=== PATIENT | female | born 1955 | race Caucasian/White ===

== ENCOUNTER → 2020-06-01 09:15 | Outpatient (BNVA) | payer MEDICARE, SELFPAY | PROVIDERS: Family Provider Family Medicine; PCP Family Medicine; Visit Provider Dermatology | DX: L90.0 Lichen sclerosus et atrophicus (principal); L98.9 Disorder of the skin and subcutaneous tissue, unspecified; B37.2 Candidiasis of skin and nail; F17.210 Nicotine dependence, cigarettes, uncomplicated | CPT/HCPCS: 99203; 99204 ==

== ENCOUNTER → 2020-07-26 13:00 | Outpatient (BNVA) | payer MEDICARE, SELFPAY | PROVIDERS: Family Provider Family Medicine; PCP Family Medicine; Visit Provider Dermatology | DX: L90.0 Lichen sclerosus et atrophicus (principal); L98.9 Disorder of the skin and subcutaneous tissue, unspecified; B37.2 Candidiasis of skin and nail; F17.210 Nicotine dependence, cigarettes, uncomplicated | CPT/HCPCS: 99213 ==

== ENCOUNTER 2020-11-29 08:00 | Outpatient (CLI) | payer MEDICARE, SELFPAY ==
--- NOTE | 2020-11-29 08:10 | XR_ITS ---
WS: [id number] RIGHT KNEE: 3 VIEW(S) TECHNIQUE: AP, oblique(s) and lateral. HISTORY: R KNEE PAIN COMPARISON: 09/27/2009 No fracture or dislocation. Mild narrowing of the medial compartment with small osteophytes. Lucency along the joint surface of t he medial femoral condyle measures 8 mm. No joint effusion. No soft tissue abnormality. XR/XR knee RT 3V* [id number] IMPRESSION: 1. Mild narrowing medial compartment. 2. Medial femoral condyle lucencies probably a developing osteochondral lesion . Not definitely seen on the prior study from 2008.
== END 2020-11-29 08:01 | disposition home or self-care (01) ==
PROVIDERS: PCP Family Medicine; Visit Provider Family Medicine
DX: M25.561 Pain in right knee (principal)
CPT/HCPCS: 73562

== ENCOUNTER 2023-03-05 08:22 | Outpatient (CLI) | payer MEDICARE, SELFPAY ==
--- NOTE | 2023-03-05 08:45 | XR_ITS ---
WS: [id number] Bilateral hips, 2 views each, AP pelvis, 03/05/2023 Clinical Data: LEFT HIP PAIN Comparison: None. Findings: Both hips show severe osteoarthritic change with narrowing, sclerosis and cyst formation. There are n o fractures or dislocations. The SI joints and pubic symphysis are normal. XR/XR hip BI m 5V wo/w pel* [id number] Impression: Severe osteoarthritic change of both hips.
--- NOTE | 2023-03-05 08:45 | XR_ITS ---
WS: [id number] Right knee, 3 views, 03/05/2023 Clinical Data: R KNEE PAIN Comparison: Right knee, 11/29/2020 Findings: No fractures or dislocations are seen. There is narrowing of the medial joint compartment with spurri ng of the medial tibial plateau. The medial femoral condyle demonstrates a possible osteochondral def ect. There is a spur of the lateral femoral condyle. There is a small spur of the posterior superior patella. The soft tissues are normal. XR/XR knee RT 3V* [id number] Impression: Mild osteoarthritis of the right knee. Kellgren-Mo Classification: grade 2 (minimal): definite osteophytes and p ossible joint space narrowing
--- NOTE | 2023-03-05 08:45 | XR_ITS ---
WS: [id number] Left knee, 3 views, 03/05/2023 Clinical Data: L KNEE PAIN Comparison: Left knee, 01/10/2016. Findings: No fractures or dislocations are seen. There is medial joint compartment narrowing with spurring of t he medial tibial plateau and medial femoral condyle. There is spurring of the posterior left patella. The soft tissues are unremarkable. XR/XR knee LT 3V* [id number] Impression: Mild osteoarthritis of the left knee. Kellgren-Mo Classification: grade 2 (minimal): definite osteophytes and p ossible joint space narrowing
== END 2023-03-05 08:23 | disposition home or self-care (01) ==
LOC: RAD 08:33
PROVIDERS: PCP Family Medicine; Visit Provider Family Medicine
DX: M25.552 Pain in left hip (principal); M25.562 Pain in left knee; M25.561 Pain in right knee; M17.0 Bilateral primary osteoarthritis of knee; M16.6 Other bilateral secondary osteoarthritis of hip
CPT/HCPCS: 73523; 73562

== ENCOUNTER → 2023-03-19 14:22 | Outpatient (BNVA) | payer MEDICARE, SELFPAY | PROVIDERS: PCP Family Medicine; Referring Provider Family Medicine; Visit Provider Orthopaedic Surgery | DX: M16.12 Unilateral primary osteoarthritis, left hip (principal) | CPT/HCPCS: 80048; 85025; 99213 ==

== ENCOUNTER → 2023-04-22 12:32 | Outpatient (BNVA) | payer MEDICARE, SELFPAY | PROVIDERS: PCP Family Medicine; Visit Provider Internal Medicine | DX: I48.20 Chronic atrial fibrillation, unspecified (principal); Z95.0 Presence of cardiac pacemaker; Z01.818 Encounter for other preprocedural examination; E03.9 Hypothyroidism, unspecified; J41.0 Simple chronic bronchitis; F17.210 Nicotine dependence, cigarettes, uncomplicated; I45.19 Other right bundle-branch block | CPT/HCPCS: 93005; 99204 ==

== ENCOUNTER 2023-05-08 06:27 | Outpatient (CLI) | payer MEDICARE, SELFPAY ==
--- NOTE | 2023-05-08 | ECG_ITS ---
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 Interpretive Statements NAME OF STUDY: LEXISCAN SESTAMIBI STRESS TEST INDICATION: [Chest Pain] Procedure: At the baseline, the blood pressure was 128/90 mmHg with a heart rate of 61 bpm. The electrocardiogram showed normal sinus rhythm, incomplete right bundle branch block with nonspecific ST-T wave changes. The Lexiscan was infused over a period of 20 seconds. A total of 0.4 mg of Lexiscan was infused. The stress phase was continued for a total of 5 minutes. Heart rate was at the end of stress phase was 69 bpm and a blood pressure of 145/62 mmHg. The EKG at the peak infusion revealed normal sinus rhythm with no significant ST-T wave changes. Sestamibi was injected 20 seconds after the Lexiscan infusion. Blood pressure at the end of recovery phase was 105/55 mmHg with a heart rate of 62 bpm. Conclusion: 1. Normal EKG response to Lexiscan infusion 2. No Lexiscan induced chest pain or cardiac arrhythmia. 3. Normal blood pressure and heart rate response. 4. Sestamibi/sestamibi perfusion scan pending; see separate report. Electronically Signed On 05-08-2023 12:36:37 CDT by Tyrese Mays M.D. [id number]
[2023-05-08 06:35] VITALS: BMI 37.3
--- NOTE | 2023-05-08 07:19 | NMCV_ITS ---
NM lakeisha perf SPECT r/s* [id number] Claudia Marie Age: 68 Gender: F : 1955 Exam Date: 05/08/2023 07:59 Ordering Phys: Tyrese Mays M.D ([email or web address]) Technologist: FRANK Long Exam Location: [facility] Indications: CHEST PAIN, PRE OP STRESS TEST Please see separate stress test report in [facility] for full findings IMAGE PROTOCOL Rest/Stress 1 Lexiscan Day Radiopharmaceutical Dose (mCi) Administration Site Administered by Rest: Tc-99m 10.9 IV FRANK Alegre Sestamibi Stress:Tc-99m 33.0 IV FRANK Alegre Sestamibi Rest: 08-May-2023 60 Discovery 630 Stress: 08-May-2023 30 Discovery 630 0.4mg Lexiscan. Supine position only as patient was unable to lay prone. SPECT RESULTS Technical Quality: Excellent Raw Data Analysis: Normal Image Corrections: No attenuation or motion correction applied Summed Stress Score: 3 Summed Rest Score: 2 Summed Difference Score: 2 PERFUSION FINDINGS There is small in size fixed perfusion defect noted in apical lateral wall. 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 Small area of partially reversible perfusion defect is seen in apical inferior wall. This is consistent with small area of prior infarct with minimal valarie-infarct ischemia in RCA territory. FUNCTIONAL RESULTS (calculated via Gated SPECT) Stress Image LV EF (%): 70 Stress EDV (mL):96 TID: 1.09 Stress ESV (mL):29 FUNCTIONAL FINDINGS: There is normal left ventricular systolic function. IMPRESSIONS 1. 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 No evidence of ischemia seen. 2. Small area of prior infarct with minimal valarie-infarct ischemia seen in RCA territory. 3. LV systolic function is normal. Tyrese Mays MD (Electronically Signed) Final Date: 08 May 2023 12:34 S
[2023-05-08] MEDS: regadenoson 0.4 Mg/5 ml Syringe IVP (08:48)
[2023-05-08 09:07] VITALS: BP 105/55; PULSE 72
== END 2023-05-08 06:28 | disposition home or self-care (01) ==
LOC: CDL 06:27
PROVIDERS: PCP Family Medicine; Visit Provider Internal Medicine
DX: R07.9 Chest pain, unspecified (principal); I25.2 Old myocardial infarction
CPT/HCPCS: 36415; 78452; 93017; 96374; A9500; J2785

== ENCOUNTER → 2023-05-16 07:04 | Outpatient (BNVA) | payer MEDICARE, SELFPAY | PROVIDERS: PCP Family Medicine; Visit Provider Student in an Organized Health Care Education/Training Program | DX: M16.12 Unilateral primary osteoarthritis, left hip (principal) | CPT/HCPCS: 99204 ==

== ENCOUNTER 2023-05-24 10:07 | Outpatient (CLI) | payer MEDICARE, SELFPAY | END 2023-05-24 10:08 | disposition home or self-care (01) | LOC: LAB 10:10 | PROVIDERS: PCP Family Medicine; Visit Provider Student in an Organized Health Care Education/Training Program | DX: Z01.818 Encounter for other preprocedural examination (principal) | CPT/HCPCS: 36415; 80053; 85025 ==

== ENCOUNTER 2023-05-27 12:36 | Outpatient (CLI) | payer MEDICARE, SELFPAY ==
[2023-05-27 13:05] LABS: Add Urine Microscopic? YES; Amorphous Sediment Urine 1+ /hpf; Bacteria Urine TRACE /hpf; Bilirubin Urine Neg (Negative); Blood Urine 2+ (Negative); Glucose Urine UA Norm (Normal); Ketones Urine Negative (Negative); Leukocyte Esterase Urine Trace (Negative); Mucus Urine 2+ /hpf; Nitrate Urine Negative (Negative); Protein Urine Neg (Negative); RBC Urine 0-4 /hpf (0-2); Urine Appearance SL Hazy (CLEAR); Urine Color Yellow (Yellow); Urobilinogen Urine 1 mg/dL (Negative); WBC Urine 0-4 /hpf (0-5); pH Urine 5 (5-7)
[2023-05-27 13:06] LABS: Add Urine Culture? No
--- NOTE | 2023-05-27 13:30 | CT_ITS ---
WS: [id number] CT LEFT HIP NONCONTRAST TECHNIQUE: Noncontrast CT of the LEFT hip to include the LEFT knee. [facility] CLINICAL INFORMATION: hip pain COMPARISON: None. DLP: [address] scans at [facility] use at least one of these dose optimization techniques: automated e xposure control; mA and/or kV adjustment per patient size (includes targeted exams where dose is matc hed to clinical indication); or iterative reconstruction. FINDINGS: Advanced degenerative arthritis both hips with joint space narrowing worse in the LEFT and associated subchondral cystic change. Associated periarticular sclerosis involving the femoral heads and acetab ulum bilaterally. Hypertrophic spurring and osteophytes about the acetabulum bilaterally. Hypertrophi c changes involving both femoral heads. Moderate LEFT greater than RIGHT joint effusions with synovia l thickening. Fluid in the LEFT iliopsoas and greater trochanteric bursa. Advanced facet arthropathy lower lumbar spine. Pubic rami appear intact. Sigmoid diverticulosis. Tiny fat-containing umbilical hernia. CT/CT hip LT [facility] IMPRESSION: Images obtained for preoperative purposes.
== END 2023-05-27 12:37 | disposition home or self-care (01) ==
PROVIDERS: PCP Family Medicine; Visit Provider Student in an Organized Health Care Education/Training Program
DX: Z01.818 Encounter for other preprocedural examination (principal); M16.0 Bilateral primary osteoarthritis of hip; M25.752 Osteophyte, left hip; M25.751 Osteophyte, right hip
CPT/HCPCS: 73700; 81001

== ENCOUNTER 2023-06-05 17:01 | Observation (INO) | payer MEDICARE, SELFPAY ==
[2023-06-05] VITALS (10 sets, daily range): BP systolic 93–148; BP diastolic 43–87; PULSE 60–76; RESP 16–20; TEMP 36.1–36.6; O2SAT 92–99; BMI 37.4
[2023-06-05] MEDS: lactated ringers 500 ML IV (12:12)
[2023-06-05] MEDS: sodium chloride 0.9% 1,000 ML 30 ML IV (12:13)
[2023-06-05] MEDS: midazolam 1 mg/mL INJ 2 mL 2 MG IVP (12:45)
[2023-06-05 13:15] LABS: Specific Gravity, Urine 1.015 (1.005-1.030); Urine Appearance Clear (CLEAR); Urine Color Yellow (Yellow); pH Urine 6.5 (5-7)
--- NOTE | 2023-06-05 13:15 | P.ANESUD_ITS ---
Pre-Anesthetic Update Pre-Anesthetic Assessment: Date of Surgery/Procedure: 06/05/23 Preop Penelope gnosis: Osteoarthritis left hip Proposed Procedure: Operation Date: 06/05/23 12:55 Proposed Procedures p left total hip arthroplasty/ 04806,M16.0(Left) - Mitesh Nelson, DO Any changes to Pre-Anesthetic Assessment?: No Last Intake: Intake Last Liquid Date 06/04/23 Last Liquid Time 21:30 Last Solid Date 06/04/23 Last Solid Time 21:30 Labs Last 48hrs: Blood Bank 06/05/23 11:31 Blood Type B Positive Rho(D) Type Positive Antibody Screen Negative Vitals: Temperature 97.8 F 06/05/23 11:39 Temperature Source Temporal Artery S can 06/05/23 11:39 Pulse Rate 76 06/05/23 11:39 Respiratory Rate 18 06/05/23 11:39 Blood Pressure 133/87 06/05/23 11:39 Blood Pressure Lesli n 102 06/05/23 11:39 Pulse Oximetry 96 06/05/23 11:39 Oxygen Delivery Me thod Room Air 06/05/23 11:39 Exam: Pre-Anes Outpt Exam: alert, oriented x 3, clear to auscultation bilaterally and regular rate & rhythm Cardiac Studies: Sestamibi Stress Test (Cardiology) 05/08
[2023-06-05 13:16] LABS: Add Urine Culture? No; Add Urine Microscopic? YES; Amorphous Sediment Urine 1+ /hpf; Bilirubin Urine Neg (Negative); Blood Urine Trace (Negative); Glucose Urine UA Norm (Normal); Ketones Urine Negative (Negative); Leukocyte Esterase Urine Negative (Negative); Mucus Urine 3+ /hpf; Nitrate Urine Negative (Negative); Protein Urine Neg (Negative); RBC Urine 0-4 /hpf (0-2); Squamous Epithelial Cell Urine 0-4 /hpf (0-5); Urobilinogen Urine 4 mg/dL (Negative); WBC Urine 0-4 /hpf (0-5)
[2023-06-05] MEDS: acetaminophen 1,000 MG/100 ML PIGGYBACK 400 MG IV ×2 (13:22→22:15)
[2023-06-05] MEDS: ketorolac 30 mg/mL INJ IVP (13:24)
--- NOTE | 2023-06-05 13:35 | W.PM.OPSUD ---
Surgery/Procedure H&P Update DATE OF PROCEDURE: June 05, 2023 DATE H&P PERFORMED: 05/16/23 CHANGES TO PREVIOUS DOCUMENTATION: None. No change in night patient's HPI since previous office visit. Patient is cleared preoperative clearing process with her preoperative clinic. Patient's a.m. urine has no bacteria this point in time patient is cleared to proceed with surgical intervention. She understands the risk benefits complications and alternatives with surgical nonsurgical treatment options this point time elects to proceed with a left total hip arthroplasty. All questions answered PREOP DIAGNOSIS: Osteoarthritis left hip PRIMARY INDICATION FOR PROCEDURE: Left hip osteoarthritis PLANNED PROCEDURE: Operation Date: 06/05/23 12:55 Proposed Procedures p left total hip arthroplasty/ 93079,M16.0(Left) - Mitesh Nelson DO
[2023-06-05] MEDS: ceFAZolin 2,000 MG in sodium chloride 0.9% (plus) 50 ML 100 MG IV ×2 (14:20→22:35)
[2023-06-05] MEDS: vancomycin 1,000 MG SDV 1000 MG XX ×2 (15:51)
--- NOTE | 2023-06-05 16:38 | XRR_ITS ---
PROCEDURE INFORMATION: Exam: XR Left Hip Exam date and time: 06/05/2023 5:08 PM Age: 68 years old Clinical indication: Hip pain; Left hip; Additional info: Post op left kaitlin, do in pacu TECHNIQUE: Imaging protocol: Radiologic exam of the left hip. Views: 2 or 3 views hip with pelvis when performed. COMPARISON: CT hip LT [facility] 05/27/2023 1:38 PM FINDINGS: Bones/joints: The patient has had a total left hip arthroplasty. On the AP view, a screw is seen projecting over the lateral margin of the ischium. It is not seen on the cross-table lateral view. Acetabular and femoral components are otherwise normal position. [place] bone is unremarkable. Soft tissues: Postoperative soft tissue changes are seen. XR/XR hip LT 2-3V wo/w pel* [id number] IMPRESSION: Postoperative left total hip arthroplasty findings as described above.
--- NOTE | 2023-06-05 16:40 | P.OP_ITS ---
Operative Report Date of procedure: June 05, 2023 Pre-op diagnosis: Preop Diagnosis Osteoarthritis left hip Procedure: Post-op diagnosis: Same Procedure done: Left total hip arthroplasty?Florin posterior approach Implants: Emery Trident TriTanium acetabular shell 54 mm Emery 6.5 mm acetabular screw 15 mm and 30 mm MDM liner 42 mm inner diameter polyethylene 36 mm inner diameter insert Emery Accolade II 127 degree size 4 Biolox ceramic femoral head 28 mm +4 mm offset with MDM liner of 28 mm x 48 mm outer diameter Surgeon: Mitesh Nelson DO Estimated blood loss: 300 mL IV fluids: See anesthesia record Complications: None Findings: See operative report narrative Condition: stable Disposition: floor Brief History: Patient was seen evaluate in the outpatient setting worked up for for left hip degenerative joint disease.? Gvoa-cs-yimt arthritis noted.? She is failed conservative treatment. We talked about her treatment options far as nonoperative and operative intervention.? This point time I feel that she would greatly benefit from a left total hip arthroplasty.? Given body habitus, she be a good candidate for a posterior approach left total hip arthroplasty utilizing Florin.? Document risk benefits complication alternatives surgical nonsurgical treatment options.? She understands and agrees to proceed with surgical intervention at this time.? All questions answered. Procedure: Patient was seen evaluate in preoperative holding area.? Consent was reviewed and signed with patient.? Correct extremity was then marked.? Patient seen evaluate by anesthesia department once cleared for surgery she was taken back to the operative suite.? She underwent spinal anesthesia per the anesthesia department.? This point time she was then placed on the operative suite and table.? She was then placed in lateral decubitus patient worked with the left hip up.? She was secured to the pegboard.? All bony prominences well-padded she was properly secured to the bed.? At this point time the right lower extremity was then prepped and draped in standard orthopedic fashion with care not to drape out the iliac wing for pelvic array placement.? Final timeout performed.? Patient received appropriate preoperative antibiotics. Started off with establishment of my pelvic array pins.? A small longitudinal incision was made directly over the iliac wing.? Sharp scalpel excision through skin and subcutaneous tissue directly onto bone.? Next I then loaded my pelvic pin.? This was then drilled through the iliac wing corridor with excellent fixation.? Next I then loaded the guide which was placed directly onto bone and then subsequently placed 2 more pins to secure fixation.? Next the pelvic array was then sent had excellent visualization with the Florin robot and was secured.? Next I proceeded with placing sterile EKG lead to the lateral thigh for distal reference marking point. Next I proceeded with my standard posterior approach.? Sharp scalpel through skin and subcutaneous tissue this was centered over the greater trochanter.? I then utilized a Diaz elevator over the gluteus shana fascia.? Next the fascia was then split longitudinally with bipolar electrocautery.? Next a Charnley retractor was then placed.? All bone was then placed into the abductors.? A standard full-thickness release of the piriformis and the short external rotators along with the capsule to grade 1 full thick sleeve for later repair was then placed straight down to the lesser trochanter.? Lesser trochanter was then subsequently identified.? Prior to dislocating the hip we then placed our greater trochanter femur checkpoint.? We marked our appropriate checkpoint for referencing on her pelvic array.? At this point in time we then established both of our checkpoints as well as her referencing for leg lengths I utilized the small square staple on the lateral aspect of the thigh to saúl my distal point.? The legs were marked and traced to have appropriate position on the drapes to allow for accurate reading.? Preoperative measurements were then taken utilizing [employer]. Once this was then established I then proceeded with dislocation of the femoral head.? At this point Hohmann's were then placed superiorly and inferiorly.? sciatic nerve was protected throughout this case.? At this point time I then utilized the Florin robot and referencing point to reference different aspects along the femoral head and neck for my appropriate neck length.? These were referenced on the inferior mid substance as well as up into the superior shoulder of the femoral neck.? This marked Subsequently oscillating saw was used to make my femoral neck cut.? Femoral head was removed. Next the leg was placed in appropriate position and my anterior and posterior acetabular retractors then placed.? Next I excised the labrum and then remove the pulse in our.? I did do a small release of the inferior capsule which was severely taut to allow for easier placement of my reamers as well as reduction.? Acetabulum was thoroughly irrigated.? Patient was found to have significant eburnated bone and loss of cartilage throughout the acetabulum consistent with severe ongv-td-ltho arthritis. At this point in time keeping my retractors in place. Then utilizing the Florin system plotted out multiple points on her inner aspects of the acetabulum as well as the outer aspects of the acetabulum as well as targeted my confirmation points to confirm appropriate registration of the acetabulum once this was done we were set for reaming. I subsequently loaded up the [employer] robot for my acetabular reaming I set my 54 reamer under the Florin robot and subsequently held this with appropriate preplanned preop planned version of 40 degrees of abduction angle as well as 20 degrees of anteversion.? I then subsequently reamed this to the appropriate depth.? We opened up the acetabular shell of the 54 mm Alo this was then loaded onto my impacting system and then I subsequently impacted this to appropriate depth.? This was then removed from the robot and I used the Florin probe at the center to confirm on the CT scan that this was down on bone which it was.? Next I then drilled and placed 2 acetabular screws with excellent fixation these were drilled and measured to be 30 and 15 mm this was in the posterior superior aspect of the acetabulum had excellent fixation.? The cup was solid with no evidence of plain had excellent press-fit fixation. Plan for MDM for added stability subsequently opened MDM cementless liner and impacted this into appropriate position which had excellent fixation. I then placed a sponge into the acetabulum to protect the liner while femur preparation was performed.? At this point time I then utilized a small rongeur to clear off the shoulder of the femoral neck to clear out the soft tissue envelope for my box osteotome.? Next box osteotome was used a canal finder was placed as well as a lateralizing rattail rasp.? Once I was appropriately lateralized I then sequentially broached up to a size 4 femoral stem.? This was impacted to appropriate depth and flushed with my femoral neck cut.? This point I performed multiple trials and and subsequently reduced the hip.? With multiple trials performed was determined a +4 mm offset was found to have appropriate leg lengths with the Florin robot. Patient appeared to have equal leg lengths clinically.? The hip was taken through range of motion and had excellent stability with hip flexion and internal rotation with no evidence of instability had an appropriate shuck.? This point time utilized the Florin probe from our femur checkpoint down to her distal checkpoint and this had appropriate leg lengths.? At this point I dislocated the hip and then called for my final implants.? Opened up a 127 degree size 4 femoral Accolade II stem.? My trials were then removed and then subsequently impacted my Accolade II stem to the same level.? Given this was at the same level I then opened up the final MDM 28 mm +4 mm ceramic femoral head which was impacted with an ADM/MDM liner which had a 28 mm inner diameter and 48 mm outer diameter.? This was impacted with excellent fixation and the hip was subsequently reduced.? We measured our final leg lengths which were appropriate patient had excellent stability in all ranges of motion.? This point time a robotic pins and checkpoints were removed.? I remove the femur checkpoint as well as my pelvic array and iliac wing pins.? Appropriate counts were then made.? This point time thoroughly irrigated the wound bed with pulse lavage.? Vancomycin powder was then sprinkled into the wound bed.? I then performed a standard capsular and external rotator repair utilizing #5 Ethibond and this was tied and repaired through bone tunnels hip was then kept in abduction external rotation 1 and subsequently closed the fascial layer with Ethibond suture as well as running strata fix suture.? I then closed the deep subcutaneous layer as well as superficial subcutaneous layer with running strata fix suture as well as 4-0 strata fix for skin.? Prineo glue dressing was then placed over the skin.? I then irrigated the pelvic array pin site.? There is were then closed with interrupted 0, 2-0 Vicryl suture and Monocryl as well as Prineo glue for the skin.? Incisions were then covered with Silverlon dressing for the iliac wing and the tenzin dressing was applied to the left hip.? Patient was awakened from anesthesia and taken to PACU in stable condition Disposition: Patient taken to PACU in stable condition.? She will receive appropriate discharge instructions as well as DVT prophylaxis and pain medication.? She will be admitted to the floor for observation should be evaluated by the internal medicine team for medical management.? Patient received appropriate DVT prophylaxis as well as pain medication PT/OT weightbearing as tolerated left lower extremity with posterior hip precautions.? We will follow-up with patient in the office in 2 weeks.? Patient understands agrees with current plan.? All questions answered.
--- NOTE | 2023-06-05 16:40 | P.PCN_ITS ---
PACU note Narrative: Patient taken to PACU in stable condition recovering well pain controlled. Patient received spinal anesthesia unable to assess motor or sensory postoperatively. Dressings are on in place clean dry and intact with tenzin dressing having good seal no saturation. Distal pulses are palpable toes are w arm well perfused compartments are soft and compressible. We will reassess motor and sensory tomorrow. Exam: awake Disposition: admitted
--- NOTE | 2023-06-05 16:40 | PM.OP2 ---
Brief Operative Note Date of procedure: 06/05/23 Pre-op diagnosis: Left hip degenerative joint disease Post-op diagnosis: same Procedure Done: Left total hip arthroplasty?Florin robotic assisted?posterior approach Surgeon: Mitesh Nelson Estimated blood loss (mL): 300 Complications: None Post-op Plan: Patient taken to PACU in stable condition recovering well. Will return to the floor postoperatively. Patient receive appropriate discharge instructions as well as pain medication DVT prophylaxis. Patient will receive postop DVT prophylaxis TXA postoperative pain control, postoperative antibiotics. PT/OT. Weightbearing as tolerated to the left lower extremity posterior hip precautions. Patient follow-up in the orthopedic office in 2 weeks upon discharge. Plan for likely discharge home discharge. Condition: stable Disposition: floor Coding Level of Care Code Acute Code for Leo Robbins
--- NOTE | 2023-06-05 17:16 | PM.CONSULT ---
Providers/Reason For Consult Consulting Physician/Specialty*: Dr. Nelson/orthopedics Reason for Consult*: Medical Management Attending Physician: Mitesh Nelson DO Primary Care Provider: Gemini Morris MD History of Present Illness History of Present Illness Pleasant 68-year-old lady with history of atrial fibrillation, on aspirin 81 mg normally, COPD, hypothyroidism, cigarette smoking, underwent left total hip arthroplasty electively due to osteoarthritis. Reportedly uneventful procedure, 300 mL EBL. With comorbidities hospitalist asked to consult. She is awake and alert after her surgery. She reports otherwise has been in baseline state of health. Not normally on oxygen. Uses a nebulizer as needed at home for COPD. On low-dose aspirin for atrial fibrillation. Had a stress test back in April without evidence of active ischemia with small area of prior infarct in LCx and small area of prior infarction with minimal valarie-infarct ischemia seen in RCA territory. Normal LV systolic function. Review of Systems Const: Denies: fever(s) or chills Card: Denies: chest pain, edema, pre-syncope or dyspnea on exertion Resp: Denies: dyspnea, productive cough, change in phlegm color or hemoptysis GI: Denies: abdominal pain, nausea, vomiting, diarrhea, constipation, hematochezia or melena Skin/Breast: Denies: new lesions Medications/Allergies Home Medications Medication Instructions Recorded Confirmed Last Taken Type albuterol sulfate 90 mcg/actuation 2 puff inhalation Q6H PRN sob 06/01/20 06/05/23 06/04/23 History aerosol inhaler (Ventolin HFA) aspirin 81 mg tablet,delayed 81 mg PO DAILY 06/01/20 06/05/23 05/27/23 History release (Aspir-) nebulizers #1 ea 06/01/20 05/16/23 Unknown History levothyroxine 125 mcg capsule 137 mcg PO DAILY 03/19/23 06/05/23 06/05/23 05:30 History Allergies Allergy/AdvReac Type Severity Reaction Status Date / Time hydromorphone [From Dilaudid] Allergy vomiting Verified 06/05/23 11:15 Current Medications Generic Name Dose Route Start Last Admin Trade Name Freq PRN Reason Stop Dose Admin Sodium Chloride 1,000 mls @ 30 mls/hr 06/05/23 11:30 06/05/23 12:13 Sodium Chloride 0.9% IV 06/06/23 11:29 30 mls/hr .Q24H RAFI Administration Midazolam HCl 2 mg 06/05/23 11:22 06/05/23 12:45 Midazolam 1 Mg/Ml Inj 2 Ml IVP 2 mg ONCE PRN Administration Preop Anxiety PFSH Acute PFSH: Medical History Afib Arrhythmia COPD (chronic obstructive pulmonary disease) Hypothyroidism Pre-op evaluation Tobacco dependence X 46 years Surgical History History of appendectomy History of cholecystectomy History of hernia repair History of left knee surgery History of pacemaker 2016 History of torn meniscus of right knee Hx of cataract surgery Hx of shoulder surgery Stenosis, cervical spine has cervical surgery with plate and [address] Family History Other Cancer Denies family history of Diabetes CAD (coronary artery disease) Clotting disorder Anesthesia complication Bleeding disorder Hypertension Social History Smoking and tobacco status: current some day smoker cigarettes [ Other cigarette details: 2 cig month max of 3 per day] Alcohol intake: current Alcohol intake frequency: few times a month Alcohol type: beer Substance/Drug Use: never Vitals/I&O/Wt Last Vital Signs Temp 97 F L 06/05/23 16:56 Pulse 76 06/05/23 17:14 Resp 16 06/05/23 17:14 BP 93/55 06/05/23 17:06 Pulse Ox 98 06/05/23 17:14 O2 Del Method Room Air 06/05/23 17:14 06/05/23 06/05/23 06/05/23 06:59 14:59 22:59 Intake Total 760 / 760 200 / 960 Output Total 600 / 600 Balance 760 / 760 -400 / 360 Weight last 48 hrs Weight 108.409 kg Physical Exam Const: COMMON NORMALS: patient oriented x3 and alert GENERAL APPEARANCE: cooperative ORIENTATION/CONSCIOUSNESS: Yes awake HENMT: COMMON NORMALS: oropharynx normal Neck/C-Spine: COMMON NORMALS: no JVD Resp: COMMON NORMALS: normal respiratory effort and clear to auscultation bilaterally AUSCULTATION: clear to auscultation bilaterally Cardio: COMMON NORMALS: no JVD, regular rhythm, S1 normal heart sound present, S2 normal heart sound present and No murmurs present (Cardio) RHYTHM: regular rhythm HEART SOUNDS: S1 normal heart sound present and S2 normal heart sound present GI: COMMON NORMALS: Normal to inspection, nondistended, normoactive bowel sounds present, Soft to palpation and non-tender PALPATION: Yes Soft to palpation Extremity: COMMON NORMALS: no joint enlargement and no pedal edema OTHER: Left hip postoperative dressing. No bruising or swelling. Neuro: COMMON NORMALS: patient oriented x3 and moves all extremities SENSORIUM/ORIENTATION: Yes alert Skin: OTHER: Areas under her breasts, on abdominal wall, upper thighs, and skin folds of lichenification, 2 areas with shallow ulceration/abrasion. Mild erythema. Mild malodor. No tunneling, undermining. No drainage. Urinary Catheter Management: Mallory: Cath Placed During This Visit: yes Urinary Catheter Date of Insertion: 06/05/23 Urinary Catheter Time of Insertion: 14:43 A&P Assessment and plan (1) S/P total hip arthroplasty: S/p elective left hip arthroplasty due to osteoarthritis. Reported uneventful procedure. EBL 300 mL. Discussed with her, follow-up CBC. Per discussion with orthopedics plan will be to return home tomorrow if everything goes well. Orthopedics planning Eliquis for VTE prophylaxis. Incentive spirometer. (2) Afib: Normally on aspirin. Previously declined anticoagulation. She would be okay with short-term anticoagulation for VTE prophylaxis as planned by orthopedics. Not on rate control medication. Cardiac monitoring perioperatively. Recheck chemistry for potassium, check magnesium. Reviewed cardiology note. Qualifiers: Atrial fibrillation type: unspecified chronic Qualified Code(s): I48.20 - Chronic atrial fibrillation, unspecified (3) COPD (chronic obstructive pulmonary disease): Not in the elevation. Uses nebulizer at home as needed. We will add nebulizer as needed. Qualifiers: COPD type: chronic bronchitis Chronic bronchitis type: simple Qualified Code(s): J41.0 - Simple chronic bronchitis (4) Hypothyroidism: Continue levothyroxine (5) Tobacco dependence: Discussed nicotine lozenges as needed for cravings. Encourage cessation. (6) Osteoarthritis of left hip: Qualifiers: Osteoarthritis type: primary Qualified Code(s): M16.12 - Unilateral primary osteoarthritis, left hip (7) Osteoarthritis of right knee: (8) History of pacemaker: Plan Areas of dermatitis: Reports chronic condition being diagnosed by dermatology as lichen sclerosus. At home uses hydrocortisone cream as needed. Areas under her breasts, on abdominal wall, upper thighs, and skin folds of lichenification, 2 areas with shallow ulceration/abrasion. Mild erythema. Mild malodor. With possible fungal superinfection. Possibly due to more perspiration in the summer. Discussed with her we will add some antifungal cream. Follow-up with dermatology. Possible CAD: With noted stress test results as above. Continue aspirin. May benefit from statin. Monitor blood pressure, heart rates for consideration of beta-jose enrique. Currently BP soft, 107/61. Consult Attestations Medical Necessity Statement: Continue postoperative care after total left hip arthroplasty in a lady with the above underlying comorbidities. Diagnoses S/P total hip arthroplasty Z96.649 Afib I48.20 Atrial fibrillation type: unspecified chronic COPD (chronic obstructive pulmonary disease) J41.0 COPD type: chronic bronchitis Chronic bronchitis type: simple Hypothyroidism E03.9 Tobacco dependence F17.200 Osteoarthritis of left hip M16.12 Osteoarthritis type: primary Osteoarthritis of right knee M17.11 History of pacemaker Z95.0
[2023-06-05] MEDS: chlorhexidine gluconate 0.12% Btl 473 mL 30 ML MUCOUS MEM ×2 (18:43→22:14)
[2023-06-05] MEDS: calcium carb-vit d 600mg/400unit 1 Tablet 1 EACH PO (18:43)
[2023-06-05] MEDS: lactated ringers 1,000 ML 100 ML IV (18:43)
[2023-06-05] MEDS: sennosides-docusate Tablet 2 TAB PO (18:44)
[2023-06-05] MEDS: miconazole 2% topical cream 28 gm 1 APPLIC TOPICAL (18:44)
[2023-06-05] MEDS: mupirocin oint 22 gm 1 APPLIC NASAL (18:44)
[2023-06-05] MEDS: iron polysaccharide complex 150 mg Capsule PO (18:44)
[2023-06-05] MEDS: oxyCODONE 5 mg IR Tab/Cap PO (20:51)
[2023-06-05] MEDS: ketorolac 30 mg/mL INJ 15 MG IVP (23:38)
[2023-06-06] VITALS (14 sets, daily range): BP systolic 104–149; BP diastolic 55–77; PULSE 60–76; RESP 16–20; TEMP 36.4–37; O2SAT 92–97
[2023-06-06] MEDS: oxyCODONE 5 mg IR Tab/Cap PO ×5 (01:28→19:26)
[2023-06-06] MEDS: ceFAZolin 2,000 MG in sodium chloride 0.9% (plus) 50 ML 100 MG IV ×2 (05:42→16:20)
[2023-06-06] MEDS: lactated ringers 1,000 ML 100 ML IV ×2 (05:45→20:44)
[2023-06-06 06:26] LABS: Basophils % 0.4 %; Eosinophils # 0.1 10^3/uL (0.0-0.8); Eosinophils % 1.6 %; Hematocrit 35.9 % (37.0-47.0); Hemoglobin 11.9 g/dL (11.5-15.3); Lymphocytes # 1.6 10^3/uL (0.8-4.8); Lymphocytes % 20.3 %; Mean Corpuscular HGB Conc 33.1 g/dL (30.0-36.0); Mean Corpuscular Hemoglobin 32.2 pg (28.0-34.0); Mean Platelet Volume 11.6 fL (7.4-10.4); Monocytes # 0.6 10^3/uL (0.2-0.9); Neutrophils # 5.47 10^3/uL (1.8-7.7); Neutrophils % 69.2 %; Nucleated Red Blood Cells % 0 %; Platelet Count 152 10^3/cmm (130-400); Red Cell Distribution Width 13.2 % (12.1-15.1); White Blood Count 7.9 10^3/uL (4.0-10.0)
[2023-06-06] MEDS: acetaminophen 1,000 MG/100 ML PIGGYBACK 400 MG IV ×2 (06:58→14:14)
[2023-06-06 07:07] LABS: Anion Gap 13.8 (5-19); Blood Urea Nitrogen 15 mg/dL (8-23); Calcium 8.3 mg/dL (8.5-10.5); Carbon Dioxide 24 mmol/L (22-29); Chloride 105 mmol/L (98-107); Glomerular Filtration Rate 99.1 mL/min (90-130); Glucose 109 mg/dL (65-115); Osmolality Calculated 289 mOsm/kg (285-295); Potassium 3.8 mmol/L (3.5-5.1); Sodium 139 mmol/L (136-145)
[2023-06-06 07:19] LABS: Magnesium 1.7 mg/dL (1.7-2.3)
[2023-06-06] MEDS: aspirin 81 mg EC Tablet PO (10:10)
[2023-06-06] MEDS: multivitamin therapeutic Tablet 1 TAB PO (10:11)
[2023-06-06] MEDS: iron polysaccharide complex 150 mg Capsule PO ×2 (10:11→17:39)
[2023-06-06] MEDS: levothyroxine 137 mcg Tablet PO (10:11)
[2023-06-06] MEDS: calcium carb-vit d 600mg/400unit 1 Tablet 1 EACH PO ×2 (10:12→17:39)
[2023-06-06] MEDS: miconazole 2% topical cream 28 gm 1 APPLIC TOPICAL ×2 (10:12→17:40)
[2023-06-06] MEDS: sennosides-docusate Tablet 2 TAB PO ×2 (10:12→17:38)
--- NOTE | 2023-06-06 10:29 | PC.CHAP ---
Pastoral Care Encounter/Spiritual Assessment Type of Contact [] Declined meat pumper visit [] Patient/Family/Request visit [] Outpatient visit [] Follow-up visit [] Physician referral [] Code/Alert [x] Routine visit [] Staff referral [] Actively dying [] Patient sleeping [] Family support [] [] Out of room [] Palliative care [] [x] Receiving care in room [] Pre-surgical visit [] Trauma [] Long length of stay [] ICU visit [] Other: Relational/Emotional Strength [x] Patient feels connected with others/family/visitors/staff [] Distress [] Loneliness/isolation [] Abandonment Spirituality of Patient [x] Person of [place] [] Attends Latter-Day of their [place] [x] Believes in Prayer [] Reads Bible or Worship materials [] There are Spiritual issues to be addressed Wind Up Worker Interventions [x] Prayer [x] Active listening [x] Non-anxious presence [x] Spiritual/emotional support [] Crisis/trauma care [x] Spiritual counseling [] Bereavement support [] Provided bereavement packet [] Provided Bible/devotional materials [] Provided toy/stuffed animal, coloring book to patient or family member [] Provided Communion [] Anointing/[place] [] Salvation [x] Completed spiritual assessment [] Other: Impact on Illness or Injury [] Angry [] Fearful [] Anxious [] Often cries [] Exhaustion [] Unable to work [] Unable to attend adventism [] Unable to walk/stand [] Unable to read [] Unable to drive [] Unable to eat/drink [] Unable to sleep [] Unable to be with family [] Patient intubated [] Other: Summary surgery on hip has some pain well need some rehab at home has a good attitude going home Time spent with patient 10 mins
[2023-06-06] MEDS: chlorhexidine gluconate 0.12% Btl 473 mL 30 ML MUCOUS MEM ×4 (10:40→20:45)
[2023-06-06] MEDS: mupirocin oint 22 gm 1 APPLIC NASAL ×2 (10:41→17:40)
--- NOTE | 2023-06-06 11:49 | P.PN_ITS ---
Subjective Subjective: Her left hip is sore but she otherwise doing well. Got up with therapy to the chair. She is using incentive spirometer. Denies trouble breathing. No other new developments. Vitals/I&O/Wt Last Vital Signs Temp 98.0 F 06/06/23 11:02 Pulse 60 06/06/23 11:02 Resp 17 06/06/23 11:02 BP 104/55 06/06/23 11:02 Pulse Ox 95 06/06/23 11:02 O2 Del Method Room Air 06/06/23 11:02 06/05/23 06/06/23 06/06/23 22:59 06:59 14:59 Intake Total 477.5 / 1237.5 1270 / 2507.5 460 / 460 Output Total 600 / 600 400 / 1000 Balance -122.5 / 637.5 870 / 1507.5 460 / 460 Weight last 48 hrs Weight 108.409 kg Physical Exam Narrative: Up in chair. Const: COMMON NORMALS: patient oriented x3 and alert GENERAL APPEARANCE: cooperative ORIENTATION/CONSCIOUSNESS: Yes awake HENMT: COMMON NORMALS: oropharynx normal Neck/C-Spine: COMMON NORMALS: no JVD Resp: COMMON NORMALS: normal respiratory effort and clear to auscultation bilaterally AUSCULTATION: clear to auscultation bilaterally Cardio: COMMON NORMALS: no JVD, regular rhythm, S1 normal heart sound present, S2 normal heart sound present and No murmurs present (Cardio) RHYTHM: regular rhythm HEART SOUNDS: S1 normal heart sound present and S2 normal heart sound present GI: COMMON NORMALS: Normal to inspection, nondistended, normoactive bowel sounds present, Soft to palpation and non-tender PALPATION: Yes Soft to palpation Extremity: COMMON NORMALS: no joint enlargement and no pedal edema Neuro: COMMON NORMALS: patient oriented x3 and moves all extremities SENSORIUM/ORIENTATION: Yes alert Urinary Catheter Management: Mallory: Cath Placed During This Visit: yes, but has since been removed by the nurse Reason for Continuing Indwelling Catheter: Acute Urinary Retention or Obstruction Urinary Catheter Date of Insertion: 06/05/23 Urinary Catheter Time of Insertion: 14:43 Date Urinary Catheter Removed: 06/06/23 Time Urinary Catheter Discontinued: 06:18 Data 06/06/23 05:04 06/06/23 05:04 A&P Assessment and plan (1) S/P total hip arthroplasty: Some pain in the left hip, otherwise doing well. Hemoglobin noted 11.9. Platelets 152. On Eliquis VTE prophylaxis. Mallory has been discontinued. Assessed by PT. Continue pain control. Follow-up CBC. Continue incentive spirometer. Reviewed orthopedic documentation. Discussed with case management. (2) Afib: Replace magnesium. 2 g IV. Recheck magnesium level. Supplement added to home medications. Normally on aspirin. Previously declined anticoagulation. She would be okay with short-term anticoagulation for VTE prophylaxis as planned by orthopedics. Continue cardiac monitoring perioperatively. Recheck chemistry for potassium, check magnesium. Qualifiers: Atrial fibrillation type: unspecified chronic Qualified Code(s): I48.20 - Chronic atrial fibrillation, unspecified (3) COPD (chronic obstructive pulmonary disease): Not in exacerbation. Uses nebulizer at home as needed. Continue nebulizer as needed. Qualifiers: COPD type: chronic bronchitis Chronic bronchitis type: simple Qualified Code(s): J41.0 - Simple chronic bronchitis (4) Hypothyroidism: Continue levothyroxine (5) Tobacco dependence: Discussed nicotine lozenges as needed for cravings. Encourage cessation. (6) Osteoarthritis of left hip: Qualifiers: Osteoarthritis type: primary Qualified Code(s): M16.12 - Unilateral primary osteoarthritis, left hip (7) Osteoarthritis of right knee: (8) History of pacemaker: Plan Areas of dermatitis: Reports chronic condition being diagnosed by dermatology as lichen sclerosus. At home uses hydrocortisone cream as needed. Areas under her breasts, on abdominal wall, upper thighs, and skin folds of lichenification, 2 areas with shallow ulceration/abrasion. Mild erythema. Mild malodor. With possible fungal superinfection. Possibly due to more perspiration in the summer. Continue miconazole. Follow-up with dermatology. Possible CAD: With noted stress test results as above. Continue aspirin. May benefit from statin. Monitor blood pressure, heart rates for consideration of beta-jose enrique. Currently BP soft, 104/55. Attestations Medical Necessity Statement*: Continue hospitalization for post left hip arthroplasty, optimization of pain control, discharge planning. Diagnoses S/P total hip arthroplasty Z96.649 Afib I48.20 Atrial fibrillation type: unspecified chronic COPD (chronic obstructive pulmonary disease) J41.0 COPD type: chronic bronchitis Chronic bronchitis type: simple Hypothyroidism E03.9 Tobacco dependence F17.200 Osteoarthritis of left hip M16.12 Osteoarthritis type: primary Osteoarthritis of right knee M17.11 History of pacemaker Z95.0
--- NOTE | 2023-06-06 13:06 | PM.PN ---
Subjective Subjective: Patient seen and examined this morning she is recovering well. She has been a little slower to progress with therapy and still requiring pain medications at this point time through shared decision making she does not feel very comfortable discharging today and and would like to discharge tomorrow. Given her slow her progress with some therapy I think in her safest and best interest for an additional day of therapy to see how she progresses and likely discharge home with home health care tomorrow. Patient understands agrees with current plan. All questions answered. No issues overnight. Pain controlled with medications. Vitals/I&O/Wt Last Vital Signs Temp 98.0 F 06/06/23 11:02 Pulse 60 06/06/23 11:02 Resp 17 06/06/23 11:02 BP 104/55 06/06/23 11:02 Pulse Ox 95 06/06/23 11:02 O2 Del Method Room Air 06/06/23 11:02 06/05/23 06/06/23 06/06/23 22:59 06:59 14:59 Intake Total 477.5 / 1237.5 1270 / 2507.5 700 / 700 Output Total 600 / 600 400 / 1000 Balance -122.5 / 637.5 870 / 1507.5 700 / 700 Weight last 48 hrs Weight 239 lb Physical Exam Narrative: Examination left hip abduction pillow is on in place. Patient spinal anesthesia is worn off she is able to wiggle her toes plantarflex and dorsiflex ankle sensations intact light touch distally. Distal pulses are palpable toes are warm well perfused. Ingrid dressing on in place to the left hip with good seal with no signs of saturation Silverlon dressing to the iliac wing pin sites are clean dry and intact. Normal postoperative swelling and ecchymosis about the left hip. Urinary Catheter Management: Mallory: Cath Placed During This Visit: yes, but has since been removed by the nurse Reason for Continuing Indwelling Catheter: Acute Urinary Retention or Obstruction Urinary Catheter Date of Insertion: 06/05/23 Urinary Catheter Time of Insertion: 14:43 Date Urinary Catheter Removed: 06/06/23 Time Urinary Catheter Discontinued: 06:18 Data 06/07/23 07:10 06/07/23 04:56 Other Labs: A.m. labs 06/06/2023 WBC count 7.9, hemoglobin 11.9 Xray Ortho: My impression: Postoperative hip x-rays demonstrate stable left total hip arthroplasty with appropriate implant positioning alignment and appropriate leg lengths. No evidence of periprosthetic fracture or dislocation. A&P Assessment and plan (1) S/P total hip arthroplasty: Plan Weight-bear as tolerated left lower extremity Posterior hip precautions Resume regular diet PT/OT DVT prophylaxis Completion of postoperative antibiotics and postoperative TXA Internal medicine on board for medical management Ingrid dressing on in place we will leave on for roughly 7 days postoperatively change as needed if saturated Pain control Ice as needed Orthopedics will continue to follow plan for likely discharge tomorrow as she will need another day today for therapy Attestations Medical Necessity Statement*: Postoperative care left total hip arthroplasty Coding Level of Care Code Acute Code for Chg Fwd Diagnoses S/P total hip arthroplasty Z96.649 Time Spent (min) 25
[2023-06-06] MEDS: TRAMadol 50 mg Tablet PO (13:22)
[2023-06-06] MEDS: magnesium sulfate premix 2 GM/50 ML PIGGYBACK IV (13:23)
[2023-06-06] MEDS: apixaban 5 mg Tablet 2.5 MG PO ×2 (13:23→17:39)
--- NOTE | 2023-06-06 15:25 | ANE.PACU2 ---
Inpatient post-anesthesia follow up: Airway intact: Yes Vital signs: Temperature 98.0 F Pulse Rate 60 Respiratory Rate 17 Blood Pressure 104/55 Pulse Oximetry 95 Oxygen Delivery Me thod Room Air Oxygen Flow Rate Fraction of Inspir ed Oxygen Hydration adequate: Yes Nausea and vomiting: No Pain level: 3 Mental status: Baseline
[2023-06-07] VITALS (10 sets, daily range): BP systolic 120–169; BP diastolic 70–86; PULSE 67–80; RESP 14–20; TEMP 36.5–37.1; O2SAT 90–95
[2023-06-07] MEDS: oxyCODONE 5 mg IR Tab/Cap PO ×3 (03:51→12:18)
[2023-06-07 06:16] LABS: Magnesium 1.6 mg/dL (1.7-2.3)
--- NOTE | 2023-06-07 06:51 | P.DS_ITS ---
Discharge Providers Date of Admission: 06/05/23 17:01 Date of Discharge: June 07, 2023 Attending Provider at Admission: Mitesh Nelson DO Attending Provider at Discharge: Mitesh Nelson DO Consults: Dr. Smith?internal medicine Primary Care Provider: Gemini Morris MD Diagnoses at Discharge Discharge Diagnosis (1) S/P total hip arthroplasty: Status: Acute (2) Afib: Status: Acute Qualifiers: Atrial fibrillation type: unspecified chronic Qualified Code(s): I48.20 - Chronic atrial fibrillation, unspecified (3) COPD (chronic obstructive pulmonary disease): Status: Acute Qualifiers: COPD type: chronic bronchitis Chronic bronchitis type: simple Qualified Code(s): J41.0 - Simple chronic bronchitis (4) Hypothyroidism: Status: Acute (5) Osteoarthritis of left hip: Status: Resolved Qualifiers: Osteoarthritis type: primary Qualified Code(s): M16.12 - Unilateral primary osteoarthritis, left hip (6) Osteoarthritis of right knee: Status: Acute (7) History of pacemaker: Status: Acute Permanent problem details: 2015 Reason for Visit Reason for Visit: M16.0 Brief History: Left total hip arthroplasty?Florin robotic assisted Hospital Course Hospital Course Patient was brought to the hospital through the preoperative holding area with plan for left total hip arthroplasty for left hip degenerative joint disease. Once cleared by anesthesia for surgery subsequently was taken back to the operative suite underwent? anesthesia per the anesthesia department and then underwent left total hip arthroplasty with Florin robotic assistance without any complications.? Patient was then subsequently taken back to PACU in stable condition recovering well.? Once recovered, patient was then subsequently admitted to the floor postoperatively.? Internal medicine was consulted for medical management assistance.? Patient weightbearing as tolerated to the left lower extremity, posterior hip precautions.? PT/OT.? Pain control.? DVT prophylaxis.? Postoperative antibiotics and TXA.?? Tenzin incisional VAC dressing was change as needed.? Internal medicine was on board and appreciate their medical management and assistance.Pt was determined on postoperative day 2 the patient was stable for discharge from orthopedic as well as internal medicine standpoint.? Patient's labs were monitored daily.?Patient will receive appropriate pain medication as well as DVT prophylaxis postoperatively.?? Appropriate discharge instructions as well.? Patient was then discharged in stable condition.? Patient will discharge home with home health care.? Pt will follow-up with Dr. Nelson in the office in 2 weeks.? Patient understands and agrees with current plan.? All questions answered.? Understands there is any issues or concerns and contact the office. Physical Exam Narrative: Examination left hip abduction pillow is on in place. Patient spinal anesthesia is worn off she is able to wiggle her toes plantarflex and dorsiflex ankle sensations intact light touch distally. Distal pulses are palpable toes are warm well perfused. Tenzin dressing on in place to the left hip with good seal with no signs of saturation Silverlon dressing to the iliac wing pin sites are clean dry and intact. Normal postoperative swelling and ecchymosis about the left hip. Urinary Catheter Management: Mallory: Cath Placed During This Visit: yes, but has since been removed by the nurse Reason for Continuing Indwelling Catheter: Acute Urinary Retention or Obstruction Urinary Catheter Date of Insertion: 06/05/23 Urinary Catheter Time of Insertion: 14:43 Date Urinary Catheter Removed: 06/06/23 Time Urinary Catheter Discontinued: 06:18 Discharge Data Studies Completed and Pending Completed Studies During Hospitalization Category Date Time Status XR hip LT 2-3V wo/w pel* [id number] Routine Exams 06/05/23 16:38 Completed Pending at discharge Category Date Time Status Basic Metabolic Panel AM LABS Lab 06/07/23 04:56 Received Basic Metabolic Panel AM LABS Lab 06/08/23 04:00 Ordered Complete Blood Count w/Auto AM LABS Lab 06/07/23 04:00 Ordered Complete Blood Count w/Auto AM LABS Lab 06/08/23 04:00 Ordered Radiology Impressions Hip/Pelvis X-Ray 06/05/23 16:38 IMPRESSION: Postoperative left total hip arthroplasty findings as described above. Laboratory Results WBC 7.9 10^3/uL (4.0-10.0) 06/06/23 05:04 RBC 3.70 10^6/uL (4.1-5.3) L 06/06/23 05:04 Hgb 11.9 g/dL (11.5-15.3) 06/06/23 05:04 Hct 35.9 % (37.0-47.0) L 06/06/23 05:04 MCV 97.0 fl (81-99) 06/06/23 05:04 MCH 32.2 pg (28.0-34.0) 06/06/23 05:04 MCHC 33.1 g/dL (30.0-36.0) 06/06/23 05:04 RDW 13.2 % (12.1-15.1) 06/06/23 05:04 Plt Count 152 10^3/cmm (130-400) 06/06/23 05:04 MPV 11.6 fL (7.4-10.4) H 06/06/23 05:04 Neut % (Auto) 69.2 % 06/06/23 05:04 Lymph % (Auto) 20.3 % 06/06/23 05:04 [place] % (Auto) 8.0 % 06/06/23 05:04 Eos % (Auto) 1.6 % 06/06/23 05:04 Baso % (Auto) 0.4 % 06/06/23 05:04 Neut # (Auto) 5.47 10^3/uL (1.8-7.7) 06/06/23 05:04 Lymph # (Auto) 1.6 10^3/uL (0.8-4.8) 06/06/23 05:04 [place] # (Auto) 0.6 10^3/uL (0.2-0.9) 06/06/23 05:04 Eos # (Auto) 0.1 10^3/uL (0.0-0.8) 06/06/23 05:04 Baso # (Auto) 0.0 10^3/uL (0.0-0.1) 06/06/23 05:04 Nucleated RBC % (auto) 0 % 06/06/23 05:04 Nucleated RBCs # 0.0 /100WBC 06/06/23 05:04 Sodium 139 mmol/L (136-145) 06/06/23 05:04 Potassium 3.8 mmol/L (3.5-5.1) 06/06/23 05:04 Chloride 105 mmol/L (98-107) 06/06/23 05:04 Carbon Dioxide 24 mmol/L (22-29) 06/06/23 05:04 Anion Gap 13.8 (5-19) 06/06/23 05:04 BUN 15 mg/dL (8-23) 06/06/23 05:04 Creatinine 0.6 mg/dL (0.5-0.9) 06/06/23 05:04 GFR Calculation 99.1 mL/min (90-130) 06/06/23 05:04 Glucose 109 mg/dL (65-115) 06/06/23 05:04 Calculated Osmolality 289 mOsm/kg (285-295) 06/06/23 05:04 Calcium 8.3 mg/dL (8.5-10.5) L 06/06/23 05:04 Magnesium 1.6 mg/dL (1.7-2.3) L 06/07/23 04:56 Urine Color Yellow (Yellow) 06/05/23 12:50 Urine Appearance Clear (CLEAR) 06/05/23 12:50 Urine pH 6.5 (5-7) 06/05/23 12:50 Ur Specific [place] 1.015 (1.005-1.030) 06/05/23 12:50 Urine Protein Neg (Negative) 06/05/23 12:50 Urine Glucose (UA) Norm (Normal) 06/05/23 12:50 Urine Ketones Negative (Negative) 06/05/23 12:50 Urine Blood Trace (Negative) H 06/05/23 12:50 Urine Nitrate Negative (Negative) 06/05/23 12:50 Urine Bilirubin Neg (Negative) 06/05/23 12:50 Urine Urobilinogen 4 mg/dL (Negative) H 06/05/23 12:50 Ur Leukocyte Esterase Negative (Negative) 06/05/23 12:50 Urine RBC 0-4 /hpf (0-2) H 06/05/23 12:50 Urine WBC 0-4 /hpf (0-5) H 06/05/23 12:50 Ur Squamous Epith Cells 0-4 /hpf (0-5) H 06/05/23 12:50 Amorphous Sediment 1+ /hpf 06/05/23 12:50 Urine Bacteria None /hpf (NONE) 06/05/23 12:50 Urine Mucus 3+ /hpf 06/05/23 12:50 Blood Type B Positive 06/05/23 11:31 Rho(D) Type Positive 06/05/23 11:31 Antibody Screen Negative 06/05/23 11:31 Procedures Performed Left total hip arthroplasty Florin robotic assisted this posterior approach Vitals Last Vital Signs Temp 98.1 F 06/07/23 04:00 Pulse 79 06/07/23 04:00 Resp 14 06/07/23 04:00 BP 135/70 06/07/23 04:00 Pulse Ox 93 06/07/23 04:00 O2 Del Method Room Air 06/07/23 04:00 Discharge Plan Discharge Patient Disposition: Home Health Service Condition: Stable Prescriptions: New miconazole nitrate 2 % Cream 1 applic topical BID 14 Days Qty: 30 1RF Calcium 600 + D(3) 600 mg-10 mcg (400 unit) tablet 1 tab PO DAILY 30 Days Qty: 30 0RF magnesium 250 mg tablet 250 mg PO DAILY Qty: 90 0RF Eliquis 2.5 mg tablet 2.5 mg PO BID 35 Days Qty: 70 0RF Calcium 600 + D(3) 600 mg-10 mcg (400 unit) tablet 1 tab PO DAILY 30 Days Qty: 30 0RF Percocet 5-325 mg tablet 1 tab PO Q6H PRN (Reason: pain) 7 Days Qty: 28 0RF ondansetron 4 mg tablet,disintegrating 4 mg PO Q8H 3 Days Qty: 9 0RF Continued albuterol sulfate [Ventolin HFA] 90 mcg/actuation HFA aerosol inhaler 2 puff INHALATION Q6H PRN (Reason: sob) (DME) nebulizers [facility] See Rx Instructions .ROUTE .MEDSUPPLY Qty: 1 Rx Instructions: As directed levothyroxine 137 mcg tablet 137 mcg PO DAILY aspirin 81 mg Tablet,Delayed Release (Dr/Ec) 81 mg PO DAILY Discharge Orders: Discharge Order (Routine); Ordered 06/07/23 Ordered By: Mitesh Nelson Other Ambulatory Orders: DME: Jacob (Order) Location: None Selected Ordered By: Mitesh Nelson Referrals: [facility] [place] Home Care ([facility]) [Outside] Gemini Morris MD [Primary Care Provider] - 06/17/23 10:30 am Mitesh Nelson DO [Physician] - 06/18/23 1:30 pm () Discharge Diet: Advance as tolerated Discharge Activity: Increase activity as tolerated, Limit activity as instructed, Use walker/crutches as instructed and As per PT/OT instructions Patient Instructions: Oxycodone/Acetaminophen (By mouth), Ondansetron (By mouth), Calcium Supplement (By mouth), Magnesium (By mouth), Apixaban (By mouth), Precautions after Total Joint Replacement Surgery (GEN), Total Hip Replacement (DC), Hip Abduction Pillow (GEN), Joint Replacement Stoplight, Opioid Safety Activity Restrictions/Additional Instructions: Orthopedic discharge instructions: Patient should leave tenzin dressing on in place for 5 to 7 days or until battery pack dies. This should remain on in place this full-time for 7 days and once battery dies this bandage can be removed Okay to shower with tenzin dressing on in place however remove and disconnect battery pack prior to shower Okay to change bandage if becomes 70% saturated utilizing spare bandage and then reconnect this to the battery pack After 5 to 7 days entire dressing should be taken down you are okay to clean incision with warm soapy water pat dry and redress with a sterile dry bandage dressing Patient may weight-bear as tolerated to the left lower extremity Posterior hip precautions (avoid hip flexion past 90 degrees as well as internal rotation, keep legs from midline and do not cross legs)-this is to prevent risk of dislocation Utilize crutches/walker as needed for ambulating Take pain medication as prescribed Take antinausea medication as needed Supplement with Citracal vitamin D for bone health and healing Take blood thinner (Eliquis) as prescribed for blood clot prevention Ice as needed for pain and swelling Follow-up with Dr. Nelson in the office in 2 weeks Contact the office for any questions or concerns Follow-up with your primary doctor and with dermatology regarding dermatitis. You are started on magnesium supplement due to magnesium level on the low side, 1.7. Please have your primary doctor follow-up magnesium levels. Please follow-up with your primary doctor and net coordinator for continued optimization of risk factors of coronary artery disease. Discharge Attestations Time Spent in Discharge Care*: less than 30 min Quality Metrics Clinical Quality Measures [ No reported AMI, CVA or VTE this stay] Coding Level of Care Code Acute Code for g Fwd Diagnoses S/P total hip arthroplasty Z96.649 Afib I48.20 Atrial fibrillation type: unspecified chronic COPD (chronic obstructive pulmonary disease) J41.0 COPD type: chronic bronchitis Chronic bronchitis type: simple Hypothyroidism E03.9 Osteoarthritis of left hip M16.12 Osteoarthritis type: primary Osteoarthritis of right knee M17.11 History of pacemaker Z95.0 Time Spent (min) 25
[2023-06-07 06:54] LABS: Anion Gap 14.4 (5-19); Blood Urea Nitrogen 10 mg/dL (8-23); Calcium 8.8 mg/dL (8.5-10.5); Carbon Dioxide 24 mmol/L (22-29); Chloride 103 mmol/L (98-107); Glucose 120 mg/dL (65-115); Osmolality Calculated 284 mOsm/kg (285-295); Potassium 4.4 mmol/L (3.5-5.1); Sodium 137 mmol/L (136-145)
[2023-06-07] MEDS: TRAMadol 50 mg Tablet PO (07:01)
[2023-06-07] MEDS: lactated ringers 1,000 ML 100 ML IV (07:01)
[2023-06-07 07:31] LABS: Basophils % 0.2 %; Eosinophils % 0.3 %; Hematocrit 37.4 % (37.0-47.0); Lymphocytes # 2.2 10^3/uL (0.8-4.8); Lymphocytes % 17.5 %; Mean Corpuscular HGB Conc 32.1 g/dL (30.0-36.0); Mean Corpuscular Hemoglobin 30.7 pg (28.0-34.0); Mean Corpuscular Volume 95.7 fl (81-99); Mean Platelet Volume 11.3 fL (7.4-10.4); Monocytes # 1.1 10^3/uL (0.2-0.9); Monocytes % 8.5 %; Neutrophils # 9.22 10^3/uL (1.8-7.7); Nucleated Red Blood Cells % 0 %; Platelet Count 151 10^3/cmm (130-400); Red Blood Count 3.91 10^6/uL (4.1-5.3); Red Cell Distribution Width 13.1 % (12.1-15.1); White Blood Count 12.7 10^3/uL (4.0-10.0)
[2023-06-07] MEDS: multivitamin therapeutic Tablet 1 TAB PO (08:21)
[2023-06-07] MEDS: calcium carb-vit d 600mg/400unit 1 Tablet 1 EACH PO (08:21)
[2023-06-07] MEDS: apixaban 5 mg Tablet 2.5 MG PO (08:22)
[2023-06-07] MEDS: sennosides-docusate Tablet 2 TAB PO (08:22)
[2023-06-07] MEDS: mupirocin oint 22 gm 1 APPLIC NASAL (08:23)
[2023-06-07] MEDS: aspirin 81 mg EC Tablet PO (08:23)
[2023-06-07] MEDS: chlorhexidine gluconate 0.12% Btl 473 mL 30 ML MUCOUS MEM (08:23)
[2023-06-07] MEDS: miconazole 2% topical cream 28 gm 1 APPLIC TOPICAL (08:24)
[2023-06-07] MEDS: iron polysaccharide complex 150 mg Capsule PO (08:30)
[2023-06-07] MEDS: levothyroxine 137 mcg Tablet PO (08:30)
--- NOTE | 2023-06-07 12:52 | P.PN_ITS ---
Subjective Subjective: States she is doing all right today. Asking about hip pain, still there, but not as bad as yesterday. Such she and orthopedic surgeon discussed plan to go home. She feels comfortable with that. Reports no trouble breathing. Redness on her abdomen at times dermatitis/excoriated areas is improving. Vitals/I&O/Wt Last Vital Signs Temp 97.7 F 06/07/23 11:57 Pulse 77 06/07/23 11:57 Resp 17 06/07/23 12:18 BP 120/70 06/07/23 11:57 Pulse Ox 95 06/07/23 11:57 O2 Del Method Room Air 06/07/23 08:45 06/06/23 06/07/23 06/07/23 22:59 06:59 14:59 Intake Total 1680 / 2380 1000 / 3380 120 / 120 Balance 1680 / 2380 1000 / 3380 120 / 120 Physical Exam Narrative: Up in chair. Const: COMMON NORMALS: patient oriented x3 and alert GENERAL APPEARANCE: cooperative ORIENTATION/CONSCIOUSNESS: Yes awake HENMT: COMMON NORMALS: oropharynx normal Neck/C-Spine: COMMON NORMALS: no JVD Resp: COMMON NORMALS: normal respiratory effort and clear to auscultation bilaterally AUSCULTATION: clear to auscultation bilaterally Cardio: COMMON NORMALS: no JVD, regular rhythm, S1 normal heart sound present, S2 normal heart sound present and No murmurs present (Cardio) RHYTHM: regular rhythm HEART SOUNDS: S1 normal heart sound present and S2 normal heart sound present GI: COMMON NORMALS: Normal to inspection, nondistended, normoactive bowel sounds present, Soft to palpation and non-tender PALPATION: Yes Soft to palpation Extremity: COMMON NORMALS: no joint enlargement and no pedal edema OTHER: Left hip postoperative dressing. No bruising or swelling. Neuro: COMMON NORMALS: patient oriented x3 and moves all extremities SENSORIUM/ORIENTATION: Yes alert Urinary Catheter Management: Mallory: Cath Placed During This Visit: yes, but has since been removed by the nurse Reason for Continuing Indwelling Catheter: Acute Urinary Retention or Obstruction Urinary Catheter Date of Insertion: 06/05/23 Urinary Catheter Time of Insertion: 14:43 Date Urinary Catheter Removed: 06/06/23 Time Urinary Catheter Discontinued: 06:18 Data 06/07/23 07:10 06/07/23 04:56 A&P Assessment and plan (1) S/P total hip arthroplasty: Still some pain but better than yesterday. Hemoglobin noted 12. Working with therapy. Returning home with follow-up with orthopedics. Eliquis VTE prophylaxis. Continue incentive spirometer. Reviewed orthopedic documentation. Discussed with case management in rounds. (2) Afib: Again hypomagnesemia, magnesium 1.6, requested replacement 4 g, however, IV infiltrated, she declined attempts at replacement of IV. Asked to double up on the magnesium dose if she can tolerate without diarrhea. Please follow-up ma gnesium level. Has been sinus rhythm. Normally on aspirin. Previously declined anticoagulation. She would be okay with short-term anticoagulation for VTE prophylaxis as planned by orthopedics. Continue cardiac monitoring perioperatively. Qualifiers: Atrial fibrillation type: unspecified chronic Qualified Code(s): I48.20 - Chronic atrial fibrillation, unspecified (3) COPD (chronic obstructive pulmonary disease): Not in exacerbation. Uses nebulizer at home as needed. Continue nebulizer as needed. Qualifiers: COPD type: chronic bronchitis Chronic bronchitis type: simple Qualified Code(s): J41.0 - Simple chronic bronchitis (4) Hypothyroidism: Continue levothyroxine (5) Tobacco dependence: Discussed nicotine lozenges as needed for cravings. Encourage cessation. (6) Osteoarthritis of left hip: Qualifiers: Osteoarthritis type: primary Qualified Code(s): M16.12 - Unilateral primary osteoarthritis, left hip (7) Osteoarthritis of right knee: (8) History of pacemaker: Plan Areas of dermatitis: Responding well to miconazole with superimposed fungal infection. Prescription given. Please reassess. Reports chronic condition being diagnosed by dermatology as lichen sclerosus. At home uses hydrocortisone cream as needed. Areas under her breasts, on abdominal wall, upper thighs, and skin folds of lichenification, 2 areas with shallow ulceration/abrasion. Mild erythema. Mild malodor. With possible fungal superinfection. Possibly due to more perspiration in the summer. Continue miconazole. Follow-up with dermatology. Possible CAD: Continue optimization of CAD risks. Blood pressure at goal. Please visit with her regarding consideration of statin. Attestations Medical Necessity Statement*: Returning home. Diagnoses S/P total hip arthroplasty Z96.649 Afib I48.20 Atrial fibrillation type: unspecified chronic COPD (chronic obstructive pulmonary disease) J41.0 COPD type: chronic bronchitis Chronic bronchitis type: simple Hypothyroidism E03.9 Tobacco dependence F17.200 Osteoarthritis of left hip M16.12 Osteoarthritis type: primary Osteoarthritis of right knee M17.11 History of pacemaker Z95.0
== END 2023-06-07 13:30 | disposition home health service (06) ==
LOC: MEDSURG 17:01
PROVIDERS: Internal Medicine; Admitting Provider Student in an Organized Health Care Education/Training Program; PCP Family Medicine; Visit Provider Student in an Organized Health Care Education/Training Program
PROC: (CPT 27130; principal; 2023-06-05 12:45)
DX: M16.12 Unilateral primary osteoarthritis, left hip (principal); I48.20 Chronic atrial fibrillation, unspecified; J41.0 Simple chronic bronchitis; Z79.82 Long term (current) use of aspirin; E03.9 Hypothyroidism, unspecified; F17.210 Nicotine dependence, cigarettes, uncomplicated; L30.9 Dermatitis, unspecified; Z95.0 Presence of cardiac pacemaker
CPT/HCPCS: 20985; 27130; 36415; 51702; 73502; 80048; 81001; 83735; 85025; 86850; 86900; 97116; 97161; 97165; 97530; 97535; A9281; C1713; C1776; G0378; J0131; J0690; J1885; J2250; J2371; J2704; J3370; J3475; J7030; J7120; P9045

== ENCOUNTER → 2023-06-18 14:00 | Outpatient (BNVA) | payer MEDICARE, SELFPAY | PROVIDERS: PCP Family Medicine; Visit Provider Student in an Organized Health Care Education/Training Program | DX: Z96.642 Presence of left artificial hip joint (principal) | CPT/HCPCS: 73502; 99024 ==

== ENCOUNTER → 2023-08-06 14:04 | Outpatient (BNVA) | payer MEDICARE, SELFPAY | PROVIDERS: PCP Family Medicine; Visit Provider Student in an Organized Health Care Education/Training Program | DX: Z96.642 Presence of left artificial hip joint (principal) | CPT/HCPCS: 73502; 99024 ==

== ENCOUNTER → 2024-02-13 10:01 | Outpatient (BNVA) | payer MEDICARE, SELFPAY | PROVIDERS: PCP Family Medicine; Visit Provider Physician Assistant | DX: M16.11 Unilateral primary osteoarthritis, right hip; Z96.642 Presence of left artificial hip joint; Z01.818 Encounter for other preprocedural examination | CPT/HCPCS: 36415; 73523; 80053; 81001; 85025; 99214 ==

== ENCOUNTER → 2024-02-25 08:08 | Outpatient (BNVA) | payer MEDICARE, SELFPAY | PROVIDERS: PCP Family Medicine; Visit Provider Family Medicine | DX: Z01.818 Encounter for other preprocedural examination (principal) | CPT/HCPCS: 81003; 93005 ==

== ENCOUNTER → 2024-03-04 10:13 | Outpatient (BNVA) | payer MEDICARE, SELFPAY | PROVIDERS: PCP Family Medicine; Visit Provider Family Medicine | DX: Z01.818 Encounter for other preprocedural examination (principal); Z79.899 Other long term (current) drug therapy | CPT/HCPCS: 81003 ==

== ENCOUNTER 2024-03-06 10:35 | Outpatient (CLI) | payer MEDICARE, SELFPAY ==
--- NOTE | 2024-02-28 10:30 | CT_ITS ---
WS: [id number] CT RIGHT hip, noncontrast HISTORY: DJD RIGHT HIP TECHNIQUE: Protocol for AN total hip replacement has been obtained. This includes axial imaging thr ough the RIGHT hip, RIGHT knee . DLP: 1442.62 mGy.cm COMPARISON: Radiograph 02/13/2024 Bones are mildly osteopenic. Severe joint space narrowing RIGHT hip with bone upon bone and osteophyt ic ridging around the acetabulum and femoral head and subchondral cysts. Bony protrusion at the femor al head and neck junction. Osteophyte at the greater trochanter. Prior LEFT hip arthroplasty. Minimal joint compartment arthritis medial RIGHT knee. IMPRESSION: CT imaging provided for [facility] robotic total knee replacement.
== END 2024-03-06 10:36 | disposition home or self-care (01) ==
LOC: RAD 10:36
PROVIDERS: PCP Family Medicine; Visit Provider Physician Assistant
DX: M16.11 Unilateral primary osteoarthritis, right hip (principal); M85.88 Other specified disorders of bone density and structure, other site; M71.351 Other bursal cyst, right hip
CPT/HCPCS: 73700

== ENCOUNTER 2024-03-09 15:59 | Observation (INO) | payer MEDICARE, SELFPAY ==
[2024-03-09] VITALS (21 sets, daily range): BP systolic 98–184; BP diastolic 45–95; PULSE 60–84; RESP 14–21; TEMP 35.2–36.5; O2SAT 90–100; BMI 39.6
[2024-03-09] MEDS: lactated ringers 500 ML IV (11:54)
[2024-03-09] MEDS: ketorolac 30 mg/mL INJ IVP (11:55)
[2024-03-09] MEDS: acetaminophen 1,000 MG/100 ML PIGGYBACK 400 MG IV ×2 (11:55→21:24)
--- NOTE | 2024-03-09 12:30 | W.PM.OPSUD ---
Surgery/Procedure H&P Update DATE OF PROCEDURE: March 09, 2024 DATE H&P PERFORMED: 02/25/24 H&P UPDATE INFORMATION: I have reviewed H&P completed within last 30 days, I have examined patient prior to procedure and No changes to prior documentation CHANGES TO PREVIOUS DOCUMENTATION: Patient had her pacemaker interrogated and per the patient is good for another 2 years until her battery runs out no other issues at this time she has had no change in her urinary symptoms and most recent UA checked showed no bacteria. This point in time she has been medically optimized through her preoperative clinic team she is ready to proceed with surgical intervention. She understands the ins outs procedure risk benefits complication alternatives of surgery and elects proceed with right total hip arthroplasty?Florin robotic assisted through a posterior approach. All questions answered. PREOP DIAGNOSIS: Right HIp DJD PRIMARY INDICATION FOR PROCEDURE: Right hip degenerative joint disease PLANNED PROCEDURE: Operation Date: 03/09/24 13:00 Proposed Procedures p Florin Robot Total Hip Arthroplasty(Right) - Mitesh Nelson DO
--- NOTE | 2024-03-09 12:32 | ANES.PREANE2 ---
Pre-Anesthetic Assessment Height/Weight: Height 1.7 m Weight 114.759 kg Temp Pulse Resp BP Pulse Ox O2 Del Method 97.2 F L 84 18 184/95 96 Room Air 03/09/24 11:36 03/09/24 11:36 03/09/24 11:36 03/09/24 11:36 03/09/24 11:36 03/09/24 11:53 Preop Diagnosis: Right HIp DJD Operation Date: 03/09/24 13:00 Proposed Procedures p Florin Robot Total Hip Arthroplasty(Right) - Mitesh Nelson DO Familial anesthetic complications: None Was Beta Sabina taken within 24 hours: N/A Was Clonidine taken within 24 hours: N/A Last intake: Intake Last Liquid Date 03/08/24 Last Liquid Time 19:00 Last Solid Date 03/08/24 Last Solid Time 19:00 Social Tobacco and No alcohol Exam alert, oriented x 3, clear to auscultation bilaterally and regular rate & rhythm Airway Mallampati: Class IV Dentition: false Pulmonary Chronic Obstructive Pulmonary Disease CV/HEM Atrial Fibrillation (pacemaker; not on anticoagulation) Metabolic Thyroid Disease Anesthetic Plan ASA status: 3 Anesthesia: Regional (specify below) Risk of > 500 ml blood loss (7ml/kg in children): No Medications/Allergies Home Medications Medication Instructions Recorded Confirmed Last Taken Type albuterol sulfate 90 mcg/actuation 2 puff inhalation Q6H PRN sob 06/01/20 03/06/24 03/07/24 History aerosol inhaler (Ventolin HFA) nebulizers #1 ea 06/01/20 02/13/24 Unknown History aspirin 81 mg tablet,delayed 81 mg PO DAILY 06/06/23 03/06/24 02/27/24 History release levothyroxine 137 mcg tablet 137 mcg PO DAILY 06/06/23 03/06/24 03/09/24 05:30 History Allergies Allergy/AdvReac Type Severity Reaction Status Date / Time hydromorphone [From Dilaudid] Allergy vomiting Verified 03/09/24 11:32 [facility] Anesthesia Medical History Pre-op evaluation Hypothyroidism Tobacco dependence X 46 years COPD (chronic obstructive pulmonary disease) Arrhythmia Afib Surgical History History of pacemaker 2016 Hx of cataract surgery Hx of shoulder surgery Stenosis, cervical spine has cervical surgery with plate and [address] History of left knee surgery History of torn meniscus of right knee History of cholecystectomy History of appendectomy History of hernia repair Family History Other Cancer Denies family history of Diabetes CAD (coronary artery disease) Clotting disorder Anesthesia complication Bleeding disorder Hypertension Social History Smoking and tobacco/nicotine status: current some day tobacco/nicotine user cigarettes [ Other cigarette details: 2 cig month max of 3 per day] Alcohol intake: current Alcohol intake frequency: few times a month Alcohol type: beer Substance/Drug Use: never Data Anesthesia Cardiac Studies: Sestamibi Stress Test (Cardiology) 05/08/23
[2024-03-09 12:44] LABS: Basophils # 0.1 10^3/uL (0.0-0.1); Basophils % 0.7 %; Eosinophils # 0.1 10^3/uL (0.0-0.8); Eosinophils % 1.4 %; Hematocrit 47.4 % (36-47); Lymphocytes % 28.3 %; Mean Corpuscular HGB Conc 32.9 g/dL (30-55); Mean Corpuscular Hemoglobin 31.7 pg (27-33); Mean Corpuscular Volume 96.3 fl (85-98); Mean Platelet Volume 12.1 fL (7.4-10.4); Monocytes # 0.5 10^3/uL (0.2-0.9); Monocytes % 6.9 %; Neutrophils # 4.36 10^3/uL (1.8-7.7); Neutrophils % 62.6 %; Nucleated Red Blood Cells % 0 %; Platelet Count 185 10^3/cmm (157-399); Red Blood Count 4.92 10^6/uL (3.85-5.65); Red Cell Distribution Width 12.9 % (12.1-15.1); White Blood Count 6.97 10^3/uL (3.29-11.43)
[2024-03-09] MEDS: ceFAZolin 2,000 MG in sodium chloride 0.9% (plus) 50 ML 100 MG IV (12:49)
[2024-03-09] MEDS: sodium chloride 0.9% 1,000 ML 30 ML IV (12:49)
[2024-03-09 13:04] LABS: Blood Urea Nitrogen 14 mg/dL (8-23); Calcium 8.9 mg/dL (8.5-10.5); Carbon Dioxide 27 mmol/L (22-29); Chloride 102 mmol/L (98-107); Creatinine Clr Calc Pharmacy 85.5969; Glomerular Filtration Rate 98.8 mL/min (90-130); Glucose 108 mg/dL (65-115); Osmolality Calculated 287 mOsm/kg (285-295); Sodium 138 mmol/L (136-145)
[2024-03-09] MEDS: ceFAZolin 1,000 MG in sodium chloride 0.9% (plus) 50 ML 100 MG IV (13:35)
[2024-03-09] MEDS: tranexamic acid 1,000 mg/10mL SDV 1000 MG IV (13:43)
[2024-03-09] MEDS: vancomycin 1,000 MG SDV 2000 MG XX (14:02)
--- NOTE | 2024-03-09 14:20 | PC.NURSE ---
Addendum entered by Oksana Christie RN 03/10/24 09:58: Hand off report given to Chary Birmingham RN. Not Faith Mccullough. Addendum entered by Oksana Christie RN 03/10/24 09:30: Hand off report at 1620. Original Note: Patient handed off to Faith Mccullough RN at this time.
--- NOTE | 2024-03-09 15:36 | P.BOP_ITS ---
Date of Procedure: 03/09/2024 Surgeon: Mitesh Nelson DO Credit Reporting Clerk(s): BRITTANIE Serrano Procedure(s) performed: Right total hip arthroplasty?Florin robotic assisted (posterior approach) Findings of the procedure(s): Patient found to have severe right hip degenerative joint disease underwent procedure as planned without issues or complications. Estimated blood loss: 100 mL Specimen(s) removed: Femoral head removed as well as acetabular reamings Post-operative diagnosis: Right hip degenerative joint disease
--- NOTE | 2024-03-09 15:38 | PM.OP ---
Operative Report Date of procedure: March 09, 2024 Surgeon: Mitesh Nelson DO Vertical Contour Band Saw Operator: BRITTANIE Serrano Procedure: Preop Diagnosis Osteoarthritis Right hip Procedure: Post-op diagnosis: Same Procedure done: Right total hip arthroplasty?Florin posterior approach Implants: [place] Trident TriTanium acetabular shell 52 mm Alo 6.5 mm acetabular screw 25 mm and 30 mm MDM liner 42 mm inner diameter alpha code E polyethylene alpha code the [place] Accolade II 127 degree size 5 Biolox ceramic femoral head 28 mm -2.7 mm offset with MDM liner alpha code E Surgeon: Mitesh Nelson DO Estimated blood loss: 100 mL IV fluids: 1000 mL Complications: None Findings: See operative report narrative Condition: stable Disposition: floor Brief History: Patient was seen evaluate in the outpatient setting worked up for for Right hip degenerative joint disease.? Hoqa-[id number] arthritis noted.? She is failed conservative treatment. We talked about her treatment options far as nonoperative and operative intervention.? She has done well with a left total hip arthroplasty done back in May last year and has done well with this and very satisfied with her results and wishes to proceed with surgical intervention. This point time I feel that she would greatly benefit from a Right total hip arthroplasty.? Given body habitus, she be a good candidate for a posterior approach Right total hip arthroplasty utilizing Florin.? Document risk benefits complication alternatives surgical nonsurgical treatment options.? She understands and agrees to proceed with surgical intervention at this time.? All questions answered. Procedure: Patient was seen evaluate in preoperative holding area.? Consent was reviewed and signed with patient.? Correct extremity was then marked.? Patient seen evaluate by anesthesia department once cleared for surgery she was taken back to the operative suite.? She underwent anesthesia per the anesthesia department.? This point time she was then placed on the operative suite and table.? She was then placed in lateral decubitus patient worked with the Right hip up.? She was secured to the pegboard.? All bony prominences well-padded she was properly secured to the bed.? At this point time the right lower extremity was then prepped and draped in standard orthopedic fashion with care not to drape out the iliac wing for pelvic array placement.? Final timeout performed.? Patient received appropriate preoperative antibiotics. Started off with establishment of my pelvic array pins.? A small longitudinal incision was made directly over the iliac wing.? Sharp scalpel excision through skin and subcutaneous tissue directly onto bone.? Next I then loaded my pelvic pin.? This was then drilled through the iliac wing corridor with excellent fixation.? Next I then loaded the guide which was placed directly onto bone and then subsequently placed 2 more pins to secure fixation.? Next the pelvic array was then sent had excellent visualization with the Florin robot and was secured.? Next I proceeded with placing sterile EKG lead to the lateral thigh for distal reference marking point. Next I proceeded with my standard posterior approach.? Sharp scalpel through skin and subcutaneous tissue this was centered over the greater trochanter.? I then utilized a Diaz elevator over the gluteus shana fascia.? Next the fascia was then split longitudinally with bipolar electrocautery.? Next a Charnley retractor was then placed.? All bone was then placed into the abductors.? A standard full-thickness release of the piriformis and the short external rotators along with the capsule to grade 1 full thick sleeve for later repair was then placed straight down to the lesser trochanter.? Lesser trochanter was then subsequently identified.? Prior to dislocating the hip we then placed our greater trochanter femur checkpoint.? We marked our appropriate checkpoint for referencing on her pelvic array.? At this point in time we then established both of our checkpoints as well as her referencing for leg lengths I utilized the patient's EKG lead on the lateral aspect of the thigh to saúl my distal point.? The legs were marked and traced to have appropriate position on the drapes to allow for accurate reading.? Preoperative measurements were then taken utilizing Florin. Once this was then established I then proceeded with dislocation of the femoral head.? At this point Hohmann's were then placed superiorly and inferiorly.? sciatic nerve was protected throughout this case.? At this point time I then utilized the Florin robot and referencing point to reference different aspects along the femoral head and neck for my appropriate neck length.? These were referenced on the inferior mid superior as well as up into the superior shoulder of the femoral neck.? This marked Subsequently oscillating saw was used to make my femoral neck cut.? Femoral head was removed. Next the leg was placed in appropriate position and my anterior and posterior acetabular retractors then placed.? Next I excised the labrum and then remove the pulse in our.? I did do a small release of the inferior capsule which was severely taut to allow for easier placement of my reamers as well as reduction.? Acetabulum was thoroughly irrigated.? Patient was found to have significant eburnated bone and loss of cartilage throughout the acetabulum consistent with severe [id number] arthritis. At this point in time keeping my retractors in place. Then utilizing the Florin system plotted out multiple points on her inner aspects of the acetabulum as well as the outer aspects of the acetabulum as well as targeted my confirmation points to confirm appropriate registration of the acetabulum once this was done we were set for reaming. I subsequently loaded up the [email or web address] robot for my acetabular reaming I set my 52 reamer under the [email or web address] robot and subsequently held this with appropriate preplanned preop planned version of 40 degrees of abduction angle as well as 20 degrees of anteversion.? I then subsequently reamed this to the appropriate depth.? This had excellent peripheral circumferential bleeding bone throughout with appropriate medialization. We opened up the acetabular shell of the 52 mm Alo this was then loaded onto my impacting system and then I subsequently impacted this to appropriate depth.? This was then removed from the robot and I used the Florin probe at the center to confirm on the CT scan that this was down on bone which it was.? Next I then drilled and placed 2 acetabular screws with excellent fixation these were drilled and measured to be 30 and 25 mm this was in the posterior superior aspect of the acetabulum had excellent fixation.? The cup was solid with excellent press-fit fixation. Plan for MDM for added stability subsequently opened MDM cementless liner and impacted this into appropriate position which had excellent fixation. I then placed a sponge into the acetabulum to protect the liner while femur preparation was performed.? At this point time I then utilized a small rongeur to clear off the shoulder of the femoral neck to clear out the soft tissue envelope for my box osteotome.? Next box osteotome was used a canal finder was placed as well as a lateralizing rattail rasp.? Once I was appropriately lateralized I then sequentially broached up to a size 5 femoral stem.? This was impacted to appropriate depth and flushed with my femoral neck cut.? This point I performed multiple trials and and subsequently reduced the hip.? With multiple trials performed was determined a -2.7 mm offset was found to have appropriate leg lengths with the Florin robot. Patient appeared to have equal leg lengths clinically.? The hip was taken through range of motion and had excellent stability with hip flexion and internal rotation with no evidence of instability had an appropriate shuck.? This point time utilized the Florin probe from our femur checkpoint down to her distal checkpoint and this had appropriate leg lengths.? At this point I dislocated the hip and then called for my final implants.? Opened up a 127 degree size 5 femoral Accolade II stem.? My trials were then removed and then subsequently impacted my Accolade II stem to the same level.? Given this was at the same level I then opened up the final MDM 28/48 mm -2.7 mm ceramic femoral head which was impacted with an ADM/MDM liner. This was impacted with excellent fixation and the hip was subsequently reduced.? We measured our final leg lengths which were appropriate patient had excellent stability in all ranges of motion.? This point time a robotic pins and checkpoints were removed.? I remove the femur checkpoint as well as my pelvic array and iliac wing pins.? Appropriate counts were then made.? This point time thoroughly irrigated the wound bed with pulse lavage.? Vancomycin powder was then sprinkled into the wound bed.? I then performed a standard capsular and external rotator repair utilizing #5 Ethibond and this was tied and repaired through bone tunnels hip was then kept in abduction external rotation 1 and subsequently closed the fascial layer with Ethibond suture as well as running strata fix suture.? I then closed the deep subcutaneous layer as well as superficial subcutaneous layer with running strata fix suture as well as 4-0 strata fix for skin.? Prineo glue dressing was then placed over the skin.? I then irrigated the pelvic array pin site.? There is were then closed with interrupted 0, 2-0 Vicryl suture and Monocryl as well as Prineo glue for the skin.? Incisions were then covered with Silverlon dressing for the iliac wing and the tenzin dressing was applied to the Right hip.? Patient was awakened from anesthesia and taken to PACU in stable condition Disposition: Patient taken to PACU in stable condition.? She will receive appropriate discharge instructions as well as DVT prophylaxis and pain medication.? She will be admitted to the floor for observation should be evaluated by the internal medicine team for medical management.? Patient received appropriate DVT prophylaxis as well as pain medication PT/OT weightbearing as tolerated Right lower extremity with posterior hip precautions.? We will follow-up with patient in the office in 2 weeks.? Patient understands agrees with current plan.? All questions answered.
--- NOTE | 2024-03-09 15:42 | XRR_ITS ---
PROCEDURE INFORMATION: Exam: XR Right Hip Exam date and time: 03/09/2024 4:04 PM Age: 69 years old Clinical indication: Device placement; Other: Right hip kaitlin; Prior surgery; Surgery date: Post-operative (0-2 days); Surgery type: Kaitlin, ; additional info: Post op kaitlin, do in pacu TECHNIQUE: Imaging protocol: Radiologic exam of the right hip. Views: 1 view hip with pelvis when performed. COMPARISON: CT hip RT wo con* [id number] 02/28/2024 10:06 AM FINDINGS: Bones/joints: Right total hip prosthesis is seen, with both acetabular and femoral components, with satisfactory or anatomic alignment and position. The most lateral screw superiorly at the acetabular level projects along the lateral margin of the right lower ileum. No fracture or acute osseous abnormality. Hardware appears intact. Visualized left hip prosthesis noted, as seen with prior exam. Soft tissues: Soft tissue postsurgical changes. XR/XR hip RT 2-3V wo/w pel* [id number] IMPRESSION: Status post total hip prosthesis on the right, as noted above.
--- NOTE | 2024-03-09 16:19 | PC.NURSE ---
Addendum entered by Oksana Christie RN 03/10/24 09:28: Temp was taken via temporal scan thermometer. Original Note: Veronica huger and warm blankets applied, 96.7 temp scan.
--- NOTE | 2024-03-09 16:35 | ANE.PACU2 ---
Inpatient post-anesthesia follow up: Airway intact: Yes Vital signs: Temperature 97.6 F Pulse Rate 61 Respiratory Rate 18 Blood Pressure 119/65 Pulse Oximetry 94 Oxygen Delivery Me thod Room Air Oxygen Flow Rate 10 Fraction of Inspir ed Oxygen Hydration adequate: Yes Nausea and vomiting: No Pain level: 1 Mental status: Baseline
--- NOTE | 2024-03-09 16:38 | P.CONIM_ITS ---
Providers/Reason For Consult 2 Consulting Physician/Specialty*: Orthopedics Reason for Consult*: A-fib, COPD, hypothyroidism Attending Physician: Mitesh Nelson DO Primary Care Provider: Gemini Morris MD History of Present Illness History of Present Illness Claudia Marie is a 69 year old female with a past medical history of atrial fibrillation, not on anticoagulation due to patient's refusal, on aspirin 81, status post pacemaker placement hypothyroidism, COPD, not active smoker, obesity, who presents to [facility] due to a right hip arthroplasty, ESBL 100 mL, patient was examined. In postop, she is alert and oriented x 3, following all commands, room air, normotensive in sinus rhythm, denying any pain, no fevers, no chills, no chest pain, denies smoking, no shortness of breath no history of diabetes no history of CAD, she intends to go home she tells me, she went home after her left hipsurgery, continues to decline anticoagulant therapy for her A-fib, denies history of DVTs or PE, denies history of CVA, no focal neurologic deficits, no history of paresthesias, no history of facial droop, denies any current focal weakness, or paresthesias Review of Systems 2 Const: Denies: fever(s) Card: Denies: chest pain Resp: Denies: dyspnea Medications/Allergies Home Medications Medication Instructions Recorded Confirmed Last Taken Type albuterol sulfate 90 mcg/actuation 2 puff inhalation Q6H PRN sob 06/01/20 03/06/24 03/07/24 History aerosol inhaler (Ventolin HFA) nebulizers #1 ea 06/01/20 02/13/24 Unknown History aspirin 81 mg tablet,delayed 81 mg PO DAILY 06/06/23 03/06/24 02/27/24 History release levothyroxine 137 mcg tablet 137 mcg PO DAILY 06/06/23 03/06/24 03/09/24 05:30 History Allergies Allergy/AdvReac Type Severity Reaction Status Date / Time hydromorphone [From Dilaudid] Allergy vomiting Verified 03/09/24 11:32 Current Medications Generic Name Dose Route Start Last Admin Trade Name Freq PRN Reason Stop Dose Admin Sodium Chloride 1,000 mls @ 30 mls/hr 03/09/24 11:30 03/09/24 12:49 Sodium Chloride 0.9% IV 03/10/24 11:29 30 mls/hr .Q24H RAFI Administration PFSH Acute 2 PFSH: Medical History Pre-op evaluation Hypothyroidism Tobacco dependence X 46 years COPD (chronic obstructive pulmonary disease) Arrhythmia Afib Surgical History History of pacemaker 2016 Hx of cataract surgery Hx of shoulder surgery Stenosis, cervical spine has cervical surgery with plate and [address] History of left knee surgery History of torn meniscus of right knee History of cholecystectomy History of appendectomy History of hernia repair Family History Other Cancer Denies family history of Diabetes CAD (coronary artery disease) Clotting disorder Anesthesia complication Bleeding disorder Hypertension Social History Smoking and tobacco/nicotine status: current some day tobacco/nicotine user cigarettes [ Other cigarette details: 2 cig month max of 3 per day] Alcohol intake: current Alcohol intake frequency: few times a month Alcohol type: beer Substance/Drug Use: never Vitals/I&O/Wt Last Vital Signs Temp 97.6 F 03/09/24 16:25 Pulse 65 03/09/24 16:30 Resp 18 03/09/24 16:30 BP 123/49 03/09/24 16:30 Pulse Ox 97 03/09/24 16:30 O2 Del Method Room Air 03/09/24 16:30 O2 Flow Rate 10 03/09/24 16:05 03/09/24 03/09/24 03/09/24 06:59 14:59 22:59 Intake Total 700 / 700 50 / 750 Output Total 200 / 200 Balance 700 / 700 -150 / 550 Weight last 48 hrs Weight 114.759 kg Physical Exam 2 Const: COMMON NORMALS: no acute distress and patient oriented x3 HENMT: COMMON NORMALS: normocephalic HEAD & SCALP: normocephalic Eye: COMMON NORMALS: Equal, round and reactive pupils present PUPIL: Yes Equal, round and reactive pupils present Resp: COMMON NORMALS: normal respiratory effort, No retractions, No use of accessory muscles and clear to auscultation bilaterally AUSCULTATION: clear to auscultation bilaterally Cardio: COMMON NORMALS: regular rate, regular rhythm, S1 normal heart sound present and S2 normal heart sound present RATE: regular rate RHYTHM: r egular rhythm HEART SOUNDS: S1 normal heart sound present and S2 normal heart sound present GI: COMMON NORMALS: Normal to inspection, nondistended, normoactive bowel sounds present, Soft to palpation and non-tender PALPATION: Yes Soft to palpation Extremity: COMMON NORMALS: no calf tenderness and no pedal edema Neuro: COMMON NORMALS: patient oriented x3, CN's II-XII intact bilaterally, moves all extremities and no focal motor deficits Psych: COMMON NORMALS: mental status grossly normal Data 03/09/24 11:49 03/09/24 11:49 A&P Assessment and plan (1) Afib: Qualifiers: Atrial fibrillation type: unspecified chronic Qualified Code(s): I48.20 - Chronic atrial fibrillation, unspecified (2) History of pacemaker: (3) Hypothyroidism: (4) Osteoarthritis of right knee: (5) S/P total hip arthroplasty: (6) COPD (chronic obstructive pulmonary disease): Qualifiers: COPD type: chronic bronchitis Chronic bronchitis type: simple Qualified Code(s): J41.0 - Simple chronic bronchitis Plan Right hip osteoarthritis Status post right total hip arthroplasty?Florin posterior approach Pain control anticoagulation as per orthopedic team, ? Aspirin 81 mg ? Telemetry monitoring History of atrial fibrillation, currently in normal sinus rhythm, on aspirin 81 declines anticoagulation no history of CVA, no symptomatology since her CVA COPD, not active smoker denies shortness of breath on room air Hypothyroidism continue home medications Obesity Full code ? Eliquis for DVT prophylaxis Consult Attestations 2 Medical Necessity Statement: Patient requires hospitalization for right hip surgery status post arthroplasty, history of A-fib, COPD, pacemaker placement Diagnoses Chronic atrial fibrillation I48.20 Atrial fibrillation type: unspecified chronic History of pacemaker Z95.0 Hypothyroidism E03.9 Osteoarthritis of right knee M17.11 S/P total hip arthroplasty Z96.649 Simple chronic bronchitis J41.0 COPD type: chronic bronchitis Chronic bronchitis type: simple
[2024-03-09] MEDS: lactated ringers 1,000 ML 100 ML IV (17:21)
[2024-03-09] MEDS: chlorhexidine gluconate 0.12% Btl 473 mL 30 ML MUCOUS MEM (17:21)
[2024-03-09] MEDS: calcium carb-vit d 600mg/400unit 1 Tablet 1 EACH PO (17:22)
[2024-03-09] MEDS: iron polysaccharide complex 150 mg Capsule PO (17:22)
[2024-03-09] MEDS: morphine 4 mg/mL SDV 1 mL IVP (17:22)
[2024-03-09] MEDS: sennosides-docusate Tablet 2 TAB PO (17:22)
[2024-03-09 18:58] LABS: Glucose Point of Care 165 mg/dL (70-110)
[2024-03-09] MEDS: oxyCODONE 5 mg IR Tab/Cap PO (21:23)
[2024-03-09] MEDS: ceFAZolin 3,000 MG in sodium chloride 0.9% (plus) 50 ML 100 MG IV (21:51)
[2024-03-09] MEDS: tranexamic acid 1,000 MG/100 ML PREMIX 600 MG IV (22:36)
[2024-03-10] VITALS (8 sets, daily range): BP systolic 111–149; BP diastolic 64–86; PULSE 60–65; RESP 16–18; TEMP 36.4–36.9; O2SAT 91–97
[2024-03-10] MEDS: lactated ringers 1,000 ML 100 ML IV (02:32)
[2024-03-10] MEDS: acetaminophen 1,000 MG/100 ML PIGGYBACK 400 MG IV ×2 (04:18→12:08)
[2024-03-10] MEDS: ceFAZolin 3,000 MG in sodium chloride 0.9% (plus) 50 ML 100 MG IV ×2 (04:36→12:44)
[2024-03-10] MEDS: oxyCODONE 5 mg IR Tab/Cap PO ×2 (06:18→10:34)
[2024-03-10 06:22] LABS: Basophils % 0.1 %; Hematocrit 38.6 % (36-47); Lymphocytes % 7.7 %; Mean Corpuscular HGB Conc 32.4 g/dL (30-55); Mean Corpuscular Hemoglobin 31.6 pg (27-33); Mean Corpuscular Volume 97.7 fl (85-98); Mean Platelet Volume 11.4 fL (7.4-10.4); Monocytes # 0.7 10^3/uL (0.2-0.9); Monocytes % 5.6 %; Neutrophils # 11.01 10^3/uL (1.8-7.7); Neutrophils % 85.9 %; Nucleated Red Blood Cells % 0 %; Platelet Count 164 10^3/cmm (157-399); Red Blood Count 3.95 10^6/uL (3.85-5.65); Red Cell Distribution Width 12.6 % (12.1-15.1); White Blood Count 12.81 10^3/uL (3.29-11.43)
[2024-03-10 06:44] LABS: Anion Gap 11.4 (5-19); Blood Urea Nitrogen 13 mg/dL (8-23); Calcium 8.9 mg/dL (8.5-10.5); Carbon Dioxide 26 mmol/L (22-29); Chloride 103 mmol/L (98-107); Creatinine Clr Calc Pharmacy 87.0026; Glomerular Filtration Rate 82.7 mL/min (90-130); Glucose 183 mg/dL (65-115); Osmolality Calculated 287 mOsm/kg (285-295); Potassium 4.4 mmol/L (3.5-5.1); Sodium 136 mmol/L (136-145)
[2024-03-10] MEDS: apixaban 5 mg Tablet 2.5 MG PO (08:32)
[2024-03-10] MEDS: sennosides-docusate Tablet 2 TAB PO (08:32)
[2024-03-10] MEDS: calcium carb-vit d 600mg/400unit 1 Tablet 1 EACH PO (08:32)
[2024-03-10] MEDS: multivitamin therapeutic Tablet 1 TAB PO (08:32)
[2024-03-10] MEDS: iron polysaccharide complex 150 mg Capsule PO (08:32)
--- NOTE | 2024-03-10 10:13 | PC.CHAP ---
Pastoral Care Encounter/Spiritual Assessment Type of Contact [] Declined strainer cleaner visit [] Patient/Family/Request visit [] Outpatient visit [] Follow-up visit [] Physician referral [] Code/Alert [x] Routine visit [] Staff referral [] Actively dying [] Patient sleeping [] Family support [] [] Out of room [] Palliative care [] [] Receiving care in room [] Pre-surgical visit [] Trauma [] Long length of stay [] ICU visit [] Other: Relational/Emotional Strength [x] Patient feels connected with others/family/visitors/staff [] Distress [] Loneliness/isolation [] Abandonment Spirituality of Patient [x] Person of [place] [] Attends Mormon of their [place] [x] Believes in Prayer [] Reads Bible or Rastafarian materials [] There are Spiritual issues to be addressed Mattress Packer Interventions [x] Prayer [x] Active listening [] Non-anxious presence [x] Spiritual/emotional support [] Crisis/trauma care [] Spiritual counseling [] Bereavement support [] Provided bereavement packet [] Provided Bible/devotional materials [] Provided toy/stuffed animal, coloring book to patient or family member [] Provided Communion [] Anointing/Viola [] Salvation [x] Completed spiritual assessment [] Other: Impact on Illness or Injury [] Angry [] Fearful [] Anxious [] Often cries [] Exhaustion [] Unable to work [] Unable to attend gnosticism [] Unable to walk/stand [] Unable to read [] Unable to drive [] Unable to eat/drink [] Unable to sleep [] Unable to be with family [] Patient intubated [] Other: Summary Time spent with patient 5 min
--- NOTE | 2024-03-10 10:32 | PC.NURSE ---
1619 - report rec'd from Mary RN - charting from 1619 - to completion done by ANITA Miller - report given to ANITA Harris - . Naren bedside - pts v/s within normal limits during hand off of pt
--- NOTE | 2024-03-10 10:47 | P.PN_ITS ---
Subjective 2 Subjective: Patient was seen this morning, she denies any fevers, chills, no cough, she is adamant about going home, we discussed discharge plan, will await for Dr. Nelson's recommendations, but I believe the plan is to discharge her on Eliquis 2.5 mg twice daily for 2 weeks for DVT prophylaxis, discussed risk of GI bleed, risk of anemia she voiced understanding, all question answered, agreed to proceed monitor for bloody or black stools if so go to emergency room, we had a detailed discussion about long-term anticoagulation with Eliquis for her history of atrial fibrillation, risk of strokes, morbidity and mortality associated, she voiced understanding, all questions answered, declined long-term anticoagulation for now Vitals/I&O/Wt Last Vital Signs Temp 97.7 F 03/10/24 04:34 Pulse 60 03/10/24 07:12 Resp 18 03/10/24 10:34 BP 111/71 03/10/24 07:12 Pulse Ox 94 03/10/24 07:12 O2 Del Method Room Air 03/09/24 18:16 O2 Flow Rate 10 03/09/24 16:05 03/09/24 03/10/24 03/10/24 22:59 06:59 14:59 Intake Total 1040 / 1740 1318.333 / 3058.333 Output Total 600 / 600 300 / 900 Balance 440 / 1140 1018.333 / 2158.333 Weight last 48 hrs Weight 118.161 kg Weight 114.759 kg Weight 114.759 kg Physical Exam 2 Const: COMMON NORMALS: no acute distress and patient oriented x3 Resp: COMMON NORMALS: normal respiratory effort, No retractions, No use of accessory muscles and clear to auscultation bilaterally AUSCULTATION: clear to auscultation bilaterally Cardio: COMMON NORMALS: regular rate, regular rhythm, S1 normal heart sound present and S2 normal heart sound present RATE: regular rate RHYTHM: r egular rhythm HEART SOUNDS: S1 normal heart sound present and S2 normal heart sound present GI: COMMON NORMALS: Normal to inspection, nondistended, normoactive bowel sounds present and non-tender Extremity: COMMON NORMALS: no pedal edema Neuro: COMMON NORMALS: patient oriented x3 Psych: COMMON NORMALS: mental status grossly normal Urinary Catheter Management: Mallory: Cath Placed During This Visit: yes, but has since been removed by the nurse Reason for Continuing Indwelling Catheter: Decision to DC Catheter Date Urinary Catheter Removed: 03/10/24 Time Urinary Catheter Discontinued: 08:30 Data 03/10/24 06:02 03/10/24 06:02 A&P Assessment and plan (1) Afib: Qualifiers: Atrial fibrillation type: unspecified chronic Qualified Code(s): I48.20 - Chronic atrial fibrillation, unspecified (2) History of pacemaker: (3) Hypothyroidism: (4) Osteoarthritis of right knee: (5) S/P total hip arthroplasty: (6) COPD (chronic obstructive pulmonary disease): Qualifiers: COPD type: chronic bronchitis Chronic bronchitis type: simple Qualified Code(s): J41.0 - Simple chronic bronchitis Plan Right hip osteoarthritis Status post right total hip arthroplasty?Florin posterior approach Pain control anticoagulation as per orthopedic team, ? Aspirin 81 mg ? Telemetry monitoring History of atrial fibrillation, currently in normal sinus rhythm, on aspirin 81 declines anticoagulation no history of CVA, no symptomatology since her CVA COPD, not active smoker denies shortness of breath on room air Hypothyroidism continue home medications Obesity Full code ? Eliquis for DVT prophylaxis Attestations 2 Medical Necessity Statement*: Patient will be discharged today Diagnoses Chronic atrial fibrillation I48.20 Atrial fibrillation type: unspecified chronic History of pacemaker Z95.0 Hypothyroidism E03.9 Osteoarthritis of right knee M17.11 S/P total hip arthroplasty Z96.649 Simple chronic bronchitis J41.0 COPD type: chronic bronchitis Chronic bronchitis type: simple
--- NOTE | 2024-03-10 12:57 | PM.DCS ---
Discharge Providers Date of Admission: 03/09/24 15:59 Date of Discharge: March 10, 2024 Attending Provider at Admission: Mitesh Nelson DO Attending Provider at Discharge: Mitesh Nelson DO Consults: Dr. Dr. Padron?hospitalist Primary Care Provider: Gemini Morris MD Diagnoses at Discharge Discharge Diagnosis (1) Afib: Status: Acute Qualifiers: Atrial fibrillation type: unspecified chronic Qualified Code(s): I48.20 - Chronic atrial fibrillation, unspecified (2) History of pacemaker: Status: Acute Permanent problem details: 2015 (3) Hypothyroidism: Status: Acute (4) Osteoarthritis of right knee: Status: Resolved (5) S/P total hip arthroplasty: Status: Acute (6) COPD (chronic obstructive pulmonary disease): Status: Acute Qualifiers: COPD type: chronic bronchitis Chronic bronchitis type: simple Qualified Code(s): J41.0 - Simple chronic bronchitis Reason for Visit Reason for Visit: M16.11 Brief History: Status post right total hip arthroplasty Hospital Course Hospital Course Patient was brought to the hospital through the preoperative holding area with plan for right total hip arthroplasty for [right] hip dengerative joint disease. Once cleared by anesthesia for surgery subsequently was taken back to the operative suite underwent anesthesia per the anesthesia department and then underwent [right] total hip arthroplasty with Florin robotic assistance posterior approach without any complications. Patient was then subsequently taken back to PACU in stable condition recovering well. Once recovered, patient was then subsequently admitted to the floor postoperatively. Internal medicine was consulted for medical management assistance. Patient weightbearing as tolerated to the right lower extremity, posterior hip precautions. PT/OT. Pain control. DVT prophylaxis. Postoperative antibiotics and TXA. dressing was change as needed. Internal medicine was on board and appreciate their medical management and assistance. [Patient progressed well through therapy and was ready to discharge on postoperative day 1]. Pt was determined on postoperative day [1 ] the patient was stable for discharge from orthopedic as well as internal medicine standpoint. Patient's labs were monitored daily. Patient will receive appropriate pain medication as well as DVT prophylaxis postoperatively. Appropriate discharge instructions as well. Patient was then discharged in stable condition. Patient will discharge home. Pt will follow-up with Orthopedics in the office in 2 weeks. Patient understands and agrees with current plan. All questions answered. Understands there is any issues or concerns and contact the office. Physical Exam Narrative: Patient sitting up at bedside, dressing inspected minimal saturation Same normal postoperative swelling she is able to wiggle toes plantarflex and dorsiflex ankle sensations intact to light touch distally toes warm well-perfused compartments are soft compressible normal postoperative swelling noted about the right hip patient able to tolerate gentle hip range of motion with minimal pain and discomfort. Urinary Catheter Management: Mallory: Cath Placed During This Visit: yes, but has since been removed by the nurse Reason for Continuing Indwelling Catheter: Decision to DC Catheter Date Urinary Catheter Removed: 03/10/24 Time Urinary Catheter Discontinued: 08:30 Discharge Data Studies Completed and Pending Completed Studies During Hospitalization Category Date Time Status XR hip RT 2-3V wo/w pel* [id number] Routine Exams 03/09/24 15:42 Completed Pending at discharge Category Date Time Status Basic Metabolic Panel AM LABS Lab 03/11/24 04:00 Ordered Basic Metabolic Panel AM LABS Lab 03/12/24 04:00 Ordered Complete Blood Count w/Auto AM LABS Lab 03/11/24 04:00 Ordered Complete Blood Count w/Auto AM LABS Lab 03/12/24 04:00 Ordered Radiology Impressions Hip/Pelvis X-Ray 03/09/24 15:42 IMPRESSION: Status post total hip prosthesis on the right, as noted above. Laboratory Results WBC 12.81 10^3/uL (3.29-11.43) H 03/10/24 06:02 RBC 3.95 10^6/uL (3.85-5.65) 03/10/24 06:02 Hgb 12.50 g/dL (11.27-16.99) 03/10/24 06:02 Hct 38.6 % (36-47) 03/10/24 06:02 MCV 97.7 fl (85-98) 03/10/24 06:02 MCH 31.6 pg (27-33) 03/10/24 06:02 MCHC 32.4 g/dL (30-55) 03/10/24 06:02 RDW 12.6 % (12.1-15.1) 03/10/24 06:02 Plt Count 164 10^3/cmm (157-399) 03/10/24 06:02 MPV 11.4 fL (7.4-10.4) H 03/10/24 06:02 Neut % (Auto) 85.9 % 03/10/24 06:02 Lymph % (Auto) 7.7 % 03/10/24 06:02 [place] % (Auto) 5.6 % 03/10/24 06:02 Eos % (Auto) 0.0 % 03/10/24 06:02 Baso % (Auto) 0.1 % 03/10/24 06:02 Neut # (Auto) 11.01 10^3/uL (1.8-7.7) H 03/10/24 06:02 Lymph # (Auto) 1.0 10^3/uL (0.8-4.8) 03/10/24 06:02 [place] # (Auto) 0.7 10^3/uL (0.2-0.9) 03/10/24 06:02 Eos # (Auto) 0.0 10^3/uL (0.0-0.8) 03/10/24 06:02 Baso # (Auto) 0.0 10^3/uL (0.0-0.1) 03/10/24 06:02 Nucleated RBC % (auto) 0 % 03/10/24 06:02 Nucleated RBCs # 0.0 /100WBC 03/10/24 06:02 Sodium 136 mmol/L (136-145) 03/10/24 06:02 Potassium 4.4 mmol/L (3.5-5.1) 03/10/24 06:02 Chloride 103 mmol/L (98-107) 03/10/24 06:02 Carbon Dioxide 26 mmol/L (22-29) 03/10/24 06:02 Anion Gap 11.4 (5-19) 03/10/24 06:02 BUN 13 mg/dL (8-23) 03/10/24 06:02 Creatinine 0.7 mg/dL (0.5-0.9) 03/10/24 06:02 GFR Calculation 82.7 mL/min (90-130) L 03/10/24 06:02 Glucose 183 mg/dL (65-115) H 03/10/24 06:02 POC Glucose 165 mg/dL (70-110) H 03/09/24 18:55 Calculated Osmolality 287 mOsm/kg (285-295) 03/10/24 06:02 Calcium 8.9 mg/dL (8.5-10.5) 03/10/24 06:02 Blood Type B Positive 03/09/24 11:49 Rho(D) Type Rh positive 03/09/24 11:49 Antibody Screen Negative 03/09/24 11:49 Vitals Last Vital Signs Temp 97.5 F L 03/10/24 11:43 Pulse 62 03/10/24 11:43 Resp 16 03/10/24 11:43 BP 124/64 03/10/24 11:43 Pulse Ox 93 03/10/24 11:43 O2 Del Method Room Air 03/10/24 11:43 O2 Flow Rate 10 03/09/24 16:05 Discharge Plan Discharge Patient Disposition: Home Condition: Stable Prescriptions: New Calcium 600 + D(3) 600 mg-10 mcg (400 unit) tablet 1 tab PO DAILY 30 Days Qty: 30 0RF Eliquis 2.5 mg tablet 2.5 mg PO BID 35 Days Qty: 70 0RF Continued albuterol sulfate [Ventolin HFA] 90 mcg/actuation HFA aerosol inhaler 2 puff INHALATION Q6H PRN (Reason: sob) (DME) nebulizers Misc See Rx Instructions .ROUTE .MEDSUPPLY Qty: 1 Rx Instructions: As directed levothyroxine 137 mcg tablet 137 mcg PO DAILY Held aspirin 81 mg Tablet,Delayed Release (Dr/Ec) 81 mg PO DAILY Hold Instructions: Resume on 04/07/24. Discharge Orders: Discharge Order (Routine); Ordered 03/10/24 Ordered By: Mitesh Nelson Referrals: Gemini Morris MD [Primary Care Provider] - 03/19/24 9:15 am Mitesh Nelson DO [Physician] - 03/24/24 10:45 am Discharge Diet: Advance as tolerated Discharge Activity: Limit activity as instructed, Use walker/crutches as instructed and As per PT/OT instructions Patient Instructions: Cephalexin (By mouth), Oxycodone, Rapid Release (By mouth), Ondansetron (By mouth), Apixaban (By mouth), Total Hip Replacement (GEN), Joint Replacement Stoplight, Opioid Safety Activity Restrictions/Additional Instructions: Total hip arthroplasty postop Orthopedic discharge instructions: Patient may weight-bear as tolerated to the operative lower extremity Posterior hip precautions (avoid excess excessive hip flexion past 90 degrees and internal rotation) Take DVT prophylaxis (blood thinner) as prescribed (i.e. blood thinner) Take pain medication as prescribed Take antinausea medication as needed Supplement with Citracal vitamin D for bone health and healing Take antibiotic as prescribed Ice as needed for pain and swelling Leave tenzin bandage dressing on for 7 days after that may remove, rinse incision with warm soapy water/shower pat dry keep clean dry and intact and redress with a clean dry Silverlon dressing. No baths or soap Follow-up in the orthopedic office in 2 weeks from date of surgery Contact the office for any questions or concerns per (fevers, increased drainage or redness around the incision site etc.) Discharge Attestations Time Spent in Discharge Care*: less than 30 min Quality Metrics Clinical Quality Measures [ No reported AMI, CVA or VTE this stay] Coding Level of Care Code Acute Code for [facility] Fwd Diagnoses Chronic atrial fibrillation I48.20 Atrial fibrillation type: unspecified chronic History of pacemaker Z95.0 Hypothyroidism E03.9 Osteoarthritis of right knee M17.11 S/P total hip arthroplasty Z96.649 Simple chronic bronchitis J41.0 COPD type: chronic bronchitis Chronic bronchitis type: simple
== END 2024-03-10 15:41 | disposition home or self-care (01) ==
LOC: MEDSURG 16:00
PROVIDERS: Admitting Provider Student in an Organized Health Care Education/Training Program; PCP Family Medicine; Visit Provider Student in an Organized Health Care Education/Training Program
PROC: 8E0Y0CZ Robotic Assisted Procedure of Lower Extremity, Open Approach (ICD-10-PCS; CPT 27130; principal; 2024-03-09 13:00)
DX: M16.11 Unilateral primary osteoarthritis, right hip (principal); E03.9 Hypothyroidism, unspecified; Z95.0 Presence of cardiac pacemaker; I48.20 Chronic atrial fibrillation, unspecified; J41.0 Simple chronic bronchitis; Z79.82 Long term (current) use of aspirin; F17.210 Nicotine dependence, cigarettes, uncomplicated
CPT/HCPCS: 20985; 27130; 36415; 36416; 73502; 80048; 82962; 85025; 86850; 86900; 97110; 97116; 97161; 97165; 97530; A9281; C1713; C1776; G0378; J0131; J0690; J1100; J1200; J1885; J2270; J2405; J2704; J2710; J3010; J3370; J3490; J7030; J7120

== ENCOUNTER → 2024-03-24 10:22 | Outpatient (BNVA) | payer MEDICARE, SELFPAY | PROVIDERS: PCP Family Medicine; Visit Provider Physician Assistant | DX: Z96.641 Presence of right artificial hip joint (principal) | CPT/HCPCS: 73502; 99024 ==

== ENCOUNTER 2024-12-14 10:41 | Emergency (ER) | payer MEDICARE, SELFPAY ==
[2024-12-14 11:19] VITALS: BP 132/81; PULSE 99; RESP 17; TEMP 36.5; O2SAT 97; BMI 38.9
--- NOTE | 2024-12-14 12:48 | CT_ITS ---
WS: [id number] CT NECK TECHNIQUE: Contrast-enhanced CT of the neck with coronal and sagittal reformatted images. CLINICAL INFORMATION: left throat swelling, trouble breathing/swallowing COMPARISON: None. DLP: 271.[address] scans at [facility] use at least one of these dose optimization techniques: automated e xposure control; mA and/or kV adjustment per patient size (includes targeted exams where dose is matc hed to clinical indication); or iterative reconstruction. 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 Heterogeneously enhancing mass measures approximately 4.2 x 4.1 x 4.8 cm. This e xtends anteriorly to abut the mandible although no evidence of mandibular destruction. Mass effect on the oropharynx. Neoplasm eccentric to the LEFT in the floor of mouth invading the genioglossus and m ylohyoid with invasion of the sublingual space. This extends into the submandibular space and involve s the LEFT submandibular gland. This extends posteriorly nearly to the base of the tongue and inferio rly into the submental and submandibular spaces. Involvement of the geniohyoid. This nearly abuts the hyoid bone inferiorly and posteriorly. Metastatic heterogeneously enhancing necrotic lymph nodes in the LEFT neck extending from the submand ibular space to the LEFT lower neck. Bulky conglomerate LEFT lower neck lymph nodes posterior to the sternocleidomastoid measuring 4.2 x 2.6 cm. A few prominent RIGHT submandibular and upper cervical ch ain lymph nodes. Recommend PET/CT for staging. Lung apices are well aerated. Retropharyngeal course of the RIGHT cervical ICA. Slightly nodular thyr oid gland. Enhancing upper pole thyroid nodule measuring 1.2 cm posteriorly Moderate spondylitic changes cervical spine. Prior postoperative changes ACDF C6-7. CT/CT neck w con* [id number] IMPRESSION: 1. 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 2. Metastatic lymphadenopathy in the LEFT neck involving all cervical levels e xtending to cervical level 4 posterior to the sternocleidomastoid with bulky ly mphadenopathy described above. Recommend PET/CT for staging. 3. Enhancing RIGHT upper pole thyroid nodule measuring 1.2 cm. This could be f urther evaluated with ultrasound. This could represent a parathyroid adenoma in the tracheoesophageal groove.. 4. Mild mass effect on the oropharynx which remains patent. 5. Retropharyngeal course to the RIGHT cervical ICA. Notified TRAVIS Bull at 12/14/2024 2:50 PM.
--- NOTE | 2024-12-14 12:49 | ED_ITS ---
HPI - Skin/Abscess/Foreign Bdy 2 General: Chief complaint: Skin/Abscess/Foreign Body Stated complaint: lump in throat Time Seen by Provider: 12/14/24 10:54 Source: patient Mode of arrival: ambulatory Limitations: no limitations History of Present Illness: Patient is a 69-year-old female, current everyday smoker for the past 46 years, history of A-fib and COPD, who presents to the emergency department complaining of neck swelling for the past 3 to 4 weeks. Since the beginning of the year, the patient states she has had swelling to the left lateral neck, it has started to cause her difficulty breathing and painful swallowing. She initially presented to primary care, was immediately referred over to the ED for evaluation. She does not have a cancer history, though is essentially lifelong smoker. She has never had swelling like this before. She also notes left sided ear pain. Denies any fever, chest pain, shortness of breath, or other symptoms. Is able to handle her own secretions, breathing comfortably at this time 97% SpO2 on room air rest of her vitals normal. She states that she has been on 2 round of antibiotics since swelling started. MD complaint: other (Left neck swelling) Onset (ago): week(s) (3-4) Location: neck Severity: severe Pain Consistency: constant Relieving factors: none Exacerbating factors: other (Swallowing) Context: none Associated symptoms: Deny chills, fever(s), nausea or vomiting Related Data Home Medications Medication Instructions Recorded Confirmed albuterol sulfate 90 mcg/actuation 2 puff inhalation Q6H PRN sob 06/01/20 03/24/24 aerosol inhaler (Ventolin HFA) nebulizers #1 ea 06/01/20 03/24/24 aspirin 81 mg tablet,delayed 81 mg PO DAILY 06/06/23 03/24/24 release levothyroxine 137 mcg tablet 137 mcg PO DAILY 06/06/23 03/24/24 Previous Rx's Medication Instructions Recorded hydrocodone 10 mg-acetaminophen 1 tab PO Q6H PRN pain 5 days #20 03/24/24 325 mg tablet tabs methocarbamol 500 mg tablet 500 mg PO TID PRN muscle spasm 5 03/24/24 days #15 tabs ondansetron 4 mg disintegrating 4 mg PO Q8H PRN nausea and 03/24/24 tablet vomiting #15 tabs hydrocodone 5 mg-acetaminophen 325 1 tab PO Q6H PRN pain #14 tabs 12/14/24 mg tablet Allergies Allergy/AdvReac Type Severity Reaction Status Date / Time hydromorphone [From Dilaudid] Allergy vomiting Verified 03/24/24 10:31 Review of Systems 2 General: Reports: 10 or more systems reviewed and unremarkable except in HPI and below Const: Denies: fever(s), chills, change in weight or fatigue Eyes: Denies: change in vision ENMT: Reports: throat pain, odynophagia and ear or mastoid pain; Denies: nasal discharge Card: Denies: chest pain, palpitations, swelling of feet/ankles or lightheadedness Resp: Reports: dyspnea; Denies: productive cough or wheezing GI: Denies: abdominal pain, nausea, vomiting, diarrhea or constipation : Denies: flank pain, difficulty voiding, dysuria or urinary frequency Musc: Reports: neck pain; Denies: back pain or joint pain Skin/Breast: Denies: rash Neuro: Denies: headache(s), numbness in extremities or weakness in extremities PFSH ED 2 PFSH: Medical History Pre-op evaluation Hypothyroidism Tobacco dependence X 46 years COPD (chronic obstructive pulmonary disease) Arrhythmia Afib Surgical History History of pacemaker 2016 Hx of cataract surgery Hx of shoulder surgery Stenosis, cervical spine has cervical surgery with plate and [address] History of left knee surgery History of torn meniscus of right knee History of cholecystectomy History of appendectomy History of hernia repair Family History Other Cancer Denies family history of Diabetes CAD (coronary artery disease) Clotting disorder Anesthesia complication Bleeding disorder Hypertension Social History Smoking and tobacco/nicotine status: current every day tobacco/nicotine user cigarettes [ Other cigarette details: 2 cig month max of 3 per day] Alcohol intake: current Alcohol intake frequency: few times a month Alcohol type: beer Substance/Drug Use: never Physical Exam 2 Const: COMMON NORMALS: no acute distress, patient oriented x3 and no limitations GENERAL APPEARANCE: cooperative and comfortable O RIENTATION/CONSCIOUSNESS: Yes awake, Yes oriented to person, Yes oriented to place and Yes oriented to time HENMT: COMMON NORMALS: normocephalic, atraumatic and hearing grossly normal bilaterally HEAD & SCALP: normocephalic and atraumatic OTHER: There is large solid palpable mass to inferior left mandibular region. Posterior oropharyngeal exam unremarkable at this time, uvula is midline and there is no tonsillar enlargement. Moderate tenderness to palpation to the left neck region, extending up the SCM muscle towards the left ear. Evaluation of the left TM is unremarkable. No mastoid bone tenderness or posterior ear erythema. Eye: COMMON NORMALS: EOMs intact bilaterally and conjunctivae normal C ONJUNCTIVA: Yes conjunctivae normal Neck/C-Spine: COMMON NORMALS: full ROM, supple and no JVD Resp: COMMON NORMALS: normal respiratory effort, No retractions, No use of accessory muscles and clear to auscultation bilaterally AUSCULTATION: clear to auscultation bilaterally Cardio: COMMON NORMALS: no JVD, regular rate, No clicks present (Cardio), No murmurs present (Cardio) and No rub (Cardio) RATE: regular rate RHYTHM: a bnormal rhythm irregularly irregular Extremity: COMMON NORMALS: normal to inspection, full ROM and capillary refill normal Neuro: COMMON NORMALS: patient oriented x3, moves all extremities, no focal motor deficits and no sensory deficits noted SENSORIUM/ORIENTATION: Yes oriented to person, Yes oriented to place and Yes oriented to time Skin: COMMON NORMALS: no rashes or lesions noted GENERAL SKIN EXAM: no rashes or lesions noted Course 2 Vital Signs: Vital signs: Vital Signs Temperature 97.7 F 12/14/24 11:19 Pulse Rate 89 12/14/24 14:59 Respiratory Rate 20 H 12/14/24 14:59 Blood Pressure 132/81 12/14/24 11:19 Pulse Oximetry 97 12/14/24 14:59 Oxygen Delivery Me thod Room Air 12/14/24 14:59 MDM - Skin/Abscess/Foreign Bdy Medicial Decision Making Patient presented with swelling to left neck she has noticed for the past 3 weeks or so. Posterior oropharyngeal exam was unremarkable, no uvular deviation or tonsillar swelling. There was solid firm tender mass to left submandibular region extending to the left lateral neck. Her lab work was normal. On CT evidence of neoplasm, likely malignant and there was local metastasis noted on CT of neck alone. I spoke with ENT, Dr. Klein, who had stated that as long as airway was patent he would see this patient urgently as an outpatient. Mild mass effect on CT, though airway patent, her SpO2 has remained normal and she has been breathing comfortably throughout ED stay. Informed patient of these findings, she became anxious and tearful, we will treat her pain with Isabella. She was also given Decadron through an IV here. She is informed to await call in the next couple of days to set up the appointment, however informed her to return as soon as she notices any throat closure or difficulty breathing. She endorsed understanding with this and is comfortable following up as outpatient. Discussed case briefly with Dr. Hammer. Lab Data 12/14/24 12:18 12/14/24 12:[address] 12/14/24 12:48 IMPRESSION: 1. 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 2. Metastatic lymphadenopathy in the LEFT neck involving all cervical levels extending to cervical level 4 posterior to the sternocleidomastoid with bulky lymphadenopathy described above. Recommend PET/CT for staging. 3. Enhancing RIGHT upper pole thyroid nodule measuring 1.2 cm. This could be further evaluated with ultrasound. This could represent a parathyroid adenoma in the tracheoesophageal groove.. 4. Mild mass effect on the oropharynx which remains patent. 5. Retropharyngeal course to the RIGHT cervical ICA. Notified TRAVIS Bull at 12/14/2024 2:50 PM. Laboratory Results WBC 7.15 10^3/uL (3.29-11.43) 12/14/24 12:18 RBC 4.92 10^6/uL (3.85-5.65) 12/14/24 12:18 Hgb 15.40 g/dL (11.27-16.99) 12/14/24 12:18 Hct 47.5 % (36-47) H 12/14/24 12:18 MCV 96.5 fl (85-98) 12/14/24 12:18 MCH 31.3 pg (27-33) 12/14/24 12:18 MCHC 32.4 g/dL (30-55) 12/14/24 12:18 RDW 12.9 % (12.1-15.1) 12/14/24 12:18 Plt Count 199 10^3/cmm (157-399) 12/14/24 12:18 MPV 10.6 fL (7.4-10.4) H 12/14/24 12:18 Neut % (Auto) 64.7 % 12/14/24 12:18 Lymph % (Auto) 26.0 % 12/14/24 12:18 [place] % (Auto) 7.8 % 12/14/24 12:18 Eos % (Auto) 1.0 % 12/14/24 12:18 Baso % (Auto) 0.4 % 12/14/24 12:18 Neut # (Auto) 4.62 10^3/uL (1.8-7.7) 12/14/24 12:18 Lymph # (Auto) 1.9 10^3/uL (0.8-4.8) 12/14/24 12:18 [place] # (Auto) 0.6 10^3/uL (0.2-0.9) 12/14/24 12:18 Eos # (Auto) 0.1 10^3/uL (0.0-0.8) 12/14/24 12:18 Baso # (Auto) 0.0 10^3/uL (0.0-0.1) 12/14/24 12:18 Nucleated RBC % (auto) 0 % 12/14/24 12:18 Nucleated RBCs # 0.0 /100WBC 12/14/24 12:18 ESR 13 mm/hr (0-15) 12/14/24 12:18 Sodium 140 mmol/L (136-145) 12/14/24 12:18 Potassium 4.0 mmol/L (3.5-5.1) 12/14/24 12:18 Chloride 101 mmol/L (98-107) 12/14/24 12:18 Carbon Dioxide 29 mmol/L (22-29) 12/14/24 12:18 Anion Gap 14.0 (5-19) 12/14/24 12:18 BUN 12 mg/dL (8-23) 12/14/24 12:18 Creatinine 0.7 mg/dL (0.5-0.9) 12/14/24 12:18 GFR Calculation 82.7 mL/min (90-130) L 12/14/24 12:18 Glucose 103 mg/dL (65-115) 12/14/24 12:18 Calculated Osmolality 290 mOsm/kg (285-295) 12/14/24 12:18 Calcium 9.4 mg/dL (8.5-10.5) 12/14/24 12:18 Total Bilirubin 0.7 mg/dL (0.15-1.2) 12/14/24 12:18 AST 30 U/L (0-32) 12/14/24 12:18 ALT 19 U/L (0-33) 12/14/24 12:18 Alkaline Phosphatase 111 U/L (35-105) H 12/14/24 12:18 C-Reactive Protein 16.7 mg/L (0.0-4.9) H 12/14/24 12:18 Total Protein 7.2 g/dL (6.6-8.7) 12/14/24 12:18 Albumin 3.8 g/dL (3.5-5.2) 12/14/24 12:18 Globulin 3.4 g/dL (1.3-4.6) 12/14/24 12:18 All radiology interpretation(s) finalized by discharge Discharge Plan Discharge Patient Disposition: Home Clinical Impression: Mass in neck Condition: Stable Prescriptions: New hydrocodone-acetaminophen 5-325 mg tablet 1 tab PO Q6H PRN (Reason: pain) Qty: 14 0RF No Action albuterol sulfate [Ventolin HFA] 90 mcg/actuation HFA aerosol inhaler 2 puff INHALATION Q6H PRN (Reason: sob) (DME) nebulizers Misc See Rx Instructions .ROUTE .MEDSUPPLY Qty: 1 Rx Instructions: As directed hydrocodone-acetaminophen 10-325 mg tablet 1 tab PO Q6H PRN (Reason: pain) 5 Days Qty: 20 0RF ondansetron 4 mg tablet,disintegrating 4 mg PO Q8H PRN (Reason: nausea and vomiting) Qty: 15 0RF methocarbamol 500 mg tablet 500 mg PO TID PRN (Reason: muscle spasm) 5 Days Qty: 15 0RF levothyroxine 137 mcg tablet 137 mcg PO DAILY aspirin 81 mg Tablet,Delayed Release (Dr/Ec) 81 mg PO DAILY Hold Instructions: Resume on 04/07/24. Discharge Orders: Discharge ED (Routine); Ordered 12/14/24 Ordered By: João Astorga Referrals: Gemini Morris MD [Primary Care Provider] - Activity Restrictions/Additional Instructions: Follow-up with ENT this week as we discussed. Please return immediately if you have sensation of throat closure or severe trouble breathing. Isabella for pain. Coding Level of Care Code ED Steam Trap Man for Leo Robbins
[2024-12-14] MEDS: dexamethasone 10 mg/mL INJ IVP (13:14)
[2024-12-14 13:30] LABS: Basophils % 0.4 %; Eosinophils # 0.1 10^3/uL (0.0-0.8); Hematocrit 47.5 % (36-47); Lymphocytes # 1.9 10^3/uL (0.8-4.8); Mean Corpuscular HGB Conc 32.4 g/dL (30-55); Mean Corpuscular Hemoglobin 31.3 pg (27-33); Mean Corpuscular Volume 96.5 fl (85-98); Mean Platelet Volume 10.6 fL (7.4-10.4); Monocytes # 0.6 10^3/uL (0.2-0.9); Monocytes % 7.8 %; Neutrophils # 4.62 10^3/uL (1.8-7.7); Neutrophils % 64.7 %; Nucleated Red Blood Cells % 0 %; Platelet Count 199 10^3/cmm (157-399); Red Blood Count 4.92 10^6/uL (3.85-5.65); Red Cell Distribution Width 12.9 % (12.1-15.1); White Blood Count 7.15 10^3/uL (3.29-11.43)
[2024-12-14 13:37] LABS: Erythrocyte Sedimentation Rate 13 mm/hr (0-15)
[2024-12-14 13:51] LABS: Alanine Aminotransferase 19 U/L (0-33); Albumin Level 3.8 g/dL (3.5-5.2); Alkaline Phosphatase 111 U/L (35-105); Aspartate Amino Transferase 30 U/L (0-32); Blood Urea Nitrogen 12 mg/dL (8-23); C Reactive Protein 16.7 mg/L (0.0-4.9); Calcium 9.4 mg/dL (8.5-10.5); Carbon Dioxide 29 mmol/L (22-29); Chloride 101 mmol/L (98-107); Creatinine Clr Calc Pharmacy 84.8474; Globulin 3.4 g/dL (1.3-4.6); Glomerular Filtration Rate 82.7 mL/min (90-130); Glucose 103 mg/dL (65-115); Osmolality Calculated 290 mOsm/kg (285-295); Sodium 140 mmol/L (136-145); Total Bilirubin 0.7 mg/dL (0.15-1.2); Total Protein 7.2 g/dL (6.6-8.7)
[2024-12-14] MEDS: iohexol 350 mg/mL 500 mL Btl (per mL) IV (14:08)
[2024-12-14 14:59] VITALS: PULSE 89; RESP 20; O2SAT 97
[2024-12-14 15:36] VITALS: BP 131/90; PULSE 89; O2SAT 96
== END 2024-12-14 15:42 | disposition home or self-care (01) ==
PROVIDERS: Emergency Provider Physician Assistant; PCP Family Medicine
DX: R22.1 Localized swelling, mass and lump, neck (principal); F17.210 Nicotine dependence, cigarettes, uncomplicated; J44.9 Chronic obstructive pulmonary disease, unspecified; Z95.0 Presence of cardiac pacemaker
CPT/HCPCS: 70491; 80053; 85025; 85651; 86140; 96374; 99285; J1100

== ENCOUNTER 2024-12-25 08:43 | Outpatient (CLI) | payer MEDICARE, SELFPAY ==
--- NOTE | 2024-12-25 08:50 | FL_ITS ---
WS: [id number] Barium swallow and esophagram, 12/25/2024 Clinical Data: DYSPHAGIA, UNSPECIFIED Comparison: CT neck, 12/14/2024 Fluoroscopy time: 1min [id number] # of spot films: 24 Findings: The patient swallowed the thick and thin barium, and it flowed through the hypopharynx without hesitation. There was an anterior and left indentation from the patient's floor of the mouth mass onto the superior hypopharynx. However the flow of barium was not diminished. The remainder of the hypopharynx showed normal flow. There is posterior indentation from osteoarthritis at C5-C6 on the hypopharynx. No aspiration or penetration occurred. The barium entered the esophagus and there was normal motility throughout. No hiatal hernia, reflux, stricture, polyp, mass, erosion or ulcer was noted. The barium passed normally into the fundus of the stomach. FL/FL barium swallow [id number] Impression: 1. Indentation on to the anterior aspect of the superior hypopharynx from the p atient's mass in the floor of the mouth. 2. Posterior indentation at C5-C6 from osteoarthritis onto the posterior hypoph arynx. 3. Normal esophagus.
== END 2024-12-25 08:44 | disposition home or self-care (01) ==
LOC: RAD 08:45
PROVIDERS: PCP Family Medicine; Visit Provider Specialist
DX: R13.10 Dysphagia, unspecified (principal); R93.89 Abnormal findings on diagnostic imaging of other specified body structures; R93.7 Abnormal findings on diagnostic imaging of other parts of musculoskeletal system; M47.892 Other spondylosis, cervical region
CPT/HCPCS: 74220

== ENCOUNTER 2025-01-01 22:38 | Emergency (ER) | payer MEDICARE, SELFPAY ==
[2025-01-01 22:40] VITALS: BP 121/71; PULSE 76; RESP 18; TEMP 37.1; O2SAT 100; BMI 31.3
[2025-01-01 23:00] VITALS: BP 133/60; PULSE 101; O2SAT 94
--- NOTE | 2025-01-01 23:03 | XRR_ITS ---
PROCEDURE INFORMATION: Exam: XR Chest Exam date and time: 01/01/2025 11:04 PM Age: 69 years old Clinical indication: Cough and shortness of breath; Prior surgery; Surgery date: 6+ months; Surgery type: Cervical fusion. Pacemaker. Cough with SOB. History of copd. 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 TECHNIQUE: Imaging protocol: Radiologic exam of the chest. Views: 1 view. COMPARISON: CT neck w con* [id number] 12/14/2024 2:05 PM FINDINGS: Tubes, catheters and devices: Dual lead electronic cardiac device projects over the left chest. Lungs: No large focal consolidation. Pleural spaces: No large pleural effusion. No distinct pneumothorax. Heart/Mediastinum: Cardiomediastinal silhouette is midline and stable in size compared to 12/22/2014. Bones/joints: Status post ACDF. Chronic changes of the bilateral humeral heads. XR/XR chest 1V portable [id number] IMPRESSION: No acute cardiopulmonary findings.
[2025-01-01] MEDS: methylPREDNISolone sod succ 125 mg/2 mL INJ IV (23:31)
[2025-01-02] VITALS (7 sets, daily range): BP systolic 101–141; BP diastolic 57–80; PULSE 64–78; O2SAT 90–97
--- NOTE | 2025-01-02 00:03 | W.ED.SOB ---
HPI - SOB/Dyspnea General: Chief Complaint: Shortness of Breath/Dyspnea Stated Complaint: SOB Time Seen by Provider: 01/01/25 22:56 History of Present Illness: HPI Narrative: This patient is a 69-year-old white female who presents to the emergency department with shortness of breath. She does have a history of COPD. She does have metered-dose inhaler as well as a home nebulizer. She was given a treatment and route by EMS. She is feeling better. Patient is currently being worked up for a mass on the floor of her mouth. She states she did have a biopsy but does not have the results. Related Data Home Medications ?Medication ?Instructions ?Recorded ?Confirmed albuterol sulfate 90 mcg/actuation 2 puff inhalation Q6H PRN sob 06/01/20 03/24/24 aerosol inhaler (Ventolin HFA) nebulizers #1 ea 06/01/20 03/24/24 aspirin 81 mg tablet,delayed 81 mg PO DAILY 06/06/23 03/24/24 release Held on 03/10/24. Instructions: Resume on 04/07/24. levothyroxine 137 mcg tablet 137 mcg PO DAILY 06/06/23 03/24/24 Previous Rx's ?Medication ?Instructions ?Recorded hydrocodone 10 mg-acetaminophen 1 tab PO Q6H PRN pain 5 days #20 03/24/24 325 mg tablet tabs methocarbamol 500 mg tablet 500 mg PO TID PRN muscle spasm 5 03/24/24 days #15 tabs ondansetron 4 mg disintegrating 4 mg PO Q8H PRN nausea and 03/24/24 tablet vomiting #15 tabs hydrocodone 5 mg-acetaminophen 325 1 tab PO Q6H PRN pain #14 tabs 12/14/24 mg tablet prednisone 5 mg tablets in a dose See Rx Instructions PO .COMPLEX 01/02/25 pack #21 ea Allergies Allergy/AdvReac Type Severity Reaction Status Date / Time hydromorphone (From Dilaudid) Allergy vomiting Verified 03/24/24 10:31 Review of Systems General: Reports: 10 or more systems reviewed and unremarkable except in HPI and below Resp: Reports: dyspnea and wheezing PFSH ED PFSH: Medical History Pre-op evaluation Hypothyroidism Tobacco dependence X 46 years COPD (chronic obstructive pulmonary disease) Arrhythmia Afib Surgical History History of pacemaker 2016 Hx of cataract surgery Hx of shoulder surgery Stenosis, cervical spine has cervical surgery with plate and [address] History of left knee surgery History of torn meniscus of right knee History of cholecystectomy History of appendectomy History of hernia repair Family History Other Cancer Denies family history of Diabetes CAD (coronary artery disease) Clotting disorder Anesthesia complication Bleeding disorder Hypertension Social History Smoking and tobacco/nicotine status: current every day tobacco/nicotine user cigarettes [ Other cigarette details: 2 cig month max of 3 per day] Alcohol intake: current Alcohol intake frequency: few times a month Alcohol type: beer Substance/Drug Use: never Physical Exam Const: COMMON NORMALS: no acute distress, patient oriented x3 and no limitations GENERAL APPEARANCE: cooperative and comfortable HENMT: COMMON NORMALS: normocephalic, atraumatic, Normal nasal mucous membranes and turbinates present and moist oral mucous membranes HEAD & SCALP: normal to inspection, normocephalic and atraumatic FACE & SINUS: normal facial exam NOSE: Normal nasal mucous membranes and turbinates present MOUTH: tongue abnormal (mass, no airway obstruction) Eye: COMMON NORMALS: Equal, round and reactive pupils present, EOMs intact bilaterally and conjunctivae normal GENERAL EYE: appearance normal, both eyes and all related structures CONJUNCTIVA: Yes conjunctivae normal PUPIL: Yes Equal, round and reactive pupils present Neck/C-Spine: COMMON NORMALS: supple and no JVD Chest: COMMONS NORMALS: normal inspection of the chest Resp: COMMON NORMALS: normal respiratory effort AUSCULTATION: wheezes Cardio: COMMON NORMALS: no JVD, regular rate, regular rhythm, No gallops present (Cardio), No murmurs present (Cardio) and No rub (Cardio) RATE: regular rate RHYTHM: regular rhythm GI: COMMON NORMALS: Normal to inspection, nondistended, normoactive bowel sounds present, Soft to palpation and non-tender AUSCULTATION: Yes normoactive bowel sounds PALPATION: Yes Soft to palpation : COMMON NORMALS: Yes no CVA tenderness BLADDER/KIDNEY EXAM: Yes no CVA tenderness Back/Pelvis: COMMON NORMALS: no CVA tenderness and thoracic and lumbar spine normal to inspection Extremity: COMMON NORMALS: normal to inspection Neuro: COMMON NORMALS: patient oriented x3 and CN's II-XII intact bilaterally Psych: COMMON NORMALS: mental status grossly normal, Normal thought process present and cooperative THOUGHT PROCESS: Normal thought process present Skin: COMMON NORMALS: no rashes or lesions noted, turgor normal and no jaundice GENERAL SKIN EXAM: no rashes or lesions noted and turgor normal Course Vital Signs: Vital signs: Vital Signs Temperature 98.7 F 01/01/25 22:40 Pulse Rate 76 01/01/25 22:40 Respiratory Rate 18 01/01/25 22:40 Blood Pressure 121/71 01/01/25 22:40 Pulse Oximetry 100 01/01/25 22:40 MDM - SOB/Dyspnea Medical Decision Making Chest x-ray did not reveal any infiltrates. Patient was given 125 mg of Solu-Medrol IV. She is feeling significantly better now. She was discharged in stable condition with a prescription for prednisone burst and taper. She is to use her metered-dose inhaler and/or nebulizer as needed. Follow-up with primary care physician within 1 week for recheck. Lab Data Labs/Radiology: Radiology Impressions Chest X-Ray 01/01/25 23:03 IMPRESSION: No acute cardiopulmonary findings. All radiology interpretation(s) finalized by discharge Discharge Plan Discharge Patient Disposition: Home Clinical Impression: COPD (chronic obstructive pulmonary disease) Qualifiers: COPD type: chronic bronchitis Chronic bronchitis type: simple Qualified Code(s): J41.0 - Simple chronic bronchitis Condition: Stable Prescriptions: New prednisone 5 mg tablets,dose pack See Rx Instructions PO .COMPLEX Qty: 21 0RF Rx Instructions: prednisone 5 mg: take 8 tablets (40 mg) on Day 1; 7 tablets (35 mg) on Day 2; then decrease by 1 tablet every day until finished No Action albuterol sulfate [Ventolin HFA] 90 mcg/actuation HFA aerosol inhaler 2 puff INHALATION Q6H PRN (Reason: sob) (DME) nebulizers Misc See Rx Instructions .ROUTE .MEDSUPPLY Qty: 1 Rx Instructions: As directed hydrocodone-acetaminophen 10-325 mg tablet 1 tab PO Q6H PRN (Reason: pain) 5 Days Qty: 20 0RF ondansetron 4 mg tablet,disintegrating 4 mg PO Q8H PRN (Reason: nausea and vomiting) Qty: 15 0RF methocarbamol 500 mg tablet 500 mg PO TID PRN (Reason: muscle spasm) 5 Days Qty: 15 0RF levothyroxine 137 mcg tablet 137 mcg PO DAILY aspirin 81 mg Tablet,Delayed Release (Dr/Ec) 81 mg PO DAILY hydrocodone-acetaminophen 5-325 mg tablet 1 tab PO Q6H PRN (Reason: pain) Qty: 14 0RF Discharge Orders: Discharge ED (Routine); Ordered 01/02/25 Ordered By: Ayaan Lopez Referrals: Gemini Morris MD [Primary Care Provider] - Patient Instructions: COPD Activity Restrictions/Additional Instructions: Follow-up with your primary care provider within 1 week for recheck. Print Language: Burmese Coding Level of Care Code ED Pathology Secretary/Transcriptionist for Leo Robbins
[2025-01-02 00:28] LABS: Influenza A NEGATIVE (Negative); Influenza B NEGATIVE (Negative); SARS-CoV-2 PCR NEGATIVE (Negative)
[2025-01-02 00:37] LABS: Respiratory Syncytial Virus Ce POSITIVE (Negative)
== END 2025-01-02 05:00 | disposition home or self-care (01) ==
PROVIDERS: Emergency Provider Emergency Medicine; PCP Family Medicine
DX: J41.0 Simple chronic bronchitis (principal); Z79.82 Long term (current) use of aspirin; F17.210 Nicotine dependence, cigarettes, uncomplicated; Z95.0 Presence of cardiac pacemaker
CPT/HCPCS: 71045; 87637; 96374; 99284; J2919

== ENCOUNTER 2025-01-15 09:18 | Outpatient (CLI) | payer MEDICARE, SELFPAY ==
--- NOTE | 2025-01-15 09:38 | PETR_ITS ---
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 LABS AND CLINICAL REPORTS: Glucose: 91 mg/dl Treatment strategy for malignancy (PET staging): Initial Staging (PI) TECHNIQUE: Imaging protocol: Following at least four-hour fasting and following the injection of radiopharmaceutical, low dose CT images were obtained. Then, PET images were obtained. Attenuation corrected images were constructed using the CT scan. Fused images of PET and CT were reviewed. The standardized uptake values (SUV) reported below are maximum values within a region of interest, expressed in gm/ml. Exam includes orbital meatal line to mid-thigh. SUV normalization method: BodyWeight Radiopharmaceutical: 11.88 mCi F-18 FDG (Fluorodeoxyglucose), IV. Time of imaging post radiopharmaceutical administration: 46 minutes Injection site: left wrist COMPARISON: CT neck w con 12/14/2024 FINDINGS: Tubes, catheters and devices: Pacemaker is in the left chest wall with 2 electrodes within the right atrium and right ventricle. Brain: Normal physiologic uptake. Salivary glands: About 5 x 4.3 x 4.5 cm tumor in the midline and to the left of the midline in the mouth floor measures 21.8 SUV in keeping with known primary malignancy possibly involving the sublingual salivary gland. About 1.5 cm area of increased uptake of 13.9 SUV in the anterior-most aspect of the left submandibular salivary gland adjacent to this bulky tumor on axial image 78 is suggestive of malignant involvement. The right submandibular salivary gland and bilateral parotid glands are unremarkable. Pharynx: No abnormal uptake. Larynx: No abnormal uptake. Lungs, pleura and trachea: No abnormal uptake. No suspicious lung nodules or masses. Calcified granulomas in the right lower lobe. No pleural effusion. Heart: No abnormal uptake. Mild cardiomegaly. No pericardial effusion. Mediastinal space: No abnormal uptake. There is a small hiatal hernia. Liver: No abnormal uptake. Maximum uptake is 3.3 SUV. Nodular contours of the liver for clinical correlation with cirrhosis. Gallbladder and biliary ducts: No abnormal uptake. Status post cholecystectomy. Pancreas: No abnormal uptake. Spleen: No abnormal uptake. No splenomegaly. Innumerable calcified granulomas. Adrenal glands: No abnormal uptake. No nodules. Kidneys and ureters: Normal physiologic uptake. No hydronephrosis. Stomach and bowel: No abnormal uptake. Diverticulosis of the left and right colon. Intraperitoneal and retroperitoneal spaces: No abnormal uptake. No ascites. Bladder: Normal physiologic uptake. Reproductive: No abnormal uptake. The uterus is absent post surgically. Vasculature: No abnormal uptake. No aortic aneurysm. Lymph nodes: There are FDG avid lymph nodes in the left neck in the levels 2-4 in keeping with metastatic disease including the largest 3 x 3 x 4 cm centrally necrotic node in the level 3-4 measuring 28.2 SUV, and a couple of level 2 nodes measuring up to 1.5 x 1.2 cm with the highest uptake of 16.5 SUV. Mildly increased uptake within normal size bilateral axillary lymph nodes ( 4.6 SUV on the right side and 2.3 SUV on the left side ) and in normal size bilateral inguinal lymph nodes ( 6.5 SUV on the right side and 2.5 SUV on the left side) is likely benign. No FDG avid lymphadenopathy in the chest, abdomen, pelvis, and the groins. Skeleton: No abnormal uptake in the visualized axial and appendicular skeleton. Status post bilateral hip replacement. Status post C6-C7 fusion with anterior internal fixation. There is grade 1 degenerative anterolisthesis of L4 associated with L4-L5 facet arthropathy. Soft tissues: Linear uptake in the left forearm and the are leading toward the left axilla is suggestive of benign finding open (lymphatic drainage due to extravasation in the injection site in the left wrist). Small linear focus of cutaneous uptake of 4.4 SUV in the right lower most anterior abdominal wall adjacent to the right major left via on axial image 290 possibly represents inflammatory finding for correlation with physical exam. PET/PET skull to thigh INIT [id number] IMPRESSION: About 5 cm midline tumor in the mouth floor measures 21.8 SUV in keeping with known primary malignancy. There is abnormal focal uptake of 13.9 SUV in the left submandibular salivary gland immediately adjacent to this mass. Left neck level 2-4 metastatic lymphadenopathy with the highest uptake of 28.2 SUV. Mildly increased uptake within normal size bilateral axillary and inguinal lymph nodes is likely benign. No other FDG avid findings outside of the neck concerning for malignancy.
== END 2025-01-15 09:19 | disposition home or self-care (01) ==
PROVIDERS: PCP Family Medicine; Visit Provider Specialist
DX: C08.0 Malignant neoplasm of submandibular gland (principal); R93.89 Abnormal findings on diagnostic imaging of other specified body structures; R59.0 Localized enlarged lymph nodes; Z96.89 Presence of other specified functional implants; J84.10 Pulmonary fibrosis, unspecified; I51.7 Cardiomegaly; K44.9 Diaphragmatic hernia without obstruction or gangrene; R93.2 Abnormal findings on diagnostic imaging of liver and biliary tract; Z90.49 Acquired absence of other specified parts of digestive tract; D73.89 Other diseases of spleen; K57.30 Diverticulosis of large intestine without perforation or abscess without bleeding; Z98.890 Other specified postprocedural states; Z98.1 Arthrodesis status; R93.7 Abnormal findings on diagnostic imaging of other parts of musculoskeletal system; M47.896 Other spondylosis, lumbar region; R93.6 Abnormal findings on diagnostic imaging of limbs; R93.5 Abnormal findings on diagnostic imaging of other abdominal regions, including retroperitoneum
CPT/HCPCS: 78815; A9552

== ENCOUNTER → 2025-01-27 12:15 | Outpatient (BNVA) | payer MEDICARE, SELFPAY | PROVIDERS: PCP Family Medicine; Visit Provider Surgery | DX: C01 Malignant neoplasm of base of tongue (principal); Z95.828 Presence of other vascular implants and grafts | CPT/HCPCS: 99204 ==

== ENCOUNTER → 2025-02-01 06:56 | Day surgery (SDC) | payer MEDICARE, SELFPAY ==
--- NOTE | 2025-02-01 07:16 | XRR_ITS ---
PROCEDURE INFORMATION: Exam: XR Chest Exam date and time: 02/01/2025 7:01 AM Age: 69 years old Clinical indication: Device placement; Picc; Additional info: Post picc insertion, kar placing in gi specials room TECHNIQUE: Imaging protocol: Radiologic exam of the chest. Views: 1 view. COMPARISON: CR (CHEST, ) 01/01/2025 11:04 PM FINDINGS: Tubes, catheters and devices: Left chest wall pacing device with intact leads. Right PICC line with tip at the lower SVC. Lungs: No focal consolidation. Pleural spaces: No pleural effusion or pneumothorax. Prominent left epicardial fat pad obscuring the left costophrenic angle. Heart/Mediastinum: Cardiomegaly. Vasculature: Tortuous calcified aorta. Bones/joints: Lower cervical spine ACDF. Severe degenerative change of the bilateral shoulders. Mild degenerative change of the thoracic spine. XR/XR chest 1V portable [id number] IMPRESSION: Right PICC line with tip at the lower SVC.
[2025-02-01 07:25] VITALS: BP 159/79; PULSE 75; RESP 18; TEMP 36.7; O2SAT 95
--- NOTE | 2025-02-01 08:24 | PICC.NOTE ---
Double lumen PICC placed to right brachial vein. Referred to vascular access nurse for PICC placement due to need for chemotherapy. Risks and benefits discussed and informed consent obtained from pt. Right arm assessed with right brachial vein measuring 4.0 mm, straight, and apparent best choice for placement. Using sterile technique and MST, right brachial vein accessed x 1 stick. Mid-arm circumference measured 10 cm from right AC 35 cm. Trimmed cath 47 cm with 1 cm external length noted. CXR shows tip in distal SVC, in good position for use per radiologist. Line secured with stat-lock. Insertion site covered with Biopatch and TSM. Report given to oncology nurse, Mariela.
== END ==
LOC: GILAB 06:57
PROVIDERS: PCP Family Medicine; Visit Provider Surgery
DX: Z45.2 Encounter for adjustment and management of vascular access device (principal)
CPT/HCPCS: 36573; 71045

== ENCOUNTER 2025-02-15 07:45 | Oncology outpatient (recurring) (ONCR) | payer MEDICARE, SELFPAY ==
--- NOTE | 2025-01-25 11:13 | N.ONRAD NP_ITS ---
Radiation Oncology New Patient Visit Patient: Claudia Marie MR#: [id number] : 1955 Age: 69 Sex: Female Dictated by: Dr. Jacquelin Hastings Date of Service: 01/25/2025 Referring Physician(s) : Dr. 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 Chief Complaint / History of Present Illness: Patient is a 69-year-old lady who recounts how November 09 she felt like she had an abscessed tooth. She made an appointment with her dentist who placed her on antibiotics for 10 days. Her tooth was subsequently pulled. A small knot was noticed in her mouth at that time by the patient. After the tooth was pulled she is that her pain continued. At that point she went to her primary care physician who placed her on 10 more days of antibiotics after which there was no change. She returned to her primary care who then subsequently sent her to the emergency room for evaluation. She was found subsequently to have on the CT scan from the ER a bulky lesion in the tongue orally and base of tongue as well as metastatic adenopathy in the left neck. She was referred to ENT. The initial biopsy was suspicious for malignancy. A repeat biopsy did confirm invasive moderately differentiated squamous cell carcinoma. She has had a PET scan which confirmed the CT scan findings. She is visited with medical oncology and is scheduled for port placement. She is here today to discuss the radiation portion of her treatment. Her symptoms currently consist of her inability to move her tongue. She is on a purely liquid diet. She does not have any difficulty swallowing. She is having difficulties with speech and ear pain. Current Medications: albuterol sulfate 90 mcg/actuation (Ventolin HFA) 2 puffs inhalation Q6H PRN aspirin 81 mg PO DAILY Held on 03/10/24. Instructions: Resume on 04/07/24. levothyroxine mcg PO nebulizers As directed ondansetron 4 mg PO Q8H PRN Allergies: hydromorphone (From Dilaudid) Allergy (Verified 01/25/25 10:03) vomiting Medical History: No history of collagen vascular disease. No previous radiation therapy. Pre-op evaluation Hypothyroidism Tobacco dependence X 46 years COPD (chronic obstructive pulmonary disease) Arrhythmia Afib Surgical History: History of pacemaker 2016 Hx of cataract surgery Hx of shoulder surgery Stenosis, cervical spine has cervical surgery with plate and [address] History of left knee surgery History of torn meniscus of right knee History of cholecystectomy History of appendectomy History of hernia repair Family History: Other Cancer Denies family history of Diabetes CAD (coronary artery disease) Clotting disorder Anesthesia complication Bleeding disorder Hypertension Social History: Smoking and tobacco/nicotine status: former use of tobacco/nicotine Alcohol intake: current Alcohol intake frequency: few times a month Alcohol type: beer Substance/Drug Use: never Current Complaints / Review of Systems: . Vital Signs: Performed on 01/25/2025 10:21 AM BMI - 37.59 kg/m2 (high), Height - 67 in, Weight - 240 lbs, Temperature - 98.7 f, Pulse - 89 /min, Respiration - 17 /min, O2 Sat - 96 %, Pain - 8, Fatigue - 0 and BP - 136/ 76 mm(hg). Physical Exam: General: Patient is in no apparent distress. She is alone today. HEENT: Normocephalic atraumatic. Pupils are equal, sclera clear, extraocular muscles intact. Examination of her face shows that the left side of her face and neck are swollen. She has a considerable ecchymoses around the adenopathy in the left neck. Her oral cavity reveals mild coating of thrush. Her tongue is very tethered. She really cannot move it or lift it. Neck: She has palpable adenopathy in the cervical chain all the way from the angle of her jaw down to the clavicle Pulmonary: Respiratory rate is regular nonlabored Cardiovascular: Irregular rate and rhythm Abdomen: Patient has moderate abdominal protrusion and android pattern Extremities: Without obvious edema or lymphedema Neurological: Alert and orient x 3. Gait intact. Speech as above. 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 We talked about the symptoms she had had. We reviewed the options of surgery and radiation versus chemotherapy and radiation. We talked about both of these options would be standard care and have similar cure rates. She is not able to travel to [place] for any type of surgical intervention. She said she would decline surgery at this point anyway. She is amenable to proceeding with radiation and chemotherapy. We talked in detail about the simulation process. I reviewed the daily treatment regiment. We discussed the risks and side effects both acute and long-term. At this point she understands the seriousness of the diagnosis and she is agreed to proceed. Will talk to the dentist to see if we get the last 4 teeth pulled. If not we can go ahead and start treatment coordinated with her chemotherapy appointment. She is scheduled to meet with general surgery for port placement. Will tentatively shoot for starting first part of next week with combined modality therapy Signed by: 01/25/2025 11:11:45 AM <<Signature on File>> Time spent with patient:60 CPT Code: * CPT Code: *
[2025-02-15 08:02] LABS: Basophils # 0.1 10^3/uL (0.0-0.1); Basophils % 0.5 %; Eosinophils # 0.2 10^3/uL (0.0-0.8); Eosinophils % 2.4 %; Lymphocytes # 1.5 10^3/uL (0.8-4.8); Lymphocytes % 15.8 %; Mean Corpuscular HGB Conc 32.6 g/dL (30-55); Mean Corpuscular Hemoglobin 31.4 pg (27-33); Mean Corpuscular Volume 96.5 fl (85-98); Mean Platelet Volume 10.7 fL (7.4-10.4); Monocytes # 0.9 10^3/uL (0.2-0.9); Monocytes % 9.6 %; Neutrophils # 6.75 10^3/uL (1.8-7.7); Neutrophils % 71.5 %; Nucleated Red Blood Cells % 0 %; Platelet Count 199 10^3/cmm (157-399); Red Blood Count 4.04 10^6/uL (3.85-5.65); White Blood Count 9.45 10^3/uL (3.29-11.43)
[2025-02-15 08:19] LABS: Alanine Aminotransferase 13 U/L (0-33); Albumin Level 3.2 g/dL (3.5-5.2); Alkaline Phosphatase 81 U/L (35-105); Anion Gap 16.2 (5-19); Aspartate Amino Transferase 23 U/L (0-32); Blood Urea Nitrogen 6 mg/dL (8-23); Calcium 8.9 mg/dL (8.5-10.5); Carbon Dioxide 26 mmol/L (22-29); Chloride 98 mmol/L (98-107); Globulin 3.5 g/dL (1.3-4.6); Glucose 110 mg/dL (65-115); Osmolality Calculated 282 mOsm/kg (285-295); Potassium 3.2 mmol/L (3.5-5.1); Sodium 137 mmol/L (136-145); Total Protein 6.7 g/dL (6.6-8.7)
[2025-02-15] MEDS: alteplase 1 mg/mL SDV 2 mL 2 MG INTRACATH (09:29)
[2025-02-15] MEDS: magnesium sulfate premix 2 GM/50 ML PIGGYBACK IV (10:20)
[2025-02-15] MEDS: sodium chlor 0.9% + KCl 20 mEq 20 MEQ/1,000 ML BAG 500 MEQ IV (10:21)
[2025-02-15] MEDS: sodium chloride 0.9% 250 ML 75 ML IV (12:47)
[2025-02-15] MEDS: diphenhydrAMINE 50 mg/mL SDV 1mL 25 MG IVP (12:49)
[2025-02-15] MEDS: famotidine 20 mg/2 mL INJ IVP (12:53)
[2025-02-15] MEDS: dexamethasone 4 mg/mL INJ 12 MG IVP (12:55)
[2025-02-15] MEDS: aprepitant 130 mg/18 ml SDV IVP (13:01)
[2025-02-15] MEDS: palonosetron 0.25 mg/5 mL SDV IVP (13:10)
[2025-02-15] MEDS: OLANZapine 5 mg TABLET PO (13:18)
[2025-02-15] MEDS: SODIUM CHLORIDE 0.9% IV (13:55)
[2025-02-15] MEDS: CISPLATIN IV (13:55)
[2025-02-15] MEDS: FUROsemide 10 mg/mL SDV 2mL 20 MG IVP (15:28)
[2025-02-15] MEDS: potassium chloride 20 MEQ in sodium chloride 0.9% 500 ML 500 MEQ IV (15:36)
[2025-02-15 16:50] VITALS: BP 130/74; PULSE 77; RESP 16; TEMP 37; O2SAT 92
== END 2025-02-15 23:59 | disposition home or self-care (01) ==
PROVIDERS: Nurse Practitioner Family; PCP Family Medicine; Visit Provider Internal Medicine Medical Oncology
DX: Z51.0 Encounter for antineoplastic radiation therapy; Z51.11 Encounter for antineoplastic chemotherapy; C01 Malignant neoplasm of base of tongue; Z79.899 Other long term (current) drug therapy; Z79.52 Long term (current) use of systemic steroids; Z53.9 Procedure and treatment not carried out, unspecified reason
CPT/HCPCS: 36415; 77300; 77301; 77334; 77338; 77386; 77470; 80053; 85025; 96360; 96361; 96365; 96366; 96367; 96375; 96413; 99205; 99215; J0185; J1100; J1200; J1940; J2469; J2997; J3475; J3480; J3490; J7040; J7050; J9060; J9999

== ENCOUNTER → 2025-02-17 07:27 | Outpatient (BNVA) | payer MEDICARE, SELFPAY | PROVIDERS: PCP Family Medicine; Visit Provider Surgery | DX: C01 Malignant neoplasm of base of tongue (principal) | CPT/HCPCS: 71045; G0463 ==

== ENCOUNTER 2025-03-02 07:55 | Oncology outpatient (recurring) (ONCR) | payer MEDICARE, SELFPAY ==
--- NOTE | 2025-02-16 09:25 | ONCRAD TMN_ITS ---
Radiation Oncology Weekly Treatment Management Patient: Frank Garcia MR#: [id number] : 1955> Attending Physician: Dr. Jacquelin Hastings Date of Service: 02/16/2025 Fractions: 2 out of 35 Referring Physician(s) : Diagnosis: C01 - Malignant neoplasm of base of tongue, Diagnosed 01/25/2025 (Active) C77.0 - Secondary and unspecified malignant neoplasm of lymph nodes of head, face and neck, Diagnosed 01/25/2025 (Active) Radiotherapy to date: Course: BoT/nodes, Treatment Site: BOT [id number], Ref. ID: [id number], Energy: 6X, Dose/Fx (cGy): 200, #Fx: 2 / 35, Dose Correction (cGy): 0, Total Dose Delivered (cGy): 400, Start Date: 02/15/2025, Elapsed Days: 1 Reason for visit: The patient is being seen today as part of their regularly scheduled weekly on treatment visits to assess for acute toxicities from radiotherapy. Review of Systems: Patient says she actually feels a tad bit better. Vital Signs: Performed on 02/16/2025 8:49 AM BMI - 36.274 kg/m2 (high), Height - 67 in, Weight - 231.6 lbs, Temperature - 96.2 f, Pulse - 90 /min, Respiration - 18 /min, O2 Sat - 99 %, Pain - 0, Fatigue - 0 and BP - 144/ 76 mm(hg)(high/). Physical Exam: No changes on exam. Her speech is still impaired by the inability to move her tongue. Imaging: Radiation therapy imaging related to accurate target localization (i.e. KV, MV and CBCT) was reviewed. Appropriate changes, if any, were made to ensure treatment accuracy. Plan: Continue with her treatments as planned. She started her chemotherapy this week as well. Signed by: Dr. Jacquelin Hastings 02/16/2025 9:23:03 AM
--- NOTE | 2025-02-17 09:14 | PICC.NOTE ---
Called to general surgery clinic by Dr. Sena due to no blood return to right PICC line. Line assessed. Dressing dry and intact to double lumen PICC. Purple lumen flushed without difficulty and blood return noted. Red lumen flushes with a little difficulty and no blood return noted. Recommendation made for CXR to confirm tip placement and then to treat both lumens of PICC with cathflo. Pt has appointment with Oncology radiation today. Following treatment, pt to go to [facility] for cathflo to PICC. Discussed this with pt and she is agreeable to plan of care.
[2025-02-17] MEDS: alteplase 1 mg/mL SDV 2 mL 2 MG IV ×2 (09:50→09:51)
[2025-02-22 07:40] LABS: Basophils # 0.1 10^3/uL (0.0-0.1); Basophils % 0.4 %; Eosinophils # 0.1 10^3/uL (0.0-0.8); Hematocrit 42.3 % (36-47); Lymphocytes # 1.9 10^3/uL (0.8-4.8); Lymphocytes % 14.1 %; Mean Corpuscular HGB Conc 33.3 g/dL (30-55); Mean Corpuscular Hemoglobin 31.3 pg (27-33); Mean Corpuscular Volume 93.8 fl (85-98); Mean Platelet Volume 11.4 fL (7.4-10.4); Monocytes # 1.6 10^3/uL (0.2-0.9); Monocytes % 11.7 %; Neutrophils # 9.68 10^3/uL (1.8-7.7); Nucleated Red Blood Cells % 0 %; Platelet Count 208 10^3/cmm (157-399); Red Blood Count 4.51 10^6/uL (3.85-5.65); Red Cell Distribution Width 12.8 % (12.1-15.1); White Blood Count 13.44 10^3/uL (3.29-11.43)
[2025-02-22 08:17] LABS: Alanine Aminotransferase 17 U/L (0-33); Albumin Level 3.1 g/dL (3.5-5.2); Alkaline Phosphatase 88 U/L (35-105); Blood Urea Nitrogen 15 mg/dL (8-23); Calcium 8.8 mg/dL (8.5-10.5); Carbon Dioxide 30 mmol/L (22-29); Chloride 92 mmol/L (98-107); Globulin 3.8 g/dL (1.3-4.6); Glucose 115 mg/dL (65-115); Osmolality Calculated 278 mOsm/kg (285-295); Sodium 133 mmol/L (136-145); Total Bilirubin 1.1 mg/dL (0.15-1.2); Total Protein 6.9 g/dL (6.6-8.7)
[2025-02-22] MEDS: sodium chlor 0.9% + KCl 20 mEq 20 MEQ/1,000 ML BAG 500 MEQ IV (08:26)
[2025-02-22] MEDS: magnesium sulfate premix 2 GM/50 ML PIGGYBACK IV (08:26)
[2025-02-22 08:28] VITALS: BP 108/73; PULSE 102; TEMP 36.4
[2025-02-22 08:28] LABS: Anion Gap 15.2 (5-19); Aspartate Amino Transferase 24 U/L (0-32); Potassium 4.2 mmol/L (3.5-5.1)
[2025-02-22] MEDS: OLANZapine 5 mg TABLET PO (09:52)
[2025-02-22] MEDS: sodium chloride 0.9% 250 ML 75 ML IV (09:53)
[2025-02-22] MEDS: famotidine 20 mg/2 mL INJ IVP (10:05)
[2025-02-22] MEDS: diphenhydrAMINE 50 mg/mL SDV 1mL 25 MG IVP (10:09)
[2025-02-22] MEDS: aprepitant 130 mg/18 ml SDV IVP (10:14)
[2025-02-22] MEDS: palonosetron 0.25 mg/5 mL SDV IVP (10:21)
[2025-02-22] MEDS: dexamethasone 4 mg/mL INJ 12 MG IVP (10:24)
[2025-02-22] MEDS: CISPLATIN IV (11:14)
[2025-02-22] MEDS: SODIUM CHLORIDE 0.9% IV (11:14)
[2025-02-22] MEDS: FUROsemide 10 mg/mL SDV 2mL 20 MG IVP (12:26)
[2025-02-22] MEDS: potassium chloride 20 MEQ in sodium chloride 0.9% 500 ML 500 MEQ IV (12:30)
[2025-02-22 13:39] VITALS: BP 136/80; PULSE 86; RESP 18; TEMP 36.6; O2SAT 93
--- NOTE | 2025-02-23 10:16 | ONCRAD TMN_ITS ---
Radiation Oncology Weekly Treatment Management Patient: Claudia Marie MR#: [id number] : 1955 Attending Physician: Dr. Delfino Vinson Date of Service: 02/23/2025 Referring Physician(s) : Diagnosis: C01 - Malignant neoplasm of base of tongue, Diagnosed 01/25/2025 (Active) C77.0 - Secondary and unspecified malignant neoplasm of lymph nodes of head, face and neck, Diagnosed 01/25/2025 (Active) Radiotherapy to date: Course: BoT/nodes, Treatment Site: BOT [id number], Ref. ID: [id number], Energy: 6X, Dose/Fx (cGy): 200, #Fx: 6 / 35, Dose Correction (cGy): 0, Total Dose Delivered (cGy): 1,200, Start Date: 02/15/2025, Elapsed Days: 8 Reason for visit: The patient is being seen today as part of their regularly scheduled weekly on treatment visits to assess for acute toxicities from radiotherapy. Review of Systems: Chemo yesterday and was well tolerated. Left neck pain and mass improved. All food via mouth. Not chewing due to lack of teeth. Doing well with soft foods. No PEG tube in place. Gargling with salt and soda 4 x a day. Quit smoking 10/2024. Vital Signs: Performed on 02/23/2025 9:20 AM BMI - 35.459 kg/m2 (high), Height - 67 in, Weight - 226.4 lbs, Temperature - 97.2 f, Pulse - 80 /min, Respiration - 18 /min, O2 Sat - 96 %, Pain - 5, Fatigue - 0 and BP - 151/ 110 mm(hg)(high). Physical Exam: Imaging: Radiation therapy imaging related to accurate target localization (i.e. KV, MV and CBCT) was reviewed. Appropriate changes, if any, were made to ensure treatment accuracy. Plan: Good tolerance of treatment. Med onc will follow BP. Continue treatment as planned. Signed by: Dr. Delfino Vinson 02/23/2025 10:14:09 AM
[2025-03-01 08:27] LABS: Basophils % 0.4 %; Eosinophils # 0.1 10^3/uL (0.0-0.8); Eosinophils % 0.6 %; Hematocrit 34.6 % (36-47); Lymphocytes # 1.1 10^3/uL (0.8-4.8); Lymphocytes % 14.1 %; Mean Corpuscular HGB Conc 32.7 g/dL (30-55); Mean Corpuscular Hemoglobin 31.3 pg (27-33); Mean Corpuscular Volume 95.8 fl (85-98); Mean Platelet Volume 10.7 fL (7.4-10.4); Monocytes # 0.9 10^3/uL (0.2-0.9); Monocytes % 11.1 %; Neutrophils % 73.2 %; Nucleated Red Blood Cells % 0 %; Platelet Count 119 10^3/cmm (157-399); Red Blood Count 3.61 10^6/uL (3.85-5.65); Red Cell Distribution Width 12.8 % (12.1-15.1); White Blood Count 7.93 10^3/uL (3.29-11.43)
[2025-03-01] MEDS: sodium chlor 0.9% + KCl 20 mEq 20 MEQ/1,000 ML BAG 500 MEQ IV (08:29)
[2025-03-01] MEDS: magnesium sulfate premix 2 GM/50 ML PIGGYBACK IV (08:29)
[2025-03-01 08:51] LABS: Alanine Aminotransferase 26 U/L (0-33); Albumin Level 3.2 g/dL (3.5-5.2); Alkaline Phosphatase 91 U/L (35-105); Anion Gap 18.3 (5-19); Aspartate Amino Transferase 25 U/L (0-32); Blood Urea Nitrogen 17 mg/dL (8-23); Carbon Dioxide 25 mmol/L (22-29); Chloride 93 mmol/L (98-107); Creatinine Clr Calc Pharmacy 80.8641; Glucose 93 mg/dL (65-115); Osmolality Calculated 277 mOsm/kg (285-295); Potassium 3.3 mmol/L (3.5-5.1); Sodium 133 mmol/L (136-145); Total Bilirubin 1.6 mg/dL (0.15-1.2); Total Protein 6.2 g/dL (6.6-8.7)
[2025-03-01] MEDS: palonosetron 0.25 mg/5 mL SDV IVP (10:21)
[2025-03-01] MEDS: OLANZapine 5 mg TABLET PO (10:21)
[2025-03-01] MEDS: famotidine 20 mg/2 mL INJ IVP (10:24)
[2025-03-01] MEDS: diphenhydrAMINE 50 mg/mL SDV 1mL 25 MG IVP (10:26)
[2025-03-01] MEDS: aprepitant 130 mg/18 ml SDV IVP (10:29)
[2025-03-01] MEDS: sodium chloride 0.9% 250 ML 75 ML IV (10:31)
[2025-03-01] MEDS: dexamethasone 4 mg/mL INJ 12 MG IVP (10:32)
[2025-03-01] MEDS: SODIUM CHLORIDE 0.9% IV (11:10)
[2025-03-01] MEDS: CISPLATIN IV (11:10)
[2025-03-01] MEDS: FUROsemide 10 mg/mL SDV 2mL 20 MG IVP (12:19)
[2025-03-01] MEDS: potassium chloride 20 MEQ in sodium chloride 0.9% 500 ML 500 MEQ IV (12:20)
[2025-03-01 13:28] VITALS: BP 122/85; PULSE 93; RESP 18; TEMP 35.9; O2SAT 98
--- NOTE | 2025-03-02 09:39 | ONCRAD TMN_ITS ---
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 ID: [id number], Energy: 6X, Dose/Fx (cGy): 200, #Fx: , Dose Correction (cGy): 0, Total Dose Delivered (cGy): 2,200, Start Date: 02/15/2025, Elapsed Days: 15 Reason for visit: The patient is being seen today as part of their regularly scheduled weekly on treatment visits to assess for acute toxicities from radiotherapy. Review of Systems: Patient has had 11 out of 35 fractions as well as her third chemo which was performed yesterday. Labs were adequate platelets are down to 119. Weight is dropped to more pounds. Patient refuses feeding tube. Vital Signs: Performed on 03/02/2025 8:24 AM BMI - 35.773 kg/m2 (high), Height - 67 in, Weight - 224.4 lbs, Temperature - 96.1 f, Pulse - 89 /min, Respiration - 18 /min, O2 Sat - 97 %, Pain - 6, Fatigue - 0 and BP - 134/ 78 mm(hg). Physical Exam: Alert and oriented. Speaks with tongue-tied. Oral cavity exam shows minimal mucositis. Imaging: Radiation therapy imaging related to accurate target localization (i.e. KV, MV and CBCT) was reviewed. Appropriate changes, if any, were made to ensure treatment accuracy. Plan: Continue XRT Increase calorie count Advised patient that she may need a feeding tube if she continues to lose weight and she adamantly refuses that. She also understands that we may have to take a break or stop treatment if she gets a critical weight loss. Signed by: David Beltran 03/02/2025 9:36:35 AM
== END 2025-03-02 23:59 | disposition home or self-care (01) ==
PROVIDERS: Internal Medicine Medical Oncology; Nurse Practitioner Family; PCP Family Medicine; Visit Provider Radiology Radiation Oncology
DX: Z51.0 Encounter for antineoplastic radiation therapy (principal); C01 Malignant neoplasm of base of tongue; C77.0 Secondary and unspecified malignant neoplasm of lymph nodes of head, face and neck
CPT/HCPCS: 36593; 77336; 77386; 80053; 85025; 96361; 96367; 96375; 96413; 99024; 99214; J0185; J1100; J1200; J1940; J2469; J2997; J3475; J3480; J3490; J7040; J7050; J9060; J9999

== ENCOUNTER → 2025-03-10 07:25 | Day surgery (SDC) | payer MEDICARE, SELFPAY ==
[2025-03-10 07:40] VITALS: BP 111/65; PULSE 105; RESP 18; TEMP 36.7; O2SAT 97
--- NOTE | 2025-03-10 09:37 | PICC.NOTE ---
Unable to pass PICC from shoulder to SVC for both right and left arms. Attempted right basilic, left basilic, and left brachial veins. Unable to use right brachial vein as previous PICC removed on Saturday and vein not compressable. [facility] treatment [facility] notified. Dr. Sena notified as well.
== END ==
PROVIDERS: PCP Family Medicine; Visit Provider Nurse Practitioner Family
DX: C01 Malignant neoplasm of base of tongue (principal); E03.9 Hypothyroidism, unspecified; J44.9 Chronic obstructive pulmonary disease, unspecified; I48.91 Unspecified atrial fibrillation; Z53.8 Procedure and treatment not carried out for other reasons; Z79.899 Other long term (current) drug therapy; Z79.82 Long term (current) use of aspirin
CPT/HCPCS: 99212

== ENCOUNTER 2025-03-12 12:06 | Day surgery (SDC) | payer MEDICARE, SELFPAY ==
[2025-03-12] VITALS (7 sets, daily range): BP systolic 102–146; BP diastolic 59–91; PULSE 93–125; RESP 16–18; TEMP 36.5–37; O2SAT 92–100; BMI 35.0
--- NOTE | 2025-03-12 11:13 | W.PM.OPSUD ---
Surgery/Procedure H&P Update DATE OF PROCEDURE: March 12, 2025 DATE H&P PERFORMED: 03/10/25 H&P UPDATE INFORMATION: I have reviewed H&P completed within last 30 days, I have examined patient prior to procedure, No changes to prior documentation, H&P is in [facility] EMR on date indicated and Risks and benefits of the procedure reviewed PLANNED PROCEDURE: Operation Date: 03/12/25 13:15 Proposed Procedures p Portacath Placement 69881 C01(Not Applicable) - João Sena MD
--- NOTE | 2025-03-12 12:09 | SC_ITS ---
WS: [id number] Exam: C-arm FL for CVA [id number] Date/Time of Exam: 03/12/2025 12:09 PM Reason For Exam: for port placement Single anterior posterior C-arm image of the upper RIGHT chest is submitted. A right-sided Mediport is noted. The tip of the catheter appears to end at the expected region of the cavoatrial junction.
[2025-03-12] MEDS: sodium chloride 0.9% 1,000 ML 30 ML IV (12:41)
--- NOTE | 2025-03-12 12:51 | P.ANESASSM_ITS ---
Pre-Anesthetic Assessment Height/Weight: Height 1.7 m Weight 101.605 kg Temp Pulse Resp BP Pulse Ox O2 Del Method 98.6 F 125 H 18 120/86 100 Room Air 03/12/25 12:28 03/12/25 12:28 03/12/25 12:28 03/12/25 12:28 03/12/25 12:28 03/12/25 12:32 Operation Date: 03/12/25 13:15 Proposed Procedures p Portacath Placement 72224 C01(Not Applicable) - João Sena MD Familial anesthetic complications: None Was Beta Sabina taken within 24 hours: N/A Was Clonidine taken within 24 hours: N/A Last intake: Intake Last Liquid Date 03/11/25 Last Liquid Time 19:00 Last Solid Date 03/11/25 Last Solid Time :00 Social No alcohol and No tobacco Exam alert, oriented x 3, clear to auscultation bilaterally and regular rate & rhythm Airway Mallampati: Class IV Dentition: other (6 remaining) Comments: Comments: Bulky tumor in L submandibular space - Per patient has shrunk more since radiation, doesn't interfere with swallowing, no trouble breathing Neck CT 12/12 IMPRESSION: 1. 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 2. Metastatic lymphadenopathy in the LEFT neck involving all cervical levels extending to cervical level 4 posterior to the sternocleidomastoid with bulky lymphadenopathy described above. Recommend PET/CT for staging. 3. Enhancing RIGHT upper pole thyroid nodule measuring 1.2 cm. This could be further evaluated with ultrasound. This could represent a parathyroid adenoma in the tracheoesophageal groove.. 4. Mild mass effect on the oropharynx which remains patent. 5. Retropharyngeal course to the RIGHT cervical ICA. Pulmonary Chronic Obstructive Pulmonary Disease CV/HEM Atrial Fibrillation and Arrythmia (Pacemaker) Metabolic Morbid Obesity and Thyroid Disease Anesthetic Plan ASA status: 4 Anesthesia: MAC Other: Neoplasm of L submandibular space/tongue Risk of > 500 ml blood loss (7ml/kg in children): No Medications/Allergies Home Medications ?Medication ?Instructions ?Recorded ?Confirmed ?Last Taken ?Type albuterol sulfate 90 mcg/actuation 2 puff inhalation Q 6H PRN sob 06/01/20 03/12/25 01/31/25 History aerosol inhaler (Ventolin HFA) nebulizers #1 ea 06/01/20 03/10/25 Unkn own History aspirin 81 mg tablet,delayed 81 mg PO DAILY 06/06/23 0 03/12/25 01/31/25 History release Held on 03/10/24. Instructions: Resume on 04/07/24. levothyroxine 150 mcg tablet 150 mcg PO DAILY 01/25/25 03/11/25 03/12/25 History lorazepam 1 mg tablet 0.5 - 1 mg (0.5 - 1 x 1 mg) PO Q6H 01/25/25 03/12/25 01/31/25 Rx PRN severe nausea #30 tabs ondansetron 4 mg disintegrating 4 mg PO Q8H PRN nausea and 02/08/25 03/12/25 Unknown Rx tablet vomiting 30 days #90 tabs Allergies Allergy/AdvReac Type Severity Reaction Status Date / Time hydromorphone (From Dilaudid) Allergy vomiting Verified 03/12/25 12:35 Current Medications Generic Name Dose Route Start Last Admin Trade Name Freq PRN Reason Stop Dose Admin Sodium Chloride 1,000 mls @ 30 mls/hr 03/12/25 12:15 03/12/25 12:41 Sodium Chloride 0.9% IV 03/13/25 12:14 30 mls/hr .Q24H RAFI Administration PFSH Anesthesia Medical History Pre-op evaluation Hypothyroidism Tobacco dependence X 46 years COPD (chronic obstructive pulmonary disease) Arrhythmia Afib Surgical History History of pacemaker 2016 Hx of cataract surgery Hx of shoulder surgery Stenosis, cervical spine has cervical surgery with plate and [address] History of left knee surgery History of torn meniscus of right knee History of cholecystectomy History of appendectomy History of hernia repair Family History Other Cancer Denies family history of Diabetes CAD (coronary artery disease) Clotting disorder Anesthesia complication Bleeding disorder Hypertension Social History Smoking and tobacco/nicotine status: never used tobacco/nicotine Alcohol intake: current Alcohol intake frequency: few times a month Alcohol type: beer Substance/Drug Use: never Data Anesthesia Cardiac Studies: Sestamibi Stress Test (Cardiology) 05/08
[2025-03-12] MEDS: ceFAZolin 2,000 mg SDV 2000 MG IVP (13:06)
[2025-03-12] MEDS: lidocaine-epi 1% 20 mL INJ INJECTION (13:23)
[2025-03-12] MEDS: BUPivacaine 0.5% INJ 10 mL INJECTION (13:23)
[2025-03-12] MEDS: heparin, porcine 1,000 unit/mL INJ 10 mL 10000 UNIT XX (13:29)
--- NOTE | 2025-03-12 13:49 | P.OP_ITS ---
Operative Report Date of procedure: March 12, 2025 Pre-op diagnosis: Tongue cancer Post-op diagnosis: Same Post-op findings: Normal vascular anatomy in the right neck Procedure done: Insertion of right IJ Port-A-Cath Implants: Bard Port-A-Cath Specimens removed/disposition: None Surgeon: João Sena MD Corporate Planning Manager: MARCY OR STaff Estimated blood loss: 5 Complications: none Brief History: 70-year-old female with cancer of the tongue who requires a port for chemotherapy. After discussion of all risk benefits documented in my preop note we decided to proceed. Procedure: Patient was brought into the OR, she was placed in a supine position, monitored anesthesia care was initiated. Timeout was conducted after the skin was prepped and draped in the usual sterile fashion. I then proceeded to identify the right IJ vein with ultrasound, I infiltrated local anesthesia on top of the vein. I then proceeded to cannulate the vein under direct ultrasound guidance using an 18-gauge needle, the needle tip was seen entering the vein and immediate return of blood was noted. A wire was advanced through the needle and the needle was removed. The position of the wire was verified with ultrasound and fluoroscopy. The wire was then fixed to the drapes. I then placed my attention to the chest, local anesthesia was infiltrated in the previously marked area on the chest and then a tract connecting the chest to the wire insertion site in the neck. I then proceeded to make a 3.5 cm incision in the right upper chest, the incision was deepened to subcutaneous tissue with electrocautery and electrocautery was used to create the subcutaneous pocket to house the Port-A-Cath. I then proceeded to use a hemostat to create a tunnel from the chest wound to the neck. I then proceeded to make a 0.5 cm incision at the level of the wire insertion site in the neck. Hemostasis was verified. I then placed the Port-A-Cath in the pocket and tunneled the catheter using the provided tunneler. The catheter was cut to appropriate length under fluoroscopy guidance and then flushed. I then proceeded to insert an introducer with a peel-off sheath over the wire under direct fluoroscopic guidance. I then remove the wire and the introducer leaving the peel-off sheath in place. The catheter was then advanced through the peel-off sheath and the peel-off sheath was removed leaving the catheter in place. Fluoroscopy showed evidence of Adequate catheter position. I then proceeded to access the port; the port was retrieving blood and flushing fine, I then hep-locked the catheter. Hemostasis was verified. The wound was closed in layers using #3-0 Vicryl for the subcutaneous tissue and #4 Monocryl for the skin. Dermabond was applied. At the end of the procedure all counts were correct. The patient tolerated well the procedure and was transferred to the PACU in stable condition.
--- NOTE | 2025-03-12 14:55 | ANE.PACU2 ---
Inpatient post-anesthesia follow up: Airway intact: Yes Vital signs: Temperature 98.2 F Pulse Rate 98 Respiratory Rate 16 Blood Pressure 133/71 Pulse Oximetry 96 Oxygen Delivery Me thod Room Air Oxygen Flow Rate Fraction of Inspir ed Oxygen Hydration adequate: Yes Nausea and vomiting: No Pain level: 1 Mental status: Baseline
== END 2025-03-12 14:55 | disposition home or self-care (01) ==
PROVIDERS: PCP Family Medicine; Visit Provider Surgery
PROC: (CPT 36561; principal; 2025-03-12 13:05)
DX: C01 Malignant neoplasm of base of tongue (principal); I48.91 Unspecified atrial fibrillation; J44.9 Chronic obstructive pulmonary disease, unspecified; E03.9 Hypothyroidism, unspecified; Z95.0 Presence of cardiac pacemaker; E66.01 Morbid (severe) obesity due to excess calories; Z68.35 Body mass index [BMI] 35.0-35.9, adult; Z88.5 Allergy status to narcotic agent; Z79.82 Long term (current) use of aspirin; Z79.890 Hormone replacement therapy; Z87.891 Personal history of nicotine dependence
CPT/HCPCS: 36561; 77001; C1788; J0690; J1644; J2704; J3490; J7030; J9999

== ENCOUNTER 2025-03-17 08:30 | Oncology outpatient (recurring) (ONCR) | payer MEDICARE, SELFPAY ==
[2025-03-08] MEDS: alteplase 1 mg/mL SDV 2 mL 2 MG INTRACATH (08:21)
[2025-03-08 08:35] LABS: Basophils % 0.2 %; Eosinophils % 0.4 %; Hematocrit 28.3 % (36-47); Lymphocytes # 0.7 10^3/uL (0.8-4.8); Lymphocytes % 15.7 %; Mean Corpuscular HGB Conc 33.9 g/dL (30-55); Mean Corpuscular Hemoglobin 31.6 pg (27-33); Mean Corpuscular Volume 93.1 fl (85-98); Mean Platelet Volume 10.4 fL (7.4-10.4); Monocytes # 0.8 10^3/uL (0.2-0.9); Monocytes % 16.8 %; Neutrophils # 3.04 10^3/uL (1.8-7.7); Neutrophils % 66.2 %; Nucleated Red Blood Cells % 0 %; Platelet Count 116 10^3/cmm (157-399); Red Blood Count 3.04 10^6/uL (3.85-5.65); Red Cell Distribution Width 13.1 % (12.1-15.1); White Blood Count 4.59 10^3/uL (3.29-11.43)
[2025-03-08 08:50] LABS: Alanine Aminotransferase 16 U/L (0-33); Albumin Level 3.1 g/dL (3.5-5.2); Alkaline Phosphatase 96 U/L (35-105); Aspartate Amino Transferase 23 U/L (0-32); Blood Urea Nitrogen 15 mg/dL (8-23); Calcium 7.2 mg/dL (8.5-10.5); Carbon Dioxide 31 mmol/L (22-29); Chloride 91 mmol/L (98-107); Creatinine Clr Calc Pharmacy 79.2011; Globulin 2.7 g/dL (1.3-4.6); Glucose 96 mg/dL (65-115); Osmolality Calculated 277 mOsm/kg (285-295); Sodium 133 mmol/L (136-145); Total Protein 5.8 g/dL (6.6-8.7)
--- NOTE | 2025-03-08 10:47 | XRR_ITS ---
PROCEDURE INFORMATION: Exam: XR Chest Exam date and time: 03/08/2025 10:51 AM Age: 70 years old Clinical indication: Device placement; Picc; Additional info: Picc placement TECHNIQUE: Imaging protocol: Radiologic exam of the chest. Views: 1 view. COMPARISON: CR XR chest 1V [id number] 02/17/2025 8:59 AM FINDINGS: Tubes, catheters and devices: Dual lead cardiac pacer without change. Surgical clips again noted in the right upper quadrant. Lungs: Mild left basilar opacity laterally is slightly more prominent. Right perihilar calcification without change. Pleural spaces: Unremarkable. No pleural effusion. No pneumothorax. Heart/Mediastinum: Slight enlargement of the cardiac silhouette. Bones/joints: Unremarkable. XR/XR chest 1V [id number] IMPRESSION: Mild atelectasis or other opacity at the left lung base.
--- NOTE | 2025-03-08 14:41 | PC.NURSE ---
Pts in infusion room for Cisplatin treatment. Pts PICC line not giving blood return from both lumens. Cathflo put into one lumen (the only one that nurses were able to flush through). No blood return noted after approx. 3 hours. Pt was sent to get chest xray for PICC line placement verification. Chest xray report does not mention the picc line placement. Per Alivia RN in GI lab, PICC line tip was not in correct place. Verbal order from Tj Edwards NP and Dr. Mccain, pull PICC line. Removed pts PICC line from right upper arm. 47cm catheter removed, intact. At approx. 8cm of PICC catheter was a kink. Pt tolerated well. Order for new PICC line entered.
--- NOTE | 2025-03-09 10:27 | ONCRAD TMN_ITS ---
Radiation Oncology Weekly Treatment Management Patient: Claudia Marie MR#: [id number] : 1955 Attending Physician: Dr. 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 ID: [id number], Energy: 6X, Dose/Fx (cGy): 200, #Fx: 15 / 35, Dose Correction (cGy): 0, Total Dose Delivered (cGy): 3,000, Start Date: 02/15/2025, Elapsed Days: 22 Reason for visit: The patient is being seen today as part of their regularly scheduled weekly on treatment visits to assess for acute toxicities from radiotherapy. Review of Systems: No pain. Speech has improved. Gargling with salt and soda. Able to feel tip of tongue. All intake is oral. No PEG tube in. Vital Signs: Performed on 03/09/2025 9:00 AM BMI - 35.209 kg/m2 (high), Height - 67 in, Weight - 224.8 lbs, Temperature - 97.2 f, Pulse - 90 /min, Respiration - 17 /min, O2 Sat - 100 %, Pain - 0, Fatigue - 0 and BP - 113/ 78 mm(hg). Physical Exam: No neck erythema. Imaging: Radiation therapy imaging related to accurate target localization (i.e. KV, MV and CBCT) was reviewed. Appropriate changes, if any, were made to ensure treatment accuracy. Plan: good tolerance and response to treatment. Continue as planned. PICC line out. Replacement planned with resumption of chemo Signed by: Dr. Delfino Vinson 03/09/2025 10:25:49 AM
[2025-03-16 08:18] VITALS: BP 123/78; PULSE 119; RESP 18; TEMP 36.7; O2SAT 98
[2025-03-16 08:37] LABS: Basophils % 0.3 %; Eosinophils % 0.3 %; Hematocrit 27.5 % (36-47); Lymphocytes # 0.6 10^3/uL (0.8-4.8); Lymphocytes % 18.3 %; Mean Corpuscular HGB Conc 33.8 g/dL (30-55); Mean Corpuscular Hemoglobin 33.1 pg (27-33); Mean Corpuscular Volume 97.9 fl (85-98); Mean Platelet Volume 9.9 fL (7.4-10.4); Monocytes # 0.5 10^3/uL (0.2-0.9); Monocytes % 14.6 %; Neutrophils # 2.15 10^3/uL (1.8-7.7); Neutrophils % 65.6 %; Nucleated Red Blood Cells % 0 %; Platelet Count 168 10^3/cmm (157-399); Red Blood Count 2.81 10^6/uL (3.85-5.65); Red Cell Distribution Width 15.7 % (12.1-15.1); White Blood Count 3.28 10^3/uL (3.29-11.43)
[2025-03-16 09:04] LABS: Alanine Aminotransferase 11 U/L (0-33); Alkaline Phosphatase 83 U/L (35-105); Anion Gap 15.8 (5-19); Aspartate Amino Transferase 26 U/L (0-32); Blood Urea Nitrogen 14 mg/dL (8-23); Calcium 6.3 mg/dL (8.5-10.5); Carbon Dioxide 31 mmol/L (22-29); Chloride 92 mmol/L (98-107); Creatinine Clr Calc Pharmacy 78.6472; Glucose 89 mg/dL (65-115); Osmolality Calculated 282 mOsm/kg (285-295); Sodium 136 mmol/L (136-145); Total Bilirubin 1.3 mg/dL (0.15-1.2)
--- NOTE | 2025-03-16 09:41 | ONCRAD TMN_ITS ---
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 ID: [id number], Energy: 6X, Dose/Fx (cGy): 200, #Fx: 18 / 35, Dose Correction (cGy): 0, Total Dose Delivered (cGy): 3,600, Start Date: 02/15/2025, Elapsed Days: 29 Reason for visit: The patient is being seen today as part of their regularly scheduled weekly on treatment visits to assess for acute toxicities from radiotherapy. Review of Systems: Labs are adequate. Platelets have increased to 168,000 this week. Weight continues to drop and dropped 2.8 pounds since last visit. She has lost a total of 18 pounds since her consult. She does look better than her weight values. She does continue to eat. Vital Signs: Performed on 03/16/2025 8:33 AM BMI - 34.77 kg/m2 (high), Height - 67 in, Weight - 222 lbs, Temperature - 98.7 f, Pulse - 119 /min (high), Respiration - 18 /min, O2 Sat - 98 %, Pain - 0, Fatigue - 0 and BP - 123/ 78 mm(hg). Physical Exam: AAOx3. Skin intact. Patient still with tongue-tied speech. Receiving chemotherapy today. Imaging: Radiation therapy imaging related to accurate target localization (i.e. KV, MV and CBCT) was reviewed. Appropriate changes, if any, were made to ensure treatment accuracy. Plan: Continue XRT. Continue chemotherapy today. Signed by: David Beltran 03/16/2025 9:40:32 AM
[2025-03-16 09:53] LABS: Potassium 2.8 mmol/L (3.5-5.1)
[2025-03-16] MEDS: magnesium sulfate premix 2 GM/50 ML PIGGYBACK IV (11:12)
[2025-03-16] MEDS: sodium chlor 0.9% + KCl 20 mEq 20 MEQ/1,000 ML BAG 500 MEQ IV (11:12)
[2025-03-16] MEDS: aprepitant 130 mg/18 ml SDV IVP (12:36)
[2025-03-16] MEDS: sodium chloride 0.9% 250 ML 75 ML IV (12:36)
[2025-03-16] MEDS: diphenhydrAMINE 50 mg/mL SDV 1mL 25 MG IVP (12:44)
[2025-03-16] MEDS: OLANZapine 5 mg TABLET PO (12:52)
[2025-03-16] MEDS: famotidine 20 mg/2 mL INJ IVP ×2 (12:53→12:55)
[2025-03-16] MEDS: dexamethasone 4 mg/mL INJ 12 MG IVP (12:56)
[2025-03-16] MEDS: palonosetron 0.25 mg/5 mL SDV IVP (13:01)
[2025-03-16] MEDS: CISPLATIN IV (13:28)
[2025-03-16] MEDS: SODIUM CHLORIDE 0.9% IV (13:28)
[2025-03-16] MEDS: potassium chloride 20 MEQ in sodium chloride 0.9% 500 ML 500 MEQ IV (14:52)
[2025-03-16 16:00] VITALS: BP 138/77; PULSE 88; RESP 18; TEMP 36.6; O2SAT 93
--- NOTE | 2025-03-16 16:37 | PC.NURSE ---
Patient K level 2.8 Lasix held per order
[2025-03-17] MEDS: potassium chloride 20 MEQ in sodium chloride 0.9% 500 ML 500 MEQ IV (09:37)
== END 2025-03-17 23:59 | disposition home or self-care (01) ==
PROVIDERS: Nurse Practitioner Family; PCP Family Medicine; Visit Provider Radiology Radiation Oncology
DX: Z51.0 Encounter for antineoplastic radiation therapy; C01 Malignant neoplasm of base of tongue; C77.0 Secondary and unspecified malignant neoplasm of lymph nodes of head, face and neck; Z79.899 Other long term (current) drug therapy; Z53.9 Procedure and treatment not carried out, unspecified reason
CPT/HCPCS: 36415; 71045; 77336; 77386; 80053; 85025; 96361; 96365; 96367; 96375; 96413; 99024; 99214; J0185; J1100; J1200; J2469; J2997; J3475; J3480; J3490; J7040; J7050; J9060; J9999

== ENCOUNTER 2025-04-01 08:15 | Oncology outpatient (recurring) (ONCR) | payer MEDICARE, SELFPAY ==
[2025-03-18] MEDS: potassium chloride 20 MEQ in sodium chloride 0.9% 500 ML 500 MEQ IV (08:31)
[2025-03-18 08:36] VITALS: BP 104/67; PULSE 94
[2025-03-19 08:31] LABS: Anion Gap 18.4 (5-19); Blood Urea Nitrogen 39 mg/dL (8-23); Calcium 6.8 mg/dL (8.5-10.5); Carbon Dioxide 26 mmol/L (22-29); Chloride 97 mmol/L (98-107); Glucose 91 mg/dL (65-115); Osmolality Calculated 295 mOsm/kg (285-295); Potassium 3.4 mmol/L (3.5-5.1); Sodium 138 mmol/L (136-145)
[2025-03-19] MEDS: potassium chloride 20 MEQ in sodium chloride 0.9% 500 ML 500 MEQ IV (08:37)
[2025-03-19 09:45] VITALS: BP 103/65; PULSE 123; RESP 16; TEMP 36.4; O2SAT 94
[2025-03-22 08:12] LABS: Basophils % 0.5 %; Eosinophils % 0.2 %; Hematocrit 24.6 % (36-47); Lymphocytes # 0.7 10^3/uL (0.8-4.8); Lymphocytes % 15.3 %; Mean Corpuscular HGB Conc 33.7 g/dL (30-55); Mean Corpuscular Hemoglobin 33.3 pg (27-33); Mean Corpuscular Volume 98.8 fl (85-98); Mean Platelet Volume 9.8 fL (7.4-10.4); Monocytes # 0.6 10^3/uL (0.2-0.9); Monocytes % 13.7 %; Neutrophils % 69.6 %; Nucleated Red Blood Cells % 0 %; Platelet Count 145 10^3/cmm (157-399); Red Blood Count 2.49 10^6/uL (3.85-5.65); Red Cell Distribution Width 16.5 % (12.1-15.1); White Blood Count 4.31 10^3/uL (3.29-11.43)
[2025-03-22 08:31] LABS: Alanine Aminotransferase 14 U/L (0-33); Albumin Level 2.8 g/dL (3.5-5.2); Alkaline Phosphatase 83 U/L (35-105); Anion Gap 14.9 (5-19); Aspartate Amino Transferase 28 U/L (0-32); Blood Urea Nitrogen 33 mg/dL (8-23); Calcium 7.3 mg/dL (8.5-10.5); Carbon Dioxide 34 mmol/L (22-29); Chloride 93 mmol/L (98-107); Creatinine Clr Calc Pharmacy 63.5088; Globulin 3.1 g/dL (1.3-4.6); Glucose 113 mg/dL (65-115); Osmolality Calculated 294 mOsm/kg (285-295); Potassium 3.9 mmol/L (3.5-5.1); Sodium 138 mmol/L (136-145); Total Bilirubin 0.9 mg/dL (0.15-1.2); Total Protein 5.9 g/dL (6.6-8.7)
[2025-03-22] MEDS: sodium chloride 0.9% 1,000 ML 999 ML IV (10:02)
[2025-03-22] MEDS: potassium chloride premix 100 ML 100 MEQ IV (10:03)
[2025-03-22] MEDS: magnesium sulfate premix 2 GM/50 ML PIGGYBACK IV (10:04)
[2025-03-22] MEDS: sodium chloride 0.9% 250 ML 75 ML IV (11:31)
[2025-03-22] MEDS: famotidine 20 mg/2 mL INJ IVP (11:32)
[2025-03-22] MEDS: OLANZapine 5 mg TABLET PO (11:36)
[2025-03-22] MEDS: aprepitant 130 mg/18 ml SDV IVP (11:37)
[2025-03-22] MEDS: diphenhydrAMINE 50 mg/mL SDV 1mL 25 MG IVP (11:41)
[2025-03-22] MEDS: palonosetron 0.25 mg/5 mL SDV IVP (11:45)
[2025-03-22] MEDS: dexamethasone 4 mg/mL INJ 12 MG IVP (11:48)
[2025-03-22] MEDS: CISPLATIN IV (12:09)
[2025-03-22] MEDS: SODIUM CHLORIDE 0.9% IV (12:09)
[2025-03-22] MEDS: FUROsemide 10 mg/mL SDV 2mL 20 MG IVP (13:40)
[2025-03-22] MEDS: potassium chloride 20 MEQ in sodium chloride 0.9% 500 ML 500 MEQ IV (13:47)
[2025-03-29 08:16] LABS: Basophils % 0.3 %; Eosinophils % 0.3 %; Hematocrit 23.9 % (36-47); Lymphocytes # 0.6 10^3/uL (0.8-4.8); Lymphocytes % 14.7 %; Mean Corpuscular HGB Conc 33.9 g/dL (30-55); Mean Corpuscular Hemoglobin 32.9 pg (27-33); Mean Corpuscular Volume 97.2 fl (85-98); Mean Platelet Volume 10.6 fL (7.4-10.4); Monocytes # 0.6 10^3/uL (0.2-0.9); Monocytes % 15.2 %; Neutrophils # 2.61 10^3/uL (1.8-7.7); Neutrophils % 68.5 %; Nucleated Red Blood Cells % 0 %; Platelet Count 99 10^3/cmm (157-399); Red Blood Count 2.46 10^6/uL (3.85-5.65); Red Cell Distribution Width 16.4 % (12.1-15.1); White Blood Count 3.81 10^3/uL (3.29-11.43)
[2025-03-29] MEDS: sodium chlor 0.9% + KCl 20 mEq 20 MEQ/1,000 ML BAG 500 MEQ IV (08:23)
[2025-03-29] MEDS: magnesium sulfate premix 2 GM/50 ML PIGGYBACK IV (08:25)
[2025-03-29 08:38] LABS: Alanine Aminotransferase 15 U/L (0-33); Albumin Level 3.1 g/dL (3.5-5.2); Alkaline Phosphatase 84 U/L (35-105); Anion Gap 18.9 (5-19); Aspartate Amino Transferase 27 U/L (0-32); Blood Urea Nitrogen 31 mg/dL (8-23); Calcium 6.5 mg/dL (8.5-10.5); Carbon Dioxide 33 mmol/L (22-29); Chloride 88 mmol/L (98-107); Creatinine Clr Calc Pharmacy 48.1707; Globulin 2.8 g/dL (1.3-4.6); Glucose 105 mg/dL (65-115); Osmolality Calculated 291 mOsm/kg (285-295); Sodium 137 mmol/L (136-145); Total Bilirubin 1.3 mg/dL (0.15-1.2); Total Protein 5.9 g/dL (6.6-8.7)
[2025-03-29 08:46] LABS: Potassium 2.9 mmol/L (3.5-5.1)
[2025-03-29] MEDS: sodium chloride 0.9% 250 ML 75 ML IV (10:57)
[2025-03-29] MEDS: OLANZapine 5 mg TABLET PO (11:01)
[2025-03-29] MEDS: famotidine 20 mg/2 mL INJ IVP (11:02)
[2025-03-29] MEDS: diphenhydrAMINE 50 mg/mL SDV 1mL 25 MG IVP (11:05)
[2025-03-29] MEDS: aprepitant 130 mg/18 ml SDV IVP (11:09)
[2025-03-29] MEDS: palonosetron 0.25 mg/5 mL SDV IVP (11:13)
[2025-03-29] MEDS: dexamethasone 4 mg/mL INJ 12 MG IVP (11:16)
[2025-03-29] MEDS: SODIUM CHLORIDE 0.9% IV (11:53)
[2025-03-29] MEDS: CISPLATIN IV (11:53)
[2025-03-29] MEDS: potassium chloride 20 MEQ in sodium chloride 0.9% 500 ML 500 MEQ IV (13:20)
[2025-03-29] MEDS: FUROsemide 10 mg/mL SDV 2mL 20 MG IVP (13:21)
--- NOTE | 2025-03-30 08:41 | ONCRAD TMN_ITS ---
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 ID: [id number], Energy: 6X, Dose/Fx (cGy): 200, #Fx: 26 / 35, Dose Correction (cGy): 0, Total Dose Delivered (cGy): 5,200, Start Date: 02/15/2025, Elapsed Days: 43 Reason for visit: The patient is being seen today as part of their regularly scheduled weekly on treatment visits to assess for acute toxicities from radiotherapy. Review of Systems: Patient has lost 5 more pounds since last visit. However she utilizes 5-7 protein drinks per day and adds more protein to each 1 of those. She is relatively active for her age. She is lost a total of 19 pounds since consult. She has 9 fractions to the left. Patient uses Aquaphor multiple times after treatment per day. She is going for hydration today. Poor taste is noted. Vital Signs: Performed on 03/30/2025 8:12 AM BMI - 34.645 kg/m2 (high), Height - 67 in, Weight - 221.2 lbs, Temperature - 97 f, Pulse - 120 /min (high), Respiration - 18 /min, O2 Sat - 96 %, Pain - 0, Fatigue - 0 and BP - 143/ 94 mm(hg)(high). Physical Exam: AAOx3. Skin shows dry desquamation. Oral exam showed no significant mucositis. Imaging: Radiation therapy imaging related to accurate target localization (i.e. KV, MV and CBCT) was reviewed. Appropriate changes, if any, were made to ensure treatment accuracy. Plan: Continue XRT Continue chemotherapy Continue hydration. Continue liberal applications of Aquaphor. Signed by: David Beltran 03/30/2025 8:40:30 AM
[2025-03-30] MEDS: sodium chlor 0.9% + KCl 20 mEq 20 MEQ/1,000 ML BAG 500 MEQ IV (09:25)
[2025-03-31 08:18] VITALS: BP 117/69; PULSE 100; RESP 16; TEMP 36.1; O2SAT 96
[2025-03-31] MEDS: sodium chlor 0.9% + KCl 20 mEq 20 MEQ/1,000 ML BAG 500 MEQ IV (08:23)
[2025-03-31 10:26] VITALS: BP 111/53; PULSE 111; RESP 16; TEMP 36.5; O2SAT 96
[2025-04-01 08:18] VITALS: BP 122/74; PULSE 128; RESP 17; TEMP 35.9; O2SAT 97
== END 2025-04-01 09:37 | disposition home or self-care (01) ==
PROVIDERS: Internal Medicine Medical Oncology; Nurse Practitioner Family; PCP Family Medicine; Visit Provider Radiology Radiation Oncology
DX: Z53.9 Procedure and treatment not carried out, unspecified reason; C01 Malignant neoplasm of base of tongue; E87.6 Hypokalemia; R00.2 Palpitations; F17.210 Nicotine dependence, cigarettes, uncomplicated; D64.81 Anemia due to antineoplastic chemotherapy; T45.1X5A Adverse effect of antineoplastic and immunosuppressive drugs, initial encounter; N28.9 Disorder of kidney and ureter, unspecified; R53.83 Other fatigue; R60.0 Localized edema; Z79.899 Other long term (current) drug therapy
CPT/HCPCS: 77014; 77336; 77386; 77427; 80048; 80053; 85025; 96365; 96367; 96368; 96375; 96413; 99024; 99213; 99214; J0185; J1100; J1200; J1938; J2469; J3475; J3480; J3490; J7030; J7040; J7050; J9060; J9999

== ENCOUNTER 2025-04-01 09:10 | Inpatient (IN) | payer MEDICARE, SELFPAY ==
[2025-04-01] VITALS (24 sets, daily range): BP systolic 87–134; BP diastolic 42–88; PULSE 83–124; RESP 13–28; TEMP 36.2–37.6; O2SAT 88–96; BMI 34.4
--- NOTE | 2025-04-01 08:46 | ECG_ITS ---
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1955 Requested By: Jamir Hernandez Order Number: [id number] Reading MD: MINOR CARTER Measurements Intervals [place] Rate: 124 P: 31 CO: 223 QRS: 43 QRSD: 141 T: -67 QT: 318 QTc: 457 Interpretive Statements SINUS TACHYCARDIA WITH FIRST DEGREE AV BLOCK RIGHT BUNDLE BRANCH BLOCK [120+ ms QRS DURATION, UPRIGHT V1, 40+ ms S IN I/aVL/V4/V5/V6] MODERATE T-WAVE ABNORMALITY, CONSIDER INFERIOR ISCHEMIA [-0.1+ mV T WAVE IN II/aVF] Compared to ECG 02/25/2024 08:38:02 First degree AV block now present T-wave abnormality now present Possible ischemia now present Atrial-paced complex(es) or rhythm no longer present Indeterminate axis no longer present Electronically Signed On 04-01-2025 23:30:00 CDT by MINOR CARTER [email or web address]
--- NOTE | 2025-04-01 09:23 | ECG_ITS ---
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1955 Requested By: Jamir Hernandez Order Number: [id number] Reading MD: MINOR CARTER Measurements Intervals [place] Rate: 123 P: 0 MO: 0 QRS: 57 QRSD: 131 T: -69 QT: 307 QTc: 441 Interpretive Statements ATRIAL TACHYCARDIA WITH RAPID VENTRICULAR RESPONSE INTRAVENTRICULAR CONDUCTION DELAY [130+ ms QRS DURATION] Compared to ECG 04/01/2025 08:46:57 Intraventricular conduction delay now present Sinus tachycardia no longer present First degree AV block no longer present Right bundle-branch block no longer present T-wave abnormality no longer present Possible ischemia no longer present Electronically Signed On 04-01-2025 23:29:48 CDT by MINOR CARTER [id number]
[2025-04-01 09:33] LABS: Alanine Aminotransferase 17 U/L (0-33); Albumin Level 2.8 g/dL (3.5-5.2); Alkaline Phosphatase 83 U/L (35-105); Aspartate Amino Transferase 32 U/L (0-32); Blood Urea Nitrogen 38 mg/dL (8-23); Carbon Dioxide 31 mmol/L (22-29); Chloride 90 mmol/L (98-107); Creatinine Clr Calc Pharmacy 39.1387; Globulin 2.8 g/dL (1.3-4.6); Glucose 112 mg/dL (65-115); Osmolality Calculated 288 mOsm/kg (285-295); Sodium 134 mmol/L (136-145); Total Bilirubin 1.1 mg/dL (0.15-1.2); Total Protein 5.6 g/dL (6.6-8.7)
[2025-04-01 09:35] LABS: Basophils % 0.3 %; Lymphocytes # 0.3 10^3/uL (0.8-4.8); Lymphocytes % 7.6 %; Mean Corpuscular HGB Conc 33.2 g/dL (30-55); Mean Corpuscular Hemoglobin 32.7 pg (27-33); Mean Corpuscular Volume 98.6 fl (85-98); Mean Platelet Volume 10.6 fL (7.4-10.4); Monocytes # 0.4 10^3/uL (0.2-0.9); Monocytes % 11.2 %; Neutrophils # 2.95 10^3/uL (1.8-7.7); Neutrophils % 80.4 %; Nucleated Red Blood Cells % 0 %; Platelet Count 70 10^3/cmm (157-399); Red Blood Count 2.11 10^6/uL (3.85-5.65); Red Cell Distribution Width 17.1 % (12.1-15.1); White Blood Count 3.67 10^3/uL (3.29-11.43)
[2025-04-01 09:36] LABS: Calcium 5.7 mg/dL (8.5-10.5)
[2025-04-01 09:37] LABS: Hematocrit 20.8 % (36-47)
--- NOTE | 2025-04-01 09:37 | ED_ITS ---
HPI - Arrhythmia/Palpitations 2 General: Chief Complaint: Arrhythmia/Palpitations Stated Complaint: rapid HR Time Seen by Provider: 04/01/25 09:11 History of Present Illness: 70-year-old female presents emergency ro om from the oncology clinic. She had been there today due to routine treatments for laryngeal cancer she has been getting radiation she is also getting chemotherapy. She is still able to swallow. She states she felt fine but when she got there she felt lightheaded dizzy weak. She denies any chest pain or shortness of breath. She still feels lightheaded at this time. At baseline she walks with a cane. She does not have a PEG tube. She not had any fever sweats or chills. She tells me that they have been watching her potassium closely at the cancer center because she has chronically been low. Related Data Home Medications ?Medication ?Instructions ?Recorded ?Confirmed albuterol sulfate 90 mcg/actuation 2 puff inhalation Q 6H PRN sob 06/01/20 04/01/25 aerosol inhaler (Ventolin HFA) aspirin 81 mg tablet,delayed 81 mg PO DAILY 06/06/23 0 04/01/25 release Held on 03/12/25. Instructions: Resume on 03/15/25. levothyroxine 150 mcg tablet 150 mcg PO DAILY 01/25/25 04/01/25 Allergies Allergy/AdvReac Type Severity Reaction Status Date / Time hydromorphone (From Dilaudid) Allergy vomiting Verified 04/01/25 09:07 Review of Systems 2 Const: Denies: fever(s) or chills Card: Reports: palpitations; Denies: chest pain Resp: Denies: dyspnea GI: Denies: abdominal pain : Denies: dysuria, urinary frequency or urinary urgency Musc: Denies: neck pain or back pain Skin/Breast: Denies: rash PFSH ED 2 PFSH: Medical History Pre-op evaluation Hypothyroidism Tobacco dependence X 46 years COPD (chronic obstructive pulmonary disease) Arrhythmia Afib Surgical History History of pacemaker 2016 Hx of cataract surgery Hx of shoulder surgery Stenosis, cervical spine has cervical surgery with plate and [address] History of left knee surgery History of torn meniscus of right knee History of cholecystectomy History of appendectomy History of hernia repair Family History Other Cancer Denies family history of Diabetes CAD (coronary artery disease) Clotting disorder Anesthesia complication Bleeding disorder Hypertension Social History Smoking and tobacco/nicotine status: current every day tobacco/nicotine user cigarettes [ Other cigarette details: 2 cig month max of 3 per day] Alcohol intake: current Alcohol intake frequency: few times a month Alcohol type: beer Substance/Drug Use: never Physical Exam 2 Const: GENERAL APPEARANCE: cooperative ORIENTATION/CONSCIOUSNESS: Yes awake, Yes oriented to person, Yes oriented to place and Yes oriented to time HENMT: COMMON NORMALS: normocephalic, atraumatic and hearing grossly normal bilaterally HEAD & SCALP: normocephalic and atraumatic Resp: COMMON NORMALS: normal respiratory effort, No retractions, No use of accessory muscles and clear to auscultation bilaterally AUSCULTATION: clear to auscultation bilaterally Cardio: COMMON NORMALS: No murmurs present (Cardio) RATE: tachycardic R HYTHM: abnormal rhythm irregularly irregular GI: COMMON NORMALS: Soft to palpation and No hepatosplenomegaly present A USCULTATION: Yes normoactive bowel sounds PALPATION: Yes Soft to palpation, No Tenderness to palpation present (GI), No Guarding due to palpation present (GI) and Yes No hepatosplenomegaly present Extremity: COMMON NORMALS: normal to inspection, capillary refill normal, no clubbing, cyanosis or edema, no calf tenderness and no pedal edema Neuro: SENSORIUM/ORIENTATION: Yes oriented to person, Yes oriented to place and Yes oriented to time Skin: COMMON NORMALS: no rashes or lesions noted GENERAL SKIN EXAM: no rashes or lesions noted Course 2 Vital Signs: Vital signs: Vital Signs Temperature 97.2 F L 04/01/25 13:37 Pulse Rate 117 H 04/01/25 13:37 Respiratory Rate 16 04/01/25 13:37 Blood Pressure 117/88 04/01/25 13:37 Pulse Oximetry 94 04/01/25 12:41 Oxygen Delivery Me thod Nasal Cannula 04/01/25 13:21 MDM - Arrhythmia/Palpitations Medical Decision Making Patient arrives she is in A-fib with rapid ventricular response on initial EKGs.. Improved with Cardizem her hemoglobin came back at 6.9 she denies any medic easier melena. Hemoccult done card was negative at the bedside. Additionally she is requiring oxygen. She is hypokalemic hypomagnesemic and hypocalcemic. Her BUN is elevated at 38 and her creatinine is 1.6. Will admit the patient. She has been given IV fluids her blood pressure did get low while we had started her on the Cardizem. She is also been given Protonix. Unit of packed red blood cells ordered. Blood pressure did improve with the fluids we titrated Cardizem down. Discussed with hospitalist will admit orders written. She has been given calcium chloride 2 g of mag sulfate and 60 of p.o. potassium. Orders written for CSU Medical Records I reviewed the patient's medical records. Lab Data I reviewed the patient's lab results. 04/01/25 08:52 04/01/25 08:52 Radiology Impressions Chest CTA 04/01/25 10:50 IMPRESSION: 1. No pulmonary emboli. 2. New multiple small pulmonary nodules. 3. New right infrahilar lymph node. 4. Right pleural effusion. New. 5. Possible cirrhosis/liver disease. Chest X-Ray 04/01/25 10:50 IMPRESSION: Findings as above with a questionable new area of atelectasis or density in right upper lung. Please see the CTA chest. Laboratory Results WBC 3.67 10^3/uL (3.29-11.43) 04/01/25 08:52 RBC 2.11 10^6/uL (3.85-5.65) L 04/01/25 08:52 Hgb 6.90 g/dL (11.27-16.99) L 04/01/25 08:52 Hct 20.8 % (36-47) L* 04/01/25 08:52 MCV 98.6 fl (85-98) H 04/01/25 08:52 MCH 32.7 pg (27-33) 04/01/25 08:52 MCHC 33.2 g/dL (30-55) 04/01/25 08:52 RDW 17.1 % (12.1-15.1) H 04/01/25 08:52 Plt Count 70 10^3/cmm (157-399) L 04/01/25 08:52 MPV 10.6 fL (7.4-10.4) H 04/01/25 08:52 Neut % (Auto) 80.4 % 04/01/25 08:52 Lymph % (Auto) 7.6 % 04/01/25 08:52 Lander % (Auto) 11.2 % 04/01/25 08:52 Eos % (Auto) 0.0 % 04/01/25 08:52 Baso % (Auto) 0.3 % 04/01/25 08:52 Neut # (Auto) 2.95 10^3/uL (1.8-7.7) 04/01/25 08:52 Lymph # (Auto) 0.3 10^3/uL (0.8-4.8) L 04/01/25 08:52 Lander # (Auto) 0.4 10^3/uL (0.2-0.9) 04/01/25 08:52 Eos # (Auto) 0.0 10^3/uL (0.0-0.8) 04/01/25 08:52 Baso # (Auto) 0.0 10^3/uL (0.0-0.1) 04/01/25 08:52 Nucleated RBC % (auto) 0 % 04/01/25 08:52 Nucleated RBCs # 0.0 /100WBC 04/01/25 08:52 Sodium 134 mmol/L (136-145) L 04/01/25 08:52 Potassium 3.0 mmol/L (3.5-5.1) L 04/01/25 08:52 Chloride 90 mmol/L (98-107) L 04/01/25 08:52 Carbon Dioxide 31 mmol/L (22-29) H 04/01/25 08:52 Anion Gap 16.0 (5-19) 04/01/25 08:52 BUN 38 mg/dL (8-23) H 04/01/25 08:52 Creatinine 1.6 mg/dL (0.5-0.9) H 04/01/25 08:52 GFR Calculation Not Reportable 04/01/25 08:52 Glucose 112 mg/dL (65-115) 04/01/25 08:52 Calculated Osmolality 288 mOsm/kg (285-295) 04/01/25 08:52 Calcium 5.7 mg/dL (8.5-10.5) L* 04/01/25 08:52 Magnesium 0.8 mg/dL (1.7-2.3) L* 04/01/25 09:21 Total Bilirubin 1.1 mg/dL (0.15-1.2) 04/01/25 08:52 AST 32 U/L (0-32) 04/01/25 08:52 ALT 17 U/L (0-33) 04/01/25 08:52 Alkaline Phosphatase 83 U/L (35-105) 04/01/25 08:52 Troponin T Baseline 85 ng/L (0-10) H 04/01/25 09:21 Troponin T 120 Minute 76.56 ng/L (0-10) H 04/01/25 11:44 Delta Troponin T -8.44 ABS# (0-10) L 04/01/25 11:44 Total Protein 5.6 g/dL (6.6-8.7) L 04/01/25 08:52 Albumin 2.8 g/dL (3.5-5.2) L 04/01/25 08:52 Globulin 2.8 g/dL (1.3-4.6) 04/01/25 08:52 Blood Type B Positive 04/01/25 09:56 Rho(D) Type Rh positive 04/01/25 09:56 Antibody Screen Negative 04/01/25 09:56 Crossmatch See Detail 04/01/25 09:56 All radiology interpretation(s) finalized by discharge Critical Care Time 2 Critical Care Time: Total Critical Care Time: 35 Attestation: The high probability of a clinically significant, sudden or life threatening deterioration of the patient's hematologic GI cardiovascular endocrine system(s) required my full and direct attention, intervention and personal management. The critical care time is as shown. This time is in addition to time spent performing any reported procedures but includes the following: [x] Data and vital sign review and interpretation [x] Patient assessment, examination and intervention [x] Documentation [x] Medication orders and management Discharge Plan Discharge Patient Disposition: Admitted As Inpatient Admit Provider: Opal De La Fuente Clinical Impression: Atrial fibrillation with RVR, Hypokalemia, Hypomagnesemia, Hypocalcemia, Laryngeal cancer, Anemia Condition: Stable Coding Level of Care Code ED Medical Technologist Clinical for Chg Itzel
[2025-04-01] MEDS: dilTIAZem 5 mg/mL SDV 5 mL 20 MG IVP (09:50)
[2025-04-01] MEDS: potassium chloride oral liq 20 mEq/15 mL UDC 60 MEQ PO (10:02)
[2025-04-01] MEDS: pantoprazole 40 mg SDV 80 MG IVP (10:03)
[2025-04-01] MEDS: dilTIAZem 100 MG in sodium chloride 0.9% (add-van) 100 ML IV ×2 (10:06→13:53)
[2025-04-01 10:20] LABS: Troponin(5th) Baseline 85 ng/L (0-10)
[2025-04-01 10:30] LABS: Magnesium 0.8 mg/dL (1.7-2.3)
[2025-04-01] MEDS: magnesium sulfate premix 2 GM/50 ML PIGGYBACK IV (10:50)
--- NOTE | 2025-04-01 10:50 | XRR_ITS ---
PROCEDURE INFORMATION: Exam: XR Chest Exam date and time: 04/01/2025 10:50 AM Age: 70 years old Clinical indication: Cough and dyspnea; Additional info: Dyspnea/cough TECHNIQUE: Imaging protocol: Radiologic exam of the chest. Views: 1 view. COMPARISON: CR XR chest 1V [id number] 03/08/2025 10:51 AM FINDINGS: Tubes, catheters and devices: Removal of the PICC line with a new Infusaport catheter. Its tip overlies the superior vena cava. Lungs: Stable granulomatous disease in the lungs. New area of increased density seen within the right upper lobe. This could be a new area of atelectasis. Pleural spaces: Unremarkable. No pleural effusion. No pneumothorax. Heart/Mediastinum: Cardiomegaly. Diaphragm: Mild eventration of the left lateral hemidiaphragm is stable. Bones/joints: Stable fixation at C7/T1. Stable shoulder arthritis with humeral head spurring. Soft tissues: The patient is having a CT angiogram of the chest. Please see that report when it is available. XR/XR chest 1V portable [id number] IMPRESSION: Findings as above with a questionable new area of atelectasis or density in right upper lung. Please see the CTA chest.
--- NOTE | 2025-04-01 10:50 | CTR_ITS ---
PROCEDURE INFORMATION: Exam: CTA Chest With Contrast Exam date and time: 04/01/2025 11:09 AM Age: 70 years old Clinical indication: Other: High hr; Additional info: Laryngeal CA tachycardia history of cancer TECHNIQUE: Imaging protocol: Computed tomographic angiography of the chest with contrast. Exam focused on the arteries. 3D rendering (Not supervised by radiologist): MIP and/or 3D reconstructed images were created by the technologist. Radiation optimization: All CT scans at this facility use at least one of these dose optimization techniques: automated exposure control; mA and/or kV adjustment per patient size (includes targeted exams where dose is matched to clinical indication); or iterative reconstruction. Contrast material: OMNI 350; Contrast volume: 68 ml; Contrast route: NON-VASCULAR INTERVENTIONAL INJECTION (NON-VASCULA; COMPARISON: PT PET skull to thigh INIT [id number] 01/15/2025 10:42 AM RADIATION DOSE METRICS: Total DLP (mGy-cm): 419.33 FINDINGS: Tubes, catheters and devices: The pacemaker itself is not seen but leads appear stable. Suspected Infusaport catheter with its tip in the right atrium. Pulmonary arteries: Very good pulmonary arterial opacification with Hounsfield units of 300 and 50. There is no evidence of pulmonary embolism. Aorta: Unremarkable. No aortic aneurysm. No aortic dissection. Lungs: Stable granulomatous disease in the hilum as well as the right lower lobe. There is a new nodule noted involving right upper lobe measuring 9 x 5 mm image 6/183. There is a 2nd nodule slightly more inferior in the right upper lobe image 6/196 measuring 5 mm. New 6 mm right upper lobe nodule medially and anteriorly on image 6/94. There is a new 7 x 7 mm right lower lobe medial nodule image 6/288. There is a new nodule left upper lobe measuring 4 mm image 6/194. There is a new nodule in the medial left lower lobe measuring 8 x 5 mm image 6/361. Linear atelectatic changes are stable involving left base. Pleural spaces: New trace right pleural effusion. No left pleural effusion. No pneumothorax. Heart: Unremarkable. No cardiomegaly. No pericardial effusion. Lymph nodes: There is an infrahilar lymph node measuring 11 x 12 mm image 6/275. Diaphragm: Elevated right hemidiaphragm. Liver: Fatty liver. Slightly irregular nodular liver margin. Can not exclude hepatocellular disease. Gallbladder and biliary ducts: Cholecystectomy clips. Spleen: Extensive granulomatous disease in the spleen. Bones/joints: Unremarkable. No acute fracture. Soft tissues: Unremarkable. CT/CT angio chest PE protcl [id number] IMPRESSION: 1. No pulmonary emboli. 2. New multiple small pulmonary nodules. 3. New right infrahilar lymph node. 4. Right pleural effusion. New. 5. Possible cirrhosis/liver disease.
[2025-04-01] MEDS: iohexol 350 mg/mL 500 mL Btl (per mL) IV (11:18)
[2025-04-01] MEDS: sodium chloride 0.9% 100 mL Bag 50 ML IV (11:43)
[2025-04-01] MEDS: sodium chloride 0.9% 1,000 ML 999 ML IV (12:04)
--- NOTE | 2025-04-01 12:10 | PC.NURSE ---
Pt became hypotensive after starting blood product. Placed pt in trendelenburg. Got verbal orders from Dr. Dominguez to give fluids and pressure bag them.
--- NOTE | 2025-04-01 12:16 | PC.NURSE ---
pt became hypotensive, pt placed in trendelenburg; Dr. Dominguez notified, verbal orders for NS bolus. 1L NS infusing via pressure bag.
[2025-04-01 12:20] LABS: Troponin 5 2HR 76.56 ng/L (0-10)
[2025-04-01 12:23] LABS: Troponin 5 2HR Delta -8.44 ABS# (0-10)
--- NOTE | 2025-04-01 12:34 | ECG_ITS ---
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1955 Requested By: Jamir Hernandez Order Number: [id number] Reading MD: MINOR CARTER Measurements Intervals Norris Rate: 90 P: 0 NV: 0 QRS: 58 QRSD: 68 T: -59 QT: 382 QTc: 468 Interpretive Statements ATRIAL FIBRILLATION LOW QRS VOLTAGE IN PRECORDIAL LEADS [QRS DEFLECTION < 1.0 mV IN CHEST LEADS] ST DEVIATION AND MODERATE T-WAVE ABNORMALITY, CONSIDER ANTEROLATERAL ISCHEMIA [-0.1+ mV T-WAVE IN V3-V6] ST DEVIATION AND MODERATE T-WAVE ABNORMALITY, CONSIDER INFERIOR ISCHEMIA [-0.1+ mV T-WAVE IN II/aVF] Compared to ECG 04/01/2025 09:23:18 Low QRS voltage now present T-wave abnormality now present Possible ischemia now present Atrial flutter no longer present Intraventricular conduction delay no longer present Electronically Signed On 04-01-2025 23:38:21 CDT by MINOR CARTER [email or web address]
--- NOTE | 2025-04-01 14:25 | P.HP_ITS ---
Providers/Chief Complaint 2 Admitting Physician: Opal De La Fuente MD Primary Care Provider: Gemini Morris MD Chief Complaint: rapid HR History of Present Illness Claudia Marie is a 70 year old female . 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 She presented to oncology outpatient today where she was noted to be very lightheaded and had lower extremity edema in bilateral lower extremities. She was sent into the emergency room but she was found to be in A-fib with RVR. She received 20 mg of IV push of Cardizem which dropped her blood pressure to 87 systolic. This subsequently improved. Currently at the time of this assessment her heart rate is noted to be 117/min. She has anemia with a hemoglobin dropped to 6.7. 1 unit of blood transfusion has been ordered from the emergency room which she has completed. She was additionally found to have very low magnesium, potassium and calcium levels today which are currently being repleted. Denies any chest pain. Review of Systems 2 General: Reports: 10 or more systems reviewed and unremarkable except in HPI and below Const: Denies: fever(s), chills or body aches Eyes: Denies: change in vision, blurry vision or photophobia ENMT: Reports: hoarseness; Denies: throat pain, enlarged tonsils, odynophagia or nasal congestion Card: Denies: chest pain, palpitations, irregular heart rhythm, edema, swelling of feet/ankles, lightheadedness, pre-syncope, dyspnea on exertion or orthopnea Resp: Denies: dyspnea, productive cough, non-productive cough, wheezing, stridor, pain on inspiration, change in phlegm color, hemoptysis or chest congestion GI: Denies: abdominal pain, nausea, vomiting, hematemesis, coffee ground emesis, dysphagia, heartburn, diarrhea, constipation, GI cramping, change in stool character, hematochezia or melena : Denies: flank pain, difficulty voiding, dysuria, urinary frequency, urinary urgency, urinary hesitancy or hematuria Musc: Denies: neck pain, back pain, extremity pain, joint swelling, joint warmth or deformity Neuro: Denies: headache(s), numbness in extremities, weakness in extremities, sensory changes, difficulty walking, frequent falls, dizziness, vertigo, behavioral changes, Slurred speech present or seizure-like activity Psych: Denies: anxiety, depression, suicidal ideation or homicidal ideation Endo: Denies: polyuria, polydipsia, tired all the time, cold intolerance or hot flashes Matt/Lymph: Denies: easy bruising or easy bleeding Medications/Allergies Home Medications ?Medication ?Instructions ?Recorded ?Confirmed ?Last Taken ?Type albuterol sulfate 90 mcg/actuation 2 puff inhalation Q 6H PRN sob 06/01/20 04/01/25 01/31/25 History aerosol inhaler (Ventolin HFA) aspirin 81 mg tablet,delayed 81 mg PO DAILY 06/06/23 0 04/01/25 04/01/25 History release Held on 03/12/25. Instructions: Resume on 03/15/25. levothyroxine 150 mcg tablet 150 mcg PO DAILY 01/25/25 04/01/25 04/01/25 History Allergies Allergy/AdvReac Type Severity Reaction Status Date / Time hydromorphone (From Dilaudid) Allergy vomiting Verified 04/01/25 09:07 PFSH Acute 2 PFSH: Medical History Pre-op evaluation Hypothyroidism Tobacco dependence X 46 years COPD (chronic obstructive pulmonary disease) Arrhythmia Afib Surgical History History of pacemaker 2016 Hx of cataract surgery Hx of shoulder surgery Stenosis, cervical spine has cervical surgery with plate and [address] History of left knee surgery History of torn meniscus of right knee History of cholecystectomy History of appendectomy History of hernia repair Family History Other Cancer Denies family history of Diabetes CAD (coronary artery disease) Clotting disorder Anesthesia complication Bleeding disorder Hypertension Social History Smoking and tobacco/nicotine status: current every day tobacco/nicotine user cigarettes [ Other cigarette details: 2 cig month max of 3 per day] Alcohol intake: current Alcohol intake frequency: few times a month Alcohol type: beer Substance/Drug Use: never Vitals/I&O/Wt Last Vital Signs Temp 97.2 F L 04/01/25 13:37 Pulse 117 H 04/01/25 13:37 Resp 16 05/15/25 13:37 BP 117/88 04/01/25 13:37 Pulse Ox 94 04/01/25 12:41 O2 Del Method Nasal Cannula 04/01/25 13:21 03/31/25 04/01/25 04/01/25 22:59 06:59 14:59 Intake Total 1407.917 / 1407.917 Balance 1407.917 / 1407.917 Weight last 48 hrs Weight 105.596 kg Weight 99.79 kg Physical Exam 2 Narrative: General: No acute distress, AO x3 HEENT: PERRLA, pupils bilaterally equal and reactive, pallors not present Chest: Normal vesicular breath sounds, no added sounds, equal good air entry bilaterally CVS: S1-S2 regular, no murmurs, no tachycardia, no gallops, no rubs Abdomen: Soft, nontender, no organomegaly, bowel sounds present Neuro: No focal deficits, no facial deformity, AO x3, power 5/5 in all limbs Data 04/01/25 15:30 04/01/25 15:30 Other data: Radiology Impressions Chest CTA 04/01/25 10:50 IMPRESSION: 1. No pulmonary emboli. 2. New multiple small pulmonary nodules. 3. New right infrahilar lymph node. 4. Right pleural effusion. New. 5. Possible cirrhosis/liver disease. Chest X-Ray 04/01/25 10:50 IMPRESSION: Findings as above with a questionable new area of atelectasis or density in right upper lung. Please see the CTA chest. Laboratory Results WBC 3.67 10^3/uL (3.29-11.43) 04/01/25 08:52 RBC 2.11 10^6/uL (3.85-5.65) L 04/01/25 08:52 Hgb 7.60 g/dL (11.27-16.99) L 04/01/25 15: Hct 22.5 % (36-47) L 04/01/25 15:30 MCV 98.6 fl (85-98) H 04/01/25 08:52 MCH 32.7 pg (27-33) 04/01/25 08:52 MCHC 33.2 g/dL (30-55) 04/01/25 08:52 RDW 17.1 % (12.1-15.1) H 04/01/25 08:52 Plt Count 70 10^3/cmm (157-399) L 04/01/25 08:52 MPV 10.6 fL (7.4-10.4) H 04/01/25 08:52 Neut % (Auto) 80.4 % 04/01/25 08:52 Lymph % (Auto) 7.6 % 04/01/25 08:52 Hawkins % (Auto) 11.2 % 04/01/25 08:52 Eos % (Auto) 0.0 % 04/01/25 08:52 Baso % (Auto) 0.3 % 04/01/25 08:52 Neut # (Auto) 2.95 10^3/uL (1.8-7.7) 04/01/25 08:52 Lymph # (Auto) 0.3 10^3/uL (0.8-4.8) L 04/01/25 08:52 Hawkins # (Auto) 0.4 10^3/uL (0.2-0.9) 04/01/25 08:52 Eos # (Auto) 0.0 10^3/uL (0.0-0.8) 04/01/25 08:52 Baso # (Auto) 0.0 10^3/uL (0.0-0.1) 04/01/25 08:52 Nucleated RBC % (auto) 0 % 04/01/25 08:52 Nucleated RBCs # 0.0 /100WBC 04/01/25 08:52 Sodium 136 mmol/L (136-145) 04/01/25 15:30 Potassium 3.3 mmol/L (3.5-5.1) L 04/01/25 15:30 Chloride 93 mmol/L (98-107) L 04/01/25 15:30 Carbon Dioxide 30 mmol/L (22-29) H 04/01/25 15:30 Anion Gap 16.3 (5-19) 04/01/25 15:30 BUN 35 mg/dL (8-23) H 04/01/25 15:30 Creatinine 1.6 mg/dL (0.5-0.9) H 04/01/25 15:30 GFR Calculation Not Reportable 04/01/25 15:30 Glucose 96 mg/dL (65-115) 04/01/25 15:30 Calculated Osmolality 290 mOsm/kg (285-295) 04/01/25 15:30 Calcium 5.7 mg/dL (8.5-10.5) L* 04/01/25 15:30 Ionized Calcium Za 0.8 mmol/L (1.1-1.4) L 04/01/25 15:30 Magnesium 0.8 mg/dL (1.7-2.3) L* 04/01/25 09:21 Total Bilirubin 1.1 mg/dL (0.15-1.2) 04/01/25 15:30 AST 34 U/L (0-32) H 04/01/25 15:30 ALT 17 U/L (0-33) 04/01/25 15:30 Alkaline Phosphatase 83 U/L (35-105) 04/01/25 15:30 Troponin T Baseline 85 ng/L (0-10) H 04/01/25 09:21 Troponin T 120 Minute 76.56 ng/L (0-10) H 04/01/25 11:44 Delta Troponin T -8.44 ABS# (0-10) L 04/01/25 11:44 Troponin T Hi Sens 6Hr 74.21 ng/L (0-10) H 04/01/25 15:30 Troponin T Hi Sens 6Hr Delta -10.79 ng/L (0-12) L 04/01/25 15:30 Total Protein 5.4 g/dL (6.6-8.7) L 04/01/25 15: Albumin 2.8 g/dL (3.5-5.2) L 04/01/25 15: Globulin 2.6 g/dL (1.3-4.6) 04/01/25 15:30 Blood Type B Positive 04/01/25 09:56 Rho(D) Type Rh positive 04/01/25 09:56 Antibody Screen Negative 04/01/25 09:56 Crossmatch See Detail 04/01/25 09:56 A&P Assessment and plan (1) Atrial fibrillation with RVR: Admit to CSU in observation. Patient received IV Cardizem in the emergency room 20 mg IV push after presenting with A-fib RVR Cardizem bolus resulted in drop in blood pressure Currently heart rate is ranging around 100 bpm. If needed we will resume Cardizem infusion to better control heart rate Likely suspect that A-fib was triggered by acute on chronic anemia from chemotherapy and cancer, hypokalemia, hypomagnesemia and hypocalcemia. check TSH (2) Hypokalemia: Repleted in the emergency room. Repeat at 4 PM (3) Hypomagnesemia: Repleted in the emergency room. Repeat levels at 4 PM (4) Hypocalcemia: Repleted in the emergency room. Recheck levels at 4 PM (5) Anemia: Anemia with hemoglobin dropped to 6.9. This may be contributing to A-fib RVR currently 1 unit blood transfusion has been completed. Will recheck H&H posttransfusion. FOBT ordered currently pending. Suspect that anemia is related to ongoing chemotherapy and known malignancy/anemia of chronic disease. (6) Malignant neoplasm of base of tongue: Follows with oncology as outpatient. Currently on chemoradiation. Plan DVT prophylaxis: No anticoagulation given thrombocytopenia and drop in hemoglobin to 6.9 SCDs only for now. PDMP PDMP Reviewed: Not Reviewed Attestations 2 Medical Necessity Statement*: Less than 2 midnight stay currently anticipated Coding Level of Care Code Acute Code for Chg Fwd Diagnoses Atrial fibrillation with RVR I48.91 Hypokalemia E87.6 Hypomagnesemia E83.42 Hypocalcemia E83.51 Anemia D64.9 Malignant neoplasm of base of tongue C01
[2025-04-01 15:45] LABS: Ionized Calcium 0.8 mmol/L (1.1-1.4)
[2025-04-01 15:53] LABS: Hematocrit 22.5 % (36-47)
--- NOTE | 2025-04-01 15:54 | ECG_ITS ---
[facility] Test Date: 2025-04-01 Pat Name: Claudia Marie Department: Room: 112 Gender: Female Director [employer]: : 1955 Requested By: Jamir Hernandez Order Number: [id number] Reading MD: MINOR CARTER Measurements Intervals Olla Rate: 93 P: 0 LA: 0 QRS: 34 QRSD: 138 T: -19 QT: 410 QTc: 510 Interpretive Statements ATRIAL FLUTTER/TACHYCARDIA RIGHT BUNDLE BRANCH BLOCK [120+ ms QRS DURATION, UPRIGHT V1, 40+ ms S IN I/aVL/V4/V5/V6] Compared to ECG 04/01/2025 12:34:44 Right bundle-branch block now present Atrial fibrillation no longer present T-wave abnormality no longer present Possible ischemia no longer present Electronically Signed On 04-01-2025 23:36:57 CDT by MINOR CARTER [email or web address]
[2025-04-01 16:19] LABS: Troponin 5 6HR 74.21 ng/L (0-10); Troponin 5 6HR Delta -10.79 ng/L (0-12)
[2025-04-01 16:21] LABS: Alanine Aminotransferase 17 U/L (0-33); Albumin Level 2.8 g/dL (3.5-5.2); Alkaline Phosphatase 83 U/L (35-105); Anion Gap 16.3 (5-19); Aspartate Amino Transferase 34 U/L (0-32); Blood Urea Nitrogen 35 mg/dL (8-23); Carbon Dioxide 30 mmol/L (22-29); Chloride 93 mmol/L (98-107); Creatinine Clr Calc Pharmacy 40.3211; Globulin 2.6 g/dL (1.3-4.6); Glucose 96 mg/dL (65-115); Osmolality Calculated 290 mOsm/kg (285-295); Potassium 3.3 mmol/L (3.5-5.1); Sodium 136 mmol/L (136-145); Total Bilirubin 1.1 mg/dL (0.15-1.2); Total Protein 5.4 g/dL (6.6-8.7)
[2025-04-01 16:23] LABS: Calcium 5.7 mg/dL (8.5-10.5)
[2025-04-01 16:41] LABS: Magnesium 1.2 mg/dL (1.7-2.3)
[2025-04-01] MEDS: calcium chloride 10% Syr 10 mL 1 GM IVP (17:29)
[2025-04-01] MEDS: lidocaine 1% 5 ML in potassium chloride premix 100 ML 25 ML IV (17:30)
[2025-04-01 17:37] LABS: Thyroid Stimulating Hormone 5.63 uIU/mL (0.27-4.20)
[2025-04-02] VITALS (20 sets, daily range): BP systolic 95–133; BP diastolic 62–86; PULSE 82–122; RESP 12–26; TEMP 36.5–37.6; O2SAT 92–100
[2025-04-02] MEDS: acetaminophen 325 mg Tablet 650 MG PO (01:30)
[2025-04-02 03:50] LABS: Basophils % 0.4 %; Eosinophils % 0.4 %; Hematocrit 21.3 % (36-47); Lymphocytes # 0.3 10^3/uL (0.8-4.8); Lymphocytes % 11.8 %; Mean Corpuscular HGB Conc 32.9 g/dL (30-55); Mean Corpuscular Hemoglobin 31.7 pg (27-33); Mean Corpuscular Volume 96.4 fl (85-98); Mean Platelet Volume 11.4 fL (7.4-10.4); Monocytes # 0.4 10^3/uL (0.2-0.9); Monocytes % 13.2 %; Neutrophils % 73.5 %; Nucleated Red Blood Cells % 0 %; Platelet Count 59 10^3/cmm (157-399); Red Blood Count 2.21 10^6/uL (3.85-5.65); Red Cell Distribution Width 18.7 % (12.1-15.1); White Blood Count 2.72 10^3/uL (3.29-11.43)
[2025-04-02 04:01] LABS: Alanine Aminotransferase 15 U/L (0-33); Albumin Level 2.7 g/dL (3.5-5.2); Alkaline Phosphatase 78 U/L (35-105); Anion Gap 12.4 (5-19); Aspartate Amino Transferase 31 U/L (0-32); Blood Urea Nitrogen 37 mg/dL (8-23); Calcium 6.4 mg/dL (8.5-10.5); Carbon Dioxide 32 mmol/L (22-29); Chloride 93 mmol/L (98-107); Creatinine Clr Calc Pharmacy 46.0812; Globulin 2.4 g/dL (1.3-4.6); Glucose 89 mg/dL (65-115); Osmolality Calculated 286 mOsm/kg (285-295); Potassium 3.4 mmol/L (3.5-5.1); Sodium 134 mmol/L (136-145); Total Bilirubin 1.5 mg/dL (0.15-1.2); Total Protein 5.1 g/dL (6.6-8.7)
[2025-04-02] MEDS: magnesium sulfate premix 2 GM/50 ML PIGGYBACK IV (09:47)
[2025-04-02] MEDS: pantoprazole DR 40 mg Tablet PO (09:47)
[2025-04-02] MEDS: levothyroxine 150 mcg Tablet PO (09:47)
[2025-04-02] MEDS: calcium gluconate 0.9% NaCL 1 GM/50 ML PREMIX IV (09:47)
[2025-04-02] MEDS: metoprolol tartrate 25 mg Tablet 12.5 MG PO ×2 (09:58→20:37)
[2025-04-02] MEDS: dilTIAZem 100 MG in sodium chloride 0.9% (add-van) 100 ML IV (09:59)
[2025-04-02] MEDS: lidocaine 1% 5 ML in potassium chloride premix 100 ML 52.5 ML IV (10:00)
--- NOTE | 2025-04-02 15:23 | PC.NURSE ---
tolerated 1 unit prbc's well.no s/sxs transfusion reaction noted
--- NOTE | 2025-04-02 15:45 | P.PN_ITS ---
Subjective 2 Subjective: Overall elevated troponins patient continues to complain of generalized weakness. Hemoglobin this morning at 7. Continues to be in A-fib with Cardizem at 2.5 mg/h. Medications: Reviewed: Yes Vitals/I&O/Wt Last Vital Signs Temp 98.4 F 04/02/25 14:11 Pulse 99 04/02/25 14:11 Resp 19 H 04/02/25 14:11 BP 110/73 04/02/25 14:11 Pulse Ox 98 04/02/25 14:11 O2 Del Method Room Air 04/02/25 12:00 04/02/25 04/02/25 04/02/25 06:59 14:59 22:59 Intake Total 0 / 1952.917 740.042 / 740.042 Output Total 1250 / 1250 700 / 700 Balance -1250 / 702.917 40.042 / 40.042 Weight last 48 hrs Weight 105.551 kg Weight 105.596 kg Weight 99.79 kg Physical Exam 2 Narrative: General: No acute distress, AO x3 HEENT: PERRLA, pupils bilaterally equal and reactive, pallors not present Chest: Normal vesicular breath sounds, no added sounds, equal good air entry bilaterally CVS: S1-S2 regular, no murmurs, no tachycardia, no gallops, no rubs Abdomen: Soft, nontender, no organomegaly, bowel sounds present Neuro: No focal deficits, no facial deformity, AO x3, power 5/5 in all limbs Data 04/02/25 02:54 04/02/25 02:54 A&P Assessment and plan (1) Atrial fibrillation with RVR: Admit to CSU in observation. Patient received IV Cardizem in the emergency room 20 mg IV push after presenting with A-fib RVR Cardizem bolus resulted in drop in blood pressure Currently heart rate is ranging around 100 bpm. If needed we will resume Cardizem infusion to better control heart rate Likely suspect that A-fib was triggered by acute on chronic anemia from chemotherapy and cancer, hypokalemia, hypomagnesemia and hypocalcemia. check TSH (2) Hypokalemia: Repleted in the emergency room. Repeat at 4 PM (3) Hypomagnesemia: Repleted in the emergency room. Repeat levels at 4 PM (4) Hypocalcemia: Repleted in the emergency room. Recheck levels at 4 PM (5) Anemia: Anemia with hemoglobin dropped to 6.9. This may be contributing to A-fib RVR currently 1 unit blood transfusion has been completed. Will recheck H&H posttransfusion. FOBT ordered currently pending. Suspect that anemia is related to ongoing chemotherapy and known malignancy/anemia of chronic disease. (6) Malignant neoplasm of base of tongue: Follows with oncology as outpatient. Currently on chemoradiation. Plan DVT prophylaxis: No anticoagulation given thrombocytopenia and drop in hemoglobin to 6.9 SCDs only for now. April 02, 2025 Patient continues to be in A-fib with RVR, currently Cardizem drip at 2.5 mg/h. Start oral metoprolol as blood pressure today is holding better. No orthostatic drop noted this morning. Aim to titrate off of Cardizem drip with initiation of oral metoprolol. Additionally will transfuse another unit of blood to keep target hemoglobin as close to 8 as possible given evidence of cardiac instability by way of arrhythmia. Potassium is better, however still needs repletion. Magnesium at 1.0, replaced with IV magnesium. Calcium at 6.4 today, replete with calcium gluconate 1 g IV. Platelet count falling to 59,000 today. Will discuss with oncology if Neupogen currently indicated. No active bleeding encountered. Changed to inpatient admission. PDMP PDMP Reviewed: Not Reviewed Attestations 2 Medical Necessity Statement*: > 2 midnight stay is anticipated, needs transfusion, electrolyte repletion, needs to be titrated off diltiazm Coding Level of Care Code Acute Code for Chg Fwd High MDM includes number and complexity of problems actively addressed during encounter, amount and/or complexity of data reviewed/ordered and described risk of complication, morbidity or mortality of management as documented Diagnoses Atrial fibrillation with RVR I48.91 Hypokalemia E87.6 Hypomagnesemia E83.42 Hypocalcemia E83.51 Anemia D64.9 Malignant neoplasm of base of tongue C01
[2025-04-02 16:27] LABS: Hematocrit 26.7 % (36-47)
[2025-04-02 16:49] LABS: Alanine Aminotransferase 16 U/L (0-33); Albumin Level 2.7 g/dL (3.5-5.2); Alkaline Phosphatase 83 U/L (35-105); Anion Gap 14.4 (5-19); Aspartate Amino Transferase 30 U/L (0-32); Blood Urea Nitrogen 33 mg/dL (8-23); Calcium 6.6 mg/dL (8.5-10.5); Carbon Dioxide 31 mmol/L (22-29); Chloride 91 mmol/L (98-107); Creatinine Clr Calc Pharmacy 49.6146; Globulin 2.8 g/dL (1.3-4.6); Glucose 109 mg/dL (65-115); Magnesium 1.3 mg/dL (1.7-2.3); Osmolality Calculated 284 mOsm/kg (285-295); Potassium 3.4 mmol/L (3.5-5.1); Sodium 133 mmol/L (136-145); Total Bilirubin 2.1 mg/dL (0.15-1.2); Total Protein 5.5 g/dL (6.6-8.7)
[2025-04-02] MEDS: silver sulfadiazine cream 1% 50 gm 1 APPLIC TOPICAL (18:14)
[2025-04-03] VITALS (12 sets, daily range): BP systolic 104–139; BP diastolic 59–93; PULSE 62–112; RESP 14–28; TEMP 36.3–37.7; O2SAT 93–100; BMI 36.3
--- NOTE | 2025-04-03 01:51 | PC.NURSE ---
Patient has swollen tongue due to cancer. Speech can be garbled and unclear at times.
[2025-04-03] MEDS: acetaminophen 325 mg Tablet 650 MG PO (02:44)
[2025-04-03 03:59] LABS: Basophils % 0.4 %; Lymphocytes # 0.3 10^3/uL (0.8-4.8); Lymphocytes % 11.4 %; Mean Corpuscular HGB Conc 33.8 g/dL (30-55); Mean Corpuscular Hemoglobin 31.8 pg (27-33); Mean Corpuscular Volume 93.8 fl (85-98); Mean Platelet Volume 10.3 fL (7.4-10.4); Monocytes # 0.4 10^3/uL (0.2-0.9); Monocytes % 16.9 %; Neutrophils % 70.5 %; Nucleated Red Blood Cells % 0 %; Platelet Count 56 10^3/cmm (157-399); Red Blood Count 2.11 10^6/uL (3.85-5.65); Red Cell Distribution Width 17.7 % (12.1-15.1); White Blood Count 2.55 10^3/uL (3.29-11.43)
[2025-04-03 04:17] LABS: Hematocrit 19.8 % (36-47)
[2025-04-03 04:21] LABS: Alanine Aminotransferase 15 U/L (0-33); Albumin Level 2.6 g/dL (3.5-5.2); Alkaline Phosphatase 83 U/L (35-105); Aspartate Amino Transferase 28 U/L (0-32); Blood Urea Nitrogen 33 mg/dL (8-23); Calcium 6.5 mg/dL (8.5-10.5); Carbon Dioxide 35 mmol/L (22-29); Chloride 92 mmol/L (98-107); Creatinine Clr Calc Pharmacy 46.0707; Globulin 2.8 g/dL (1.3-4.6); Glucose 98 mg/dL (65-115); Osmolality Calculated 289 mOsm/kg (285-295); Sodium 136 mmol/L (136-145); Total Bilirubin 1.2 mg/dL (0.15-1.2); Total Protein 5.4 g/dL (6.6-8.7)
[2025-04-03 07:32] LABS: Magnesium 1.1 mg/dL (1.7-2.3)
--- NOTE | 2025-04-03 08:12 | PC.NURSE ---
1 unit prbc's infused.no s/sxs transfusion reaction noted
[2025-04-03] MEDS: pantoprazole DR 40 mg Tablet PO (09:30)
[2025-04-03] MEDS: levothyroxine 150 mcg Tablet PO (09:30)
[2025-04-03] MEDS: silver sulfadiazine cream 1% 50 gm 1 APPLIC TOPICAL ×2 (09:31→17:59)
--- NOTE | 2025-04-03 10:37 | PC.CHAP ---
Pastoral Care Encounter/Spiritual Assessment Type of Contact [] Declined water rights specialist visit [] Patient/Family/Request visit [] Outpatient visit [] Follow-up visit [] Physician referral [] Code/Alert [] Routine visit [] Staff referral [] Actively dying [x] Patient sleeping [] Family support [] [] Out of room [] Palliative care [] [] Receiving care in room [] Pre-surgical visit [] Trauma [] Long length of stay [] ICU visit [] Other: Relational/Emotional Strength [] Patient feels connected with others/family/visitors/staff [] Distress [] Loneliness/isolation [] Abandonment Spirituality of Patient [] Person of [place] [] Attends Gnosticism of their [place] [] Believes in Prayer [] Reads Bible or Gnosticism materials [] There are Spiritual issues to be addressed Tennis Coach Interventions [] Prayer [] Active listening [] Non-anxious presence [] Spiritual/emotional support [] Crisis/trauma care [] Spiritual counseling [] Bereavement support [] Provided bereavement packet [] Provided Bible/devotional materials [] Provided toy/stuffed animal, coloring book to patient or family member [] Provided Communion [] Anointing/[place] [] Salvation [] Completed spiritual assessment [] Other: Impact on Illness or Injury [] Angry [] Fearful [] Anxious [] Often cries [] Exhaustion [] Unable to work [] Unable to attend gnosticist [] Unable to walk/stand [] Unable to read [] Unable to drive [] Unable to eat/drink [] Unable to sleep [] Unable to be with family [] Patient intubated [] Other: Summary Time spent with patient
[2025-04-03] MEDS: metoprolol tartrate 25 mg Tablet 12.5 MG PO ×2 (11:37→11:54)
--- NOTE | 2025-04-03 11:44 | CTR_ITS ---
PROCEDURE INFORMATION: Exam: CT Abdomen And Pelvis Without Contrast Exam date and time: 04/03/2025 1:37 PM Age: 70 years old Clinical indication: Abdominal pain; Generalized; Prior surgery; Surgery date: 6+ months; Surgery type: Gb, hyster; Additional info: Anemia-assess for bleeding TECHNIQUE: Imaging protocol: Computed tomography of the abdomen and pelvis without contrast. Radiation optimization: All CT scans at this facility use at least one of these dose optimization techniques: automated exposure control; mA and/or kV adjustment per patient size (includes targeted exams where dose is matched to clinical indication); or iterative reconstruction. COMPARISON: PT PET skull to thigh INIT [id number] 01/15/2025 10:42 AM RADIATION DOSE METRICS: Total DLP (mGy-cm): 965.73 FINDINGS: Tubes, catheters and devices: Partially visualized pacemaker leads in the heart. Lungs: 8 mm anterior right lower lobe pulmonary nodule. 8 mm left lower lobe pulmonary nodule. Calcified granuloma of the right lung base. Pleural spaces: Small right and trace left pleural effusions with overlying compressive atelectasis. Diaphragm: Small sliding hiatal hernia. Liver: Subtle lobulated contour of the liver. Gallbladder and biliary ducts: Status post cholecystectomy. Pancreas: Mild fatty parenchymal atrophy of the pancreas. Spleen: Innumerable calcified granulomas in the spleen. Adrenal glands: Normal. No mass. Kidneys and ureters: Normal. No hydronephrosis. Stomach and bowel: Colonic diverticulosis without evidence to suggest acute diverticulitis. Appendix: No evidence of appendicitis. Intraperitoneal space: Unremarkable. No free air. No significant fluid collection. Vasculature: Moderate aortoiliac atherosclerosis. No aneurysmal dilatation. Lymph nodes: Unremarkable. No enlarged lymph nodes. Urinary bladder: Unremarkable as visualized. Reproductive: Status post hysterectomy. Bones/joints: Bilateral hip arthroplasties. Moderate multilevel degenerative disease of the thoracolumbar spine. Grade 1 anterolisthesis of L4-L5. No acute osseous abnormality. The urinary bladder is obscured due to streak artifact from bilateral hip arthroplasties. Soft tissues: Small fat containing umbilical hernia. Diastasis recti. Postsurgical changes of the anterior abdominal wall. Ventral abdominal wall hernia containing fat. Soft tissue anasarca. CT/CT abdomen pelvis wo con [id number] IMPRESSION: 1. Small right and trace left pleural effusions with overlying compressive atelectasis. 2. Solid pulmonary nodules are seen in the partially visualized lower lobes largest of which measures up to 8 mm. Pulmonary nodules were further evaluated on recently obtained CTA chest. 3. Colonic diverticulosis without evidence to suggest acute diverticulitis. 4. Mildly nodular contours of the liver which can be seen in the setting of hepatocellular disease/cirrhosis. Recommend clinical and laboratory correlation. 5. Other chronic findings as detailed in the body of the report. According to the 2017 Fleischner criteria, if the patient is low or high risk, CT at 3-6 months is recommended, then consider CT at 18-24 months.
[2025-04-03 12:37] LABS: Hematocrit 31.6 % (36-47)
[2025-04-03 12:58] LABS: Potassium 3.4 mmol/L (3.5-5.1)
--- NOTE | 2025-04-03 13:13 | PM.PN ---
Subjective Subjective: Heart rate is better controlled today. Patient remains off of Cardizem infusion. Heart rate between 90-100. Will increased dose of metoprolol today. Hemoglobin this morning at 6.7. Reports feeling extremely weak. She has received 1 unit of packed red blood cell transfusion this morning. Will repeat H&H. Electrolytes adequately repleted. Medications: Reviewed: Yes Vitals/I&O/Wt Last Vital Signs Temp 97.9 F 04/03/25 12:00 Pulse 63 04/03/25 12:00 Resp 18 04/03/25 12:00 BP 104/66 04/03/25 12:00 Pulse Ox 93 04/03/25 12:00 O2 Del Method Nasal Cannula 04/03/25 12:00 O2 Flow Rate 2 04/03/25 12:00 04/02/25 04/03/25 04/03/25 22:59 06:59 14:59 Intake Total 0 / 740.042 720 / 720 Output Total 1200 / 1900 500 / 2400 1100 / 1100 Balance -1200 / -1159.958 -500 / -1659.958 -380 / -380 Weight last 48 hrs Weight 105.347 kg Weight 105.551 kg Weight 105.596 kg Physical Exam Narrative: General: No acute distress, AO x3 HEENT: PERRLA, pupils bilaterally equal and reactive, pallors not present Chest: Normal vesicular breath sounds, no added sounds, equal good air entry bilaterally CVS: S1-S2 regular, no murmurs, no tachycardia, no gallops, no rubs Abdomen: Soft, nontender, no organomegaly, bowel sounds present Neuro: No focal deficits, no facial deformity, AO x3, power 5/5 in all limbs Data 04/03/25 12:25 04/03/25 12:25 Micro: Microbiology 04/03/25 12:25 Blood Culture - Preliminary Blood SPECIMEN COLLECTED 04/03/25 12:28 Blood Culture - Preliminary Blood SPECIMEN COLLECTED A&P Assessment and plan (1) Atrial fibrillation with RVR: Admit to CSU in observation. Patient received IV Cardizem in the emergency room 20 mg IV push after presenting with A-fib RVR Cardizem bolus resulted in drop in blood pressure Currently heart rate is ranging around 100 bpm. If needed we will resume Cardizem infusion to better control heart rate Likely suspect that A-fib was triggered by acute on chronic anemia from chemotherapy and cancer, hypokalemia, hypomagnesemia and hypocalcemia. check TSH (2) Hypokalemia: Repleted in the emergency room. Repeat at 4 PM (3) Hypomagnesemia: Repleted in the emergency room. Repeat levels at 4 PM (4) Hypocalcemia: Repleted in the emergency room. Recheck levels at 4 PM (5) Anemia: Anemia with hemoglobin dropped to 6.9. This may be contributing to A-fib RVR currently 1 unit blood transfusion has been completed. Will recheck H&H posttransfusion. FOBT ordered currently pending. Suspect that anemia is related to ongoing chemotherapy and known malignancy/anemia of chronic disease. (6) Malignant neoplasm of base of tongue: Follows with oncology as outpatient. Currently on chemoradiation. Plan DVT prophylaxis: No anticoagulation given thrombocytopenia and drop in hemoglobin to 6.9 SCDs only for now. April 02, 2025 Patient continues to be in A-fib with RVR, currently Cardizem drip at 2.5 mg/h. Start oral metoprolol as blood pressure today is holding better. No orthostatic drop noted this morning. Aim to titrate off of Cardizem drip with initiation of oral metoprolol. Additionally will transfuse another unit of blood to keep target hemoglobin as close to 8 as possible given evidence of cardiac instability by way of arrhythmia. Potassium is better, however still needs repletion. Magnesium at 1.0, replaced with IV magnesium. Calcium at 6.4 today, replete with calcium gluconate 1 g IV. Platelet count falling to 59,000 today. Will discuss with oncology if Neupogen currently indicated. No active bleeding encountered. Changed to inpatient admission. April 03, 2025 heart rate is better controlled. Patient remains off of Cardizem, however currently between 90-110. Will increase metoprolol to 25 mg p.o. twice daily. Blood pressure well. Hemoglobin dropped to 6.7. She has received 1 unit packed red blood cell transfusion earlier today. Patient hemoglobin. Additionally obtain CT of the abdomen and pelvis to rule out any active sources of bleeding given cirrhosis. FOBT remains pending. Platelet count is at 52,000 today. WBC count 2.5. ANC is normal currently. Electrolytes repleted. s documentation was created by [employer] senior software engineer analytics software. Every effort was made to ensure accuracy of senior software engineer analytics. Any obvious errors or omissions should be clarified with the author of the document. PDMP PDMP Reviewed: Not Reviewed Attestations Medical Necessity Statement*: transfusion today, check FOBT, CT abdomen today, increase metoprolol Coding Level of Care Code Acute Code for Chg Fwd Diagnoses Atrial fibrillation with RVR I48.91 Hypokalemia E87.6 Hypomagnesemia E83.42 Hypocalcemia E83.51 Anemia D64.9 Malignant neoplasm of base of tongue C01
[2025-04-03] MEDS: cefTRIAXone 1,000 mg SDV 1000 MG IVP (14:29)
[2025-04-03] MEDS: potassium chloride ER 20 mEq Tablet PO (16:17)
--- NOTE | 2025-04-03 16:25 | PC.NURSE ---
noted to have converted to nsr around 1600.
[2025-04-04] VITALS (11 sets, daily range): BP systolic 94–120; BP diastolic 47–88; PULSE 60–66; RESP 10–24; TEMP 36.1–37.2; O2SAT 80–98
[2025-04-04 05:14] LABS: Basophils % 0.4 %; Hematocrit 28.3 % (36-47); Lymphocytes # 0.5 10^3/uL (0.8-4.8); Mean Corpuscular HGB Conc 33.2 g/dL (30-55); Mean Corpuscular Hemoglobin 30.7 pg (27-33); Mean Corpuscular Volume 92.5 fl (85-98); Mean Platelet Volume 11.1 fL (7.4-10.4); Monocytes # 0.6 10^3/uL (0.2-0.9); Monocytes % 22.6 %; Neutrophils # 1.47 10^3/uL (1.8-7.7); Neutrophils % 55.5 %; Nucleated Red Blood Cells % 0 %; Platelet Count 45 10^3/cmm (157-399); Red Blood Count 3.06 10^6/uL (3.85-5.65); Red Cell Distribution Width 18.2 % (12.1-15.1); White Blood Count 2.65 10^3/uL (3.29-11.43)
[2025-04-04 05:34] LABS: Alanine Aminotransferase 16 U/L (0-33); Albumin Level 2.7 g/dL (3.5-5.2); Alkaline Phosphatase 83 U/L (35-105); Anion Gap 15.2 (5-19); Aspartate Amino Transferase 32 U/L (0-32); Blood Urea Nitrogen 37 mg/dL (8-23); Calcium 6.6 mg/dL (8.5-10.5); Carbon Dioxide 32 mmol/L (22-29); Chloride 89 mmol/L (98-107); Creatinine Clr Calc Pharmacy 43.5216; Globulin 2.9 g/dL (1.3-4.6); Glucose 98 mg/dL (65-115); Osmolality Calculated 285 mOsm/kg (285-295); Potassium 3.2 mmol/L (3.5-5.1); Sodium 133 mmol/L (136-145); Total Bilirubin 1.2 mg/dL (0.15-1.2); Total Protein 5.6 g/dL (6.6-8.7)
[2025-04-04] MEDS: levothyroxine 150 mcg Tablet PO (08:39)
[2025-04-04] MEDS: pantoprazole DR 40 mg Tablet PO (08:39)
[2025-04-04] MEDS: metoprolol tartrate 25 mg Tablet PO (08:39)
[2025-04-04] MEDS: silver sulfadiazine cream 1% 50 gm 1 APPLIC TOPICAL ×2 (08:42→17:05)
--- NOTE | 2025-04-04 12:13 | PM.PN ---
Subjective Subjective: Hemoglobin better today at 9.4. Platelets are at 45,000. No active bleeding. FOBT returned positive however no nellie signs of hematemesis or melena. Medications: Reviewed: Yes Vitals/I&O/Wt Last Vital Signs Temp 97.1 F L 04/04/25 11:49 Pulse 62 04/04/25 11:49 Resp 18 04/04/25 11:49 BP 102/88 04/04/25 11:49 Pulse Ox 95 04/04/25 11:49 O2 Del Method Room Air 04/04/25 11:49 O2 Flow Rate 2 04/04/25 07:34 04/03/25 04/04/25 04/04/25 22:59 06:59 14:59 Intake Total 350 / 1070 100 / 1170 120 / 120 Output Total 0 / 1100 Balance 350 / -30 100 / 70 120 / 120 Weight last 48 hrs Weight 107.955 kg Weight 105.347 kg Physical Exam Narrative: General: No acute distress, AO x3 HEENT: PERRLA, pupils bilaterally equal and reactive, pallors not present Chest: Normal vesicular breath sounds, no added sounds, equal good air entry bilaterally CVS: S1-S2 regular, no murmurs, no tachycardia, no gallops, no rubs Abdomen: Soft, nontender, no organomegaly, bowel sounds present Neuro: No focal deficits, no facial deformity, AO x3, power 5/5 in all limbs Extremities multiple bruises in various stages of healing over upper and lower extremities. Data 04/04/25 04:57 04/04/25 04:57 Micro: Microbiology 04/03/25 12:25 Blood Culture - Preliminary Blood Staphylococcus epidermidis 04/03/25 12:40 Occult Blood (FIT) - Final Stool Routine Collection 04/03/25 12:28 Blood Culture - Preliminary Blood SPECIMEN COLLECTED A&P Assessment and plan (1) Atrial fibrillation with RVR: Admit to CSU in observation. Patient received IV Cardizem in the emergency room 20 mg IV push after presenting with A-fib RVR Cardizem bolus resulted in drop in blood pressure Currently heart rate is ranging around 100 bpm. If needed we will resume Cardizem infusion to better control heart rate Likely suspect that A-fib was triggered by acute on chronic anemia from chemotherapy and cancer, hypokalemia, hypomagnesemia and hypocalcemia. check TSH (2) Hypokalemia: Repleted in the emergency room. Repeat at 4 PM (3) Hypomagnesemia: Repleted in the emergency room. Repeat levels at 4 PM (4) Hypocalcemia: Repleted in the emergency room. Recheck levels at 4 PM (5) Anemia: Anemia with hemoglobin dropped to 6.9. This may be contributing to A-fib RVR currently 1 unit blood transfusion has been completed. Will recheck H&H posttransfusion. FOBT ordered currently pending. Suspect that anemia is related to ongoing chemotherapy and known malignancy/anemia of chronic disease. (6) Malignant neoplasm of base of tongue: Follows with oncology as outpatient. Currently on chemoradiation. Plan DVT prophylaxis: No anticoagulation given thrombocytopenia and drop in hemoglobin to 6.9 SCDs only for now. April 02, 2025 Patient continues to be in A-fib with RVR, currently Cardizem drip at 2.5 mg/h. Start oral metoprolol as blood pressure today is holding better. No orthostatic drop noted this morning. Aim to titrate off of Cardizem drip with initiation of oral metoprolol. Additionally will transfuse another unit of blood to keep target hemoglobin as close to 8 as possible given evidence of cardiac instability by way of arrhythmia. Potassium is better, however still needs repletion. Magnesium at 1.0, replaced with IV magnesium. Calcium at 6.4 today, replete with calcium gluconate 1 g IV. Platelet count falling to 59,000 today. Will discuss with oncology if Neupogen currently indicated. No active bleeding encountered. Changed to inpatient admission. April 03, 2025 heart rate is better controlled. Patient remains off of Cardizem, however currently between 90-110. Will increase metoprolol to 25 mg p.o. twice daily. Blood pressure well. Hemoglobin dropped to 6.7. She has received 1 unit packed red blood cell transfusion earlier today. Patient hemoglobin. Additionally obtain CT of the abdomen and pelvis to rule out any active sources of bleeding given cirrhosis. FOBT remains pending. Platelet count is at 52,000 today. WBC count 2.5. ANC is normal currently. Electrolytes repleted. s documentation was created by [employer] exhaust and muffler repairer software. Every effort was made to ensure accuracy of exhaust and muffler repairer. Any obvious errors or omissions should be clarified with the author of the document. 08/05/2025 Heart rate remains well-controlled after increasing the dose of metoprolol to 25 mg p.o. twice daily. Blood pressure is currently tolerating this. Hemoglobin better at 9.[address] of the abdomen and pelvis performed yesterday without any intraperitoneal or intra-abdominal bleeding. Platelet count dropping at 45,000, however no signs of active bleeding. FOBT returned positive currently for endoscopic evaluation to outpatient clinic platelet counts are improved. Afebrile today. White blood cell count is stable at 2.65. ANC dropped at 1.4. Blood culture 1 out of 4 from port is positive for Staph epidermidis. Favor this to be a contaminant for now. Peripheral blood culture negative thus far. Urine analysis and urine culture yet to be collected. Continue presumptive ceftriaxone for now. Continue silver sulfadiazine over radiation bain over her anterior chest. These are unchanged over previous. No signs of cellulitis. Patient states she has been slightly better today, however nowhere close to baseline. At baseline she is able to drive independently and brings herself to all her appointments. Today she states she feels dizzy as she tries to get out of bed. Will closely monitor over the next 24 hours. Check orthostatics. Encourage out of bed and ambulation today to assess feasibility of discharge in the next 24 hours. Low potassium and calcium today, repleted. PDMP PDMP Reviewed: Not Reviewed Attestations Medical Necessity Statement*: Check orthostatics, replete electrolytes, encourage ambulation, awaiting peripheral blood cultures to ensure that the current Staph epidermidis seen on blood cultures is a contaminant. Coding Level of Care Code Acute Code for [facility] Fwd Diagnoses Atrial fibrillation with RVR I48.91 Hypokalemia E87.6 Hypomagnesemia E83.42 Hypocalcemia E83.51 Anemia D64.9 Malignant neoplasm of base of tongue C01
[2025-04-04] MEDS: calcium gluconate 0.9% NaCL 1 GM/50 ML PREMIX IV (13:00)
[2025-04-04] MEDS: potassium chloride oral liq 20 mEq/15 mL UDC 40 MEQ PO (13:00)
[2025-04-04] MEDS: cefTRIAXone 1,000 mg SDV 1000 MG IVP (13:00)
[2025-04-04 17:10] LABS: Bacteria Urine 1+ /hpf; WBC Urine 0-5 /hpf (0-5)
[2025-04-04 17:12] LABS: Urine Appearance Clear (CLEAR); Urine Color Dark Yellow (Yellow)
[2025-04-04 17:13] LABS: Add Urine Microscopic? YES; Bilirubin Urine Neg (Negative); Blood Urine Neg (Negative); Glucose Urine UA Norm (Normal); Ketones Urine Negative (Negative); Leukocyte Esterase Urine Negative (Negative); Nitrate Urine Negative (Negative); Protein Urine Trace (Negative); Specific Gravity, Urine 1.015 (1.005-1.030); Urobilinogen Urine 4 mg/dL (Negative); pH Urine 5 (5-7)
--- NOTE | 2025-04-04 20:42 | PC.NURSE ---
held pts metoprolol due to a heart rate of 58.
[2025-04-05 03:44] VITALS: BP 116/64; PULSE 63; RESP 17; TEMP 36.5
[2025-04-05 05:17] LABS: Ionized Calcium 0.8 mmol/L (1.1-1.4)
[2025-04-05 06:00] LABS: Basophils % 0.4 %; Lymphocytes # 0.4 10^3/uL (0.8-4.8); Lymphocytes % 15.4 %; Mean Corpuscular HGB Conc 33.3 g/dL (30-55); Mean Corpuscular Hemoglobin 30.8 pg (27-33); Mean Corpuscular Volume 92.5 fl (85-98); Mean Platelet Volume 11.5 fL (7.4-10.4); Monocytes # 0.4 10^3/uL (0.2-0.9); Monocytes % 14.6 %; Neutrophils # 1.66 10^3/uL (1.8-7.7); Neutrophils % 69.2 %; Nucleated Red Blood Cells % 0 %; Platelet Count 37 10^3/cmm (157-399); Red Blood Count 2.92 10^6/uL (3.85-5.65); Red Cell Distribution Width 17.1 % (12.1-15.1)
[2025-04-05 06:20] LABS: Alanine Aminotransferase 15 U/L (0-33); Albumin Level 2.7 g/dL (3.5-5.2); Alkaline Phosphatase 79 U/L (35-105); Anion Gap 16.1 (5-19); Aspartate Amino Transferase 27 U/L (0-32); Blood Urea Nitrogen 38 mg/dL (8-23); Calcium 6.8 mg/dL (8.5-10.5); Carbon Dioxide 32 mmol/L (22-29); Chloride 91 mmol/L (98-107); Globulin 2.6 g/dL (1.3-4.6); Glucose 83 mg/dL (65-115); Osmolality Calculated 290 mOsm/kg (285-295); Potassium 3.1 mmol/L (3.5-5.1); Sodium 136 mmol/L (136-145); Total Bilirubin 0.9 mg/dL (0.15-1.2); Total Protein 5.3 g/dL (6.6-8.7)
[2025-04-05 06:48] LABS: Magnesium 0.7 mg/dL (1.7-2.3)
[2025-04-05] MEDS: magnesium sulfate premix 4 GM/100 ML PREMIX IV (07:18)
[2025-04-05 08:00] VITALS: BP 103/66; PULSE 62; PULSE 64; RESP 18; RESP 20; TEMP 36.3; O2SAT 92; O2SAT 95
[2025-04-05] MEDS: metoprolol tartrate 25 mg Tablet PO (08:51)
[2025-04-05] MEDS: pantoprazole DR 40 mg Tablet PO (08:51)
[2025-04-05] MEDS: levothyroxine 150 mcg Tablet PO (08:51)
[2025-04-05] MEDS: potassium chloride ER 20 mEq Tablet 80 MEQ PO (08:51)
[2025-04-05] MEDS: silver sulfadiazine cream 1% 50 gm 1 APPLIC TOPICAL (08:52)
[2025-04-05] MEDS: calcium gluconate 0.9% NaCL 1 GM/50 ML PREMIX IV (08:56)
--- NOTE | 2025-04-05 09:03 | PC.SOCIAL ---
IMM Update Pg. 2 of IMM Updated and reviewed with patient, who verbalized understanding. Copy provided at bedside.
--- NOTE | 2025-04-05 09:06 | PC.SOCIAL ---
IMM Update Pg. 2 of IMM Updated and reviewed with patient, who verbalized understanding. Copy provided at bedside.
--- NOTE | 2025-04-05 10:25 | P.DS_ITS ---
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 She presented to oncology outpatient today where she was noted to be very lightheaded and had lower extremity edema in bilateral lower extremities. She was sent into the emergency room where she was found to be in A-fib with RVR. She received 20 mg of IV push of Cardizem which dropped her blood pressure to 87 systolic. This subsequently improved. She needed to be started on Cardizem infusion which was eventually able to be weaned off once overlap started with oral metoprolol. Currently heart rate is well-controlled with metoprolol 25 mg p.o. twice daily. Patient's blood pressure is currently tolerating the addition of this medication. Anticoagulation was not initiated given that patient's hemoglobin was at 6.7 upon arrival. Hospital follow-up patient's arrhythmia was related to several electrolyte abnormalities as noted on admission and acute on chronic anemia. Additionally platelet counts have fallen to 37,000 during the course of her stay. Both the worsening anemia and low platelet counts are thought to be related to chemotherapy. Case was discussed with her oncologist Dr. Lim, patient is not a candidate for Neupogen given that she is currently getting radiation. Recommended to skip this week cycle of cisplatin to allow the counts to recover and then presented to infusion center to decide timing of reinitiation of chemotherapy. For low hemoglobin of 6.7, this was thought to be contributing to her A-fib and hemodynamic compromise. She received 2 units of packed red blood cell transfusion with a goal to keep hemoglobin greater than 8. Currently hemoglobin is at 9.0 at the time of discharge. Hemoccult tested FOBT positive, however patient did not have any gross melena or hematemesis. Since her hemoglobin has now stabilized, patient is referred outpatient to consider endoscopic evaluation once her blood counts recover. CT of the abdomen and pelvis did not show any intraperitoneal bleeding to be the cause of the following counts. Hospital course was complicated by development of several electrolyte abnormalities including hypokalemia, hypocalcemia, hypomagnesemia, all of which were repleted during the admission course. She has been discharged today with oral potassium supplementation, oral magnesium supplementation and recommend to follow up with PCP and oncology for repeat check in the next 2-3 days. Patient was noted to have a Tmax of 99.8 Fahrenheit on 04/03/2025. Chest x-ray demonstrated possible atelectasis versus pneumonia. Patient received an empiric course of antibiotics including ceftriaxone in the hospital. She has been transitioned to levofloxacin at the time of discharge. She was noted to have superficial radiation bain on her chest wall with silver sulfadiazine cream was prescribed. Overall patient appears pretty deconditioned as a result of her underlying malignancy, however states that she is currently pretty independent and ambulatory. She drives herself. I have offered home health services as I am concerned that with patient's deconditioning she is likely to start needing some help at home. She is the primary caregiver for her who is also disabl ed. Case management will look into see if she qualifies for home health services. Additionally she does not have a primary care provider and referral has been sent to Dr. Borrego's office as requested by the patient. If she is unable to establish with Dr. Bardales, then referral has been sent to [facility] clinic here in town. Physical Exam Narrative: General: No acute distress, AO x3 HEENT: PERRLA, pupils bilaterally equal and reactive, pallors not present Chest: Normal vesicular breath sounds, no added sounds, equal good air entry bilaterally CVS: S1-S2 regular, no murmurs, no tachycardia, no gallops, no rubs Abdomen: Soft, nontender, no organomegaly, bowel sounds present Neuro: No focal deficits, no facial deformity, AO x3, power 5/5 in all limbs Discharge Data Studies Completed and Pending Completed Studies During Hospitalization Category Date Time Status CT abdomen pelvis wo con [id number] Routine Cat Scan 04/03/25 11:[address] angio chest PE protcl [id number] Stat Cat Scan 04/01/25 10:50 Completed XR chest 1V portable [id number] Stat Exams 04/01/25 10:50 Completed Pending at discharge Category Date Time Status Blood Culture Routine Lab 04/03/25 12:28 Results Blood Culture Stat Lab 04/03/25 12:25 Results Urine Culture Stat Lab 04/03/25 16:50 Results Radiology Impressions Chest CTA 04/01/25 10:50 IMPRESSION: 1. No pulmonary emboli. 2. New multiple small pulmonary nodules. 3. New right infrahilar lymph node. 4. Right pleural effusion. New. 5. Possible cirrhosis/liver disease. Chest X-Ray 04/01/25 10:50 IMPRESSION: Findings as above with a questionable new area of atelectasis or density in right upper lung. Please see the CTA chest. Abdomen/Pelvis CT 04/03/25 11:44 IMPRESSION: 1. Small right and trace left pleural effusions with overlying compressive atelectasis. 2. Solid pulmonary nodules are seen in the partially visualized lower lobes largest of which measures up to 8 mm. Pulmonary nodules were further evaluated on recently obtained CTA chest. 3. Colonic diverticulosis without evidence to suggest acute diverticulitis. 4. Mildly nodular contours of the liver which can be seen in the setting of hepatocellular disease/cirrhosis. Recommend clinical and laboratory correlation. 5. Other chronic findings as detailed in the body of the report. According to the 2017 Fleischner criteria, if the patient is low or high risk, CT at 3-6 months is recommended, then consider CT at 18-24 months. Laboratory Results WBC 2.40 10^3/uL (3.29-11.43) L 04/05/25 05:09 RBC 2.92 10^6/uL (3.85-5.65) L 04/05/25 05:09 Hgb 9.00 g/dL (11.27-16.99) L 04/05/25 05:09 Hct 27.0 % (36-47) L 04/05/25 05:09 MCV 92.5 fl (85-98) 04/05/25 05:09 MCH 30.8 pg (27-33) 04/05/25 05:09 MCHC 33.3 g/dL (30-55) 04/05/25 05:09 RDW 17.1 % (12.1-15.1) H 04/05/25 05:09 Plt Count 37 10^3/cmm (157-399) L 04/05/25 05:09 MPV 11.5 fL (7.4-10.4) H 04/05/25 05:09 Neut % (Auto) 69.2 % 04/05/25 05:09 Lymph % (Auto) 15.4 % 04/05/25 05:09 [place] % (Auto) 14.6 % 04/05/25 05:09 Eos % (Auto) 0.0 % 04/05/25 05:09 Baso % (Auto) 0.4 % 04/05/25 05:09 Neut # (Auto) 1.66 10^3/uL (1.8-7.7) L 04/05/25 05:09 Lymph # (Auto) 0.4 10^3/uL (0.8-4.8) L 04/05/25 05:09 [place] # (Auto) 0.4 10^3/uL (0.2-0.9) 04/05/25 05:09 Eos # (Auto) 0.0 10^3/uL (0.0-0.8) 04/05/25 05:09 Baso # (Auto) 0.0 10^3/uL (0.0-0.1) 04/05/25 05:09 Nucleated RBC % (auto) 0 % 04/05/25 05:09 Nucleated RBCs # 0.0 /100WBC 04/05/25 05:09 Sodium 136 mmol/L (136-145) 04/05/25 05:09 Potassium 3.1 mmol/L (3.5-5.1) L 04/05/25 05:09 Chloride 91 mmol/L (98-107) L 04/05/25 05:09 Carbon Dioxide 32 mmol/L (22-29) H 04/05/25 05:09 Anion Gap 16.1 (5-19) 04/05/25 05:09 BUN 38 mg/dL (8-23) H 04/05/25 05:09 Creatinine 1.4 mg/dL (0.5-0.9) H 04/05/25 05:09 GFR Calculation Not Reportable 04/05/25 05:09 Glucose 83 mg/dL (65-115) 04/05/25 05:09 Calculated Osmolality 290 mOsm/kg (285-295) 04/05/25 05:09 Calcium 6.8 mg/dL (8.5-10.5) L 04/05/25 05:09 Ionized Calcium Za 0.8 mmol/L (1.1-1.4) L 04/05/25 05:05 Magnesium 0.7 mg/dL (1.7-2.3) L* 04/05/25 05:09 Total Bilirubin 0.9 mg/dL (0.15-1.2) 04/05/25 05:09 AST 27 U/L (0-32) 04/05/25 05:09 ALT 15 U/L (0-33) 04/05/25 05:09 Alkaline Phosphatase 79 U/L (35-105) 04/05/25 05:09 Troponin T Baseline 85 ng/L (0-10) H 04/01/25 09:21 Troponin T 120 Minute 76.56 ng/L (0-10) H 04/01/25 11:44 Delta Troponin T -8.44 ABS# (0-10) L 04/01/25 11:44 Troponin T Hi Sens 6Hr 74.21 ng/L (0-10) H 04/01/25 15:30 Troponin T Hi Sens 6Hr Delta -10.79 ng/L (0-12) L 04/01/25 15:30 Total Protein 5.3 g/dL (6.6-8.7) L 04/05/25 05:09 Albumin 2.7 g/dL (3.5-5.2) L 04/05/25 05:09 Globulin 2.6 g/dL (1.3-4.6) 04/05/25 05:09 TSH 5.63 uIU/mL (0.27-4.20) H 04/01/25 15:30 Urine Color Dark yellow (Yellow) A 04/03/25 16:50 Urine Appearance Clear (CLEAR) 04/03/25 16:50 Urine pH 5 (5-7) 04/03/25 16:50 Ur Specific [place] 1.015 (1.005-1.030) 04/03/25 16:50 Urine Protein Trace (Negative) 04/03/25 16:50 Urine Glucose (UA) Norm (Normal) 04/03/25 16:50 Urine Ketones Negative (Negative) 04/03/25 16:50 Urine Blood Neg (Negative) 04/03/25 16:50 Urine Nitrate Negative (Negative) 04/03/25 16:50 Urine Bilirubin Neg (Negative) 04/03/25 16:50 Urine Urobilinogen 4 mg/dL (Negative) H 04/03/25 16:50 Ur Leukocyte Esterase Negative (Negative) 04/03/25 16:50 Urine RBC 3-5 /hpf (0-2) 04/03/25 16:50 Urine WBC 0-5 /hpf (0-5) 04/03/25 16:50 Ur Squamous Epith Cells 6-10 /hpf (0-5) 04/03/25 16:50 Amorphous Sediment Not Reportable 04/03/25 16:50 Urine Bacteria 1+ /hpf (NONE) H 04/03/25 16:50 Hyaline Casts 0.40 /lpf 04/03/25 16:50 Blood Type B Positive 04/01/25 09:56 Rho(D) Type Rh positive 04/01/25 09:56 Antibody Screen Negative 04/01/25 09:56 Crossmatch See Detail 04/01/25 09:56 Vitals Last Vital Signs Temp 97.4 F L 04/05/25 08:00 Pulse 64 04/05/25 08:00 Resp 20 H 04/05/25 08:00 BP 103/66 04/05/25 08:00 Pulse Ox 92 04/05/25 08:00 O2 Del Method Room Air 04/05/25 08:00 O2 Flow Rate 2 04/04/25 16:00 Discharge Plan Discharge Patient Disposition: Home Condition: Stable Prescriptions: New silver sulfadiazine [SSD] 1 % Cream 1 applic topical BID 30 Days Qty: 30 0RF pantoprazole 40 mg Tablet,Delayed Release (Dr/Ec) 40 mg PO DAILY 30 Days Qty: 30 0RF metoprolol tartrate 25 mg Tablet 25 mg PO BID@0900,2100 30 Days Qty: 60 0RF levofloxacin 750 mg tablet 750 mg PO DAILY 7 Days Qty: 7 0RF potassium chloride [K-Tab] 20 mEq tablet extended release 20 meq PO BID 7 Days Qty: 14 0RF magnesium oxide 400 mg magnesium tablet 400 mg PO BID 10 Days Qty: 20 0RF Continued albuterol sulfate [Ventolin HFA] 90 mcg/actuation HFA aerosol inhaler 2 puff INHALATION Q6H PRN (Reason: sob) levothyroxine 150 mcg tablet 150 mcg PO DAILY aspirin 81 mg Tablet,Delayed Release (Dr/Ec) 81 mg PO DAILY Discharge Orders: Discharge Order (Routine); Ordered 04/05/25 Ordered By: Opal De La Fuente Other Ambulatory Orders: Complete Blood Count w/Auto (Routine) Timeframe: 2 Days Location: Determined by Patient Ordered By: Opal De La Fuente Comprehensive Metabolic Panel (Routine) Timeframe: 2 Days Facility: [facility] - Location: Lab - Main Lab Ordered By: Opal De La Fuente Referrals: Gemini Morris MD [Primary Care Provider, Family Practice] - 04/08/25 11:30 am Referral Note: You will be sseeing Nurse practioner [facility] at [facility] in [place]. Jose Mccain MD [Hospitalist, Oncology] - 4-7 days Referral Note: needs urgent follow up after hospital admission, falling platelet counts post chemo, needs lab rechecked. Patient scheduled self for next saturday.. Mary Meraz DO [Physician, Family Practice] - 05/10/25 1:30 pm Discharge Diet: Soft Mechanical Discharge Activity: Increase activity as tolerated Patient Instructions: Opioid Safety Discharge Attestations Time Spent in Discharge Care*: greater than 30 min Quality Metrics Clinical Quality Measures [ No reported AMI, CVA or VTE this stay] Coding Level of Care Code Acute Code for Chg Fwd Diagnoses Atrial fibrillation with RVR I48.91 Hypokalemia E87.6 Hypomagnesemia E83.42 Hypocalcemia E83.51 Anemia D64.9 Malignant neoplasm of base of tongue C01
[2025-04-05 10:45] VITALS: BP 105/64; PULSE 72; RESP 12; O2SAT 96
== END 2025-04-05 11:12 | disposition home health service (06) | DRG 310 ==
LOC: ER 11:44 → CSU 12:42
PROVIDERS: Admitting Provider Student in an Organized Health Care Education/Training Program; Emergency Provider Family Medicine; PCP Family Medicine; Visit Provider Student in an Organized Health Care Education/Training Program
DX: I48.91 Unspecified atrial fibrillation (principal); D64.81 Anemia due to antineoplastic chemotherapy; C01 Malignant neoplasm of base of tongue; E87.6 Hypokalemia; E83.42 Hypomagnesemia; E83.51 Hypocalcemia; T45.1X5A Adverse effect of antineoplastic and immunosuppressive drugs, initial encounter; D69.59 Other secondary thrombocytopenia; T21.11XA Burn of first degree of chest wall, initial encounter; W88.1XXA Exposure to radioactive isotopes, initial encounter; F17.210 Nicotine dependence, cigarettes, uncomplicated; E03.9 Hypothyroidism, unspecified; R19.5 Other fecal abnormalities; Z79.82 Long term (current) use of aspirin; Z95.0 Presence of cardiac pacemaker
CPT/HCPCS: 36430; 36591; 36592; 71045; 71275; 74176; 80053; 81001; 82274; 82330; 83735; 84132; 84443; 84484; 85014; 85018; 85025; 86850; 86900; 86920; 87040; 87077; 87086; 87150; 87186; 87205; 93005; 96365; 96366; 96367; 96375; 96376; 99291; 99292; G0378; J0612; J0696; J2470; J3475; J3480; J3490; J7030; J9999; P9016; P9040

== ENCOUNTER 2025-04-15 07:42 | Oncology outpatient (recurring) (ONCR) | payer MEDICARE, SELFPAY ==
--- NOTE | 2025-04-05 12:44 | ONCRAD TMN_ITS ---
Radiation Oncology Weekly Treatment Management Patient: Claudia Marie MR#: [id number] : 1955 Attending Physician: Dr. Delfino Vinson Date of Service: 04/05/2025 Referring Physician(s) : Diagnosis: C01 - Malignant neoplasm of base of tongue, Diagnosed 01/25/2025 (Active) C77.0 - Secondary and unspecified malignant neoplasm of lymph nodes of head, face and neck, Diagnosed 01/25/2025 (Active) Radiotherapy to date: Course: BoT/nodes, Treatment Site: BOT [id number], Ref. ID: [id number], Energy: 6X, Dose/Fx (cGy): 200, #Fx: 28 / 35, Dose Correction (cGy): 0, Total Dose Delivered (cGy): 5,600, Start Date: 02/15/2025, Elapsed Days: 49 Reason for visit: The patient is being seen today as part of their regularly scheduled weekly on treatment visits to assess for acute toxicities from radiotherapy. Review of Systems: Hospitalized here from 04/01 and dc???ed today 04/05 for A fib with RVR and hypokalemia, hypomagnesemia and hyponatremia. Also found to be anemic . Treated medically with electrolyte replacement and transfusion. Chemo to be delayed until next week. Able to eat some. No PEG tube is in place. Vital Signs: Performed on 04/05/2025 11:27 AM BMI - 37.276 kg/m2 (high), Height - 67 in, Weight - 238 lbs, Temperature - 97.4 f, Pulse - 64 /min, Respiration - 20 /min, O2 Sat - 92 % (low), Pain - 0, Fatigue - 0 and BP - 103/ 66 mm(hg). Physical Exam: Speech much more clear. Tanning around cheeks and chin. Imaging: Radiation therapy imaging related to accurate target localization (i.e. KV, MV and CBCT) was reviewed. Appropriate changes, if any, were made to ensure treatment accuracy. Plan: Goo response to treatment. Stabilized well following treatment here as an inpatient. Will resume radiation today. Discussed the value of minimizing gaps in radiation treatment. Signed by: Dr. Delfino Vinson 04/05/2025 12:43:05 PM
[2025-04-13 07:52] LABS: Basophils % 0.5 %; Eosinophils % 0.5 %; Hematocrit 27.5 % (36-47); Lymphocytes # 0.6 10^3/uL (0.8-4.8); Lymphocytes % 33.2 %; Mean Corpuscular HGB Conc 33.1 g/dL (30-55); Mean Corpuscular Hemoglobin 31.3 pg (27-33); Mean Corpuscular Volume 94.5 fl (85-98); Mean Platelet Volume 10.7 fL (7.4-10.4); Monocytes # 0.3 10^3/uL (0.2-0.9); Monocytes % 16.1 %; Neutrophils % 48.7 %; Nucleated Red Blood Cells % 0 %; Platelet Count 107 10^3/cmm (157-399); Red Blood Count 2.91 10^6/uL (3.85-5.65); Red Cell Distribution Width 18.3 % (12.1-15.1); White Blood Count 1.93 10^3/uL (3.29-11.43)
[2025-04-13 08:15] LABS: Neutrophils # 0.94 10^3/uL (1.8-7.7)
[2025-04-13 08:20] LABS: Alanine Aminotransferase 12 U/L (0-33); Albumin Level 2.8 g/dL (3.5-5.2); Alkaline Phosphatase 85 U/L (35-105); Anion Gap 16.8 (5-19); Aspartate Amino Transferase 25 U/L (0-32); Blood Urea Nitrogen 17 mg/dL (8-23); Calcium 6.2 mg/dL (8.5-10.5); Carbon Dioxide 32 mmol/L (22-29); Chloride 90 mmol/L (98-107); Creatinine Clr Calc Pharmacy 56.6603; Glucose 90 mg/dL (65-115); NT Pro B Type Natriuretic Pept 4034 pg/mL (0-125); Osmolality Calculated 283 mOsm/kg (285-295); Sodium 136 mmol/L (136-145); Total Bilirubin 1.3 mg/dL (0.15-1.2); Total Protein 5.8 g/dL (6.6-8.7)
[2025-04-13 08:24] LABS: Potassium 2.8 mmol/L (3.5-5.1)
[2025-04-13] MEDS: sodium chlor 0.9% + KCl 40 mEq 40 MEQ/1,000 ML BAG 250 MEQ IV (09:29)
--- NOTE | 2025-04-13 09:34 | ONCRAD TMN_ITS ---
, Radiation Oncology Weekly Treatment Management Patient: Frank Garcia MR#: [id number] : 1955> Attending Physician: David Beltran Date of Service: 04/13/2025 Referring Physician(s) : Diagnosis: C01 - Malignant neoplasm of base of tongue, Diagnosed 01/25/2025 (Active) C77.0 - Secondary and unspecified malignant neoplasm of lymph nodes of head, face and neck, Diagnosed 01/25/2025 (Active) Radiotherapy to date: Course: BoT/nodes Treatment Site: BOT [id number], Ref. ID: [id number], Energy: 6X, Dose/Fx (cGy): 200, #Fx: 33 / 35, Dose Correction (cGy): 0, Total Dose Delivered (cGy): 6,600, Start Date: 02/15/2025, Elapsed Days: 57 Reason for visit: The patient is being seen today as part of their regularly scheduled weekly on treatment visits to assess for acute toxicities from radiotherapy. Review of Systems: As above. Voice appears improved. Patient getting potassium today. Patient has 2 more treatments. We will see her back in a month or sooner if need be. Labs are adequate for treatment Vital Signs: Performed on 04/13/2025 9:20 AM BMI - 34.144 kg/m2 (high), Height - 67 in, Weight - 218 lbs, Temperature - 98.7 f, Pulse - 104 /min (high), Respiration - 17 /min, O2 Sat - 94 % (low), Pain - 0, Fatigue - 0 and BP - 107/ 70 mm(hg). Physical Exam: AAOx3. Skin darkening but not broken down. Voice is improved. Imaging: Radiation therapy imaging related to accurate target localization (i.e. KV, MV and CBCT) was reviewed. Appropriate changes, if any, were made to ensure treatment accuracy. Plan: Continue XRT To undergo potassium replacement today Signed by: David Beltran 04/13/2025 9:32:59 AM
[2025-04-13 11:30] VITALS: BP 112/68; PULSE 78; RESP 17; TEMP 36.6; O2SAT 95
--- NOTE | 2025-04-22 08:08 | N.ONRD TS_ITS ---
Radiation Oncology Treatment Summary Patient: Claudia Marie MR#: [id number] : 1955 Age: 70 Sex: Female Dictated by: David Beltran Date of Service: 04/15/2025 Referring Physician(s) : Diagnosis: C01 - Malignant neoplasm of base of tongue, Diagnosed 01/25/2025 (Active) C77.0 - Secondary and unspecified malignant neoplasm of lymph nodes of head, face and neck, Diagnosed 01/25/2025 (Active) Radiotherapy to Date: Course: BoT/nodes, Treatment Site: BOT [id number], Ref. ID: [id number], Energy: 6X, Dose/Fx (cGy): 200, #Fx: 35 / 35, Dose Correction (cGy): 0, Total Dose Delivered (cGy): 7,000, Start Date: 02/15/2025, End Date: 04/15/2025, Elapsed Days: 59 Clinical Summary: The patient tolerated RT well. Plan: End of treatment today. Continue on the above medication until the skin reaction resolves. Follow up in one month. Signed by: David Beltran>04/22/2025 8:06:48 AM <<Signature on File>>
== END 2025-04-17 23:59 | disposition home or self-care (01) ==
PROVIDERS: Internal Medicine Medical Oncology; PCP Family Medicine; Visit Provider Radiology Radiation Oncology
DX: Z51.0 Encounter for antineoplastic radiation therapy (principal); C01 Malignant neoplasm of base of tongue; C77.0 Secondary and unspecified malignant neoplasm of lymph nodes of head, face and neck
CPT/HCPCS: 77336; 77385; 77386; 80053; 83880; 85025; 96365; 96366; 99024; 99214; J9999

== ENCOUNTER 2025-04-24 13:09 | Emergency (ER) | payer MEDICARE, SELFPAY ==
[2025-04-24 13:10] VITALS: BP 106/76; PULSE 97; RESP 18; TEMP 37.2; O2SAT 96; BMI 31.3
--- NOTE | 2025-04-24 13:15 | ECG_ITS ---
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1955 Requested By: Hortencia Hammer Order Number: [id number] Reading MD: MINOR CARTER Measurements Intervals [place] Rate: 71 P: 0 TN: 0 QRS: 32 QRSD: 146 T: -21 QT: 443 QTc: 483 Interpretive Statements ATRIAL FIBRILLATION RIGHT BUNDLE BRANCH BLOCK [120+ ms QRS DURATION, UPRIGHT V1, 40+ ms S IN I/aVL/V4/V5/V6] POSSIBLE ANTERIOR MYOCARDIAL INFARCTION , OF INDETERMINATE AGE [30 ms Q WAVE IN V3/V4, OR R < 0.2 mV IN V4] MODERATE T-WAVE ABNORMALITY, CONSIDER INFERIOR ISCHEMIA [-0.1+ mV T-WAVE IN II/aVF] Compared to ECG 04/01/2025 15:53:03 Myocardial infarct finding now present T-wave abnormality now present Possible ischemia now present Atrial flutter no longer present Electronically Signed On 04-24-2025 23:52:32 CDT by MINOR CARTER [email or web address]
--- NOTE | 2025-04-24 13:17 | XRR_ITS ---
PROCEDURE INFORMATION: Exam: XR Chest Exam date and time: 04/24/2025 1:21 PM Age: 70 years old Clinical indication: Pain; Angina pectoris; Additional info: Cp TECHNIQUE: Imaging protocol: Radiologic exam of the chest. Views: 1 view. COMPARISON: CT angio chest PE protcl [id number] 04/01/2025 11:09 AM FINDINGS: Tubes, catheters and devices: Unchanged left pacemaker and right chest port. Lungs: Unchanged pulmonary nodules. Unchanged small amount of spine left lung base. Otherwise, unremarkable. Pleural spaces: Unremarkable. No pleural effusion. No pneumothorax. Heart/Mediastinum: Unchanged mild cardiomegaly. Bones/joints: Nothing acute. No change. XR/XR chest 1V portable [id number] IMPRESSION: 1. No acute findings. 2. Additional details as above. Unchanged.
--- NOTE | 2025-04-24 13:26 | ED_ITS ---
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 States that pain is currently 6 out of 10 was given nitro aspirin no improvement. Denies any shortness of breath denies any fever. Associated symptoms: Deny abdominal pain, dyspnea, fever(s), nausea or vomiting Related Data Home Medications ?Medication ?Instructions ?Recorded ?Confirmed levothyroxine 150 mcg tablet 150 mcg PO QAM 01/25/25 0 04/24/25 silver sulfadiazine 1 % topical 1 applic topical BID 0 04/24/25 04/24/25 cream (SSD) Previous Rx's ?Medication ?Instructions ?Recorded metoprolol tartrate 25 mg tablet 25 mg PO BID@0900,210 0 30 days #60 04/05/25 tabs pantoprazole 40 mg tablet,delayed 40 mg PO DAILY 30 da ys #30 tabs 04/05/25 release Allergies Allergy/AdvReac Type Severity Reaction Status Date / Time hydromorphone (From Dilaudid) Allergy vomiting Verified 04/13/25 08:01 Review of Systems 2 Const: Denies: fever(s), chills, body aches or change in appetite ENMT: Denies: throat pain or dental pain Card: Reports: chest pain Resp: Denies: dyspnea GI: Denies: abdominal pain, nausea, vomiting or diarrhea Musc: Denies: neck pain or back pain Skin/Breast: Denies: rash Neuro: Denies: headache(s) PFSH ED 2 PFSH: Medical History Pre-op evaluation Hypothyroidism Tobacco dependence X 46 years COPD (chronic obstructive pulmonary disease) Arrhythmia Afib Surgical History History of pacemaker 2016 Hx of cataract surgery Hx of shoulder surgery Stenosis, cervical spine has cervical surgery with plate and [address] History of left knee surgery History of torn meniscus of right knee History of cholecystectomy History of appendectomy History of hernia repair Family History Other Cancer Denies family history of Diabetes CAD (coronary artery disease) Clotting disorder Anesthesia complication Bleeding disorder Hypertension Social History Smoking and tobacco/nicotine status: current every day tobacco/nicotine user cigarettes [ Other cigarette details: 2 cig month max of 3 per day] Alcohol intake: current Alcohol intake frequency: few times a month Alcohol type: beer Substance/Drug Use: never Physical Exam 2 Const: COMMON NORMALS: no acute distress, patient oriented x3 and healthy appearing HENMT: COMMON NORMALS: normocephalic and atraumatic HEAD & SCALP: n ormocephalic and atraumatic Eye: COMMON NORMALS: conjunctivae normal CONJUNCTIVA: Yes conjunctivae normal Neck/C-Spine: COMMON NORMALS: full ROM and supple Chest: COMMONS NORMALS: normal inspection of the chest and normal palpation of entire chest wall Resp: COMMON NORMALS: normal respiratory effort, No retractions, No use of accessory muscles and clear to auscultation bilaterally AUSCULTATION: clear to auscultation bilaterally Cardio: COMMON NORMALS: regular rate, regular rhythm and No murmurs present (Cardio) RATE: regular rate RHYTHM: regular rhythm Extremity: COMMON NORMALS: normal to inspection and full ROM Neuro: COMMON NORMALS: patient oriented x3, moves all extremities and no focal motor deficits Psych: COMMON NORMALS: mental status grossly normal, Normal thought process present and cooperative THOUGHT PROCESS: Normal thought process present Skin: COMMON NORMALS: no rashes or lesions noted and no wounds GENERAL SKIN EXAM: no rashes or lesions noted Course 2 Vital Signs: Vital signs: Vital Signs Temperature 99.0 F 04/24/25 13:10 Pulse Rate 69 04/24/25 16:07 Respiratory Rate 18 04/24/25 16:07 Blood Pressure 118/72 04/24/25 16:07 Pulse Oximetry 96 04/24/25 16:07 Oxygen Delivery Me thod Room Air 04/24/25 16:07 MDM - Chest Pain Medical Decision Making Patient presents here with chest pains atypical in nature no signs of acute coronary syndrome she has no signs of PE or dissection patient stable for discharge follow-up PCP return if worsening. Medical Records I reviewed the patient's medical records. Lab Data I reviewed the patient's lab results. 04/24/25 13:30 04/24/25 13:30 Radiology Impressions Chest X-Ray 04/24/25 13:17 IMPRESSION: 1. No acute findings. 2. Additional details as above. Unchanged. Laboratory Results WBC 8.57 10^3/uL (3.29-11.43) 04/24/25 13:30 RBC 2.74 10^6/uL (3.85-5.65) L 04/24/25 13:30 Hgb 8.80 g/dL (11.27-16.99) L 04/24/25 13:30 Hct 26.3 % (36-47) L 04/24/25 13:30 MCV 96.0 fl (85-98) 04/24/25 13:30 MCH 32.1 pg (27-33) 04/24/25 13:30 MCHC 33.5 g/dL (30-55) 04/24/25 13:30 RDW 22.6 % (12.1-15.1) H 04/24/25 13:30 Plt Count 215 10^3/cmm (157-399) 04/24/25 13:30 MPV 9.6 fL (7.4-10.4) 04/24/25 13:30 Neut % (Auto) 79.4 % 04/24/25 13:30 Lymph % (Auto) 6.5 % 04/24/25 13:30 [place] % (Auto) 11.6 % 04/24/25 13:30 Eos % (Auto) 0.1 % 04/24/25 13:30 Baso % (Auto) 0.2 % 04/24/25 13:30 Neut # (Auto) 6.80 10^3/uL (1.8-7.7) 04/24/25 13:30 Lymph # (Auto) 0.6 10^3/uL (0.8-4.8) L 04/24/25 13:30 [place] # (Auto) 1.0 10^3/uL (0.2-0.9) H 04/24/25 13:30 Eos # (Auto) 0.0 10^3/uL (0.0-0.8) 04/24/25 13:30 Baso # (Auto) 0.0 10^3/uL (0.0-0.1) 04/24/25 13:30 Nucleated RBC % (auto) 0 % 04/24/25 13:30 Nucleated RBCs # 0.0 /100WBC 04/24/25 13:30 PT 15.60 SECONDS (12.1-14.9) H 04/24/25 13:30 INR 1.16 (0.8-1.2) 04/24/25 13:30 Sodium 133 mmol/L (136-145) L 04/24/25 13:30 Potassium 3.3 mmol/L (3.5-5.1) L 04/24/25 13:30 Chloride 88 mmol/L (98-107) L 04/24/25 13:30 Carbon Dioxide 33 mmol/L (22-29) H 04/24/25 13:30 Anion Gap 15.3 (5-19) 04/24/25 13:30 BUN 22 mg/dL (8-23) 04/24/25 13:30 Creatinine 1.0 mg/dL (0.5-0.9) H 04/24/25 13:30 GFR Calculation Not Reportable 04/24/25 13:30 Glucose 100 mg/dL (65-115) 04/24/25 13:30 Calculated Osmolality 279 mOsm/kg (285-295) L 04/24/25 13:30 Calcium 6.4 mg/dL (8.5-10.5) L 04/24/25 13:30 Total Bilirubin 1.7 mg/dL (0.15-1.2) H 04/24/25 13:30 AST 34 U/L (0-32) H 04/24/25 13:30 ALT 14 U/L (0-33) 04/24/25 13:30 Alkaline Phosphatase 76 U/L (35-105) 04/24/25 13:30 Troponin T Baseline 67 ng/L (0-10) H 04/24/25 13:30 Troponin T 120 Minute 70.08 ng/L (0-10) H 04/24/25 15:55 Delta Troponin T 3.08 ABS# (0-10) 04/24/25 15:55 Total Protein 5.8 g/dL (6.6-8.7) L 04/24/25 13:30 Albumin 2.7 g/dL (3.5-5.2) L 04/24/25 13:30 Globulin 3.1 g/dL (1.3-4.6) 04/24/25 13:30 Lipase 6 U/L (13-60) L 04/24/25 13:30 All radiology interpretation(s) finalized by discharge Discharge Plan Discharge Patient Disposition: Home Clinical Impression: Chest pain Condition: Stable Prescriptions: No Action levothyroxine 150 mcg tablet 150 mcg PO QAM silver sulfadiazine [SSD] 1 % cream 1 applic topical BID pantoprazole 40 mg Tablet,Delayed Release (Dr/Ec) 40 mg PO DAILY 30 Days Qty: 30 0RF metoprolol tartrate 25 mg Tablet 25 mg PO BID@0900,2100 30 Days Qty: 60 0RF Discharge Orders: Discharge ED (Routine); Ordered 04/24/25 Ordered By: Hortencia Hammer Referrals: Gemini Morris MD [Primary Care Provider, [facility]] - 4-7 days Discharge Diet: Advance as tolerated Discharge Activity: Resume usual activity Patient Instructions: Chest Pain (ED) Print Language: Greenlandic Coding Level of Care Code ED Detective Automobile Section for Leo Robbins
[2025-04-24 13:42] LABS: Basophils % 0.2 %; Eosinophils % 0.1 %; Hematocrit 26.3 % (36-47); Lymphocytes # 0.6 10^3/uL (0.8-4.8); Lymphocytes % 6.5 %; Mean Corpuscular HGB Conc 33.5 g/dL (30-55); Mean Corpuscular Hemoglobin 32.1 pg (27-33); Mean Platelet Volume 9.6 fL (7.4-10.4); Monocytes % 11.6 %; Neutrophils % 79.4 %; Nucleated Red Blood Cells % 0 %; Platelet Count 215 10^3/cmm (157-399); Red Blood Count 2.74 10^6/uL (3.85-5.65); Red Cell Distribution Width 22.6 % (12.1-15.1); White Blood Count 8.57 10^3/uL (3.29-11.43)
[2025-04-24 13:55] LABS: INR 1.16 (0.8-1.2)
[2025-04-24 14:03] LABS: Alanine Aminotransferase 14 U/L (0-33); Albumin Level 2.7 g/dL (3.5-5.2); Alkaline Phosphatase 76 U/L (35-105); Anion Gap 15.3 (5-19); Aspartate Amino Transferase 34 U/L (0-32); Blood Urea Nitrogen 22 mg/dL (8-23); Calcium 6.4 mg/dL (8.5-10.5); Carbon Dioxide 33 mmol/L (22-29); Chloride 88 mmol/L (98-107); Creatinine Clr Calc Pharmacy 59.6659; Globulin 3.1 g/dL (1.3-4.6); Glucose 100 mg/dL (65-115); Lipase 6 U/L (13-60); Osmolality Calculated 279 mOsm/kg (285-295); Potassium 3.3 mmol/L (3.5-5.1); Sodium 133 mmol/L (136-145); Total Bilirubin 1.7 mg/dL (0.15-1.2); Total Protein 5.8 g/dL (6.6-8.7); Troponin(5th) Baseline 67 ng/L (0-10)
[2025-04-24 14:06] VITALS: RESP 16; O2SAT 96
[2025-04-24] MEDS: morphine 4 mg/mL SDV 1 mL IVP (14:06)
[2025-04-24] MEDS: lidocaine 2% viscous 15 ML, aluminum-mag hydrox-simethicon 30 ML, sucralfate oral liq 1 GM PO (14:06)
[2025-04-24] MEDS: ondansetron 2 mg/ML SDV 2 mL 4 MG IVP (14:06)
[2025-04-24 14:32] VITALS: BP 115/57; PULSE 71; O2SAT 94
[2025-04-24 15:11] VITALS: BP 109/58; PULSE 71; O2SAT 94
--- NOTE | 2025-04-24 15:17 | ECG_ITS ---
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1955 Requested By: Hortencia Hammer Order Number: [id number] Reading MD: MINOR CARTER Measurements Intervals [place] Rate: 72 P: 0 DC: 0 QRS: 34 QRSD: 139 T: -58 QT: 435 QTc: 479 Interpretive Statements ATRIAL FIBRILLATION RIGHT BUNDLE BRANCH BLOCK [120+ ms QRS DURATION, UPRIGHT V1, 40+ ms S IN I/aVL/V4/V5/V6] POSSIBLE ANTERIOR MYOCARDIAL INFARCTION , OF INDETERMINATE AGE [30 ms Q WAVE IN V3/V4, OR R < 0.2 mV IN V4] MODERATE T-WAVE ABNORMALITY, CONSIDER INFERIOR ISCHEMIA [-0.1+ mV T-WAVE IN II/aVF] Compared to ECG 04/24/2025 13:15:04 No significant changes Electronically Signed On 04-24-2025 23:56:51 CDT by MINOR CARTER [email or web address]
[2025-04-24 16:07] VITALS: BP 118/72; PULSE 69; RESP 18; O2SAT 96
[2025-04-24 16:17] LABS: Troponin 5 2HR 70.08 ng/L (0-10); Troponin 5 2HR Delta 3.08 ABS# (0-10)
[2025-04-24 16:56] VITALS: BP 118/70; PULSE 81; O2SAT 95
== END 2025-04-24 16:57 | disposition home or self-care (01) ==
PROVIDERS: Emergency Provider Emergency Medicine; PCP Family Medicine
DX: R07.9 Chest pain, unspecified (principal); F17.210 Nicotine dependence, cigarettes, uncomplicated; J44.9 Chronic obstructive pulmonary disease, unspecified; C06.9 Malignant neoplasm of mouth, unspecified
CPT/HCPCS: 36415; 71045; 80053; 83690; 84484; 85025; 85610; 93005; 96374; 96375; 99285; J2270; J2405; J9999

== ENCOUNTER 2025-05-14 14:19 | Emergency (ER) | payer MEDICARE, SELFPAY ==
[2025-05-14 14:25] VITALS: BP 144/79; PULSE 86; RESP 16; TEMP 37.1; O2SAT 96; BMI 32.1
--- NOTE | 2025-05-14 14:26 | XR_ITS ---
WS: [id number] Exam: XR chest 1V portable [id number] Date/Time of Exam: 05/14/2025 2:36 PM Reason For Exam: Chest pain Comparison 05/05/2025. Lungs are fully inflated and clear. Heart size top limits normal. No pleural effusion. The mediastinum is normal in contour. Permanent cardiac pacer seen over the LEFT chest. RIGHT subclavian port ends in the lower one third of the SVC. Fusion hardware in the lower C-spine. DJD of both shoulders. XR/XR chest 1V portable [id number] IMPRESSION: 1. No acute cardiopulmonary finding.
--- NOTE | 2025-05-14 14:34 | ECG_ITS ---
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
[2025-05-14 14:50] LABS: Basophils # 0.1 10^3/uL (0.0-0.1); Basophils % 0.5 %; Eosinophils # 0.1 10^3/uL (0.0-0.8); Eosinophils % 0.8 %; Hematocrit 29.7 % (36-47); Lymphocytes # 0.7 10^3/uL (0.8-4.8); Lymphocytes % 6.5 %; Mean Corpuscular Hemoglobin 33.7 pg (27-33); Mean Corpuscular Volume 105.3 fl (85-98); Mean Platelet Volume 10.4 fL (7.4-10.4); Monocytes # 1.1 10^3/uL (0.2-0.9); Monocytes % 10.6 %; Neutrophils # 8.35 10^3/uL (1.8-7.7); Neutrophils % 80.6 %; Nucleated Red Blood Cells % 0 %; Platelet Count 151 10^3/cmm (157-399); Red Blood Count 2.82 10^6/uL (3.85-5.65); White Blood Count 10.35 10^3/uL (3.29-11.43)
[2025-05-14 15:01] VITALS: PULSE 64; RESP 17; O2SAT 93
[2025-05-14 15:12] LABS: Troponin(5th) Baseline 69 ng/L (0-10)
--- NOTE | 2025-05-14 15:14 | W.ED.CHESTPA ---
HPI - Chest Pain General: Chief Complaint: Chest Pain Stated Complaint: chest pain Time Seen by Provider: 05/14/25 14:24 History of Present Illness: 70-year-old female with history oforal cancer, tobacco dependence, COPD and atrial fibrillation who presents emergency room by ambulance after she had some bleeding from her mouth that has since resolved and some chest pain today. She says she fell at some point and she has some pain around her PEG tube. No cough. No fever. No altered mental status. Related Data Home Medications ?Medication ?Instructions ?Recorded ?Confirmed levothyroxine 150 mcg tablet 150 mcg PO QAM 01/25/25 05/04/25 silver sulfadiazine 1 % topical 1 applic topical BID 04/24/25 05/04/25 cream (SSD) Previous Rx's ?Medication ?Instructions ?Recorded potassium chloride 20 mEq oral 20 meq PO BID #60 ea 05/04/25 packet amiodarone 200 mg tablet (Pacerone) 200 mg PO BID 30 days #60 tabs 05/10/25 metoprolol tartrate 25 mg tablet 50 mg (2 x 25 mg) PO BID@0900,2100 05/10/25 30 days #30 tabs Allergies Allergy/AdvReac Type Severity Reaction Status Date / Time hydromorphone (From Dilaudid) Allergy vomiting Verified 05/04/25 08:31 Review of Systems Narrative: Constitutional symptoms: Negative except as documented in HPI. Skin symptoms: Negative except as documented in HPI. Eye symptoms: Negative except as documented in HPI. ENMT symptoms: Negative except as documented in HPI. Respiratory symptoms: Negative except as documented in HPI. Cardiovascular symptoms: Negative except as documented in HPI. Gastrointestinal symptoms: Negative except as documented in HPI. Genitourinary symptoms: Negative except as documented in HPI. Musculoskeletal symptoms: Negative except as documented in HPI. Neurologic symptoms: Negative except as documented in HPI. Psychiatric symptoms: Negative except as documented in HPI. Endocrine symptoms: Negative except as documented in HPI. PFSH ED PFSH: Medical History Pre-op evaluation Hypothyroidism Tobacco dependence X 46 years COPD (chronic obstructive pulmonary disease) Arrhythmia Afib Surgical History History of pacemaker 2016 Hx of cataract surgery Hx of shoulder surgery Stenosis, cervical spine has cervical surgery with plate and [address] History of left knee surgery History of torn meniscus of right knee History of cholecystectomy History of appendectomy History of hernia repair Family History Other Cancer Denies family history of Diabetes CAD (coronary artery disease) Clotting disorder Anesthesia complication Bleeding disorder Hypertension Social History Smoking and tobacco/nicotine status: current every day tobacco/nicotine user cigarettes [ Other cigarette details: 2 cig month max of 3 per day] Alcohol intake: current Alcohol intake frequency: few times a month Alcohol type: beer Substance/Drug Use: never Physical Exam Narrative: EXAM NARRATIVE: General: Alert, no acute distress. Skin: Warm, dry. Head: Normocephalic, atraumatic. Neck: Supple, trachea midline. Eye: Extraocular movements are intact. Ears, nose, mouth and throat: mucosa moist. Some dried blood around the mouth but no active bleeding. Cardiovascular: Regular, Normal peripheral perfusion. Respiratory: Lungs are clear to auscultation, respirations are non-labored, breath sounds are equal, Symmetrical chest wall expansion. Gastrointestinal: Soft, Nontender, Non distended Musculoskeletal: Normal ROM, no deformity. Neurological: Alert and oriented, No focal neurological deficit observed. Psychiatric: Cooperative, appropriate mood & affect. Course Vital Signs: Vital signs: Vital Signs Temperature 98.7 F 05/14/25 14:25 Pulse Rate 86 05/14/25 14:25 Respiratory Rate 16 05/14/25 14:25 Blood Pressure 144/79 05/14/25 14:25 Pulse Oximetry 96 05/14/25 14:25 Oxygen Delivery Me thod Room Air 05/14/25 14:25 MDM - Chest Pain Medical Decision Making Differential diagnosis for patient with chest pain includes but is not limited to and based on the above HPI, review of systems and physical exam: Pneumonia. unstable angina. angina. Acute coronary syndrome / [place]. Pulmonary embolism. Costochondritis / musculoskeletal. Pleurisy. Pericarditis. Esophageal spasm. Pancreatis. Cholecystitis. Orders placed to evaluate differential diagnosis based on the above differential, HPI and physical exam EKG: Time 1434. Rate 81. Normal sinus rhythm, No ST-T changes, no ectopy, paced rhythm, this was reviewed and interpreted by myself the emergency room physician at 1440. Lab Review: Laboratory results were reviewed and interpreted by myself the emergency room physician. No leukocytosis. Stable anemia with a hemoglobin of 9.5. Mild thrombocytopenia at 151 Chest x-ray: No acute process. No infiltrate. No pneumothorax. This was reviewed and interpreted by myself the emergency room physician. I also reviewed the radiology report. I reviewed the patient's medical record. Reexamination: Patient remained stable. No increased work of breathing. No altered mental status. No focal motor deficits. Assessment and plan: Oral cancer Noncardiac chest pain Bleeding from the mouth ? Bleeding stopped spontaneously. Noncardiac chest pain. - Discharged home - Discussed plan with patient. Answered any questions. - Evaluation and treatment of this problem were appropriate in the emergency setting. Lab Data 05/14/25 14:44 05/14/25 14:44 Radiology Impressions Chest X-Ray 05/14/25 14:26 IMPRESSION: 1. No acute cardiopulmonary finding. Laboratory Results WBC 10.35 10^3/uL (3.29-11.43) 05/14/25 14:44 RBC 2.82 10^6/uL (3.85-5.65) L 05/14/25 14:44 Hgb 9.50 g/dL (11.27-16.99) L 05/14/25 14:44 Hct 29.7 % (36-47) L 05/14/25 14:44 MCV 105.3 fl (85-98) H 05/14/25 14:44 MCH 33.7 pg (27-33) H 05/14/25 14:44 MCHC 32.0 g/dL (30-55) 05/14/25 14:44 RDW 22.0 % (12.1-15.1) H 05/14/25 14:44 Plt Count 151 10^3/cmm (157-399) L 05/14/25 14:44 MPV 10.4 fL (7.4-10.4) 05/14/25 14:44 Neut % (Auto) 80.6 % 05/14/25 14:44 Lymph % (Auto) 6.5 % 05/14/25 14:44 [place] % (Auto) 10.6 % 05/14/25 14:44 Eos % (Auto) 0.8 % 05/14/25 14:44 Baso % (Auto) 0.5 % 05/14/25 14:44 Neut # (Auto) 8.35 10^3/uL (1.8-7.7) H 05/14/25 14:44 Lymph # (Auto) 0.7 10^3/uL (0.8-4.8) L 05/14/25 14:44 [place] # (Auto) 1.1 10^3/uL (0.2-0.9) H 05/14/25 14:44 Eos # (Auto) 0.1 10^3/uL (0.0-0.8) 05/14/25 14:44 Baso # (Auto) 0.1 10^3/uL (0.0-0.1) 05/14/25 14:44 Nucleated RBC % (auto) 0 % 05/14/25 14:44 Nucleated RBCs # 0.0 /100WBC 05/14/25 14:44 Sodium 133 mmol/L (136-145) L 05/14/25 14:44 Potassium 3.4 mmol/L (3.5-5.1) L 05/14/25 14:44 Chloride 94 mmol/L (98-107) L 05/14/25 14:44 Carbon Dioxide 27 mmol/L (22-29) 05/14/25 14:44 Anion Gap 15.4 (5-19) 05/14/25 14:44 BUN 15 mg/dL (8-23) 05/14/25 14:44 Creatinine 0.9 mg/dL (0.5-0.9) 05/14/25 14:44 GFR Calculation Not Reportable 05/14/25 14:44 Glucose 78 mg/dL (65-115) 05/14/25 14:44 Calculated Osmolality 276 mOsm/kg (285-295) L 05/14/25 14:44 Calcium 8.5 mg/dL (8.5-10.5) 05/14/25 14:44 Total Bilirubin 1.3 mg/dL (0.15-1.2) H 05/14/25 14:44 AST 21 U/L (0-32) 05/14/25 14:44 ALT 12 U/L (0-33) 05/14/25 14:44 Alkaline Phosphatase 93 U/L (35-105) 05/14/25 14:44 Troponin T Baseline 69 ng/L (0-10) H 05/14/25 14:44 Troponin T 120 Minute 66.89 ng/L (0-10) H 05/14/25 15:47 Delta Troponin T -2.11 ABS# (0-10) L 05/14/25 15:47 NT-Pro-B Natriuret Pep 2935 pg/mL (0-125) H 05/14/25 14:44 Total Protein 6.3 g/dL (6.6-8.7) L 05/14/25 14:44 Albumin 2.8 g/dL (3.5-5.2) L 05/14/25 14:44 Globulin 3.5 g/dL (1.3-4.6) 05/14/25 14:44 All radiology interpretation(s) finalized by discharge Discharge Plan Discharge Patient Disposition: Home Clinical Impression: Non-cardiac chest pain, Malignant neoplasm of base of tongue Condition: Stable Prescriptions: No Action levothyroxine 150 mcg tablet 150 mcg PO QAM potassium chloride 20 mEq packet 20 meq PO BID Qty: 60 0RF Rx Instructions: Dissolve packet in 4oz juice silver sulfadiazine [SSD] 1 % cream 1 applic topical BID amiodarone [Pacerone] 200 mg Tablet 200 mg PO BID 30 Days Qty: 60 0RF Rx Instructions: 200mg po BID x 7 days,then reduce to 200mg po daily metoprolol tartrate 25 mg Tablet 50 mg PO BID@0900,2100 30 Days Qty: 30 0RF Discharge Orders: Discharge ED (Routine); Ordered 05/14/25 Ordered By: Maritza Field Referrals: Gemini Morris MD [Primary Care Provider, Family Practice] Discharge Diet: Usual diet Discharge Activity: Increase activity as tolerated Patient Instructions: Opioid Safety, Pain Management, Patient Portal & Jensen Instructions Activity Restrictions/Additional Instructions: Thank you for choosing [facility] for your healthcare needs today. You have been screened and evaluated and felt safe for discharge. Health conditions do change or evolve sometimes and as such it is important that you follow up with your Primary Doctor to be re checked, 3-5 days is a general good time frame for follow up. You are always welcome to return to the ED for re assessment if your symptoms are worsening or you have new concerns Print Language: Sami Coding Level of Care Code ED Boring Machine Operator Production for Leo Robbins
[2025-05-14 15:23] LABS: Alanine Aminotransferase 12 U/L (0-33); Albumin Level 2.8 g/dL (3.5-5.2); Alkaline Phosphatase 93 U/L (35-105); Anion Gap 15.4 (5-19); Aspartate Amino Transferase 21 U/L (0-32); Blood Urea Nitrogen 15 mg/dL (8-23); Calcium 8.5 mg/dL (8.5-10.5); Carbon Dioxide 27 mmol/L (22-29); Chloride 94 mmol/L (98-107); Globulin 3.5 g/dL (1.3-4.6); Glucose 78 mg/dL (65-115); NT Pro B Type Natriuretic Pept 2935 pg/mL (0-125); Osmolality Calculated 276 mOsm/kg (285-295); Potassium 3.4 mmol/L (3.5-5.1); Sodium 133 mmol/L (136-145); Total Bilirubin 1.3 mg/dL (0.15-1.2); Total Protein 6.3 g/dL (6.6-8.7)
[2025-05-14 15:31] VITALS: PULSE 61; RESP 19; O2SAT 99
[2025-05-14 16:01] VITALS: BP 123/62; PULSE 60; RESP 16; O2SAT 95
[2025-05-14 16:13] LABS: Troponin 5 2HR 66.89 ng/L (0-10)
[2025-05-14 16:18] LABS: Troponin 5 2HR Delta -2.11 ABS# (0-10)
[2025-05-14 17:23] VITALS: BP 127/74; PULSE 80; RESP 15; O2SAT 94
== END 2025-05-14 17:25 | disposition home or self-care (01) ==
PROVIDERS: Emergency Provider Emergency Medicine; PCP Family Medicine
DX: R07.89 Other chest pain (principal); C01 Malignant neoplasm of base of tongue; F17.210 Nicotine dependence, cigarettes, uncomplicated; J44.9 Chronic obstructive pulmonary disease, unspecified
CPT/HCPCS: 36415; 71045; 80053; 83880; 84484; 85025; 93005; 99285

== ENCOUNTER 2025-05-31 08:30 | Oncology outpatient (recurring) (ONCR) | payer MEDICARE, SELFPAY ==
[2025-05-31 08:56] LABS: Hematocrit 29.5 % (36-47); Hemoglobin 9.70 g/dL (11.27-16.99); Mean Corpuscular HGB Conc 32.9 g/dL (30-55); Mean Corpuscular Hemoglobin 33.8 pg (27-33); Mean Corpuscular Volume 102.8 fl (85-98); Nucleated Red Blood Cells % 0 %; Platelet Count 175 10^3/cmm (157-399); Red Blood Count 2.87 10^6/uL (3.85-5.65); White Blood Count 9.27 10^3/uL (3.29-11.43)
[2025-05-31 09:14] LABS: Alanine Aminotransferase 10 U/L (0-33); Albumin Level 2.7 g/dL (3.5-5.2); Alkaline Phosphatase 101 U/L (35-105); Anion Gap 15.5 (5-19); Aspartate Amino Transferase 21 U/L (0-32); Blood Urea Nitrogen 13 mg/dL (8-23); Calcium 8.4 mg/dL (8.5-10.5); Carbon Dioxide 29 mmol/L (22-29); Chloride 94 mmol/L (98-107); Creatinine Clr Calc Pharmacy 73.8436; Globulin 4.0 g/dL (1.3-4.6); Glucose 105 mg/dL (65-115); Osmolality Calculated 280 mOsm/kg (285-295); Potassium 3.5 mmol/L (3.5-5.1); Sodium 135 mmol/L (136-145); Total Protein 6.7 g/dL (6.6-8.7)
== END 2025-06-17 23:59 | disposition home or self-care (01) ==
PROVIDERS: Nurse Practitioner Family; PCP Family Medicine; Visit Provider Internal Medicine Medical Oncology
DX: C01 Malignant neoplasm of base of tongue (principal); F17.210 Nicotine dependence, cigarettes, uncomplicated; F32.A Depression, unspecified; Z93.1 Gastrostomy status; D64.81 Anemia due to antineoplastic chemotherapy; T45.1X5A Adverse effect of antineoplastic and immunosuppressive drugs, initial encounter; R63.4 Abnormal weight loss; Z68.30 Body mass index [BMI] 30.0-30.9, adult; E87.6 Hypokalemia; N28.9 Disorder of kidney and ureter, unspecified; D61.818 Other pancytopenia
CPT/HCPCS: 36591; 80053; 85025; 99214

== ENCOUNTER 2025-06-17 16:48 | Inpatient (IN) | payer MEDICARE, SELFPAY ==
--- NOTE | 2025-06-17 16:50 | ECG_ITS ---
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
--- NOTE | 2025-06-17 16:50 | XRR_ITS ---
PROCEDURE INFORMATION: Exam: XR Chest Exam date and time: 06/17/2025 4:55 PM Age: 70 years old Clinical indication: Cough and dyspnea; Additional info: Dyspnea/cough TECHNIQUE: Imaging protocol: Radiologic exam of the chest. Views: 1 view. COMPARISON: CR XR chest 1V portable [id number] 05/14/2025 2:34 PM FINDINGS: Tubes, catheters and devices: Left subclavian pacer is in stable position. Right IJ Port-A-Cath tip is in the lower SVC. Lungs: Collapse/consolidation of the right lower lobe. Mild streaky left basilar opacities are similar to the prior study. Pleural spaces: Interval development of a moderate right pleural effusion. Possible trace left pleural fluid. Heart/Mediastinum: Stable cardiomediastinal silhouette. Bones/joints: ACDF hardware. Moderate degenerative changes of bilateral glenohumeral joints. XR/XR chest 1V portable [id number] IMPRESSION: Interval development of a moderate right pleural effusion with right basilar opacities which could represent atelectasis, though superimposed infection is not excluded.
[2025-06-17 16:53] VITALS: BP 114/69; PULSE 142; RESP 20; TEMP 37.4; O2SAT 96
--- NOTE | 2025-06-17 16:58 | ED_ITS ---
Documented by User: Jamir Dominguez 06/19/25 13:41 HPI - General Adult 2 General: Chief complaint: Shortness of Breath/Dyspnea Stated complaint: AFIB, SOB Time Seen by Provider: 06/17/25 16:48 History of Present Illness: 70-year-old female presents emergency ro om complaining of rapid heart rate shortness of breath that began a few days ago. She states she always has high heart rate so she initially did not think of it however its gotten worse she has increasing orthopnea she has mild what she describes chest discomfort. No vomiting no diarrhea. She has had some increased swelling in her legs as well. She denies fever sweats or chills. Patient has a history of oropharyngeal cancer and is currently not able to take medications p.o. She is very difficult to understand in history taking. Associated symptoms: Deny chest pain, dyspnea or rash Related Data Home Medications ?Medication ?Instructions ?Recorded ?Confirmed albuterol sulfate 90 mcg/actuation 1 inh inhalation QI D PRN Shortness 06/18/25 06/18/25 aerosol inhaler Of Breath amiodarone 200 mg tablet 200 mg feeding tube BID 12/1206/18/25 aspirin 81 mg tablet,delayed 81 mg feeding tube DAILY 06/18/25 06/18/25 release lactose-reduced food with fiber See Rx Instructions .R oute .COMPLEX 06/18/25 06/18/25 0.06 gram-1.5 kcal/mL oral liquid (Jevity 1.5 Oskar) levothyroxine 150 mcg tablet 150 mcg feeding tube ROMAIN Y 06/18/25 06/18/25 methocarbamol 750 mg tablet 750 mg feeding tube TID GA N muscle 06/18/25 06/18/25 spasms metoprolol tartrate 25 mg tablet 50 mg feeding tube BI D 06/18/25 06/18/25 potassium chloride 20 mEq oral 20 meq feeding tube BID 06/18/25 06/18/25 packet Allergies Allergy/AdvReac Type Severity Reaction Status Date / Time hydromorphone (From Dilaudid) Allergy vomiting Verified 05/31/25 08:53 Review of Systems 2 Const: Denies: fever(s) or chills Card: Denies: chest pain Resp: Denies: dyspnea GI: Denies: abdominal pain : Denies: dysuria, urinary frequency or urinary urgency Musc: Denies: neck pain or back pain Skin/Breast: Denies: rash PFSH ED 2 PFSH: Medical History Pre-op evaluation Hypothyroidism Tobacco dependence X 46 years COPD (chronic obstructive pulmonary disease) Arrhythmia Afib Surgical History History of pacemaker 2016 Hx of cataract surgery Hx of shoulder surgery Stenosis, cervical spine has cervical surgery with plate and [address] History of left knee surgery History of torn meniscus of right knee History of cholecystectomy History of appendectomy History of hernia repair Family History Other Cancer Denies family history of Diabetes CAD (coronary artery disease) Clotting disorder Anesthesia complication Bleeding disorder Hypertension Social History Smoking and tobacco/nicotine status: current every day tobacco/nicotine user cigarettes [ Other cigarette details: 2 cig month max of 3 per day] Alcohol intake: current Alcohol intake frequency: few times a month Alcohol type: beer Substance/Drug Use: never Physical Exam 2 Const: COMMON NORMALS: no acute distress GENERAL APPEARANCE: cooperative and comfortable ORIENTATION/CONSCIOUSNESS: Yes awake, Yes oriented to person, Yes oriented to place and Yes oriented to time HENMT: COMMON NORMALS: normocephalic, atraumatic and hearing grossly normal bilaterally HEAD & SCALP: normocephalic and atraumatic Resp: COMMON NORMALS: normal respiratory effort, No retractions, No use of accessory muscles and clear to auscultation bilaterally AUSCULTATION: clear to auscultation bilaterally Cardio: COMMON NORMALS: No murmurs present (Cardio) RHYTHM: abnormal rhythm irregularly irregular GI: COMMON NORMALS: Soft to palpation and No hepatosplenomegaly present A USCULTATION: Yes normoactive bowel sounds PALPATION: Yes Soft to palpation, No Tenderness to palpation present (GI), No Guarding due to palpation present (GI) and Yes No hepatosplenomegaly present Extremity: COMMON NORMALS: normal to inspection, capillary refill normal, no clubbing, cyanosis or edema, no calf tenderness and no pedal edema Neuro: SENSORIUM/ORIENTATION: Yes oriented to person, Yes oriented to place and Yes oriented to time Skin: COMMON NORMALS: no rashes or lesions noted GENERAL SKIN EXAM: no rashes or lesions noted Course 2 Vital Signs: Vital signs: Vital Signs Temperature 96.7 F L 06/19/25 07:17 Pulse Rate 122 H 06/19/25 11:17 Respiratory Rate 54 H 06/19/25 11:17 Blood Pressure 100/86 06/19/25 11:17 Pulse Oximetry 96 06/19/25 11:17 Oxygen Delivery Me thod Room Air 06/19/25 03:18 Oxygen Flow Rate 2 06/17/25 21:02 [facility] - General Adult Medical Decision Making Patient seen initially she is in A-fib with RVR she is started on diltiazem bolus and a drip. Concerned about underlying heart failure. Initial labs were ordered but have not yet returned. [facility] Medical decision making: Differential diagnosis including but not limited to and based on the above HPI, review of systems and physical exam: for patient with palpitations: atrial fibrillation with rapid ventricular response. ventricular tachycardia. sinus tachycardia. PVCs. also concern for underlying issues causing tachycardia. Infection, electrolyte abnormalities and thyroid issues. Orders placed to evaluate differential diagnosis based on the above differential, HPI and physical exam Lab Review: Laboratory results were reviewed and interpreted by myself the emergency room physician. No leukocytosis. No anemia. No renal failure. proBNP is elevated at over 4000. I reviewed the patient's medical record. Patient has a history of oral cancer with tongue swelling and difficulty speaking at times. She has history of atrial fibrillation with pacemaker placement but has not had any episodes with atrial fibrillation in years she says. She is not on any anticoagulation any longer. Says she is been short of breath for at least a week now. She is requiring oxygen currently. Consultation: I spoke with Dr. Madden who is on-call for the hospitalist service who agrees to admission. Reexamination: Patient's rate is down into the 90s to low 100s. She is not altered. She gives me some history. Work of breathing is improved but she is requiring 4 L nasal cannula. She has a temp of 99.4 so I am giving her some antibiotics, steroids and continued diltiazem drip. Assessment and plan: Atrial fibrillation with RVR COPD with acute exacerbation Acute hypoxemic respiratory failure ?Diltiazem diltiazem drip ? Continued 4 L nasal cannula - Solu-Medrol ? Rocephin and azithromycin -I discussed the patient with the hospitalist on-call who is admitting the patient. - Discussed findings and plan with patient. Answered any questions. - All laboratory values were reviewed and interpreted personally by myself, the ER physician - All imaging was reviewed and interpreted personally by myself, the ER physician. - Evaluation and treatment of this problem were appropriate in the emergency setting Lab Data 06/19/25 02:26 06/19/25 02:26 Radiology Impressions Chest X-Ray 06/17/25 16:50 IMPRESSION: Interval development of a moderate right pleural effusion with right basilar opacities which could represent atelectasis, though superimposed infection is not excluded. Neck CT 06/18/25 16:50 IMPRESSION: 1. In the region of the prior mass in the left aspect of the floor of the mouth, there is a new cavity with layering fluid and gas collection measuring 4.1 x 3.7 x 3.2 cm with peripheral enhancement, compatible with abscess. 2. Left cervical chain lymphadenopathy and confluent soft tissue density surrounding the inferior aspect of the left internal jugular vein, as above, compatible with metastatic disease. 3. Extensive mediastinal lymphadenopathy and multiple bilateral pulmonary nodules, compatible with metastatic disease. 4. New large right pleural effusion, incompletely visualized. 5. A 1.5 cm enhancing nodule arises from the superior aspect of the right thyroid lobe. COMMENTS: Consistent with the [employer]'s Incidental Findings Committee white paper (J Am Jo-Ann Radiol 2015): In patients aged 35 years and older with an incidental thyroid nodule equal to or greater than 1.[address], MRI or extrathyroidal US, further evaluation with dedicated thyroid US is recommended for patients with normal life expectancy and without comorbidities. For smaller nodules without suspicious features, no further evaluation or follow up is recommended. Laboratory Results WBC 10.71 10^3/uL (3.29-11.43) 06/17/25 18:30 RBC 3.25 10^6/uL (3.85-5.65) L 06/17/25 18:30 Hgb 11.10 g/dL (11.27-16.99) L 06/17/25 18:30 Hct 34.0 % (36-47) L 06/17/25 18:30 MCV 104.6 fl (85-98) H 06/17/25 18:30 MCH 34.2 pg (27-33) H 06/17/25 18:30 MCHC 32.6 g/dL (30-55) 06/17/25 18:30 RDW 15.6 % (12.1-15.1) H 06/17/25 18:30 Plt Count 176 10^3/cmm (157-399) 06/17/25 18:30 MPV 9.6 fL (7.4-10.4) 06/17/25 18:30 Neut % (Auto) 81.6 % 06/17/25 18:30 Lymph % (Auto) 7.0 % 06/17/25 18:30 Hamlin % (Auto) 9.5 % 06/17/25 18:30 Eos % (Auto) 1.0 % 06/17/25 18:30 Baso % (Auto) 0.4 % 06/17/25 18:30 Neut # (Auto) 8.74 10^3/uL (1.8-7.7) H 06/17/25 18:30 Lymph # (Auto) 0.8 10^3/uL (0.8-4.8) 06/17/25 18:30 Hamlin # (Auto) 1.0 10^3/uL (0.2-0.9) H 06/17/25 18:30 Eos # (Auto) 0.1 10^3/uL (0.0-0.8) 06/17/25 18:30 Baso # (Auto) 0.0 10^3/uL (0.0-0.1) 06/17/25 18:30 Nucleated RBC % (auto) 0 % 06/17/25 18:30 Nucleated RBCs # 0.0 /100WBC 06/17/25 18:30 Sodium 136 mmol/L (136-145) 06/17/25 18:30 Potassium 3.3 mmol/L (3.5-5.1) L 06/17/25 18:30 Chloride 92 mmol/L (98-107) L 06/17/25 18:30 Carbon Dioxide 29 mmol/L (22-29) 06/17/25 18:30 Anion Gap 18.3 (5-19) 06/17/25 18:30 BUN 18 mg/dL (8-23) 06/17/25 18:30 Creatinine 0.9 mg/dL (0.5-0.9) 06/17/25 18:30 GFR Calculation Not Reportable 06/17/25 18:30 Glucose 85 mg/dL (65-115) 06/17/25 18:30 Calculated Osmolality 283 mOsm/kg (285-295) L 06/17/25 18:30 Lactic Acid 1.7 mmol/L (0.5-2.2) 06/17/25 18:30 Calcium 9.0 mg/dL (8.5-10.5) 06/17/25 18:30 Magnesium 1.2 mg/dL (1.7-2.3) L 06/17/25 18:30 Total Bilirubin 1.3 mg/dL (0.15-1.2) H 06/17/25 18:30 AST 22 U/L (0-32) 06/17/25 18:30 ALT 12 U/L (0-33) 06/17/25 18:30 Alkaline Phosphatase 108 U/L (35-105) H 06/17/25 18:30 Troponin T Baseline 73 ng/L (0-10) H 06/17/25 18:30 NT-Pro-B Natriuret Pep 4179 pg/mL (0-125) H 06/17/25 18:30 Total Protein 6.8 g/dL (6.6-8.7) 06/17/25 18:30 Albumin 2.8 g/dL (3.5-5.2) L 06/17/25 18:30 Globulin 4.0 g/dL (1.3-4.6) 06/17/25 18:30 TSH 27.50 uIU/mL (0.27-4.20) H 06/17/25 18:30 Discharge Plan Discharge Patient Disposition: Admitted As Inpatient Admit Provider: Viri Madden Clinical Impression: Atrial fibrillation with rapid ventricular response, Acute hypoxemic respiratory failure, Congestive heart failure COPD (chronic obstructive pulmonary disease) Qualifiers: COPD type: chronic bronchitis Chronic bronchitis type: simple Qualified Code(s): J41.0 - Simple chronic bronchitis Condition: Stable Discharge Diet: Resume prior tube feeds Discharge Activity: Resume usual activity Coding Level of Care Code ED Histology Specialist for Chg Fwd Documented by User: Maritza Field MD 06/17/25 19:35 HPI - General Adult 2 General: Chief complaint: Shortness of Breath/Dyspnea Stated complaint: AFIB, SOB Time Seen by Provider: 06/17/25 16:48 History of Present Illness: Patient care transitioned me at shift change. Patient with A-fib with RVR and has been started on diltiazem drip. Concern for heart failure. Related Data Home Medications ?Medication ?Instructions ?Recorded ?Confirmed albuterol sulfate 90 mcg/actuation 1 inh inhalation QI D PRN Shortness 06/18/25 06/18/25 aerosol inhaler Of Breath amiodarone 200 mg tablet 200 mg feeding tube BID 12/1206/18/25 aspirin 81 mg tablet,delayed 81 mg feeding tube DAILY 06/18/25 06/18/25 release lactose-reduced food with fiber See Rx Instructions .R oute .COMPLEX 06/18/25 06/18/25 0.06 gram-1.5 kcal/mL oral liquid (Jevity 1.5 Oskar) levothyroxine 150 mcg tablet 150 mcg feeding tube ROMAIN Y 06/18/25 06/18/25 methocarbamol 750 mg tablet 750 mg feeding tube TID GA N muscle 06/18/25 06/18/25 spasms metoprolol tartrate 25 mg tablet 50 mg feeding tube BI D 06/18/25 06/18/25 potassium chloride 20 mEq oral 20 meq feeding tube BID 06/18/25 06/18/25 packet Allergies Allergy/AdvReac Type Severity Reaction Status Date / Time hydromorphone (From Dilaudid) Allergy vomiting Verified 05/31/25 08:53 PFSH ED 2 PFSH: Medical History Pre-op evaluation Hypothyroidism Tobacco dependence X 46 years COPD (chronic obstructive pulmonary disease) Arrhythmia Afib Surgical History History of pacemaker 2016 Hx of cataract surgery Hx of shoulder surgery Stenosis, cervical spine has cervical surgery with plate and [address] History of left knee surgery History of torn meniscus of right knee History of cholecystectomy History of appendectomy History of hernia repair Family History Other Cancer Denies family history of Diabetes CAD (coronary artery disease) Clotting disorder Anesthesia complication Bleeding disorder Hypertension Social History Smoking and tobacco/nicotine status: current every day tobacco/nicotine user cigarettes [ Other cigarette details: 2 cig month max of 3 per day] Alcohol intake: current Alcohol intake frequency: few times a month Alcohol type: beer Substance/Drug Use: never Physical Exam 2 Cardio: RATE: tachycardic RHYTHM: abnormal rhythm Course 2 Vital Signs: Vital signs: Vital Signs Temperature 96.7 F L 06/19/25 07:17 Pulse Rate 122 H 06/19/25 11:17 Respiratory Rate 54 H 06/19/25 11:17 Blood Pressure 100/86 06/19/25 11:17 Pulse Oximetry 96 06/19/25 11:17 Oxygen Delivery Me thod Room Air 06/19/25 03:18 Oxygen Flow Rate 2 06/17/25 21:02 MDM - General Adult Medical Decision Making Medical decision making: Differential diagnosis including but not limited to and based on the above HPI, review of systems and physical exam: for patient with palpitations: atrial fibrillation with rapid ventricular response. ventricular tachycardia. sinus tachycardia. PVCs. also concern for underlying issues causing tachycardia. Infection, electrolyte abnormalities and thyroid issues. Orders placed to evaluate differential diagnosis based on the above differential, HPI and physical exam Lab Review: Laboratory results were reviewed and interpreted by myself the emergency room physician. No leukocytosis. No anemia. No renal failure. proBNP is elevated at over 4000. I reviewed the patient's medical record. Patient has a history of oral cancer with tongue swelling and difficulty speaking at times. She has history of atrial fibrillation with pacemaker placement but has not had any episodes with atrial fibrillation in years she says. She is not on any anticoagulation any longer. Says she is been short of breath for at least a week now. She is requiring oxygen currently. Consultation: I spoke with Dr. Madden who is on-call for the hospitalist service who agrees to admission. Reexamination: Patient's rate is down into the 90s to low 100s. She is not altered. She gives me some history. Work of breathing is improved but she is requiring 4 L nasal cannula. She has a temp of 99.4 so I am giving her some antibiotics, steroids and continued diltiazem drip. Assessment and plan: Atrial fibrillation with RVR COPD with acute exacerbation Acute hypoxemic respiratory failure ?Diltiazem diltiazem drip ? Continued 4 L nasal cannula - Solu-Medrol ? Rocephin and azithromycin -I discussed the patient with the hospitalist on-call who is admitting the patient. - Discussed findings and plan with patient. Answered any questions. - All laboratory values were reviewed and interpreted personally by myself, the ER physician - All imaging was reviewed and interpreted personally by myself, the ER physician. - Evaluation and treatment of this problem were appropriate in the emergency setting Lab Data 06/19/25 02:26 06/19/25 02:26 Radiology Impressions Chest X-Ray 06/17/25 16:50 IMPRESSION: Interval development of a moderate right pleural effusion with right basilar opacities which could represent atelectasis, though superimposed infection is not excluded. Neck CT 06/18/25 16:50 IMPRESSION: 1. In the region of the prior mass in the left aspect of the floor of the mouth, there is a new cavity with layering fluid and gas collection measuring 4.1 x 3.7 x 3.2 cm with peripheral enhancement, compatible with abscess. 2. Left cervical chain lymphadenopathy and confluent soft tissue density surrounding the inferior aspect of the left internal jugular vein, as above, compatible with metastatic disease. 3. Extensive mediastinal lymphadenopathy and multiple bilateral pulmonary nodules, compatible with metastatic disease. 4. New large right pleural effusion, incompletely visualized. 5. A 1.5 cm enhancing nodule arises from the superior aspect of the right thyroid lobe. COMMENTS: Consistent with the [employer]'s Incidental Findings Committee white paper (J Am Jo-Ann Radiol 2015): In patients aged 35 years and older with an incidental thyroid nodule equal to or greater than 1.[address], MRI or extrathyroidal US, further evaluation with dedicated thyroid US is recommended for patients with normal life expectancy and without comorbidities. For smaller nodules without suspicious features, no further evaluation or follow up is recommended. Laboratory Results WBC 10.71 10^3/uL (3.29-11.43) 06/17/25 18: RBC 3.25 10^6/uL (3.85-5.65) L 06/17/25 18:30 Hgb 11.10 g/dL (11.27-16.99) L 06/17/25 18:30 Hct 34.0 % (36-47) L 06/17/25 18: MCV 104.6 fl (85-98) H 06/17/25 18:30 MCH 34.2 pg (27-33) H 06/17/25 18: MCHC 32.6 g/dL (30-55) 06/17/25 18: RDW 15.6 % (12.1-15.1) H 06/17/25 18:30 Plt Count 176 10^3/cmm (157-399) 06/17/25 18: MPV 9.6 fL (7.4-10.4) 06/17/25 18:30 Neut % (Auto) 81.6 % 06/17/25 18:30 Lymph % (Auto) 7.0 % 06/17/25 18:30 Hamlin % (Auto) 9.5 % 06/17/25 18: Eos % (Auto) 1.0 % 06/17/25 18: Baso % (Auto) 0.4 % 06/17/25 18:30 Neut # (Auto) 8.74 10^3/uL (1.8-7.7) H 06/17/25 18:30 Lymph # (Auto) 0.8 10^3/uL (0.8-4.8) 06/17/25 18:30 Hamlin # (Auto) 1.0 10^3/uL (0.2-0.9) H 06/17/25 18: Eos # (Auto) 0.1 10^3/uL (0.0-0.8) 06/17/25 18: Baso # (Auto) 0.0 10^3/uL (0.0-0.1) 06/17/25 18: Nucleated RBC % (auto) 0 % 06/17/25 18: Nucleated RBCs # 0.0 /100WBC 07/31/25 18:30 Sodium 136 mmol/L (136-145) 06/17/25 18:30 Potassium 3.3 mmol/L (3.5-5.1) L 06/17/25 18:30 Chloride 92 mmol/L (98-107) L 06/17/25 18:30 Carbon Dioxide 29 mmol/L (22-29) 06/17/25 18:30 Anion Gap 18.3 (5-19) 06/17/25 18:30 BUN 18 mg/dL (8-23) 06/17/25 18:30 Creatinine 0.9 mg/dL (0.5-0.9) 06/17/25 18:30 GFR Calculation Not Reportable 06/17/25 18:30 Glucose 85 mg/dL (65-115) 06/17/25 18:30 Calculated Osmolality 283 mOsm/kg (285-295) L 06/17/25 18:30 Lactic Acid 1.7 mmol/L (0.5-2.2) 06/17/25 18:30 Calcium 9.0 mg/dL (8.5-10.5) 06/17/25 18:30 Magnesium 1.2 mg/dL (1.7-2.3) L 06/17/25 18:30 Total Bilirubin 1.3 mg/dL (0.15-1.2) H 06/17/25 18:30 AST 22 U/L (0-32) 06/17/25 18:30 ALT 12 U/L (0-33) 06/17/25 18:30 Alkaline Phosphatase 108 U/L (35-105) H 06/17/25 18:30 Troponin T Baseline 73 ng/L (0-10) H 06/17/25 18:30 NT-Pro-B Natriuret Pep 4179 pg/mL (0-125) H 06/17/25 18:30 Total Protein 6.8 g/dL (6.6-8.7) 06/17/25 18:30 Albumin 2.8 g/dL (3.5-5.2) L 06/17/25 18:30 Globulin 4.0 g/dL (1.3-4.6) 06/17/25 18:30 TSH 27.50 uIU/mL (0.27-4.20) H 06/17/25 18:30 All radiology interpretation(s) finalized by discharge Discharge Plan Discharge Patient Disposition: Admitted As Inpatient Admit Provider: Viri Madden Clinical Impression: Atrial fibrillation with rapid ventricular response, Acute hypoxemic respiratory failure, Congestive heart failure COPD (chronic obstructive pulmonary disease) Qualifiers: COPD type: chronic bronchitis Chronic bronchitis type: simple Qualified Code(s): J41.0 - Simple chronic bronchitis Condition: Stable Discharge Diet: Resume prior tube feeds Discharge Activity: Resume usual activity Coding Level of Care Code ED Histology Specialist for Leo Robbins
[2025-06-17] MEDS: dilTIAZem 5 mg/mL SDV 5 mL 10 MG IVP (17:30)
[2025-06-17] MEDS: dilTIAZem 100 MG in sodium chloride 0.9% (add-van) 100 ML IV (17:31)
--- NOTE | 2025-06-17 18:14 | ECG_ITS ---
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
[2025-06-17 18:18] VITALS: BP 101/69; PULSE 95; RESP 18; O2SAT 95
[2025-06-17 18:45] LABS: Hematocrit 34.0 % (36-47); Hemoglobin 11.10 g/dL (11.27-16.99); Mean Corpuscular HGB Conc 32.6 g/dL (30-55); Mean Corpuscular Hemoglobin 34.2 pg (27-33); Mean Corpuscular Volume 104.6 fl (85-98); Nucleated Red Blood Cells % 0 %; Platelet Count 176 10^3/cmm (157-399); Red Blood Count 3.25 10^6/uL (3.85-5.65); White Blood Count 10.71 10^3/uL (3.29-11.43)
[2025-06-17 19:07] LABS: Lactic Sepsis W/Reflex 1.7 mmol/L (0.5-2.2)
[2025-06-17 19:08] LABS: Troponin(5th) Baseline 73 ng/L (0-10)
[2025-06-17 19:18] LABS: Alanine Aminotransferase 12 U/L (0-33); Albumin Level 2.8 g/dL (3.5-5.2); Alkaline Phosphatase 108 U/L (35-105); Anion Gap 18.3 (5-19); Aspartate Amino Transferase 22 U/L (0-32); Blood Urea Nitrogen 18 mg/dL (8-23); Calcium 9.0 mg/dL (8.5-10.5); Carbon Dioxide 29 mmol/L (22-29); Chloride 92 mmol/L (98-107); Creatinine Clr Calc Pharmacy 61.3693; Globulin 4.0 g/dL (1.3-4.6); Glucose 85 mg/dL (65-115); Magnesium 1.2 mg/dL (1.7-2.3); NT Pro B Type Natriuretic Pept 4179 pg/mL (0-125); Osmolality Calculated 283 mOsm/kg (285-295); Potassium 3.3 mmol/L (3.5-5.1); Sodium 136 mmol/L (136-145); Thyroid Stimulating Hormone 27.50 uIU/mL (0.27-4.20); Total Protein 6.8 g/dL (6.6-8.7)
--- NOTE | 2025-06-17 20:10 | ECG_ITS ---
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
[2025-06-17 20:53] LABS: Troponin 5 2HR 65.93 ng/L (0-10)
[2025-06-17 20:55] LABS: Troponin 5 2HR Delta -7.07 ABS# (0-10)
[2025-06-17] MEDS: methylPREDNISolone sod succ 125 mg/2 mL INJ IVP (21:01)
[2025-06-17] MEDS: cefTRIAXone 1,000 mg SDV 1000 MG IVP (21:01)
[2025-06-17 21:02] VITALS: BP 111/65; PULSE 94; O2SAT 97
[2025-06-17 22:05] VITALS: BP 113/64; PULSE 91; O2SAT 96
--- NOTE | 2025-06-17 22:07 | P.HP_ITS ---
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 Patient presented to the emergency room with history of febrile illness at home to 101 ?F. Patient verbalizes been short of breath over the past few days. Upon arriving to the emergency room it was noted that patient is with atrial fibrillation with rapid ventricular rate in the 140s. She is not on oxygen at home but requiring 3 to 4 L of oxygen in the emergency room. She also noted to be with reactive COPD and with radiographic signs of possible pneumonia in the chest x-ray. Patient with the combination of drainage just from the mouth and not been able to actually talk fluently because of tongue lesion it is most likely patient had aspirated some of this foul- smelling drainage just from the mouth to the upper airways down to the lung. Patient in the emergency room was initiated on Cardizem drip the rate had come down from 90s to less than 100 at the time of my evaluation of the patient emergency room doctor had initiated antibiotics on this patient with azithromycin and ceftriaxone. I will continue with clindamycin because of associated oral microbial of gram-negative and anaerobic's for the lung and also follow through with cefepime because of patient state of immunosuppression and to cover for Pseudomonas as well. Patient has blood culture done urine culture done and advised biotics coverage at this time. Patient will be going to stepdown unit room 112. Must continue to treat and optimize. Review of Systems 2 Narrative: System review upon 10 organ review where noted for head and neck lesion affecting the tongue with drainage risk for aspiration into the lung. Systemic events of fever. Medications/Allergies Home Medications ?Medication ?Instructions ?Recorded ?Confirmed ?Last Taken ?Type levothyroxine 150 mcg tablet 150 mcg PO QAM 01/25/25 0 05/31/25 05/14/25 History silver sulfadiazine 1 % topical 1 applic topical BID 0 04/24/25 05/31/25 04/23/25 History cream (SSD) Allergies Allergy/AdvReac Type Severity Reaction Status Date / Time hydromorphone (From Dilaudid) Allergy vomiting Verified 05/31/25 08:53 PFSH Acute 2 PFSH: Medical History (Updated 06/17/25 @ 22:55 by Viri Madden MD) Pre-op evaluation Hypothyroidism Tobacco dependence X 46 years COPD (chronic obstructive pulmonary disease) Arrhythmia Afib Surgical History History of pacemaker 2016 Hx of cataract surgery Hx of shoulder surgery Stenosis, cervical spine has cervical surgery with plate and [address] History of left knee surgery History of torn meniscus of right knee History of cholecystectomy History of appendectomy History of hernia repair Family History Other Cancer Denies family history of Diabetes CAD (coronary artery disease) Clotting disorder Anesthesia complication Bleeding disorder Hypertension Social History Smoking and tobacco/nicotine status: current every day tobacco/nicotine user cigarettes [ Other cigarette details: 2 cig month max of 3 per day] Alcohol intake: current Alcohol intake frequency: few times a month Alcohol type: beer Substance/Drug Use: never Vitals/I&O/Wt Last Vital Signs Temp 99.4 F 06/17/25 16:53 Pulse 91 06/17/25 22:05 Resp 18 06/17/25 18:18 BP 113/64 06/17/25 22:05 Pulse Ox 96 06/17/25 22:05 O2 Del Method Nasal Cannula 06/17/25 21:02 O2 Flow Rate 2 06/17/25 21:02 Weight last 48 hrs Weight 77.111 kg Physical Exam 2 Narrative: Patient seen and evaluated week short of breath. She is mentating very wel, alert awake oriented x 3 HEENT normocephalic atraumatic neck neck is supple cardiovascular heart rate is regular lungs are pretty much clear abdomen soft nontender nondistended unremarkable extremities are intact no edema has good pulses neurology has no focality lab studies lab studies reviewed and noted. l Data 06/17/25 18:30 06/17/25 18:30 Micro: Microbiology 06/17/25 18:34 Blood Culture - Preliminary Blood SPECIMEN COLLECTED 06/17/25 18:30 Blood Culture - Preliminary Blood SPECIMEN COLLECTED A&P Assessment and plan 1. Pneumonia: Patient with febrile illness Tmax 101 ?F at home with some atelectasis radiographically is in with possible pneumonia Mild drooling because of oral cancer at risk for aspiration of secretion from the oral to the lung At risk for anaerobic gram-negative organism I have initiated clindamycin and cefepime for this patient antibiotics Need to cover for microorganism gram-positive's such as MRSA and other staph and strep, Need to cover for notorious pseudomonal in this immunosuppressed patient Must continue to follow through and optimize 2. Atrial fibrillation with RVR: - Patient with remote history of atrial fibrillation with RVR - Now had precipitation of atrial fibrillation with RVR at this time in the setting of febrile illness and infection - Patient on Cardizem drip. Get rate control - Patient I will initiate short acting Cardizem to get patient rate control as we wean off the Cardizem drip - Patient is only on 5 mg/h of Cardizem, I will initiate 30 mg of immediate release Cardizem every 6 while we get patient off of Cardizem drip. 3. Acute hypoxemic respiratory failure: - Acute respiratory failure has culprit of underlying infection triggering atrial fibrillation with rapid ventricular rate leading to much shortness of breath - Will control heart rate by treating underlying infection and having Cardizem drip optimized. 4. Weakness: Weakness is multifactorial in this patient Continue to treat underlying illness with antibiotics nebulizing treatment and bronchial spasm from reactive COPD exacerbation Patient nutrition is a must to recovery. 5. Dysphagia: Laryngeal cancer leading to dysphagia Will minimize aspiration Continue to treat and optimize 6. Hypomagnesemia: Magnesium of 1.2 replaced with 4 g of mag sulfate Follow through with level in the morning and this will help all of the electrolytes correction such as hypokalemia 7. Laryngeal cancer: Patient had been status post completion of chemoradiation for this Patient follows up with Dr. Mccain outpatient oncology 8. Hypokalemia: Potassium of 3.3 had been replaced with 40 mEq of potassium Follow through with interval improvement via interim will recheck serum potassium Plan: GI and DVT prophylaxis in place PDMP PDMP Reviewed: Last Reviewed 06/17/25 23:10 by Viri Madden MD Attestations 2 Medical Necessity Statement*: Patient with shortness of breath, possible pneumonia with atrial fibrillation rapid ventricular rate on Cardizem drip to the destination of a stepdown unit, febrile illness this is of at least 2 midnights for optimization of care Coding Level of Care Code 88833 Diagnoses Pneumonia J18.9 Atrial fibrillation with RVR I48.91 Acute hypoxemic respiratory failure J96.01 Weakness R53.1 Dysphagia R13.10 Hypomagnesemia E83.42 Laryngeal cancer C32.9 Hypokalemia E87.6 Time Spent (min) 60
[2025-06-17 22:33] VITALS: BP 108/76; PULSE 93; RESP 20; O2SAT 91
[2025-06-17 23:35] LABS: Procalcitonin 0.17 ng/mL (0-0.5)
[2025-06-17] MEDS: cefepime 2,000 mg SDV 2000 MG IVP (23:37)
[2025-06-17] MEDS: magnesium sulfate premix 4 GM/100 ML PREMIX IV (23:41)
[2025-06-17] MEDS: potassium chloride oral liq 20 mEq/15 mL UDC 40 MEQ PO (23:43)
[2025-06-17] MEDS: heparin 5,000 unit/mL INJ 1 mL 5000 UNIT SUBCUT (23:43)
[2025-06-18] VITALS (8 sets, daily range): BP systolic 91–120; BP diastolic 57–69; PULSE 63–86; RESP 16–24; TEMP 36.2–36.9; O2SAT 90–97
[2025-06-18] MEDS: methylPREDNISolone sod succ 40 mg/mL INJ IVP ×3 (00:03→22:44)
--- NOTE | 2025-06-18 01:45 | PC.NURSE ---
contacted MD about Clindamycin dose 900mg in 150mL in D5 being unavailable, but we do have 900mg in 50ml D5 available in house. stated to switch order to available dose, see MAR
[2025-06-18 04:08] LABS: Hematocrit 30.7 % (36-47); Hemoglobin 10.00 g/dL (11.27-16.99); Mean Corpuscular HGB Conc 32.6 g/dL (30-55); Mean Corpuscular Hemoglobin 34.1 pg (27-33); Mean Corpuscular Volume 104.8 fl (85-98); Nucleated Red Blood Cells % 0 %; Platelet Count 160 10^3/cmm (157-399); Red Blood Count 2.93 10^6/uL (3.85-5.65); White Blood Count 9.75 10^3/uL (3.29-11.43)
[2025-06-18 04:30] LABS: Alanine Aminotransferase 10 U/L (0-33); Albumin Level 2.4 g/dL (3.5-5.2); Alkaline Phosphatase 104 U/L (35-105); Anion Gap 17.0 (5-19); Aspartate Amino Transferase 21 U/L (0-32); Blood Urea Nitrogen 18 mg/dL (8-23); Calcium 8.5 mg/dL (8.5-10.5); Carbon Dioxide 28 mmol/L (22-29); Chloride 93 mmol/L (98-107); Creatinine Clr Calc Pharmacy 61.1227; Globulin 4.3 g/dL (1.3-4.6); Glucose 158 mg/dL (65-115); Magnesium 2.7 mg/dL (1.7-2.3); Osmolality Calculated 283 mOsm/kg (285-295); Potassium 4.0 mmol/L (3.5-5.1); Sodium 134 mmol/L (136-145); Total Protein 6.7 g/dL (6.6-8.7)
[2025-06-18] MEDS: cefepime 2,000 mg SDV 2000 MG IVP ×2 (06:05→22:44)
--- NOTE | 2025-06-18 06:58 | PC.NURSE ---
contacted MD about HR in 60-70s with a SBP of upper 90s, and asking if cardizem can be shut off from 2.5 MD gave verbal orders to turn down the cardizem drip to 1.5mg
[2025-06-18] MEDS: ondansetron 2 mg/ML SDV 2 mL 4 MG IVP (07:25)
[2025-06-18] MEDS: heparin 5,000 unit/mL INJ 1 mL 5000 UNIT SUBCUT ×2 (09:50→22:44)
--- NOTE | 2025-06-18 09:51 | PC.SOCIAL ---
IMM Update pg 2 of IMM Updated and reviewed w/ patient. Copy provided and copy dated, initialed and placed in chart.
--- NOTE | 2025-06-18 10:21 | PC.NURSE ---
Hypotension Pt's SBP trends from low 90s to upper 70s systolic w/ DBP between 70s to 80s, map between upper 60s to 70s. Pt Cardizem drip is running at 1.5 mls/hr, Cardizem drip has been paused. Pt has not had any urination. Notified dr guido on pt's trend low BPs, no urine output and cardizem drip was off. verified w/ dr guido,aware of no urine output and received verbal orders to infuse 1 L NS and run at a rate of 500 mls per hour, okay to hold cardizem drip.
--- NOTE | 2025-06-18 11:47 | PC.PHAR ---
Pt has [facility]. Medication list was provided by them and last visit was 05/28/25.
--- NOTE | 2025-06-18 15:07 | PC.OT ---
Pt declines OT evaluation at this time; will attempt again at later time.
--- NOTE | 2025-06-18 16:00 | P.PN_ITS ---
Subjective 2 Subjective: 70-year-old female states she was diagnosed with head and neck cancer in November 09, 2024. She states she has had 7 chemotherapy treatments and 35 radiation treatments ending in February 2025. Patient states that she had PET scan prior to this showing no cancer elsewhere. She had a biopsy but no ENT surgery. Dr. Mccain's note from 05/31/2025 says she stopped concurrent radiation with weekly cisplatin on April 22, 2025 she had anemia and weight loss due to disease borderline renal insufficiency pancytopenia and had a feeding tube at the time Vitals/I&O/Wt Last Vital Signs Temp 97.2 F L 06/18/25 11:42 Pulse 63 06/18/25 11:42 Resp 16 06/18/25 11:42 BP 110/60 06/18/25 11:42 Pulse Ox 96 06/18/25 11:42 O2 Del Method Nasal Cannula 06/18/25 11:42 O2 Flow Rate 2 06/17/25 21:02 06/18/25 06/18/25 06/18/25 06:59 14:59 22:59 Intake Total 443.459 / 572.575 8571.875 / 1861.875 Output Total 350 / 350 Balance 443.459 / 945.612 9620.875 / 1511.875 Weight last 48 hrs Weight 76.204 kg Weight 76.43 kg Weight 77.111 kg Physical Exam 2 Narrative: General well-developed well-nourished female with slurred speech. Oropharynx tongue is enlarged and appears a little bit tethered but not obvious scarring from surgery. It is short in fact and she cannot stick it out of her mouth. Underneath the left tongue between the teeth and base the tongue there is a hole regular shaped 1.5 cm estimated. Patient has bad halitosis. CV regular rate and rhythm Lungs clear except for crackles in the right base and diminished in left base neck is full left submandibular versus right but not obvious adenopathy or mass HENMT: OTHER: Data 06/18/25 03:20 06/18/25 03:20 Micro: Microbiology 06/17/25 18:34 Blood Culture - Preliminary Blood SPECIMEN COLLECTED 06/17/25 18:30 Blood Culture - Preliminary Blood SPECIMEN COLLECTED A&P Assessment and plan 1. Cancer of floor of mouth: Now with a hole through the floor the mouth communicating into the soft tissue and bad halitosis with fullness of the left submandibular neck and tenderness suspicious for abscess. Will obtain CT with contrast continue with clindamycin and cefepime 2. Pneumonia: Right lower lung infiltrate and hypoxemia consistent with pneumonia At risk for anaerobic gram-negative organism Continue clindamycin and cefepime with broad coverage including anaerobes and Pseudomonas for now 3. Atrial fibrillation with RVR: Converted to sinus rhythm and stable 4. Acute hypoxemic respiratory failure: Much improved continue with oxygen 5. Dysphagia: Patient with cancer at the base of the tongue now status post chemoradiation with a big hole in the floor the mouth. Her tongue is somewhat tethered shortened thickened and she has garbled speech. Due to a hole in the floor the mouth I have talked with the patient and she will be on just ice chips and water. Obtain CT scan now we will use PEG tube for all food 6. 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 Mccain
--- NOTE | 2025-06-18 16:50 | CTR_ITS ---
PROCEDURE INFORMATION: Exam: CT Neck With Contrast Exam date and time: 06/18/2025 5:14 PM Age: 70 years old Clinical indication: Abscess, pharyngeal; HX of oral cancer; Additional info: Left submandibular fullness and hole floor of mouth, suspected abscess TECHNIQUE: Imaging protocol: Computed tomography of the neck with contrast. Radiation optimization: All CT scans at this facility use at least one of these dose optimization techniques: automated exposure control; mA and/or kV adjustment per patient size (includes targeted exams where dose is matched to clinical indication); or iterative reconstruction. Contrast material: OMNIPAQUE 350; Contrast volume: 80 ml; Contrast route: INTRAVENOUS (IV); COMPARISON: PT PET skull to thigh INIT [id number] 01/15/2025 10:42 AM RADIATION DOSE METRICS: Total DLP (mGy-cm): 308.35 FINDINGS: Tubes, catheters and devices: Right anterior chest wall port catheter is present with tip below the field of view. Left anterior chest wall pacer device with the leads extending below the field of view. Salivary glands: Absent left submandibular gland. Unremarkable right submandibular gland. Unremarkable parotid glands. Oral cavity: In the region of prior mass in the left aspect of the floor of the mouth there is a new layering fluid and gas collection measuring 4.1 x 3.7 x 3.2 cm with peripheral enhancement, compatible with abscess. Pharynx: Unremarkable. No significant tonsillar enlargement. Larynx: Unremarkable. Epiglottis is normal. Thyroid: A 1.5 cm right superior thyroid lobe nodule. Trachea: Visualized trachea is unremarkable. Lungs: Multiple bilateral pulmonary nodules, for example a 1.5 x 1.7 cm nodule in the anterior right upper lobe (series 3, image 125) and a 1.5 x 1.2 cm nodule in the left upper lobe (series 3, image 121). Pleural spaces: Incompletely visualized large right pleural effusion. Lymph nodes: Multiple enlarged mediastinal lymph nodes, for example a 2.1 x 1.8 cm right lower paratracheal lymph node (series 3, image 122) and a 3.7 x 2.1 cm para-aortic lymph node (series 3, image 118). Several prominent left level 2A and 2B, 3, and 4 lymph nodes, for example a 1.0 x 0.9 cm node on image 57 of series 3 and a 1.2 x 0.7 cm node on image 61 of series 3. Vasculature: Redemonstrated ill-defined soft tissue density extending around the inferior aspect of the left internal jugular vein, which was previously hypermetabolic on prior PET. Bones/joints: Anterior fusion of C6-C7 vertebrae. No acute fracture. Soft tissues: Redemonstrated fluid density lesions along the bilateral supraspinatus muscles measuring 4.1 cm on the left and 3.2 cm on the right. CT/CT neck w con* [id number] IMPRESSION: 1. In the region of the prior mass in the left aspect of the floor of the mouth, there is a new cavity with layering fluid and gas collection measuring 4.1 x 3.7 x 3.2 cm with peripheral enhancement, compatible with abscess. 2. Left cervical chain lymphadenopathy and confluent soft tissue density surrounding the inferior aspect of the left internal jugular vein, as above, compatible with metastatic disease. 3. Extensive mediastinal lymphadenopathy and multiple bilateral pulmonary nodules, compatible with metastatic disease. 4. New large right pleural effusion, incompletely visualized. 5. A 1.5 cm enhancing nodule arises from the superior aspect of the right thyroid lobe. COMMENTS: Consistent with the [employer]'s Incidental Findings Committee white paper (J Am Jo-Ann Radiol 2015): In patients aged 35 years and older with an incidental thyroid nodule equal to or greater than 1.[address], MRI or extrathyroidal US, further evaluation with dedicated thyroid US is recommended for patients with normal life expectancy and without comorbidities. For smaller nodules without suspicious features, no further evaluation or follow up is recommended.
[2025-06-18] MEDS: iohexol 350 mg/mL 500 mL Btl (per mL) IV (16:59)
[2025-06-18 18:02] LABS: Glucose Urine UA Negative (Normal); Nitrate Urine Negative (Negative); Specific Gravity, Urine 1.014 (1.005-1.030)
[2025-06-18 18:07] LABS: Universal Test for UA Present (0)
--- NOTE | 2025-06-18 19:55 | PC.NURSE ---
Tube Feeding Jevity 1.5 started at 1950, currently running at 55mL/hour on feed, flushes are set for every 6 hours for 50mL, one flush of 50mL given at beginning of infusion.
[2025-06-19 03:05] LABS: Hematocrit 29.4 % (36-47); Hemoglobin 9.40 g/dL (11.27-16.99); Mean Corpuscular HGB Conc 32.0 g/dL (30-55); Mean Corpuscular Hemoglobin 34.1 pg (27-33); Mean Corpuscular Volume 106.5 fl (85-98); Nucleated Red Blood Cells % 0 %; Platelet Count 175 10^3/cmm (157-399); Red Blood Count 2.76 10^6/uL (3.85-5.65); White Blood Count 18.08 10^3/uL (3.29-11.43)
[2025-06-19 03:18] VITALS: BP 96/62; PULSE 79; RESP 18; TEMP 36.6; O2SAT 90
[2025-06-19 03:32] LABS: Alanine Aminotransferase 11 U/L (0-33); Albumin Level 2.5 g/dL (3.5-5.2); Alkaline Phosphatase 108 U/L (35-105); Anion Gap 15.7 (5-19); Aspartate Amino Transferase 24 U/L (0-32); Blood Urea Nitrogen 22 mg/dL (8-23); Calcium 8.6 mg/dL (8.5-10.5); Carbon Dioxide 26 mmol/L (22-29); Chloride 98 mmol/L (98-107); Creatinine Clr Calc Pharmacy 49.9425; Globulin 4.1 g/dL (1.3-4.6); Glucose 151 mg/dL (65-115); Magnesium 2.1 mg/dL (1.7-2.3); Osmolality Calculated 288 mOsm/kg (285-295); Potassium 3.7 mmol/L (3.5-5.1); Sodium 136 mmol/L (136-145); Total Protein 6.6 g/dL (6.6-8.7)
[2025-06-19 03:46] LABS: Estmated Average Glucose 82; Hemoglobin A1C 4.5 % (4.0-6.0)
[2025-06-19 07:17] VITALS: BP 92/63; PULSE 89; RESP 20; TEMP 35.9; O2SAT 92
--- NOTE | 2025-06-19 08:58 | PC.PT ---
Pt declined PT eval this am, I discussed with pt that PT is not in hospital on Sundays, so will be Saturday before we can see her and she stated she just does not feel like PT today and agreed to wait until Saturday. Notified nurse Rossi.
--- NOTE | 2025-06-19 09:59 | PC.OT ---
OT evaluation attempted. RN reported patient declined therapies today and her HR is in the 130s. RN reports patient is awaiting transfer. Will attempt evaluation on Saturday if patient is still admitted to [facility].
--- NOTE | 2025-06-19 10:00 | P.TS_ITS ---
Transfer Summary Providers Date of Admission: 06/17/25 19:30 Date of Discharge/Transfer: 06/19/25 Attending Provider at Admission: Viri Madden MD Attending Provider at Transfer: Omar Cadena MD Primary Care Provider: Gemini Morris MD Transfer Plans: Anticipated date of transfer: 06/19/25 . Diagnoses at Discharge Discharge Diagnosis 1. Cancer of floor of mouth: Details from hospital stay: Suspected abscess versus recurrence of tumor with tumor necrosis patient's white count is increased she has blood cultures positive gram-positive rods possibly diphtheroids, bacillus, actinomyces or other. I spoke with Dr. De La Fuente and she recommends discontinuing cefepime and clindamycin and switching to Zosyn. Dr. Klein ENT is not on-call this weekend. I am transferring the patient to [facility] to the hospitalist team and for consultation by . 2. Pneumonia: Details from hospital stay: Improved clinically but there is a pleural effusion 3. Bacteremia: Details from hospital stay: In March patient had staph epi 1 blood culture positive thought to be contaminant. The prelim this time showed gram-positive luis which would be a different bug. We will draw 1 blood culture from right chest Port-A-Cath now. 4. Atrial fibrillation with RVR: Details from hospital stay: Patient's diltiazem drip was stopped but she did receive oral medication. Restart drip at 10 mg an hour add diltiazem 60 mg Q8. Resume home metoprolol 25 mg twice daily and amiodarone 200 mg twice a day. Patient states she has not missed her medications at home Patient has transitioned off diltiazem drip and is on oral medications only 5. Dysphagia: Details from hospital stay: Patient has dysphagia and also whole at the floor of her mouth. She is n.p.o. except for ice chips. Start chlorhexidine swish and spit twice a day 6. Hypothyroidism: Details from hospital stay: She has run high TSH 9.56 in April and now 27.5. I think this is due to radiation that she had to her neck. She is already on 150 mcg daily orally. Increase to 200 mcg daily. 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 Patient presented to the emergency room with history of febrile illness at home to 101 ?F. Patient verbalizes been short of breath over the past few days. Upon arriving to the emergency room it was noted that patient is with atrial fibrillation with rapid ventricular rate in the 140s. She is not on oxygen at home but requiring 3 to 4 L of oxygen in the emergency room. She also noted to be with reactive COPD and with radiographic signs of possible pneumonia in the chest x-ray. Patient with the combination of drainage just from the mouth and not been able to actually talk fluently because of tongue lesion it is most likely patient had aspirated some of this foul- smelling drainage just from the mouth to the upper airways down to the lung. Patient in the emergency room was initiated on Cardizem drip the rate had come down from 90s to less than 100 at the time of my evaluation of the patient emergency room doctor had initiated antibiotics on this patient with azithromycin and ceftriaxone. I will continue with clindamycin because of associated oral microbial of gram-negative and anaerobic's for the lung and also follow through with cefepime because of patient state of immunosuppression and to cover for Pseudomonas as well. Patient has blood culture done urine culture done and advised biotics coverage at this time. Patient will be going to stepdown unit room 112. Must continue to treat and optimize. Hospital Course Hospital Course 70-year-old female states she was diagnosed with head and neck cancer in November 09, 2024. She states she has had 7 chemotherapy treatments and 35 radiation treatments ending in February 2025. Patient states that she had PET scan prior to this showing no cancer elsewhere. She had a biopsy but no ENT surgery. Dr. Mccain's note from 05/31/2025 says she stopped concurrent radiation with weekly cisplatin on April 22, 2025 she had anemia and weight loss due to disease borderline renal insufficiency pancytopenia and had a feeding tube at the time. Patient had her initial biopsy by Dr. 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 Sena March 12, 2025. Here the pt had cefepime and clindamycin and feels better and oxygen sats incr eased to room air sats 96%. She feels her breathing is better and after stopping food she feels that her neck has not worsened. Yesterday morning I found a hole of the floor the mouth defect and severe halitosis. CT scan shows what looks like an abscess in the soft tissue at the base of the tongue. This could also represent necrotic tumor or recurrent she has adenopathy in the mediastinum and lung nodules that are new. Patient tells me that PET scan prior to her chemo radiation therapy which ended on April 21 was negative for metastatic disease. I spoke with ENT and also Rochelle Berrios from the hospitalist team and obtained acceptance for transfer of the of the patient for pneumonia with right pleural effusion and recurrent cancer with suspected abscess versus necrotic tumor. Patient has A-fib controlled with diltiazem drip switching to oral medications at this time I spoke with Dr. Sudhakar ROBBINS infectious disease who recommends coverage for diphtheroids, bacillus and actinomyces. Start Zosyn and stop clinda and cefepime. Patient had a preliminary blood culture showing gram-positive rods Physical Exam Narrative: General well-developed well-nourished female with slurred or garbled speech. It is intelligible but she has to have focus on slowing and speaking loudly. Oropharynx bad halitosis with the under the tongue 1-1/2 x 1 cm defect in the floor of the mouth. This does not express pus. Neck is enlarged on the left side and mildly tender minimally increased warmth not red not exquisitely tender no stridor CV irregular and tachycardic at this time heart rate 122 Lungs clear in the upper lung chamberlain diminished in the right base Calves no tenderness cords pretrip edema TS Data Studies Completed and Pending Pending at discharge Category Date Time Status Blood Culture Stat Lab 06/17/25 18:34 Results Complete Blood Count w/Auto AM LABS Lab 06/20/25 04:00 Ordered Comprehensive Metabolic Panel AM LABS Lab 06/20/25 04:00 Ordered Magnesium AM LABS Lab 06/20/25 04:00 Ordered Phosphorus AM LABS Lab 06/20/25 04:00 Ordered Completed Studies During Hospitalization Category Date Time Status CT neck w con* [id number] Stat Cat Scan 06/18/25 16:50 Completed XR chest 1V portable [id number] Stat Exams 06/17/25 16:50 Completed Laboratory Last Values WBC 18.08 10^3/uL (3.29-11.43) H 06/19/25 02: RBC 2.76 10^6/uL (3.85-5.65) L 06/19/25 02:26 Hgb 9.40 g/dL (11.27-16.99) L 06/19/25 02:26 Hct 29.4 % (36-47) L 06/19/25 02: MCV 106.5 fl (85-98) H 06/19/25 02: MCH 34.1 pg (27-33) H 06/19/25 02: MCHC 32.0 g/dL (30-55) 06/19/25 02: RDW 15.6 % (12.1-15.1) H 06/19/25 02: Plt Count 175 10^3/cmm (157-399) 06/19/25 02: MPV 10.2 fL (7.4-10.4) 06/19/25 02: Neut % (Auto) 93.0 % 06/19/25 02: Lymph % (Auto) 2.4 % 06/19/25 02: [place] % (Auto) 3.7 % 06/19/25 02:26 Eos % (Auto) 0.0 % 06/19/25 02: Baso % (Auto) 0.1 % 06/19/25 02: Neut # (Auto) 16.80 10^3/uL (1.8-7.7) H 06/19/25 02: Lymph # (Auto) 0.4 10^3/uL (0.8-4.8) L 06/19/25 02: [place] # (Auto) 0.7 10^3/uL (0.2-0.9) 06/19/25 02: Eos # (Auto) 0.0 10^3/uL (0.0-0.8) 06/19/25 02: Baso # (Auto) 0.0 10^3/uL (0.0-0.1) 06/19/25 02: Nucleated RBC % (auto) 0 % 06/19/25 02: Nucleated RBCs # 0.0 /100WBC 06/19/25 02:26 Sodium 136 mmol/L (136-145) 06/19/25 02:26 Potassium 3.7 mmol/L (3.5-5.1) 06/19/25 02:26 Chloride 98 mmol/L (98-107) 06/19/25 02:26 Carbon Dioxide 26 mmol/L (22-29) 06/19/25 02:26 Anion Gap 15.7 (5-19) 06/19/25 02:26 BUN 22 mg/dL (8-23) 06/19/25 02:26 Creatinine 1.1 mg/dL (0.5-0.9) H 06/19/25 02:26 GFR Calculation Not Reportable 06/19/25 02:26 Glucose 151 mg/dL (65-115) H 06/19/25 02:26 Estimat Average Glucose 82 06/19/25 02:26 Hemoglobin A1c 4.5 % (4.0-6.0) 06/19/25 02:26 Calculated Osmolality 288 mOsm/kg (285-295) 06/19/25 02:26 Lactic Acid 1.7 mmol/L (0.5-2.2) 06/17/25 18:30 Calcium 8.6 mg/dL (8.5-10.5) 06/19/25 02:26 Phosphorus 3.6 mg/dL (2.5-4.5) 06/19/25 02:26 Magnesium 2.1 mg/dL (1.7-2.3) 06/19/25 02:26 Total Bilirubin 0.5 mg/dL (0.15-1.2) 06/19/25 02:26 AST 24 U/L (0-32) 06/19/25 02:26 ALT 11 U/L (0-33) 06/19/25 02:26 Alkaline Phosphatase 108 U/L (35-105) H 06/19/25 02:26 Troponin T Baseline 73 ng/L (0-10) H 06/17/25 18:30 Troponin T 120 Minute 65.93 ng/L (0-10) H 06/17/25 20:32 Delta Troponin T -7.07 ABS# (0-10) L 06/17/25 20:32 NT-Pro-B Natriuret Pep 4179 pg/mL (0-125) H 06/17/25 18:30 Total Protein 6.6 g/dL (6.6-8.7) 06/19/25 02:26 Albumin 2.5 g/dL (3.5-5.2) L 06/19/25 02:26 Globulin 4.1 g/dL (1.3-4.6) 06/19/25 02:26 Procalcitonin 0.17 ng/mL (0-0.5) 06/17/25 20:32 TSH 27.50 uIU/mL (0.27-4.20) H 06/17/25 18:30 Urine Color Yellow (Yellow) 06/18/25 17:06 Urine Appearance Cloudy (CLEAR) A 06/18/25 17:06 Urine pH 5.0 (5-7) 06/18/25 17:06 Ur Specific [place] 1.014 (1.005-1.030) 06/18/25 17:06 Urine Protein Negative (Negative) 06/18/25 17:06 Urine Glucose (UA) Negative (Normal) 06/18/25 17:06 Urine Ketones Trace (Negative) 06/18/25 17:06 Urine Blood Negative (Negative) 06/18/25 17:06 Urine Nitrate Negative (Negative) 06/18/25 17:06 Urine Bilirubin Negative (Negative) 06/18/25 17:06 Urine Urobilinogen 0.2 mg/dL (Negative) 06/18/25 17:06 Ur Leukocyte Esterase Negative (Negative) 06/18/25 17:06 Urine RBC 0-2 /hpf (0-2) 06/18/25 17:06 Urine WBC 0-5 /hpf (0-5) 06/18/25 17:06 Ur Squamous Epith Cells 0-5 /hpf (0-5) 06/18/25 17:06 Amorphous Sediment Not Reportable 06/18/25 17:06 Urine Bacteria None seen /hpf (NONE) 06/18/25 17:06 Hyaline Casts 10.73 /lpf 06/18/25 17:06 Radiology Impressions Chest X-Ray 06/17/25 16:50 IMPRESSION: Interval development of a moderate right pleural effusion with right basilar opacities which could represent atelectasis, though superimposed infection is not excluded. Neck CT 06/18/25 16:50 IMPRESSION: 1. In the region of the prior mass in the left aspect of the floor of the mouth, there is a new cavity with layering fluid and gas collection measuring 4.1 x 3.7 x 3.2 cm with peripheral enhancement, compatible with abscess. 2. Left cervical chain lymphadenopathy and confluent soft tissue density surrounding the inferior aspect of the left internal jugular vein, as above, compatible with metastatic disease. 3. Extensive mediastinal lymphadenopathy and multiple bilateral pulmonary nodules, compatible with metastatic disease. 4. New large right pleural effusion, incompletely visualized. 5. A 1.5 cm enhancing nodule arises from the superior aspect of the right thyroid lobe. COMMENTS: Consistent with the [employer]'s Incidental Findings Committee white paper (J Am Jo-Ann Radiol 2015): In patients aged 35 years and older with an incidental thyroid nodule equal to or greater than 1.[address], MRI or extrathyroidal US, further evaluation with dedicated thyroid US is recommended for patients with normal life expectancy and without comorbidities. For smaller nodules without suspicious features, no further evaluation or follow up is recommended. Recent Clincial Data Last Vital Signs Temp 96.7 F L 06/19/25 07:17 Pulse 89 06/19/25 07:17 Resp 20 H 06/19/25 07:17 BP 92/63 06/19/25 07:17 Pulse Ox 92 06/19/25 07:17 O2 Del Method Room Air 06/19/25 03:18 O2 Flow Rate 2 06/17/25 21:02 Vital Signs Temp Pulse Resp BP Pulse Ox O2 Del Method 06/19/25 07:17 96.7 F L 89 20 H 92/63 92 06/19/25 03:18 97.8 F 79 18 96/62 90 Room Air 06/18/25 23:05 97.6 F 86 16 94/59 90 Room Air Intake & Output/Weight 06/17/25 06/18/25 06/19/25 06/20/25 06:59 06:59 06:59 06:59 Intake Total 693.459 / 355.781 8344.875 / 3537.875 50 / 50 Output Total 700 / 700 Balance 693.459 / 375.675 9438.875 / 2837.875 50 / 50 Weight 76.204 kg 76.975 kg Vitals Last Vital Signs Temp 96.7 F L 06/19/25 07:17 Pulse 89 06/19/25 07:17 Resp 20 H 06/19/25 07:17 BP 92/63 06/19/25 07:17 Pulse Ox 92 06/19/25 07:17 O2 Del Method Room Air 06/19/25 03:18 O2 Flow Rate 2 06/17/25 21:02 TS Medications Medications Acetaminophen (Acetaminophen 325 Mg Tablet) 650 mg PO Q6H PRN PRN Reason: Mild/Mod Pain Or Temp >/= 101 Last Admin: 06/18/25 02:12 Dose: 650 mg Cefepime HCl (Cefepime 2,000 Mg Sdv) 2,000 mg IVP Q12H RAFI; Protocol Last Admin: 06/18/25 22:44 Dose: 2,000 mg Docusate Sodium (Docusate Sodium 100 Mg Capsule) 100 mg PO BID [facility] Last Admin: 06/19/25 08:50 Dose: Not Given Heparin Sodium (Porcine) (Heparin 5,000 Unit/Ml Inj 1 Ml) 5,000 unit SUBCUT Q12H RAFI Last Admin: 06/18/25 22:44 Dose: 5,000 unit Diltiazem HCl 100 mg/ Sodium (Chloride) 100 mls @ 0 mls/hr IV .Q0M RAFI; Protocol Last Titration: 06/18/25 09:30 Dose: 0 mg/hr, 0 mls/hr Sodium Chloride (Sodium Chloride 0.9%) 1,000 mls @ 75 mls/hr IV .[id number] [facility] Last Admin: 06/19/25 02:19 Dose: 75 mls/hr Clindamycin HCl/Dextrose (Cleocin) 900 mg in 50 mls @ 100 mls/hr IV Q8H RAFI; Protocol Last Infusion: 06/19/25 08:13 Dose: Infused Levothyroxine Sodium (Levothyroxine 150 Mcg Tablet) 150 mcg PO QAM RAFI Last Admin: 06/19/25 05:17 Dose: 150 mcg Methylprednisolone Sodium Succinate (Methylprednisolone Sod Succ 40 Mg/Ml Inj) 40 mg IVP Q12H RAFI Last Admin: 06/18/25 22:44 Dose: 40 mg Morphine Sulfate (Morphine 4 Mg/Ml Sdv 1 Ml) 2 mg IVP Q4H PRN PRN Reason: SEVERE PAIN Ondansetron HCl (Ondansetron 2 Mg/Ml Sdv 2 Ml) 4 mg IVP Q8H PRN PRN Reason: vomiting, or N/V if npo Last Admin: 06/18/25 07:25 Dose: 4 mg Pantoprazole Sodium (Pantoprazole Dr 40 Mg Tablet) 40 mg PO DAILY RAFI Last Admin: 06/19/25 08:50 Dose: Not Given Discontinued Medications Azithromycin (Azithromycin 500 Mg Sdv) 500 mg IV ONCE ONE; Protocol Stop: 06/17/25 19:29 Last Admin: 06/17/25 20:34 Dose: Not Given Cefepime HCl (Cefepime 2,000 Mg Sdv) 2,000 mg IVP Q8H RAFI; Protocol Last Admin: 06/18/25 06:05 Dose: 2,000 mg Ceftriaxone Sodium (Ceftriaxone 1,000 Mg Sdv) 1,000 mg IVP ONCE ONE; Protocol Stop: 06/17/25 19:29 Last Admin: 06/17/25 21:01 Dose: 1,000 mg Clindamycin HCl/Dextrose (Clindamycin 300 Mg/50 Ml Additive) 900 mg IV Q8H RAFI Last Admin: 06/17/25 23:59 Dose: Not Given Diltiazem HCl (Diltiazem 5 Mg/Ml Sdv 5 Ml) 10 mg IVP ONCE ONE Stop: 06/17/25 17:09 Last Admin: 06/17/25 17:30 Dose: 10 mg Azithromycin 500 mg/ Sodium (Chloride) 250 mls @ 250 mls/hr IV ONCE ONE; Protocol Stop: 06/17/25 21:25 Last Infusion: 06/17/25 22:32 Dose: Infused Magnesium Sulfate (Magnesium Sulfate Premix) 4 gm in 100 mls @ 50 mls/hr IV ONCE ONE Stop: 06/18/25 00:00 Last Admin: 06/17/25 22:32 Dose: Not Given Magnesium Sulfate (Magnesium Sulfate Premix) 4 gm in 100 mls @ 50 mls/hr IV ONCE ONE Stop: 06/18/25 00:00 Last Infusion: 06/18/25 01:40 Dose: Infused Clindamycin HCl/Dextrose (Cleocin) Confirm Administered Dose 900 mg in 50 mls @ as directed .ROUTE .STK-MED ONE Stop: 06/17/25 23:19 Sodium Chloride (Sodium Chloride 0.9%) 1,000 mls @ 999 mls/hr IV .Q1H1M ONE Stop: 06/18/25 10:51 Last Infusion: 06/18/25 12:29 Dose: Infused Iohexol (Iohexol 350 Mg/Ml 500 Ml Btl (Per Ml)) 0 ml IV ONCE ONE Stop: 06/18/25 16:59 Last Admin: 06/18/25 16:59 Dose: 80 ml Methylprednisolone Sodium Succinate (Methylprednisolone Sod Succ 125 Mg/2 Ml Inj) 125 mg IVP ONCE ONE Stop: 06/17/25 19:30 Last Admin: 06/17/25 21:01 Dose: 125 mg Potassium Chloride (Potassium Chloride Oral Liq 20 Meq/15 Ml Udc) 40 meq PO ONCE ONE Stop: 06/17/25 22:02 Last Admin: 06/17/25 22:32 Dose: Not Given Potassium Chloride (Potassium Chloride Oral Liq 20 Meq/15 Ml Udc) 40 meq PO ONCE ONE Stop: 06/17/25 22:02 Last Admin: 06/17/25 23:43 Dose: 40 meq Allergies hydromorphone (From Dilaudid) Allergy (Verified 05/31/25 08:53) vomiting Home Medications albuterol sulfate 90 mcg/actuation aerosol inhaler 1 inh inhalation QID PRN Shortness Of Breath 06/18/25 [History Confirmed 06/18/25] amiodarone 200 mg tablet 200 mg feeding tube BID 06/18/25 [History Confirmed 06/18/25] aspirin 81 mg tablet,delayed release 81 mg feeding tube DAILY 06/18/25 [History Confirmed 06/18/25] lactose-reduced food with fiber 0.06 gram-1.5 kcal/mL oral liquid (Jevity 1.5 Oskar) See Rx Instructions .Route .COMPLEX 06/18/25 [History Confirmed 06/18/25] levothyroxine 150 mcg tablet 150 mcg feeding tube DAILY 06/18/25 [History Confirmed 06/18/25] methocarbamol 750 mg tablet 750 mg feeding tube TID PRN muscle spasms 06/18/25 [History Confirmed 06/18/25] metoprolol tartrate 25 mg tablet 50 mg feeding tube BID 06/18/25 [History Confirmed 06/18/25] potassium chloride 20 mEq oral packet 20 meq feeding tube BID 06/18/25 [History Confirmed 06/18/25] Discharge Plan Discharge Patient Disposition: Home Condition: Stable Prescriptions: No Action amiodarone 200 mg Tablet 200 mg feeding tube BID aspirin [Aspir-81] 81 mg Tablet,Delayed Release (Dr/Ec) 81 mg feeding tube DAILY potassium chloride 20 mEq Packet 20 meq feeding tube BID methocarbamol 750 mg Tablet 750 mg feeding tube TID PRN (Reason: muscle spasms) levothyroxine 150 mcg Tablet 150 mcg feeding tube DAILY albuterol sulfate 90 mcg/actuation Hfa Aerosol Inhaler 1 inh INHALATION QID PRN (Reason: Shortness Of Breath) metoprolol tartrate 25 mg Tablet 50 mg feeding tube BID Jevity 1.5 Oskar 0.06 gram-1.5 kcal/mL Liquid See Rx Instructions .ROUTE .COMPLEX Rx Instructions: Take 240ml via feeding tube at 8am, 12 noon, 4pm and 480ml at 8pm daily. Discharge Order = DC NOW: Discharge Order (Routine); Ordered 06/19/25 Ordered By: Omar Cadena Referrals: Gemini Morris MD [Primary Care Provider, [facility]] Discharge Diet: Resume prior tube feeds Discharge Activity: Resume usual activity Patient Instructions: Opioid Safety, Patient Portal & Jensen Instructions Transfer Attestations Time Spent in Transfer Care: greater than 30 min Quality Metrics Clinical Quality Measures [ No reported AMI, CVA or VTE this stay] Coding Level of Care Code 83389 Diagnoses Cancer of floor of mouth C04.9 Pneumonia J18.9 Bacteremia R78.81 Atrial fibrillation with RVR I48.91 Dysphagia R13.10 Hypothyroidism E03.9 Time Spent (min) 60
[2025-06-19] MEDS: dilTIAZem 100 MG in sodium chloride 0.9% (add-van) 100 ML IV (10:45)
[2025-06-19] MEDS: cefepime 2,000 mg SDV 2000 MG IVP (10:53)
[2025-06-19] MEDS: methylPREDNISolone sod succ 40 mg/mL INJ IVP (10:53)
[2025-06-19] MEDS: heparin 5,000 unit/mL INJ 1 mL 5000 UNIT SUBCUT (10:53)
[2025-06-19 11:17] VITALS: BP 100/86; PULSE 122; RESP 54; O2SAT 96
[2025-06-19] MEDS: piperacillin-tazobactam 4.5 GM in sodium chloride 0.9% (plus) 50 ML IV (12:06)
[2025-06-19] MEDS: chlorhexidine gluconate 0.12% Btl 473 mL 15 ML MUCOUS MEM (13:24)
[2025-06-19 16:00] VITALS: BP 102/61; PULSE 85; RESP 22; TEMP 36.1; O2SAT 94
[2025-06-19 18:36] VITALS: BP 111/71; PULSE 84; RESP 21; TEMP 36.9; O2SAT 95
[2025-06-19 19:18] VITALS: BP 98/65; PULSE 90; RESP 19; TEMP 36.6; O2SAT 90
--- NOTE | 2025-06-19 20:24 | PC.NURSE ---
patient left via EMS at 2018, all belongs were with patient, contacted Yina stating she just left our [facility] and was heading up to [facility]. Contacted [facility] to state that patient left our facility at this time.
== END 2025-06-19 20:18 | disposition short-term general hospital (02) | DRG 193 ==
LOC: ER 20:31 → CSU 22:13
PROVIDERS: Family Medicine; Admitting Provider Internal Medicine; Emergency Provider Emergency Medicine; PCP Family Medicine; Visit Provider Internal Medicine
DX: J18.9 Pneumonia, unspecified organism (principal); J96.01 Acute respiratory failure with hypoxia; D84.9 Immunodeficiency, unspecified; R78.81 Bacteremia; I48.91 Unspecified atrial fibrillation; R13.10 Dysphagia, unspecified; E03.9 Hypothyroidism, unspecified; C32.9 Malignant neoplasm of larynx, unspecified; J44.9 Chronic obstructive pulmonary disease, unspecified; F17.210 Nicotine dependence, cigarettes, uncomplicated; E83.42 Hypomagnesemia; Z92.21 Personal history of antineoplastic chemotherapy; Z92.3 Personal history of irradiation
CPT/HCPCS: 36415; 36591; 70491; 71045; 80053; 81001; 83036; 83605; 83735; 83880; 84100; 84145; 84443; 84484; 85025; 87040; 87077; 87150; 87205; 93005; 96365; 96366; 96367; 96372; 96375; 97110; 99285; J0456; J0692; J0696; J1100; J1644; J2405; J2543; J2919; J3475; J3490; J7030; J7050; J9999